=== PATIENT | female | born 1940 | race Caucasian/White ===

== ENCOUNTER 2019-11-22 09:11 | Inpatient (IN) | payer MEDICARE, SELFPAY ==
--- NOTE | ~2019-11-22 | XR_ITS ---
EXAMINATION: XR hip BI 2V w AP pelvis EXAM DATE: 11/22/2019 20:02 INDICATION: Bilateral hip pain. States history of fall several weeks ago. Pain more on the left side. TECHNIQUE: Each hip imaged independently (separate right and also left hip) 'frog leg' and frontal p rojections for interpretation. Frontal projection pelvis. Correlation is made to postoperative left hip x-ray 2003. FINDINGS: There is intact left hip arthroplasty. Possible acute nondisplaced left pubic symphysis c losed posttraumatic fracture. Bowel gas overlies the sacrum but the sacral arcuate lines appear intac t. The right hip is intact. 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 IMPRESSION: Possible acute left pubic symphysis fracture. Reviewed, dictated and finalized at location A.
--- NOTE | ~2019-11-22 | US_ITS ---
EXAMINATION: US venous doppler [facility] DATE: 11/23/2019 14:21 INDICATION: Lower limb pain and swelling. TECHNIQUE: Grayscale ultrasound images without and with compression and Doppler ultrasound images of the bilateral lower extremity veins were obtained. COMPARISON: Ultrasound 06/18/2017 FINDINGS: The visualized portions of right common femoral vein, profunda (deep) femoral vein, femoral vein, pop liteal vein, peroneal veins, posterior tibial veins, and greater saphenous vein outflow are patent. The visualized portions of left common femoral vein, profunda femoral vein, femoral vein, popliteal v ein, peroneal veins, posterior tibial veins, and greater saphenous vein outflow are patent. IMPRESSION: 1. No deep venous thrombosis. Reviewed, dictated and finalized at location A.
--- NOTE | ~2019-11-22 | XR_ITS ---
EXAMINATION: XR chest 2V DATE: 11/22/2019 10:32 INDICATION: Transient alteration of awareness. TECHNIQUE: Frontal and lateral views of the chest were obtained. COMPARISON: Chest 2 views 06/18/2017 FINDINGS: Again seen is mild elevation of left hemidiaphragm. There is mild atelectasis at the lung b ases. No pleural effusion or pneumothorax. The heart size is normal. There are old healed right rib f ractures. There is a chronic compression fracture of mid thoracic spine. There is a burst fracture of T12. IMPRESSION: 1. Mild atelectasis at the lung bases. 2. Burst fracture of T12, new from 06/18/2017, but likely chronic. Reviewed, dictated and finalized at location A.
--- NOTE | ~2019-11-22 | CT_ITS ---
EXAMINATION: CT brain wo con DATE: 11/22/2019 10:25 INDICATION: Confusion. Altered mental state. TECHNIQUE: Computed tomography (CT) of the head was performed without intravenous contrast. The mA wa s adjusted according to patient size. Iterative reconstruction technique was employed. Exam dose: 60 5.33 mGy-cm total exam DLP. COMPARISON: 12/12/2010 CT brain FINDINGS: Chronic lacunar infarcts are suggested in the area of the anterior limb of the bilateral in ternal capsules. There is nonspecific diminished attenuation of the subcortical and periventricular c erebral white matter, likely due to chronic small vessel ischemic changes. There is cerebellar and cerebral volume loss consistent with atrophy. There are bilateral basal gangl ia calcifications. Bilateral carotid siphon and vertebral artery calcifications. No intracranial mass lesion, hemorrhage, midline shift or mass effect is evident. No recent cerebrova scular accident is evident, but CT is not sensitive for detection of ischemic hyperacute CVA. No subdural or epidural hematoma. There is mild mucoperiosteal thickening of the right sphenoid sinus. Bilateral hyperostosis frontalis interna. No skull fracture or bone destruction. There is opacification of a small minority of left mastoid air cells. The mastoid air cells and paran samara sinuses are otherwise unremarkable. IMPRESSION: Cerebral and cerebellar volume loss and chronic bilateral lacunar infarcts in the region of the anterior limb of the internal capsules Cerebral atherosclerosis and chronic small vessel ischemic changes of the cerebral white matter No acute intracranial finding Reviewed, dictated and finalized at Location A. Reviewed, dictated and finalized at location A. IMPRESSION: Cerebral and cerebellar volume loss and chronic bilateral lacunar infarcts in the region of the anterior limb of the internal capsules Cerebral atherosclerosis and chronic small vessel ischemic changes of the cereb ral white matter No acute intracranial finding
[2019-11-22 09:23] VITALS: BP 130/77; PULSE 91; RESP 24; TEMP 36.7; O2SAT 96
--- NOTE | 2019-11-22 09:39 | ECG_ITS ---
Measurements Intervals [place] Rate: 94 P: 57 WI: 192 QRS: -20 QRSD: 94 T: 14 QT: 385 QTc: 482 Interpretive Statements SINUS RHYTHM LOW QRS VOLTAGE IN PRECORDIAL LEADS BORDERLINE T WAVE ABNORMALITY- ANT/INF LEADS BASELINE ARTIFACT- I, III, AVR, AVL, AVF BORDERLINE ECG Electronically Signed On 11-22-2019 11:40:10 CDT by Oren Fleming D.O.
--- NOTE | 2019-11-22 09:40 | ED.AMS ---
HPI - Altered Mental Status General Chief Complaint: Neuro Symptoms/Deficit Stated Complaint: FALL/AMS Time Seen by Provider: 11/22/19 09:28 Source: patient, EMS and old records reviewed Mode of arrival: EMS Limitations: altered mental status History of Present Illness HPI narrative: Patient is a 79-year-old female who presents to the emergency department with complaint of altered mental status. Patient lives alone. EMS is familiar with this patient and used to take calls to her home frequently for falls in the past. Patient had at one point been in a long term, but is now living alone at home again. EMS reports patient caregiver comes to her house Wednesday, Wednesday, and Wednesday and tries to help with household tasks and cleaning. Caregiver reports coming to her house this morning and noting significant disarray and filth in patient's house. Patient caregiver had gone outside and when she returned back into the house, patient had fallen and was laying on the floor confused. On EMS arrival, they noted that patient had urine and feces all over the house and the house was in utter disarray. Patient was confused and combative with them and was not appropriately answering questions. Patient did not have any focal neurologic deficits in terms of her motor function. She was noted to have dried feces on her hands. On arrival to the emergency department, nursing staff bathed patient as she had dried feces in her perineal region and was rather disheveled. On my evaluation, patient knows where she is at and knows that it is 2020. She is able to answer my questions reasonably appropriate, but is a poor historian overall. Patient is currently complaining of nausea and denying any vomiting. She denies any other current symptoms including chest pain, abdominal pain, difficulty breathing, or fever. complaint: altered mental status Onset (ago): unknown Related Data Allergies Allergy/AdvReac Type Severity Reaction Status Date / Time red dye Allergy Severe FACIAL Verified 08/31/18 09:48 SWELLING Review of Systems Review of Systems: All systems reviewed & are unremarkable except as noted in HPI and below Cardiovascular: Cardiovascular: Denies chest pain Respiratory: Respiratory: Denies cough and Denies dyspnea Gastrointestinal: Gastrointestinal: Denies abdominal pain, Denies diarrhea, Reports nausea and Denies vomiting Neurologic: Denies headache(s) PMFSH Past Medical History Medical History Depression DVT (deep venous thrombosis) Hyperlipidemia Hypertension Osteoarthritis Psoriasis Reflux esophagitis Surgical History Surgical History History of colonoscopy History of esophagogastroduodenoscopy (EGD) History of hernia repair History of total left hip arthroplasty Family History Family History (Updated 11/22/19 @ 16:32 by Thor Echevarria RN) Other Diabetes mellitus Social History Social History Smoking status: Former smoker Alcohol intake: former Substance use: never Additional living arrangements comments: Has caregiver visiting 3 days a week Gender identity (if verbalized by the patient): Female Spiritual care concerns: No Exam Const: General: cooperative, no acute distress and alert Nutritional Appearance: obese Orientation/consciousness: oriented to person, oriented to place and No oriented to time (Knows year, but not date) Limitations: altered mental status HENMT: Mouth: Yes lip normal and Yes moist mucous membranes Eyes: Conjunctivae: conjunctivae normal Pupils: Equal, round and reactive pupils present Resp: Effort & Inspection: normal respiratory effort Auscultation: clear to auscultation bilaterally Cardio: Rate: regular rate Rhythm: regular rhythm GI: GI Palp: Yes Soft to palpation and No Tenderness to
[2019-11-22] MEDS: ONDANSETRON INJ 4 MG/2 ML VIAL IV PUSH (10:01)
--- NOTE | 2019-11-22 10:17 | PC.NURSE ---
Pts residential care facility manager is Ana Bell [phone]
--- NOTE | 2019-11-22 10:18 | PC.NURSE ---
Pt taken to CT Scan
[2019-11-22 10:55] LABS: Add Urine Microscopic? YES; Appearance Urine Cloudy (Clear); Bacteria Urine Trace /hpf; Bilirubin Urine Negative (Negative); Blood Urine Negative (Negative); Color Urine Yellow (Yellow); Glucose Urine UA Negative (Negative); Ketones Urine Negative (Negative); Leukocyte Esterase Ur 2+ LEU/UL (Negative); Mucus Urine Rare /lpf; Nitrate Urine Negative (Negative); Protein Urine 2+ mg/dL (Negative); RBC Urine 0-2 /hpf (0-2); Specific Grav Ur 1.013 (1.001-1.035); Urobilinogen Urine Negative mg/dL (<2.0); WBC Urine >75 /hpf
[2019-11-22 10:58] LABS: Basophils Percent Auto 0.3 % (0.2-1.2); Eosinophils Absolute Auto 0.1 K/mm3 (0-0.3); Eosinophils Percent Auto 0.7 % (0-4.4); Hematocrit 36.4 % (37.0-47.0); Hemoglobin 11.4 g/dL (12.0-15.0); Immature Granulocyte Absolute 0.03 K/mm3 (0.00-0.031); Immature Granulocyte Percent A 0.4 % (0-0.5); Lymphocytes Absolute Auto 0.89 K/mm3 (0.9-3.2); Lymphocytes Percent Auto 13.1 % (18.3-44.2); Mean Corpuscular HGB Conc 31.3 g/dl (32-36); Mean Corpuscular Volume 95.8 fl (80-100); Mean Platelet Volume 9.8 fl (7.4-10.4); Monocytes Absolute Auto 0.3 K/mm3 (0.1-0.6); Monocytes Percent Auto 4.3 % (2.6-8.5); Neutrophils Absolute Auto 5.5 K/mm3 (1.3-6.7); Neutrophils Percent Auto 81.2 % (45.5-73.1); Platelet Count Result 179 k/mm3 (150-375); Red Cell Distribution Width 15.1 % (11.5-14.5); White Blood Count 6.8 K/mm3 (4.5-10.0)
[2019-11-22 11:08] LABS: INR 1.1; Prothrombin Time 13.4 Seconds (11.1-14.7)
[2019-11-22 11:10] LABS: Lactic Acid Reflex 1.1 mmol/L (0.7-2.1); Lipase 172 U/L (23-300)
[2019-11-22 11:21] VITALS: BP 121/76; PULSE 94; RESP 21; O2SAT 96
[2019-11-22 11:21] LABS: Troponin I < 0.012 ng/mL (0.000-0.034)
--- NOTE | 2019-11-22 11:22 | PC.NURSE ---
tried to call pts customer care specialist, per pts request but no one answered phone. No option to leave message
[2019-11-22 11:26] LABS: Alanine Aminotransferase 12 U/L (4-35); Albumin Level 3.7 g/dL (3.5-5.1); Alkaline Phosphatase 78 U/L (38-126); Aspartate Amino Transferase 30 U/L (14-36); Bilirubin,Total 0.4 mg/dL (0.2-1.3); Blood Urea Nitrogen 29 mg/dL (7-17); Calcium 8.2 mg/dL (8.4-10.2); Carbon Dioxide 21 mmol/L (22-30); Chloride 110 mmol/L (98-107); Creatine Kinase 158 U/L (30-135); Estimated CRCL calculation 30 ml/min; Estimated Glomerular Filt Rate 29; Glucose 128 mg/dL (65-105); Magnesium 2.1 mg/dL (1.6-2.3); Phosphorus 3.8 mg/dL (2.5-4.5); Potassium 3.8 mmol/L (3.4-5.0); Sodium 140 mmol/L (137-145)
[2019-11-22 12:42] LABS: Lactic Acid Reflex 0.7 mmol/L (0.7-2.1)
[2019-11-22] MEDS: SODIUM CHLORIDE 0.9% IV 1,000 ML 125 ML IV CONT (12:50)
--- NOTE | 2019-11-22 12:59 | PC.NURSE ---
called to give report on pt. Was told by RN that accepting RN was on phone with and will call me back.
--- NOTE | 2019-11-22 13:10 | ADMGEN ---
This patient, Elizabet Sanon, was admitted to Medical Room 247-. Patient/family oriented to hospital policies and general routines including ID bracelet, bed and alarms, visiting hours, pain management, procedures, bathroom and other care routines, personal items, smoking policy, room service/diet, and visiting hours. Valuables list has been completed. Information on how to activate the Rapid Response Team has been discussed. Patient/Family are encouraged to report perceived risks to care and to ask questions if they do not understand what they are told or what they should do.
[2019-11-22 14:00] VITALS: BP 106/55; PULSE 80; RESP 18; TEMP 36; O2SAT 96; BMI 32.8
[2019-11-22 14:35] VITALS: BMI 10.0
[2019-11-22 14:37] VITALS: BMI 10.0
--- NOTE | 2019-11-22 18:08 | PC.NURSE ---
Spoke with pharmacy, no current medication list available. Spoke with foster care therapist, who is bringing medication bottles to the hospital. Will input meds when they arrive.
--- NOTE | 2019-11-22 19:14 | PM.IMHP ---
H&P: HPI History of Present Illness Chief complaint: uti,dehydration,poor mobility Narrative: Elizabet Sanon is a 79 year old female. She has never been or had any children. She has a help at home that comes and helps her. Her helper found her on the floor inside of her house today. The patient was covered with feces and urine. The patient does not recall what happened prior to falling. The patient states that she has chronic diarrhea. Her caregivers Maryann 1 minutes day Wednesday and Wednesday. They come in and clean. According to your notes the patient's caregiver to gone outside when she returned back into the house patient had fallen was lying on the floor confused. The patient is awake and talking now. She was found to have a UTI and started on Rocephin. Creatinine was found to be 1.7. Head CT was read as no acute intracranial findings. Chest x-ray burst fracture of T12 new from 06/18/2017 but likely chronic. Patient stated that she used to fall lot in the past. And started on ceftriaxone. Date of service is 11/22/2019. She denies any fever chills. Review of Systems Review of Systems: Narrative: She denies any fever chills. All systems reviewed & are unremarkable except as noted in HPI and below Constitutional: Constitutional: Reports as per HPI and Reports no additional constitutional complaints Eyes: Eyes: Reports as per HPI and Reports no additional eye complaints ENT: Reports system reviewed and no additional complaints, except as documented and Reports Normal hearing present Cardiovascular: Cardiovascular: Reports no additional cardiovascular complaints Respiratory: Respiratory: Reports no additional respiratory complaints and Reports no additional respiratory complaints Gastrointestinal: Gastrointestinal: Reports as per HPI and Reports no additional gastrointestinal complaints Musculoskeletal: Musculoskeletal: Reports no additional musculoskeletal complaints Integumentary/Breasts: Skin/Breast: Reports system reviewed and no additional complaints, except as docu and Reports as per HPI Neurologic: Reports system reviewed and no additional complaints, except as documented, Reports as per HPI and Reports Normal hearing present Psychiatric: Psychiatric: Reports no additional psychiatric complaints and Reports as per HPI Endocrine: Endocrine: Reports no additional endocrine complaints Hematologic/Lymphatic: Hematologic/Lymphatic: Reports no additional hematologic/lymphatic complaints Allergic/Immunologic: Allergic/Immunologic: Reports no additional allergic/immunologic complaints [facility] Past Medical History Medical History (Updated 11/22/19 @ 19:27 by Ivelisse Womack NP) Chronic diarrhea Depression DVT (deep venous thrombosis) Right leg Hyperlipidemia Hypertension Osteoarthritis Psoriasis Reflux esophagitis Surgical History Surgical History History of colonoscopy History of esophagogastroduodenoscopy (EGD) History of hernia repair History of total left hip arthroplasty Family History Family History Other Diabetes mellitus Social History Social History (Updated 11/22/19 @ 19:23 by Ivelisse Womack NP) Social History: 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 She has never been or had any children. She said she used to smoke many years ago. She is socially drink but no longer drinks no illicit drugs or marijuana. She desires to be a full code and chooses her 2 nephews to be her durable power city attorney for healthcare. Smoking status: Former smoker Alcohol intake: former Substance use: never Additional living arrangements comments: Has caregiver visiting 3 days a week Occupation/Education: retired Gender identity (if verbalized by the patient): Female Spiritual care concerns: No Meds Home Medication
[2019-11-22 22:00] VITALS: BP 119/70; PULSE 73; RESP 16; TEMP 36.4; O2SAT 95
[2019-11-23] MEDS: TOLNAFTATE 1% POWDER 45 GM BTL 1 APPLIC TOPICAL ×3 (01:06→20:16)
[2019-11-23] MEDS: SODIUM CHLORIDE 0.9% IV 1,000 ML 125 ML IV CONT ×3 (03:44→20:16)
[2019-11-23 05:49] VITALS: BP 141/80; PULSE 72; RESP 16; TEMP 36.4; O2SAT 95
[2019-11-23 06:27] LABS: Basophils Percent Auto 0.4 % (0.2-1.2); Eosinophils Absolute Auto 0.2 K/mm3 (0-0.3); Eosinophils Percent Auto 3.9 % (0-4.4); Hematocrit 30.9 % (37.0-47.0); Hemoglobin 9.7 g/dL (12.0-15.0); Immature Granulocyte Absolute 0.01 K/mm3 (0.00-0.031); Immature Granulocyte Percent A 0.2 % (0-0.5); Lymphocytes Percent Auto 38.7 % (18.3-44.2); Mean Corpuscular HGB Conc 31.4 g/dl (32-36); Mean Corpuscular Hemoglobin 29.6 pg (26-34); Mean Corpuscular Volume 94.2 fl (80-100); Mean Platelet Volume 9.6 fl (7.4-10.4); Monocytes Absolute Auto 0.4 K/mm3 (0.1-0.6); Monocytes Percent Auto 8.1 % (2.6-8.5); Neutrophils Absolute Auto 2.6 K/mm3 (1.3-6.7); Neutrophils Percent Auto 48.7 % (45.5-73.1); Platelet Count Result 158 k/mm3 (150-375); Red Blood Count 3.28 M/mm3 (4.2-5.4); White Blood Count 5.4 K/mm3 (4.5-10.0)
[2019-11-23 06:36] LABS: Alanine Aminotransferase 10 U/L (4-35); Alkaline Phosphatase 54 U/L (38-126); Aspartate Amino Transferase 28 U/L (14-36); Bilirubin,Total 0.5 mg/dL (0.2-1.3); Blood Urea Nitrogen 27 mg/dL (7-17); Calcium 7.3 mg/dL (8.4-10.2); Carbon Dioxide 19 mmol/L (22-30); Chloride 114 mmol/L (98-107); Estimated CRCL calculation 31 ml/min; Estimated Glomerular Filt Rate 36; Glucose 93 mg/dL (65-105); Potassium 4.3 mmol/L (3.4-5.0); Sodium 138 mmol/L (137-145)
[2019-11-23] MEDS: ATORVASTATIN 10 MG TABLET PO (10:03)
[2019-11-23] MEDS: ASPIRIN 81 MG ENTERIC TABLET PO (10:03)
[2019-11-23] MEDS: SERTRALINE HCL 50 MG TABLET 200 MG PO (10:03)
[2019-11-23] MEDS: APIXABAN 5 MG TABLET PO (10:03)
[2019-11-23 11:11] LABS: Thyroid Stimulating Hormone Reflex 0.768 uIU/mL (0.465-4.68)
--- NOTE | 2019-11-23 12:38 | PM.IMPN ---
Progress Note: A&P Assessment and Plan (1) UTI (urinary tract infection): Qualifiers: Hematuria presence: without hematuria Urinary tract infection type: site unspecified Qualified Code(s): N39.0 - Urinary tract infection, site not specified Code(s): N39.0 - Urinary tract infection, site not specified Status: Acute Assessment and Plan: . Awaiting cultures. 11/23/19 12:38 79-year-old female who lives alone at home and history of falls on and off was found by her caregiver on the floor and had a feces and urine around her EMS was called and patient was brought to the emergency department for further evaluate patient was quite disoriented upon arrival of the EMS and was not able to provide detail history review of symptom, today patient states this he had been falling on and off and was recently admitted in the hospital and had a rehab bed the nursing and discharged back home, there is no history of seizure, x-ray of the hip and pelvis showed possible acute left pubic symphysis fracture. Patient stated sees a chronic arthritis and pain along her hips and joints and had a difficult time with ambulation now with a fracture of the pelvis, will have a PT OT evaluate the patient, there was a concern the patient has a swelling of the bilateral lower extremities venous Doppler is negative for DVT. also patient UA showes leukoestrase and elevated WBC most likle UTI, started patient on rocephin, will follow up culture and sensitivity. (2) Depression: Code(s): F32.9 - Major depressive disorder, single episode, unspecified Status: Chronic Assessment and Plan: Awaiting home medications so we can restart home medications. (3) Chronic diarrhea: Code(s): K52.9 - Noninfective gastroenteritis and colitis, unspecified Status: Chronic Assessment and Plan: Patient stated she has had diarrhea for years. (4) Hypertension: Code(s): I10 - Essential (primary) hypertension Status: Chronic Assessment and Plan: Waiting her home medication list. Her blood pressure is on the soft side so we could hold off on her blood pressure medicine tonight. (5) Hyperlipidemia: Code(s): E78.5 - Hyperlipidemia, unspecified Status: Chronic Assessment and Plan: Waiting for home medication list. (6) Tinea: Code(s): B35.9 - Dermatophytosis, unspecified Status: Acute Assessment and Plan: Continue with open a powder. (7) ARF (acute renal failure): Code(s): N17.9 - Acute kidney failure, unspecified Status: Acute Assessment and Plan: Continue with IV fluids. Recheck labs in the morning. (8) Left hip pain: Code(s): M25.552 - Pain in left hip Status: Acute Assessment and Plan: X-ray left hip and pelvis. PT OT evaluation and point of care technician for possible rehab. Subjective Date/time seen: 11/23/19 12:38 79-year-old female who lives alone at home and history of falls on and off was found by her caregiver on the floor and had a feces and urine around her EMS was called and patient was brought to the emergency department for further evaluate patient was quite disoriented upon arrival of the EMS and was not able to provide detail history review of symptom, today patient states this he had been falling on and off and was recently admitted in the hospital and had a rehab bed the nursing and discharged back home, there is no history of seizure, x-ray of the hip and pelvis showed possible acute left pubic symphysis fracture. Patient stated sees a chronic arthritis and pain along her hips and joints and had a difficult time with ambulation now with a fracture of the pelvis, will have a PT OT evaluate the patient, there was a concern the patient has a swelling of the bilateral lower extremities venous Doppler is negative for DVT. also patient UA showes leukoestrase and elevated WBC most likle UTI, started patient on rocephin, will follow
[2019-11-23 13:08] LABS: Creatinine Urine 54.9 mg/dL
[2019-11-23 13:27] LABS: MALB Creatinine Ratio 460.3 mg/g (0-30); Microalbumin Urine Random 252.7 mg/L (0-16.7)
[2019-11-23 13:39] VITALS: BP 112/56; PULSE 72; RESP 18; TEMP 36; O2SAT 94
[2019-11-23 13:39] LABS: Potassium Urine Random 8.7 meq/L; Sodium Urine Random 108 meq/L
[2019-11-23 22:00] VITALS: BP 131/74; PULSE 71; RESP 18; TEMP 36.3; O2SAT 96
[2019-11-24 05:52] LABS: Hemoglobin 9.9 g/dL (12.0-15.0); Mean Corpuscular HGB Conc 30.9 g/dl (32-36); Mean Corpuscular Hemoglobin 30.1 pg (26-34); Mean Corpuscular Volume 97.3 fl (80-100); Mean Platelet Volume 10.4 fl (7.4-10.4); Platelet Count Result 147 k/mm3 (150-375); Red Blood Count 3.29 M/mm3 (4.2-5.4); White Blood Count 5.5 K/mm3 (4.5-10.0)
[2019-11-24 06:00] VITALS: BP 119/89; PULSE 65; RESP 18; TEMP 36.3; O2SAT 96
[2019-11-24] MEDS: SODIUM CHLORIDE 0.9% IV 1,000 ML 125 ML IV CONT ×2 (09:27→18:17)
[2019-11-24] MEDS: APIXABAN 5 MG TABLET PO (09:28)
[2019-11-24] MEDS: ASPIRIN 81 MG ENTERIC TABLET PO (09:28)
[2019-11-24] MEDS: SERTRALINE HCL 50 MG TABLET 200 MG PO (09:28)
[2019-11-24] MEDS: ATORVASTATIN 10 MG TABLET PO (09:28)
[2019-11-24] MEDS: TOLNAFTATE 1% POWDER 45 GM BTL 1 APPLIC TOPICAL ×2 (09:30→20:35)
[2019-11-24 10:51] LABS: Blood Urea Nitrogen 21 mg/dL (7-17); Calcium 7.5 mg/dL (8.4-10.2); Carbon Dioxide 20 mmol/L (22-30); Chloride 116 mmol/L (98-107); Estimated CRCL calculation 31 ml/min; Estimated Glomerular Filt Rate 36; Glucose 95 mg/dL (65-105); Potassium 3.8 mmol/L (3.4-5.0); Sodium 141 mmol/L (137-145)
[2019-11-24] MEDS: LIDOCAINE 5% PATCH 1 PATCH TRANSDERM (11:13)
--- NOTE | 2019-11-24 13:01 | PM.IMPN ---
Progress Note: A&P Assessment and Plan (1) UTI (urinary tract infection): Qualifiers: Hematuria presence: without hematuria Urinary tract infection type: site unspecified Qualified Code(s): N39.0 - Urinary tract infection, site not specified Code(s): N39.0 - Urinary tract infection, site not specified Status: Acute Assessment and Plan: 11/24/19 13:01 79-year-old female who lives alone at home and history of falls on and off was found by her caregiver on the floor and had a feces and urine around her EMS was called and patient was brought to the emergency department for further evaluate patient was quite disoriented upon arrival of the EMS and was not able to provide detail history review of symptom, today patient states this he had been falling on and off and was recently admitted in the hospital and had a rehab bed the nursing and discharged back home, there is no history of seizure, x-ray of the hip and pelvis showed possible acute left pubic symphysis fracture. Patient stated sees a chronic arthritis and pain along her hips and joints and had a difficult time with ambulation now with a fracture of the pelvis, will have a PT OT evaluate the patient, there was a concern the patient has a swelling of the bilateral lower extremities venous Doppler is negative for DVT. also patient UA showes leukoestrase and elevated WBC most likle UTI, started patient on rocephin, will follow up culture and sensitivity. on 11/23 Urine culture is growing E coli ESBL resistant to Rocephin will start the patient on ertapenem, patient denies any abdominal pain nausea or vomiting fever or chills, clinically patient says the pain in her pelvis and left hip is persist difficulty with physical therapy will start the patient on low-dose of tramadol to help her with the pain as well as lidocaine patch, will consult orthopedic for further recommendation, patient will benefit from acute rehab before going home (2) Depression: Code(s): F32.9 - Major depressive disorder, single episode, unspecified Status: Chronic Assessment and Plan: Awaiting home medications so we can restart home medications. (3) Chronic diarrhea: Code(s): K52.9 - Noninfective gastroenteritis and colitis, unspecified Status: Chronic Assessment and Plan: Patient stated she has had diarrhea for years. (4) Hypertension: Code(s): I10 - Essential (primary) hypertension Status: Chronic Assessment and Plan: Waiting her home medication list. Her blood pressure is on the soft side so we could hold off on her blood pressure medicine tonight. (5) Hyperlipidemia: Code(s): E78.5 - Hyperlipidemia, unspecified Status: Chronic Assessment and Plan: Waiting for home medication list. (6) Tinea: Code(s): B35.9 - Dermatophytosis, unspecified Status: Acute Assessment and Plan: Continue with open a powder. (7) ARF (acute renal failure): Code(s): N17.9 - Acute kidney failure, unspecified Status: Acute Assessment and Plan: Continue with IV fluids. Recheck labs in the morning. (8) Left hip pain: Code(s): M25.552 - Pain in left hip Status: Acute Assessment and Plan: X-ray left hip and pelvis. PT OT evaluation and residential care officer for possible rehab. Plan is above Subjective Date/time seen: 11/24/19 13:01 79-year-old female who lives alone at home and history of falls on and off was found by her caregiver on the floor and had a feces and urine around her EMS was called and patient was brought to the emergency department for further evaluate patient was quite disoriented upon arrival of the EMS and was not able to provide detail history review of symptom, today patient states this he had been falling on and off and was recently admitted in the hospital and had a rehab bed the nursing and discharged back home, there is no history of seizure, x-ray of the hip and pe
[2019-11-24 13:25] VITALS: BP 126/68; PULSE 65; RESP 18; TEMP 36.3; O2SAT 96
[2019-11-24 22:00] VITALS: BP 137/67; PULSE 68; RESP 18; TEMP 36.1; O2SAT 98
[2019-11-25] MEDS: SODIUM CHLORIDE 0.9% IV 1,000 ML 125 ML IV CONT ×2 (00:41→09:03)
[2019-11-25 05:24] LABS: Hematocrit 29.8 % (37.0-47.0); Hemoglobin 9.2 g/dL (12.0-15.0); Mean Corpuscular HGB Conc 30.9 g/dl (32-36); Mean Corpuscular Hemoglobin 29.5 pg (26-34); Mean Corpuscular Volume 95.5 fl (80-100); Mean Platelet Volume 9.8 fl (7.4-10.4); Platelet Count Result 141 k/mm3 (150-375); Red Blood Count 3.12 M/mm3 (4.2-5.4); Red Cell Distribution Width 14.8 % (11.5-14.5); White Blood Count 5.3 K/mm3 (4.5-10.0)
[2019-11-25 05:39] LABS: Blood Urea Nitrogen 21 mg/dL (7-17); Calcium 7.3 mg/dL (8.4-10.2); Carbon Dioxide 21 mmol/L (22-30); Chloride 114 mmol/L (98-107); Estimated CRCL calculation 33 ml/min; Estimated Glomerular Filt Rate 40; Glucose 91 mg/dL (65-105); Potassium 3.6 mmol/L (3.4-5.0); Sodium 140 mmol/L (137-145)
[2019-11-25 06:00] VITALS: BP 146/82; PULSE 66; RESP 18; TEMP 36.1; O2SAT 98
--- NOTE | 2019-11-25 06:54 | PM.PNORT ---
Subjective Subjective Date/Time Seen: 11/25/19 06:54 Objective Data Vital Signs Vital Signs: Vital Signs - 24 hr 11/24/19 13:25 11/24/19 22:00 11/25/19 06:00 Temperature 36.3 C L 36.1 C L 36.1 C L Pulse Rate 65 68 66 Respiratory Rate 18 18 18 Blood Pressure 126/68 137/67 146/82 H Pulse Oximetry 96 98 98 Intake/Output Intake/Output: Intake & Output 11/22/19 11/23/19 11/24/19 11/25/19 23:59 23:59 23:59 23:59 Intake Total 390 3340 3785 1300 Balance 390 3340 3785 1300 Meds/Results Medications: Active Medications Generic Name Dose Route Start Last Admin Trade Name Freq PRN Reason Stop Dose Admin Alendronate Sodium 70 mg 11/29/19 06:30 Fosamax PO We@0630 RUDDY Apixaban 5 mg 11/23/19 09:00 11/24/19 09:28 Eliquis PO 5 mg DAILY RUDDY Administration Aspirin 81 mg 11/23/19 09:00 11/24/19 09:28 Aspirin Ec PO 81 mg DAILY RUDDY Administration Atorvastatin Calcium 10 mg 11/23/19 09:00 11/24/19 09:28 Lipitor PO 10 mg DAILY RUDDY Administration Sodium Chloride 1,000 mls @ 125 mls/hr 11/22/19 12:05 11/25/19 00:42 Normal Saline Iv IV CONT Not Given .Q8H RUDDY Ceftriaxone Sodium/Dextrose 1 gm in 50 mls @ 100 mls/hr 11/23/19 12:00 11/24/19 13:05 Rocephin 1 Gm/D5w 50 Ml IVPB Infused Q24H RUDDY Infusion Lidocaine 1 patch 11/24/19 09:00 11/24/19 11:13 Lidoderm TRANSDERM 1 patch DAILY RUDDY Administration Magnesium Gluconate 27 mg 11/23/19 09:00 11/24/19 09:28 Magonate PO 12/23/19 09:01 27 mg DAILY RUDDY Administration Sertraline HCl 200 mg 11/23/19 09:00 11/24/19 09:28 Zoloft PO 200 mg DAILY RUDDY Administration Tolnaftate 1 applic 11/22/19 21:00 11/24/19 20:35 Tolnaftate 1% Powder TOPICAL 1 applic Q12HR RUDDY Administration Tramadol HCl 25 mg 11/24/19 09:48 11/24/19 20:32 Ultram PO 25 mg Q6H PRN Administration Pain Rated 4-6 Radiology Results: ITS Impressions Head CT 11/22/19 10:31 IMPRESSION: Cerebral and cerebellar volume loss and chronic bilateral lacunar infarcts in the region of the anterior limb of the internal capsules Cerebral atherosclerosis and chronic small vessel ischemic changes of the cerebral white matter No acute intracranial finding Chest X-Ray 11/22/19 10:35 IMPRESSION: 1. Mild atelectasis at the lung bases. 2. Burst fracture of T12, new from 06/18/2017, but likely chronic. Hip/Pelvis X-Ray 11/22/19 20:08 IMPRESSION: Possible acute left pubic symphysis fracture. Venous Doppler Study 11/23/19 14:28 IMPRESSION: 1. No deep venous thrombosis. Labs Labs: Laboratory Results - last 24 hr 11/24/19 11/25/19 11/25/19 08:49 05:02 05:02 WBC 5.3 RBC 3.12 L Hgb 9.2 L Hct 29.8 L MCV 95.5 MCH 29.5 MCHC 30.9 L RDW 14.8 H Plt Count 141 L MPV 9.8 Sodium 141 140 Potassium 3.8 3.6 Chloride 116 H 114 H Carbon Dioxide 20 L 21 L BUN 21 H 21 H Creatinine 1.40 H 1.30 H Estim Creat Clear Calc 31 33 Estimated GFR 36 L 40 L Glucose 95 91 Calcium 7.5 L 7.3 L Quality VTE Prophylaxis VTE prophylaxis: mechanical ordered
--- NOTE | 2019-11-25 07:02 | PM.CNOR ---
Assessment and Plan Additional Plan Hip pain Left. No trauma. Has previous TKA b me, 1 years ago??? Has tenderness groin left X-rays show pelvic ramus FX Recommend conservative treatment Weight Bearing as tolerated F/U 2 weeks Hip looks good History of Present Illness HPI Consult date: 11/25/19 Chief complaint: uti,dehydration,poor mobility Review of Systems Musculoskeletal: Musculoskeletal: Reports as per HPI and Reports abnormal gait [facility] Past Medical History Medical History Chronic diarrhea Depression DVT (deep venous thrombosis) Right leg Hyperlipidemia Hypertension Osteoarthritis Psoriasis Reflux esophagitis Surgical History Surgical History History of colonoscopy History of esophagogastroduodenoscopy (EGD) History of hernia repair History of total left hip arthroplasty Family History Family History Other Diabetes mellitus Social History Social History Social History: 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 She has never been or had any children. She said she used to smoke many years ago. She is socially drink but no longer drinks no illicit drugs or marijuana. She desires to be a full code and chooses her 2 nephews to be her durable power immigration attorney for healthcare. Smoking status: Former smoker Alcohol intake: former Substance use: never Additional living arrangements comments: Has caregiver visiting 3 days a week Occupation/Education: retired Gender identity (if verbalized by the patient): Female Spiritual care concerns: No Meds Home Medications and Allergies Home Medications Medication Instructions Recorded Confirmed Type alendronate 70 mg PO WEEKLY 11/22/19 11/22/19 History apixaban [Eliquis] 5 mg PO DAILY 11/22/19 11/22/19 History aspirin 81 mg PO DAILY 11/22/19 11/22/19 History atorvastatin 10 mg PO DAILY 11/22/19 11/22/19 History furosemide 40 mg PO DAILY 11/22/19 11/22/19 History magnesium gluconate [Mag-G] 500 mg PO DAILY 11/22/19 11/22/19 History nystatin [Nystop] 1 applic TOPICAL BID 11/22/19 11/22/19 History sertraline 200 mg PO DAILY 11/22/19 11/22/19 History Allergies Allergy/AdvReac Type Severity Reaction Status Date / Time red dye Allergy Severe FACIAL Verified 08/31/18 09:48 SWELLING Vital Signs Vital Signs - 24 hr 11/24/19 13:25 11/24/19 22:00 11/25/19 06:00 Temperature 36.3 C L 36.1 C L 36.1 C L Pulse Rate 65 68 66 Respiratory Rate 18 18 18 Blood Pressure 126/68 137/67 146/82 H Pulse Oximetry 96 98 98 Results Labs Result Diagrams: 11/25/19 05:02 11/25/19 05:02 Labs: Abnormal lab results 11/24/19 11/25/19 11/25/19 Range/Units 08:49 05:02 05:02 RBC 3.12 L (4.2-5.4) M/mm3 Hgb 9.2 L (12.0-15.0) g/dL Hct 29.8 L (37.0-47.0) % MCHC 30.9 L (32-36) g/dl RDW 14.8 H (11.5-14.5) % Plt Count 141 L (150-375) k/mm3 Chloride 116 H 114 H (98-107) mmol/L Carbon Dioxide 20 L 21 L (22-30) mmol/L BUN 21 H 21 H (7-17) mg/dL Creatinine 1.40 H 1.30 H (0.7-1.0) mg/dL Estimated GFR 36 L 40 L (59 - ) Calcium 7.5 L 7.3 L (8.4-10.2) mg/dL H & H 11/22/19 11/23/19 11/24/19 Range/Units 10:45 06:05 05:30 Hgb 11.4 L 9.7 L 9.9 L (12.0-15.0) g/dL Hct 36.4 L 30.9 L 32.0 L (37.0-47.0) % 11/25/19 Range/Units 05:02 Hgb 9.2 L (12.0-15.0) g/dL Hct 29.8 L (37.0-47.0) % Coagulation 11/22/19 Range/Units 10:45 INR 1.1 All other labs normal. Quality VTE Prophylaxis VTE prophylaxis: mechanical ordered
[2019-11-25] MEDS: SERTRALINE HCL 50 MG TABLET 200 MG PO (09:04)
[2019-11-25] MEDS: ATORVASTATIN 10 MG TABLET PO (09:04)
[2019-11-25] MEDS: ASPIRIN 81 MG ENTERIC TABLET PO (09:04)
[2019-11-25] MEDS: LIDOCAINE 5% PATCH 1 PATCH TRANSDERM (09:04)
[2019-11-25] MEDS: APIXABAN 5 MG TABLET PO (09:04)
[2019-11-25] MEDS: TOLNAFTATE 1% POWDER 45 GM BTL 1 APPLIC TOPICAL (09:04)
--- NOTE | 2019-11-25 11:40 | PM.DS ---
DS: Diagnosis Admitting Diagnosis Admitting Diagnosis: Urinary tract infection, site not specified Discharge Diagnosis (1) UTI (urinary tract infection): Qualifiers: Hematuria presence: without hematuria Urinary tract infection type: site unspecified Qualified Code(s): N39.0 - Urinary tract infection, site not specified Code(s): N39.0 - Urinary tract infection, site not specified Status: Acute Assessment and Plan: 11/24/19 13:01 79-year-old female who lives alone at home and history of falls on and off was found by her caregiver on the floor and had a feces and urine around her EMS was called and patient was brought to the emergency department for further evaluate patient was quite disoriented upon arrival of the EMS and was not able to provide detail history review of symptom, today patient states this he had been falling on and off and was recently admitted in the hospital and had a rehab bed the nursing and discharged back home, there is no history of seizure, x-ray of the hip and pelvis showed possible acute left pubic symphysis fracture. Patient stated sees a chronic arthritis and pain along her hips and joints and had a difficult time with ambulation now with a fracture of the pelvis, will have a PT OT evaluate the patient, there was a concern the patient has a swelling of the bilateral lower extremities venous Doppler is negative for DVT. also patient UA showes leukoestrase and elevated WBC most likle UTI, started patient on rocephin, will follow up culture and sensitivity. on 11/23 Urine culture is growing E coli ESBL resistant to Rocephin will start the patient on ertapenem, patient denies any abdominal pain nausea or vomiting fever or chills, clinically patient says the pain in her pelvis and left hip is persist difficulty with physical therapy will start the patient on low-dose of tramadol to help her with the pain as well as lidocaine patch, will consult orthopedic for further recommendation, patient will benefit from acute rehab before going home (2) Depression: Code(s): F32.9 - Major depressive disorder, single episode, unspecified Status: Chronic Assessment and Plan: Awaiting home medications so we can restart home medications. (3) Chronic diarrhea: Code(s): K52.9 - Noninfective gastroenteritis and colitis, unspecified Status: Chronic Assessment and Plan: Patient stated she has had diarrhea for years. (4) Hypertension: Code(s): I10 - Essential (primary) hypertension Status: Chronic Assessment and Plan: Waiting her home medication list. Her blood pressure is on the soft side so we could hold off on her blood pressure medicine tonight. (5) Hyperlipidemia: Code(s): E78.5 - Hyperlipidemia, unspecified Status: Chronic Assessment and Plan: Waiting for home medication list. (6) Tinea: Code(s): B35.9 - Dermatophytosis, unspecified Status: Acute Assessment and Plan: Continue with open a powder. (7) ARF (acute renal failure): Code(s): N17.9 - Acute kidney failure, unspecified Status: Acute Assessment and Plan: Continue with IV fluids. Recheck labs in the morning. (8) Left hip pain: Code(s): M25.552 - Pain in left hip Status: Acute Assessment and Plan: X-ray left hip and pelvis. PT OT evaluation and careers adviser for possible rehab. Plan is above DS: Summary Hospital Course Reason for hospitalization: Elizabet Sanon is a 79 year old female. She has never been or had any children. She has a help at home that comes and helps her. Her helper found her on the floor inside of her house today. The patient was covered with feces and urine. The patient does not recall what happened prior to falling. The patient states that she has chronic diarrhea. Her caregivers Maryann 1 minutes day Wednesday and Wednesday. They come in and clean. According to your notes
--- NOTE | 2019-11-25 12:09 | PC.NURSE ---
Report called to JULIET Yañez at [place]. All questions and concerns answered at this time.
[2019-11-27 04:21] LABS: Osmolality, Urine 466 mOsm/kg (50-1200)
[2019-11-28 00:15] LABS: Myoglobin, Urine <27 mcg/L (<28)
[2019-11-29 02:10] LABS: CK-BB None Detected (None Detected); CK-MB 0 % (<5); CK-MM 100 % (95-100)
== END 2019-11-25 13:40 | DRG 690 ==
LOC: ANHED 12:14 → ANH2MED 13:02
PROVIDERS: Nurse Practitioner; Admitting Provider Internal Medicine; Emergency Provider Emergency Medicine; PCP Nurse Practitioner Adult Health; Visit Provider Family Medicine
DX: N39.0 Urinary tract infection, site not specified (principal); N17.9 Acute kidney failure, unspecified; Z16.19 Resistance to other specified beta lactam antibiotics; S32.592A Other specified fracture of left pubis, initial encounter for closed fracture; B96.20 Unspecified Escherichia coli [E. coli] as the cause of diseases classified elsewhere; E86.0 Dehydration; F32.9 Major depressive disorder, single episode, unspecified; K52.9 Noninfective gastroenteritis and colitis, unspecified; I10 Essential (primary) hypertension; E78.5 Hyperlipidemia, unspecified; B35.9 Dermatophytosis, unspecified; M25.552 Pain in left hip; M19.90 Unspecified osteoarthritis, unspecified site; L40.9 Psoriasis, unspecified; Z96.641 Presence of right artificial hip joint; Z91.81 History of falling; Z86.718 Personal history of other venous thrombosis and embolism; Z87.891 Personal history of nicotine dependence; W19.XXXA Unspecified fall, initial encounter
CPT/HCPCS: 36415; 51701; 70450; 71046; 73521; 80048; 80053; 81001; 82043; 82550; 82552; 83605; 83690; 83735; 83874; 83935; 84100; 84133; 84300; 84443; 84484; 85025; 85027; 85610; 85730; 87040; 87077; 87086; 87088; 87186; 93005; 93970; 96361; 96374; 96375; 97110; 97162; 97165; 97530; 97535; 99285; A9270; G0378; J0696; J2405; J7030

== ENCOUNTER 2020-04-14 08:03 | Emergency (ER) | payer MEDICARE, SELFPAY ==
--- NOTE | ~2020-04-14 | XR_ITS ---
EXAMINATION: XR chest 2V EXAM DATE: 04/14/2020 08:34 INDICATION: Weakness, right leg giving out. TECHNIQUE: Frontal and lateral projections of the chest obtained and reviewed. Comparison is made to prior examination from 11/22/2019. FINDINGS: The lungs are clear. There are no pleural effusions. The cardiomediastinal silhouette is within normal limits. There is no pneumothorax suspected. There is old right 7th rib fracture poste rolaterally. Elevated left hemidiaphragm with air-filled colon below. IMPRESSION: No acute cardiopulmonary findings. Reviewed, dictated and finalized at location A.
[2020-04-14 08:11] VITALS: BP 116/68; PULSE 74; RESP 18; TEMP 36.3; O2SAT 99
--- NOTE | 2020-04-14 08:11 | ECG_ITS ---
Measurements Intervals [place] Rate: 68 P: 10 CT: 159 QRS: -24 QRSD: 97 T: 4 QT: 450 QTc: 482 Interpretive Statements SINUS RHYTHM MINIMAL Q WAVES- HIGH LATERAL LEADS BORDERLINE T WAVE ABNORMALITY- INFERIOR LEADS BASELINE ARTIFACT- V4-V6 BORDERLINE ECG Electronically Signed On 04-14-2020 8:29:16 CDT by Oren Fleming D.O.
[2020-04-14 08:21] VITALS: BP 116/68; PULSE 90; RESP 23; O2SAT 99
[2020-04-14 08:53] LABS: Basophils Percent Auto 0.5 % (0.2-1.2); Eosinophils Absolute Auto 0.3 K/mm3 (0-0.3); Eosinophils Percent Auto 3.8 % (0-4.4); Hematocrit 30.3 % (37.0-47.0); Hemoglobin 9.7 g/dL (12.0-15.0); Immature Granulocyte Absolute 0.02 K/mm3 (0.00-0.031); Immature Granulocyte Percent A 0.3 % (0-0.5); Lymphocytes Absolute Auto 2.03 K/mm3 (0.9-3.2); Lymphocytes Percent Auto 30.9 % (18.3-44.2); Mean Corpuscular Hemoglobin 29.3 pg (26-34); Mean Corpuscular Volume 91.5 fl (80-100); Mean Platelet Volume 9.9 fl (7.4-10.4); Monocytes Absolute Auto 0.5 K/mm3 (0.1-0.6); Monocytes Percent Auto 7.8 % (2.6-8.5); Neutrophils Absolute Auto 3.7 K/mm3 (1.3-6.7); Neutrophils Percent Auto 56.7 % (45.5-73.1); Platelet Count Result 192 k/mm3 (150-375); Red Blood Count 3.31 M/mm3 (4.2-5.4); Red Cell Distribution Width 15.9 % (11.5-14.5); White Blood Count 6.6 K/mm3 (4.5-10.0)
[2020-04-14 09:05] LABS: Alanine Aminotransferase 10 U/L (4-35); Albumin Level 3.4 g/dL (3.5-5.1); Alkaline Phosphatase 92 U/L (38-126); Anion Gap 10 mmol/L (8-16); Aspartate Amino Transferase 25 U/L (14-36); Bilirubin,Total 0.3 mg/dL (0.2-1.3); Blood Urea Nitrogen 33 mg/dL (7-17); Calcium 7.8 mg/dL (8.4-10.2); Carbon Dioxide 22 mmol/L (22-30); Chloride 108 mmol/L (98-107); Estimated CRCL calculation 23 ml/min; Estimated Glomerular Filt Rate 26; Glucose 106 mg/dL (65-105); Potassium 3.8 mmol/L (3.4-5.0); Sodium 140 mmol/L (137-145)
[2020-04-14 09:18] LABS: Add Urine Microscopic? YES; Appearance Urine Cloudy (Clear); Bacteria Urine 4+ /hpf; Bilirubin Urine Negative (Negative); Blood Urine 1+ (Negative); Color Urine Yellow (Yellow); Glucose Urine UA Negative (Negative); Ketones Urine Negative (Negative); Leukocyte Esterase Ur 3+ LEU/UL (Negative); Mucus Urine Rare /lpf; Nitrate Urine Positive (Negative); Protein Urine 1+ mg/dL (Negative); Specific Grav Ur 1.015 (1.001-1.035); Squamous Epithelial Cell Urine Moderate /hpf (Few); WBC Urine >75 /hpf
[2020-04-14 09:43] VITALS: BP 145/104; PULSE 68; RESP 20; O2SAT 97
--- NOTE | 2020-04-14 11:35 | PC.NURSE ---
PT AMBULATED TO BATHROOM ASSIST X1. STATES USES WALKER AT HOME. C/O MILD BILATERAL KNEE PAIN WHICH SHE STATES IS CHRONIC
[2020-04-14 12:00] VITALS: BP 158/84; PULSE 70; RESP 20; O2SAT 100
--- NOTE | 2020-04-14 12:05 | ED.GENADULT ---
HPI - General Adult General Chief complaint: Weakness Stated complaint: weakness and swelling in legs Time Seen by Provider: 04/14/20 08:38 History of Present Illness HPI narrative: Patient is a 80-year-old female who presents the ER with knee pain. Reports chronic bilateral knee pain from her arthritis. Reports its increased today and made it more difficult for her to walk. No falls or direct trauma. She has applied a lidocaine patch to left knee for her chronic pain. Denies any fevers or chills. Denies generalized weakness. She has not struck her head. Also denies urinary frequency or urgency. Reports she has chronic diarrhea. Related Data Home Medications Medication Instructions Recorded Confirmed Eliquis 5 mg PO DAILY 11/22/19 11/22/19 alendronate 70 mg PO WEEKLY 11/22/19 11/22/19 aspirin 81 mg PO DAILY 11/22/19 11/22/19 atorvastatin 10 mg PO DAILY 11/22/19 11/22/19 furosemide 40 mg PO DAILY 11/22/19 11/22/19 magnesium gluconate [Mag-G] 500 mg PO DAILY 11/22/19 11/22/19 nystatin [Nystop] 1 applic TOPICAL BID 11/22/19 11/22/19 sertraline 200 mg PO DAILY 11/22/19 11/22/19 Allergies Allergy/AdvReac Type Severity Reaction Status Date / Time red dye Allergy Severe FACIAL Verified 08/31/18 09:48 SWELLING Review of Systems Review of Systems: All systems reviewed & are unremarkable except as noted in HPI and below Constitutional: Constitutional: Denies chills, Denies fever(s) and Denies weakness ENT: Denies nasal congestion and Denies sore throat Cardiovascular: Cardiovascular: Denies chest pain and Denies radiating jaw, neck or arm pain Respiratory: Respiratory: Denies cough, Denies dyspnea and Denies wheezing Gastrointestinal: Gastrointestinal: Denies abdominal pain, Reports diarrhea, Denies nausea and Denies vomiting Genitourinary: Genitourinary: Denies nocturia and Denies dysuria Musculoskeletal: Musculoskeletal: Reports arthralgias and Denies joint swelling [facility] Social History Social History Social History: 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 She has never been or had any children. She said she used to smoke many years ago. She is socially drink but no longer drinks no illicit drugs or marijuana. She desires to be a full code and chooses her 2 nephews to be her durable power privacy attorney for healthcare. Smoking status: Former smoker Alcohol intake: former Substance use: never Additional living arrangements comments: Has caregiver visiting 3 days a week Gender identity (if verbalized by the patient): Female Spiritual care concerns: No Exam Narrative: Exam Narrative: GENERAL: Well-appearing, obese, and in no acute distress. HEAD: Normocephalic, atraumatic. ENT: Mucous membranes moist. CHEST: Clear to auscultation. No respiratory distress. HEART: Regular rate and rhythm. Normal peripheral pulses. ABDOMEN: Soft, nontender, nondistended. EXTREMITIES: Normal range of motion. 2+ edema. Able to ambulate to bathroom. Lidocaine patch to the left knee. SKIN: Warm, dry, no rash. NEURO: Alert and oriented x3. PSYCH: Normal mood and affect. Course Course Emergency Course: Patient hydrated here and received IV antibiotics. Able to ambulate to the bathroom. Uses walker at home. Discharge back to her residence. Vital Signs Vital signs: Vital Signs Temperature 97.3 F L 04/14/20 08:11 Pulse Rate 74 04/14/20 08:11 Respiratory Rate 18 04/14/20 08:11 Blood Pressure 116/68 04/14/20 08:11 Pulse Oximetry 99 04/14/20 08:11 Temperature 97.3 F L 04/14/20 08:11 Pulse Rate 70 04/14/20 12:00 Respiratory Rate 20 04/14/20 12:00 Blood Pressure 158/84 H 04/14/20 12:00 Pulse Oximetry 100 04/14/20 12:00 Medical Decision Making Vital Signs Vital Signs: Vital Signs Temperature 97.3 F L 04/14/20 08:11 Pulse Rate 74 04/14/20 08:11 Respiratory
[2020-04-14] MEDS: SODIUM CHLORIDE 0.9% IV 1,000 ML 999 ML IV CONT (12:14)
--- NOTE | 2020-04-14 14:09 | PC.NURSE ---
PER ID REQUEST CALLED ERIKA AT [phone]. STATES HE WILL COME PICK HER UP IN ABOUT 20 MINUTES
[2020-04-14 14:12] VITALS: BP 153/89; PULSE 75; RESP 20; O2SAT 98
[2020-04-14 14:32] VITALS: BP 153/89; PULSE 75; RESP 20; O2SAT 98
== END 2020-04-14 14:34 | disposition home or self-care (01) ==
PROVIDERS: Emergency Provider Emergency Medicine; PCP Nurse Practitioner Adult Health
DX: N39.0 Urinary tract infection, site not specified (principal); M17.0 Bilateral primary osteoarthritis of knee; Z87.891 Personal history of nicotine dependence; R94.31 Abnormal electrocardiogram [ECG] [EKG]; Z79.01 Long term (current) use of anticoagulants; Z79.82 Long term (current) use of aspirin; Z86.718 Personal history of other venous thrombosis and embolism; E78.5 Hyperlipidemia, unspecified; I10 Essential (primary) hypertension; M19.90 Unspecified osteoarthritis, unspecified site; Z96.642 Presence of left artificial hip joint; F32.9 Major depressive disorder, single episode, unspecified
CPT/HCPCS: 36415; 51701; 71046; 80053; 81001; 85025; 87077; 87086; 87088; 87186; 93005; 96361; 96365; 99284; J0696; J7030

== ENCOUNTER 2020-04-18 05:49 | Inpatient (IN) | payer MEDICARE, SELFPAY ==
[2020-04-18] VITALS (8 sets, daily range): BP systolic 105–168; BP diastolic 69–99; PULSE 74–95; RESP 12–20; TEMP 36.6–37.6; O2SAT 93–100; BMI 30.1
--- NOTE | ~2020-04-18 | CT_ITS ---
EXAMINATION: CT brain wo con DATE: 04/18/2020 06:27 INDICATION: Fall. Paresis. TECHNIQUE: Computed tomography (CT) of the head was performed without intravenous contrast. The mA wa s adjusted according to patient size. Iterative reconstruction technique was employed. Exam dose: 60 5.33 mGy-cm total exam DLP. COMPARISON: 11/22/[address] brain FINDINGS: Cerebral atherosclerosis is again noted, as well as chronic small vessel ischemic changes o f cerebral white matter. There are chronic areas of low attenuation in the region of the anterior foley bs of the internal capsules. Moderate central and cortical cerebral and cerebellar atrophy. No intracranial mass lesion or hemorrhage, midline shift or mass effect is evident. No subdural or ep idural hematoma. No orbital mass lesion is evident. Mild echograms thickening of the right sphenoid sinus and opacification of a minority of left mastoid air cells are again noted. No fracture or bone destruction of the cranial vault. IMPRESSION: No skull fracture or acute intracranial finding No significant change since 11/22/2019 Reviewed, dictated and finalized at [facility]. Reviewed, dictated and finalized at location [facility].
--- NOTE | ~2020-04-18 | US_ITS ---
EXAMINATION: US venous doppler LE EXAM DATE: 04/19/2020 17:20 INDICATION: Lower extremity swelling. TECHNIQUE: Multiple grayscale, color flow and Doppler images of the lower extremity deep venous syste ms bilaterally were obtained and reviewed. Comparison is made to prior examination from 11/23/2019. FINDINGS: RIGHT SIDE Common femoral: -------- Normal. Profunda femoral: ------- Normal. Femoral: Nonocclusive thrombus. Popliteal: Nonocclusive thrombus. Posterior tibial: --------- Normal. Peroneal: Normal. Gastrocnemius: Not visualized. Soleus: Not visualized. Greater saphenous: ----- Normal. Lesser saphenous: ------ Not visualized. LEFT SIDE Common femoral: -------- Normal. Profunda femoral: ------- Normal. Femoral: Normal. Popliteal: Normal. Posterior tibial: --------- Normal. Peroneal: Normal. Gastrocnemius: Not visualized. Soleus: Not visualized. Greater saphenous: ----- Normal. Lesser saphenous: ------ Not visualized. IMPRESSION: 1. Positive for right femoral, popliteal nonocclusive DVT. 2. No left DVT. I discussed DVT with 3rd medical nurse Riri at 04/19/2020 17:45 CDT. Reviewed, dictated and finalized at location [facility]. IMPRESSION: 1. Positive for right femoral, popliteal nonocclusive DVT. 2. No left DVT. I discussed DVT with [facility] medical nurse Riri at 04/19/2020 17:45 CDT.
--- NOTE | ~2020-04-18 | XR_ITS ---
EXAMINATION: XR abdomen obstructive series DATE: 04/19/2020 09:47 INDICATION: Colonic distention. TECHNIQUE: Upright and supine views of the abdomen on 4 radiographs were obtained. COMPARISON: CT abdomen and pelvis 04/18/2020 FINDINGS: The sigmoid colon is distended and gas-filled. The small bowel is normal in caliber. No jose e intraperitoneal gas. There are phleboliths in the pelvis. There is a total left hip arthroplasty. IMPRESSION: 1. Distended sigmoid colon, consistent with adynamic ileus. Reviewed, dictated and finalized at location [facility].
--- NOTE | ~2020-04-18 | CT_ITS ---
EXAMINATION: CT brain wo con DATE: 04/22/2020 12:02 INDICATION: New onset hallucinations. Disorientation. TECHNIQUE: Computed tomography (CT) of the head was performed without intravenous contrast. The mA wa s adjusted according to patient size. Iterative reconstruction technique was employed. The dose-lengt h product was 605.33 mGy-cm. COMPARISON: Head CT 04/18/2020 FINDINGS: There are scattered areas of low attenuation in the cerebral white matter. There is no intr acranial hemorrhage, acute infarction, or abnormal intracranial mass lesion. The ventricles are rachel l in size. The orbits are normal. There is mucosal thickening in right sphenoid sinus with thickening and sclerosis of the sinus campa, consistent with chronic sinusitis. There is a small left mastoid e ffusion, likely chronic. IMPRESSION: 1. Stable moderate nonspecific cerebral white matter disease, which likely represents chronic small v essel ischemic disease. 2. Chronic sinusitis. Reviewed, dictated and finalized at location [facility]. IMPRESSION: 1. Stable moderate nonspecific cerebral white matter disease, which likely repr esents chronic small vessel ischemic disease. 2. Chronic sinusitis.
--- NOTE | ~2020-04-18 | CT_ITS ---
EXAMINATION: CT brain wo con INDICATION: Altered mental status COMPARISON: 04/22/2020 TECHNIQUE: Standard unenhanced head CT. The dose-length product (DLP) was 605.33 mGy-cm. The mA was a djusted according to patient size. Iterative reconstruction technique was employed. FINDINGS: There is no acute intraparenchymal hemorrhage. No evidence of mass lesion. No evidence of a cute infarction. There is mild periventricular and subcortical hypodensity probably related to small vessel ischemic disease. There is mild prominence of the sulci and ventricles related to cerebral atr ophy. Intracranial calcified cerebral atherosclerosis is noted. There are no extra-axial collections. There is no mass effect or midline shift. The orbits and soft tissues are unremarkable. Mucosal thi ckening in the right sphenoid sinus with sclerosis of the sinus campa is again noted, consistent with chronic sinusitis. There is minimal opacification of the left mastoid air cells. IMPRESSION: 1. No acute intracranial abnormality. 2. Age related findings. 3. Chronic sinusitis. Reviewed, dictated and finalized at location A.
--- NOTE | ~2020-04-18 | XR_ITS ---
EXAMINATION: XR hip LT 2V w AP pelvis EXAM DATE: 04/18/2020 09:13 INDICATION: Initial encounter following injury, with pain of the left hip. TECHNIQUE: Left hip frontal, 'frog leg' projections for interpretation. Frontal projection pelvis. C omparison is made to prior examination from 11/22/2019. FINDINGS: Smooth left hip femoral head contour, no radiographic evidence of avascular necrosis. The bones are osteopenic. There is severely distended air-filled colon. Differential diagnosis includes colonic ileus, chronic low-grade sigmoid obstruction from mass or volvulus. There is intact left hip arthroplasty. No acute fracture line identified. Sacral arcuate lines appear intact. 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 IMPRESSION: 1. Osteopenia. Intact left hip arthroplasty. 2. Severely distended air-filled colon. Differential diagnosis includes colonic ileus, chronic low-g rade sigmoid obstruction from mass or volvulus. Clinical correlation for any further workup. Reviewed, dictated and finalized at location B. IMPRESSION: 1. Osteopenia. Intact left hip arthroplasty. 2. Severely distended air-filled colon. Differential diagnosis includes coloni c ileus, chronic low-grade sigmoid obstruction from mass or volvulus. Clinical correlation for any further workup.
--- NOTE | ~2020-04-18 | CT_ITS ---
EXAMINATION: CT abdomen pelvis wo con DATE: 04/18/2020 09:46 INDICATION: Nausea, possible obstruction TECHNIQUE: Computed tomography (CT) of the abdomen and pelvis was performed without intravenous contr ast. Automated exposure control and iterative reconstruction technique were employed. Exam dose: 121 9.60 mGy-cm total exam DLP. COMPARISON: None. FINDINGS: There is mild patchy lingular infiltrate. There is mild primarily dependent atelectasis of the lower lobes. Normal heart size. No pericardial or pleural effusion. There are multiple small stones in the dependent aspect of the gallbladder. No gallbladder wall thick ening, pericholecystic fluid or fat stranding. No bile duct or pancreatic duct dilatation. No hepatic, splenic, pancreatic space-occupying mass lesion. Normal morphology of the left adrenal gland. There is opacity 1.8 cm mass with calcification at the lateral limb of the right adrenal gland. There is severe right renal atrophy. 5 x 6.5 mm lower pole nonobstructing right renal calculus. There is left renal scarring. There is atherosclerotic calcification of the abdominal aorta and the origins of the celiac and super ior mesenteric arteries. No abdominal aortic aneurysm. Iliac and femoral artery calcifications. There are shotty nonenlarged periaortic lymph nodes. Normal appendix. There is very prominent amount fecal material in the rectosigmoid area with prominent gaseous distent ion and dilatation of the sigmoid colon, measuring up to 12 cm diameter. Old healed right rib fractures Diffuse osteopenia. Severe anterior wedging and loss of height of T11 Moderately severe anterior wedging and loss of height at T7. Mild retrolisthesis and moderate degenerative disease at L1-2. Grade 1 anterolisthesis at L3-4 due to degenerative change at the apophyseal joints. Left total hip arthroplasty. IMPRESSION: Very prominent amount of fecal material in the rectosigmoid area with prominent gaseous dilatation of the sigmoid colon up to 12 cm diameter Cholelithiasis Severe right renal atrophy Left renal scarring Compression fracture deformities of T7, T11 Reviewed, dictated and finalized at [facility]. Reviewed, dictated and finalized at location A. IMPRESSION: Very prominent amount of fecal material in the rectosigmoid area w ith prominent gaseous dilatation of the sigmoid colon up to 12 cm diameter Cholelithiasis Severe right renal atrophy Left renal scarring Compression fracture deformities of T7, T11
--- NOTE | ~2020-04-18 | CT_ITS ---
EXAMINATION: CT UE LT wo con DATE: 04/25/2020 15:43 INDICATION: Mass with extensive bruising in the left biceps. TECHNIQUE: High resolution computed tomography (CT) of the left arm from just below the left shoulder through the left wrist was performed without intravenous contrast. Additional sagittal and coronal r econstructions were performed. Automated exposure control and iterative reconstruction technique were employed. The dose-length product was 2247.68 mGy-cm. COMPARISON: None FINDINGS: There is a large fusiform masslike region of heterogeneous attenuation extending for 15 cm craniocaud ally within the left biceps muscle and measuring up to 7.6 x 5.0 cm in maximal transaxial dimensions with both appearance and clinical history most consistent with a large intramuscular hematoma. There is extensive subcutaneous edema throughout the left arm. Additional subcutaneous edema along a fold o f thoracic pannus inferior to the left axilla. No fracture. Osteoarthritis without joint effusion at the left elbow. Moderate osteoarthritis at the distal radioulnar joint. Erosion with corticated grace ns and overhanging edges at the palmar/ulnar aspect of the distal radius. IMPRESSION: 1. 15 x 7.6 x 5.0 cm heterogeneous attenuation fusiform mass within the left biceps muscle belly with both appearance and clinical history most consistent with hematoma. Solid soft tissue mass considere d unlikely but could consider either clinical follow-up with repeat imaging if the lesion fails to re solve or further evaluation with ultrasound or pre and postcontrast MRI as clinically indicated. Reviewed, dictated and finalized at location B. IMPRESSION: 1. 15 x 7.6 x 5.0 cm heterogeneous attenuation fusiform mass within the left bi ceps muscle belly with both appearance and clinical history most consistent wit h hematoma. Solid soft tissue mass considered unlikely but could consider eithe r clinical follow-up with repeat imaging if the lesion fails to resolve or furt her evaluation with ultrasound or pre and postcontrast MRI as clinically indica shravan.
--- NOTE | ~2020-04-18 | XR_ITS ---
EXAMINATION: XR chest 1V portable EXAM DATE: 04/18/2020 06:26 INDICATION: Fall, nausea, urinary tract infection. TECHNIQUE: Portable AP frontal chest x-ray was obtained. Comparison is made to prior examination from 04/14/2020. FINDINGS: Again there is gas-filled colon below the diaphragm with left hemidiaphragm elevation. No c onfluent consolidation, pneumothorax or pleural effusion suspected. The cardiomediastinal silhouette is prominent but magnified on this AP technique. Cardiac silhouette is stable in size compared to praveen or exam. There is old right 7th rib fracture posterolaterally. Probable chronic bilateral rotator cu ff tears with advanced bilateral shoulder primary osteoarthritis. IMPRESSION: 1. No acute cardiopulmonary findings. 2. Gas-filled colon. Reviewed, dictated and finalized at location B.
[2020-04-18] MEDS: SODIUM CHLORIDE 0.9% IV 1,000 ML 999 ML IV CONT (06:01)
--- NOTE | 2020-04-18 06:08 | ED.GENADULT ---
HPI - General Adult General Chief complaint: Nausea/Vomiting/Diarrhea <DO Dov Majano Last Filed: 04/18/20 06:15> Stated complaint: weak <DO Dov Majano Last Filed: 04/18/20 06:15> Time Seen by Provider: 04/18/20 05:57 <DO Dov Majano Last Filed: 04/18/20 06:15> Source: RN notes reviewed <DO Dov Majano Last Filed: 04/18/20 06:15> History of Present Illness HPI narrative: Patient presents emergency department from home for weakness. Patient states she was seen emergency department 4 days ago and diagnosed with a urinary tract infection. At that time she was started on Keflex which she continues to take. Patient states that this evening she was not feeling well and was feeling nauseous. She states she attempted get out of bed and was able to get out of bed secondary to weakness and slid down in between her bed and wheelchair and called EMS at that time. She states the nausea has resolved this time. She denies any fevers or chills chest pain shortness of breath abdominal pain or any other symptoms. She denies striking her head or loss of consciousness <DO Dov Majano Last Filed: 04/18/20 06:15> Related Data Home medications: Home Medications Medication Instructions Recorded Confirmed Eliquis 5 mg PO BID 11/22/19 04/18/20 alendronate 70 mg PO WEEKLY 11/22/19 04/18/20 aspirin 81 mg PO DAILY 11/22/19 04/18/20 atorvastatin 10 mg PO DAILY 11/22/19 04/18/20 furosemide 20 mg PO DAILY 11/22/19 04/18/20 magnesium gluconate [Mag-G] 500 mg PO DAILY 11/22/19 04/18/20 nystatin [Nystop] 1 applic TOPICAL BID 11/22/19 04/18/20 sertraline 200 mg PO DAILY 11/22/19 04/18/20 <DO Dov Majano Filed: 04/18/20 06:15> Allergies/adverse reactions: Allergies Allergy/AdvReac Type Severity Reaction Status Date / Time red dye Allergy Severe FACIAL Verified 08/31/18 09:48 SWELLING <DO Dov Majano Filed: 04/18/20 06:15> Review of Systems Review of Systems: Narrative: Gen.: Denies fevers or chills Eyes: Denies eye pain or visual change ENT: Denies congestion Respiratory: Denies shortness of breath or cough CV: Denies chest pain or palpitations GI: Denies abdominal pain nausea, emesis or diarrhea reports UTI Musculoskeletal: Denies back pain or muscle pain Neuro: Reports weakness Skin: Denies rash Except as documented, all other systems reviewed and negative <Clifton Trejo, DO - Last Filed: 04/18/20 06:15> [facility] Past Medical History Medical History: Medical History (Updated 04/18/20 @ 18:20 by Desiree Presley MD) Chronic diarrhea Depression DVT (deep venous thrombosis) Right leg Hyperlipidemia Hypertension Osteoarthritis Psoriasis Reflux esophagitis <Clifton Trejo, DO - Last Filed: 04/18/20 06:15> Surgical History Surgical History: Surgical History (Updated 04/18/20 @ 14:48 by Ivelisse Womack NP) H/O right wrist surgery History of colonoscopy History of esophagogastroduodenoscopy (EGD) History of hernia repair History of total left hip arthroplasty <Clifton Trejo, DO - Last Filed: 04/18/20 06:15> Family History Family History: Family History Father Diabetes mellitus Heart attack Mother Cerebrovascular accident Heart attack Sibling Dementia <Clifton Trejo, DO - Last Filed: 04/18/20 06:15> Social History Social History: Social History Social History: 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 She has never been or had any children. She said she used to smoke many years ago. She is socially drink but no longer drinks no illicit drugs or marijuana. She desires to be a full code and chooses her 2 nephews to be her durable power space and storage clerk for healthcare. Smoking packs per day: 3.5 Smoking
[2020-04-18 07:08] LABS: Basophils Percent Auto 0.3 % (0.2-1.2); Eosinophils Absolute Auto 0.3 K/mm3 (0-0.3); Eosinophils Percent Auto 4.3 % (0-4.4); Hemoglobin 9.5 g/dL (12.0-15.0); Immature Granulocyte Absolute 0.02 K/mm3 (0.00-0.031); Immature Granulocyte Percent A 0.3 % (0-0.5); Lymphocytes Percent Auto 40.1 % (18.3-44.2); Mean Corpuscular HGB Conc 30.6 g/dl (32-36); Mean Corpuscular Hemoglobin 28.4 pg (26-34); Mean Corpuscular Volume 92.5 fl (80-100); Mean Platelet Volume 10.1 fl (7.4-10.4); Monocytes Absolute Auto 0.5 K/mm3 (0.1-0.6); Monocytes Percent Auto 8.2 % (2.6-8.5); Neutrophils Absolute Auto 2.9 K/mm3 (1.3-6.7); Neutrophils Percent Auto 46.8 % (45.5-73.1); Platelet Count Result 209 k/mm3 (150-375); Red Blood Count 3.35 M/mm3 (4.2-5.4); Red Cell Distribution Width 16.2 % (11.5-14.5); White Blood Count 6.2 K/mm3 (4.5-10.0)
[2020-04-18 07:17] LABS: Prothrombin Time 13.3 Seconds (11.1-14.7)
[2020-04-18 07:18] LABS: Partial Thromboplastin Time 29.4 SECONDS (22.3-36.8)
[2020-04-18 07:22] LABS: Lactic Acid Reflex 1.1 mmol/L (0.7-2.1)
[2020-04-18 07:23] LABS: Alanine Aminotransferase 11 U/L (4-35); Albumin Level 3.3 g/dL (3.5-5.1); Alkaline Phosphatase 111 U/L (38-126); Anion Gap 8 mmol/L (8-16); Aspartate Amino Transferase 28 U/L (14-36); Bilirubin,Total 0.3 mg/dL (0.2-1.3); Blood Urea Nitrogen 34 mg/dL (7-17); Calcium 8.6 mg/dL (8.4-10.2); Carbon Dioxide 24 mmol/L (22-30); Chloride 110 mmol/L (98-107); Estimated CRCL calculation 21 ml/min; Estimated Glomerular Filt Rate 26; Glucose 106 mg/dL (65-105); Potassium 4.1 mmol/L (3.4-5.0); Sodium 142 mmol/L (137-145)
[2020-04-18 08:08] LABS: Add Urine Microscopic? YES; Appearance Urine Cloudy (Clear); Bacteria Urine 4+ /hpf; Bilirubin Urine Negative (Negative); Blood Urine 1+ (Negative); Color Urine Yellow (Yellow); Glucose Urine UA Negative (Negative); Hyaline Casts Urine 15-19 /lpf; Ketones Urine Negative (Negative); Leukocyte Esterase Ur 3+ LEU/UL (Negative); Mucus Urine Rare /lpf; Nitrate Urine Positive (Negative); Protein Urine 1+ mg/dL (Negative); Specific Grav Ur 1.015 (1.001-1.035); Squamous Epithelial Cell Urine Many /hpf (Few); Urobilinogen Urine Negative mg/dL (<2.0); WBC Clumps Urine Present /HPF; WBC Urine >75 /hpf
[2020-04-18] MEDS: ERTAPENEM 1 GM/NS 50 ML 1 GM/50 ML BAG IVPB (08:30)
--- NOTE | 2020-04-18 11:54 | PC.NURSE ---
Report called for patient, going to room 320. eJremiah ALFONSO took report at this time but the room is not clean.
--- NOTE | 2020-04-18 12:48 | PC.NURSE ---
This patient, Elizabet Sanon, was admitted to 3 [facility] Room 320-01. Patient/family oriented to hospital policies and general routines including ID bracelet, bed and alarms, visiting hours, pain management, procedures, bathroom and other care routines, personal items, smoking policy, room service/diet, and visiting hours. Valuables list has been completed. Information on how to activate the Rapid Response Team has been discussed. Patient/Family are encouraged to report perceived risks to care and to ask questions if they do not understand what they are told or what they should do.
--- NOTE | 2020-04-18 14:44 | PM.IMHP ---
H&P: HPI History of Present Illness Date/Time: 04/18/20 14:44 Chief complaint: failed outpatient tx UTI/CRD/Generalized weakness Narrative: Elizabet Sanon is a 80 year old female Who typically walks with a walker due to osteoarthritis in her knees. The patient was seen in the emergency room approximately 4 days ago and was prescribed Keflex for urinary tract infection. The patient had been here back in November when she was diagnosed with a drug resistant E coli bacteria in her urine. Patient stated for the last 4 days she has been very weak and could hardly get out of bed. Patient stated that she tried to get out of her bed and get into her wheelchair when she slid between the wheelchair in the bed. She did not hit her head or lose consciousness. Patient was complaining of some epigastric discomfort. She said she has chronic diarrhea. Abdominal CT was read as very prominent amount of fecal material in the retrosigmoid area with prominent gaseous dilation the sigmoid colon up to 12 cm diameter. Patient was started on IV fluids and Invanz. Patient does not have a white count her H&H is 9.5 and 31.0 which is her baseline. Her creatinine is 1.9. Which her baseline is somewhere between 1.3 and 1.7. The patient lives home alone. Her urine was positive for nitrates and 3+ leukocyte esterase. WBCs greater than 754+ urine bacteria. Patient was started on Invanz. Date of service 04/18/2020 Review of Systems Review of Systems: All systems reviewed & are unremarkable except as noted in HPI and below Constitutional: Constitutional: Reports as per HPI and Reports no additional constitutional complaints Eyes: Eyes: Reports as per HPI and Reports no additional eye complaints ENT: Reports system reviewed and no additional complaints, except as documented and Reports Normal hearing present Cardiovascular: Cardiovascular: Reports no additional cardiovascular complaints Respiratory: Respiratory: Reports no additional respiratory complaints and Reports no additional respiratory complaints Gastrointestinal: Gastrointestinal: Reports as per HPI and Reports no additional gastrointestinal complaints Musculoskeletal: Musculoskeletal: Reports no additional musculoskeletal complaints Integumentary/Breasts: Skin/Breast: Reports system reviewed and no additional complaints, except as docu and Reports as per HPI Neurologic: Reports system reviewed and no additional complaints, except as documented, Reports as per HPI and Reports Normal hearing present Psychiatric: Psychiatric: Reports no additional psychiatric complaints and Reports as per HPI Endocrine: Endocrine: Reports no additional endocrine complaints Hematologic/Lymphatic: Hematologic/Lymphatic: Reports no additional hematologic/lymphatic complaints Allergic/Immunologic: Allergic/Immunologic: Reports no additional allergic/immunologic complaints [facility] Past Medical History Medical History Chronic diarrhea Depression DVT (deep venous thrombosis) Right leg Hyperlipidemia Hypertension Osteoarthritis Psoriasis Reflux esophagitis Surgical History Surgical History (Updated 04/18/20 @ 14:48 by Iveilsse Womack NP) H/O right wrist surgery History of colonoscopy History of esophagogastroduodenoscopy (EGD) History of hernia repair History of total left hip arthroplasty Family History Family History Father Diabetes mellitus Heart attack Mother Cerebrovascular accident Heart attack Sibling Dementia Social History Social History Social History: 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 She has never been or had any children. She said she used to smoke many years ago. She is socially drink but no longer drinks no illicit drugs or marijuana. She desires to be a full code
[2020-04-18] MEDS: SODIUM CHLORIDE 0.9% IV 1,000 ML 100 ML IV CONT (16:35)
[2020-04-18] MEDS: APIXABAN 5 MG TABLET PO (16:38)
[2020-04-18] MEDS: ALENDRONATE SODIUM 70 MG TABLET PO (16:38)
[2020-04-19 06:00] VITALS: BP 182/93; PULSE 77; RESP 18; TEMP 36.8; O2SAT 93
[2020-04-19] MEDS: hydrALAZINE HCL 20 MG/ML VIAL 10 MG IV PUSH (06:28)
[2020-04-19] MEDS: SODIUM CHLORIDE 0.9% IV 1,000 ML 100 ML IV CONT ×2 (06:29→22:37)
[2020-04-19 06:42] LABS: Basophils Percent Auto 0.3 % (0.2-1.2); Eosinophils Absolute Auto 0.3 K/mm3 (0-0.3); Eosinophils Percent Auto 5.3 % (0-4.4); Hematocrit 28.1 % (37.0-47.0); Hemoglobin 9.1 g/dL (12.0-15.0); Immature Granulocyte Absolute 0.04 K/mm3 (0.00-0.031); Immature Granulocyte Percent A 0.7 % (0-0.5); Lymphocytes Absolute Auto 2.46 K/mm3 (0.9-3.2); Lymphocytes Percent Auto 42.3 % (18.3-44.2); Mean Corpuscular HGB Conc 32.4 g/dl (32-36); Mean Corpuscular Hemoglobin 29.7 pg (26-34); Mean Corpuscular Volume 91.8 fl (80-100); Mean Platelet Volume 10.4 fl (7.4-10.4); Monocytes Absolute Auto 0.4 K/mm3 (0.1-0.6); Monocytes Percent Auto 6.5 % (2.6-8.5); Neutrophils Absolute Auto 2.6 K/mm3 (1.3-6.7); Neutrophils Percent Auto 44.9 % (45.5-73.1); Platelet Count Result 176 k/mm3 (150-375); Red Blood Count 3.06 M/mm3 (4.2-5.4); Red Cell Distribution Width 16.4 % (11.5-14.5); White Blood Count 5.8 K/mm3 (4.5-10.0)
[2020-04-19 07:12] LABS: Alanine Aminotransferase 9 U/L (4-35); Albumin Level 2.9 g/dL (3.5-5.1); Alkaline Phosphatase 70 U/L (38-126); Anion Gap 8 mmol/L (8-16); Aspartate Amino Transferase 26 U/L (14-36); Bilirubin,Total 0.3 mg/dL (0.2-1.3); Blood Urea Nitrogen 27 mg/dL (7-17); Calcium 7.7 mg/dL (8.4-10.2); Carbon Dioxide 20 mmol/L (22-30); Chloride 114 mmol/L (98-107); Estimated CRCL calculation 24 ml/min; Estimated Glomerular Filt Rate 29; Glucose 98 mg/dL (65-105); Potassium 4.5 mmol/L (3.4-5.0); Sodium 142 mmol/L (137-145)
[2020-04-19 08:06] VITALS: BP 162/96
[2020-04-19 08:07] VITALS: BP 162/96
[2020-04-19] MEDS: polyethylene glycoL 3350 17 GM POWD.PACK PO ×2 (08:37→16:38)
[2020-04-19] MEDS: SERTRALINE HCL 50 MG TABLET 200 MG PO (08:38)
[2020-04-19] MEDS: APIXABAN 5 MG TABLET PO ×3 (08:38→19:22)
[2020-04-19] MEDS: LIDOCAINE 5% PATCH 2 PATCH TRANSDERM (08:38)
[2020-04-19] MEDS: ATORVASTATIN 10 MG TABLET PO (08:38)
[2020-04-19] MEDS: amLODIPine BESYLATE 5 MG TABLET PO (10:17)
[2020-04-19 14:00] VITALS: BP 149/88; PULSE 72; RESP 18; TEMP 36.9; O2SAT 98
--- NOTE | 2020-04-19 14:10 | PM.IMPN ---
Progress Note: A&P Assessment and Plan (1) UTI (urinary tract infection): Qualifiers: Urinary tract infection type: acute cystitis Hematuria presence: without hematuria Qualified Code(s): N30.00 - Acute cystitis without hematuria Code(s): N39.0 - Urinary tract infection, site not specified Status: Acute Assessment and Plan: Patient presented to ED 04/14; diagnosed with UTI and discharged with oral abx. Patient returns with generalized weakness. Urine culture 04/14 grew multi drug-resistant E coli. Continue renally-dosed IV ertapenem (day 2) based on these results while awaiting repeat urine culture and blood cultures. Monitor vital signs and urine output. (2) Ileus: Code(s): K56.7 - Ileus, unspecified Status: Acute Assessment and Plan: Imaging showed distended sigmoid colon with large volume stool in the colon. She had 3 large bowel movements after fleets enema last night. Clinically has resolved - no nausea/vomiting/abdominal pain today with positive bowel sounds. Passing flatus. Tolerating diet. Will continue bowel regimen and monitor. (3) Poor mobility: Code(s): Z74.09 - Other reduced mobility Status: Acute Assessment and Plan: Appreciate PT/OT evaluations. Chronic debility may be worsened by acute UTI. Patient reports she recently discharged home alone from [place]. (4) Acute renal failure superimposed on stage 3 chronic kidney disease: Qualifiers: Acute renal failure type: unspecified Chronic kidney disease stage 3 subtype: unspecified whether 3a or 3b Qualified Code(s): N17.9 - Acute kidney failure, unspecified; N18.30 - Chronic kidney disease, stage 3 unspecified Code(s): N17.9 - Acute kidney failure, unspecified; N18.30 - Chronic kidney disease, stage 3 unspecified Status: Acute Assessment and Plan: Cr up to 1.9 on arrival now improved to 1.7. Continue gentle IV hydration, hold furosemide and monitor renal function. Baseline creatinine appears around 1.3 to 1.4. (5) Hypertension: Qualifiers: Hypertension type: essential hypertension Qualified Code(s): I10 - Essential (primary) hypertension Code(s): I10 - Essential (primary) hypertension Status: Chronic Assessment and Plan: BPs are elevated. She describes she used to be on antihypertensives but is not sure the name of the medication. Start low-dose Norvasc and continue IV hydralazine as needed. Continue to monitor BP and adjust medications as needed. (6) Depression: Qualifiers: Depression Type: unspecified Qualified Code(s): F32.9 - Major depressive disorder, single episode, unspecified Code(s): F32.9 - Major depressive disorder, single episode, unspecified Status: Chronic Assessment and Plan: Stable. Continue with Zoloft. (7) Hyperlipidemia: Qualifiers: Hyperlipidemia type: unspecified Qualified Code(s): E78.5 - Hyperlipidemia, unspecified Code(s): E78.5 - Hyperlipidemia, unspecified Status: Chronic Assessment and Plan: Continue home statin therapy. Subjective Date/time seen: 04/19/20 1045 Interval history: Ms. Eddy is a 80yo F admitted for UTI, also noted to have ileus. She reports feeling better today than when she came in. She visited ED 04/14 and was diagnosed with UTI, discharged with antibiotics; returned to ER because she could not get out of bed. She denies nausea, vomiting, or abdominal pain today. She had 3 large bowel movements last night after enema. She has tolerated oral intake. She denies chest pain or shortness of breath. Review of Systems Review
[2020-04-19] MEDS: BISACODYL 5 MG TABLET EC PO (14:52)
[2020-04-19 15:35] VITALS: BMI 30.1
[2020-04-19] MEDS: FLUTICASONE PROPIONATE 0.05% NA SPR 16 GM BTL (*BKC) 1 SPRAY NASAL (20:32)
[2020-04-19 22:00] VITALS: BP 131/78; PULSE 84; RESP 18; TEMP 36.8; O2SAT 97
[2020-04-20 06:00] VITALS: BP 157/85; PULSE 66; RESP 19; TEMP 36.1; O2SAT 94
[2020-04-20 06:13] LABS: Anion Gap 6 mmol/L (8-16); Blood Urea Nitrogen 25 mg/dL (7-17); Calcium 7.9 mg/dL (8.4-10.2); Carbon Dioxide 24 mmol/L (22-30); Chloride 110 mmol/L (98-107); Estimated CRCL calculation 29 ml/min; Estimated Glomerular Filt Rate 36; Glucose 96 mg/dL (65-105); Sodium 140 mmol/L (137-145)
[2020-04-20] MEDS: SODIUM CHLORIDE 0.9% IV 1,000 ML 100 ML IV CONT ×2 (09:12→19:51)
[2020-04-20] MEDS: LIDOCAINE 5% PATCH 2 PATCH TRANSDERM (09:13)
[2020-04-20] MEDS: BISACODYL 5 MG TABLET EC PO (09:14)
[2020-04-20] MEDS: ATORVASTATIN 10 MG TABLET PO (09:14)
[2020-04-20] MEDS: amLODIPine BESYLATE 5 MG TABLET PO (09:14)
[2020-04-20] MEDS: FLUTICASONE PROPIONATE 0.05% NA SPR 16 GM BTL (*BKC) 1 SPRAY NASAL ×2 (09:14→20:32)
[2020-04-20] MEDS: APIXABAN 5 MG TABLET 10 MG PO ×2 (09:15→20:30)
[2020-04-20] MEDS: SERTRALINE HCL 50 MG TABLET 200 MG PO (09:15)
[2020-04-20] MEDS: polyethylene glycoL 3350 17 GM POWD.PACK PO ×2 (09:16→17:57)
--- NOTE | 2020-04-20 12:33 | PM.IMPN ---
Progress Note: A&P Assessment and Plan (1) UTI (urinary tract infection): Qualifiers: Hematuria presence: without hematuria Urinary tract infection type: acute cystitis Qualified Code(s): N30.00 - Acute cystitis without hematuria Code(s): N39.0 - Urinary tract infection, site not specified Status: Acute Assessment and Plan: Patient presented to ED 04/14; diagnosed with UTI and discharged with oral abx. Patient returns with generalized weakness. Urine culture 04/14 grew multi drug-resistant E coli. Continue renally-dosed IV ertapenem (day 3) based on these results while awaiting repeat urine culture and blood cultures. Only oral antibiotic option based on sensitivity report is Macrobid, not a great option for her given her renal function. At this point, plan to keep her through the weekend to complete a 5-day course of IV ertapenem. Monitor vital signs and urine output. (2) DVT (deep venous thrombosis): Qualifiers: Affected thrombotic vein of extremity: popliteal Chronicity: acute DVT location: lower extremity Laterality: right Qualified Code(s): I82.431 - Acute embolism and thrombosis of right popliteal vein Code(s): I82.409 - Acute embolism and thrombosis of unspecified deep veins of unspecified lower extremity Status: Acute Assessment and Plan: Venous Doppler shows right femoral and popliteal nonocclusive DVT. 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 Unfortunately, she mentions missing a week or more of her Eliquis doses recently due to being out of the medication. She has also been sedentary with poor mobility. We will increase her Eliquis back up to therapeutic dose 10 mg BID for the next 7 days. (3) Ileus: Code(s): K56.7 - Ileus, unspecified Status: Acute Assessment and Plan: Imaging showed distended sigmoid colon with large volume stool in the colon. She had 3 large bowel movements after fleets enema. Clinically has resolved - no nausea/vomiting/abdominal pain today with positive bowel sounds. Passing flatus. Tolerating diet. Will continue bowel regimen and monitor. (4) Poor mobility: Code(s): Z74.09 - Other reduced mobility Status: Acute Assessment and Plan: Appreciate PT/OT evaluations. Chronic debility may be worsened by acute UTI. Patient reports she recently discharged home alone from [place]. (5) Acute renal failure superimposed on stage 3 chronic kidney disease: Qualifiers: Acute renal failure type: unspecified Chronic kidney disease stage 3 subtype: unspecified whether 3a or 3b Qualified Code(s): N17.9 - Acute kidney failure, unspecified; N18.30 - Chronic kidney disease, stage 3 unspecified Code(s): N17.9 - Acute kidney failure, unspecified; N18.30 - Chronic kidney disease, stage 3 unspecified Status: Acute Assessment and Plan: Cr up to 1.9 on arrival now improved to 1.4. Can stop IV fluids since she is eating and drinking, continue to hold furosemide for now and monitor renal function. Baseline creatinine appears around 1.3 to 1.4. (6) Hypertension: Qualifiers: Hypertension type: essential hypertension Qualified Code(s): I10 - Essential (primary) hypertension Code(s): I10 - Essential (primary) hypertension Status: Chronic Assessment and Plan: BPs have been elevated. She describes she used to be on antihypertensives but is not sure the name of the medication. Started low-dose Norvasc and continue IV hydralazine as needed. Continue to monitor BP and adjust medications as needed. Blood pressures are variable, overall improved from arrival. )
[2020-04-20 14:00] VITALS: BP 125/61; PULSE 74; RESP 18; TEMP 36.5; O2SAT 95
[2020-04-20 22:00] VITALS: BP 140/82; PULSE 79; RESP 18; TEMP 37; O2SAT 95
[2020-04-21 06:00] VITALS: BP 150/84; PULSE 71; RESP 16; TEMP 36.6; O2SAT 94
[2020-04-21] MEDS: SODIUM CHLORIDE 0.9% IV 1,000 ML 100 ML IV CONT ×2 (06:04→16:26)
[2020-04-21 06:56] LABS: Anion Gap 6 mmol/L (8-16); Blood Urea Nitrogen 25 mg/dL (7-17); Calcium 7.9 mg/dL (8.4-10.2); Carbon Dioxide 26 mmol/L (22-30); Chloride 108 mmol/L (98-107); Estimated CRCL calculation 29 ml/min; Estimated Glomerular Filt Rate 36; Glucose 110 mg/dL (65-105); Magnesium 2.2 mg/dL (1.6-2.3); Potassium 4.3 mmol/L (3.4-5.0); Sodium 140 mmol/L (137-145)
[2020-04-21] MEDS: amLODIPine BESYLATE 5 MG TABLET PO (09:18)
[2020-04-21] MEDS: APIXABAN 5 MG TABLET 10 MG PO ×2 (09:18→21:48)
[2020-04-21] MEDS: ATORVASTATIN 10 MG TABLET PO (09:18)
[2020-04-21] MEDS: FLUTICASONE PROPIONATE 0.05% NA SPR 16 GM BTL (*BKC) 1 SPRAY NASAL ×2 (09:19→21:48)
[2020-04-21] MEDS: BISACODYL 5 MG TABLET EC PO (09:19)
[2020-04-21] MEDS: SERTRALINE HCL 50 MG TABLET 200 MG PO (09:20)
--- NOTE | 2020-04-21 10:00 | PM.IMPN ---
Progress Note: A&P Assessment and Plan (1) UTI (urinary tract infection): Qualifiers: Hematuria presence: without hematuria Urinary tract infection type: acute cystitis Qualified Code(s): N30.00 - Acute cystitis without hematuria Code(s): N39.0 - Urinary tract infection, site not specified Status: Acute Assessment and Plan: Patient presented to ED 04/14; diagnosed with UTI and discharged with oral abx. Patient returns with generalized weakness. Urine culture 04/14 grew multi drug-resistant E coli. Continue renally-dosed IV ertapenem (day 4) to complete a 5-day course of IV ertapenem. Monitor vital signs and urine output. Hopeful for discharge to SNF tomorrow after last ertapenem dose. (2) DVT (deep venous thrombosis): Qualifiers: DVT location: lower extremity Affected thrombotic vein of extremity: popliteal Chronicity: acute Laterality: right Qualified Code(s): I82.431 - Acute embolism and thrombosis of right popliteal vein Code(s): I82.409 - Acute embolism and thrombosis of unspecified deep veins of unspecified lower extremity Status: Acute Assessment and Plan: Venous Doppler shows right femoral and popliteal nonocclusive DVT. 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 Unfortunately, she mentions missing a week or more of her Eliquis doses recently due to being out of the medication. She has also been sedentary with poor mobility. We will increase her Eliquis back up to therapeutic dose 10 mg BID x 7 days. (3) Ileus: Code(s): K56.7 - Ileus, unspecified Status: Acute Assessment and Plan: Imaging showed distended sigmoid colon with large volume stool in the colon. She had 3 large bowel movements after fleets enema. Clinically has resolved - no nausea/vomiting/abdominal pain today with positive bowel sounds. Passing flatus. Tolerating diet. Will continue bowel regimen and monitor. (4) Poor mobility: Code(s): Z74.09 - Other reduced mobility Status: Acute Assessment and Plan: Appreciate PT/OT evaluations. Chronic debility may be worsened by acute UTI. Patient reports she recently discharged home alone from [place]. Plan is discharge to [facility]. (5) Acute renal failure superimposed on stage 3 chronic kidney disease: Qualifiers: Acute renal failure type: unspecified Chronic kidney disease stage 3 subtype: unspecified whether 3a or 3b Qualified Code(s): N17.9 - Acute kidney failure, unspecified; N18.30 - Chronic kidney disease, stage 3 unspecified Code(s): N17.9 - Acute kidney failure, unspecified; N18.30 - Chronic kidney disease, stage 3 unspecified Status: Acute Assessment and Plan: Cr up to 1.9 on arrival now improved to 1.4 back near her baseline. Continue to hold furosemide for now and monitor renal function. Baseline creatinine appears around 1.3 to 1.4. (6) Hypertension: Qualifiers: Hypertension type: essential hypertension Qualified Code(s): I10 - Essential (primary) hypertension Code(s): I10 - Essential (primary) hypertension Status: Chronic Assessment and Plan: BPs have been elevated. She describes she used to be on antihypertensives but is not sure the name of the medication. Started low-dose Norvasc and continue IV hydralazine as needed. Continue to monitor BP and adjust medications as needed. Blood pressures are variable, overall improved from arrival. (7) Depression: Qualifiers: Depression Type: unspecified Qualified Code(s): F32.9 - Major depressive disorder, single episode, unspecified Code(s): F32.9 - Major depr
[2020-04-21 14:00] VITALS: BP 149/88; PULSE 93; RESP 18; TEMP 36.7; O2SAT 92
[2020-04-21] MEDS: polyethylene glycoL 3350 17 GM POWD.PACK PO (16:27)
[2020-04-21 22:00] VITALS: BP 127/78; PULSE 73; RESP 18; TEMP 36.1; O2SAT 99
[2020-04-22] VITALS (7 sets, daily range): BP systolic 124–172; BP diastolic 64–81; PULSE 68–77; RESP 19–20; TEMP 36.6–37.2; O2SAT 92–97
[2020-04-22] MEDS: SODIUM CHLORIDE 0.9% IV 1,000 ML 100 ML IV CONT (02:47)
[2020-04-22] MEDS: hydrALAZINE HCL 20 MG/ML VIAL 10 MG IV PUSH (04:33)
[2020-04-22 06:56] LABS: Anion Gap 7 mmol/L (8-16); Blood Urea Nitrogen 22 mg/dL (7-17); Calcium 7.8 mg/dL (8.4-10.2); Carbon Dioxide 24 mmol/L (22-30); Chloride 107 mmol/L (98-107); Estimated CRCL calculation 33 ml/min; Estimated Glomerular Filt Rate 43; Glucose 97 mg/dL (65-105); Magnesium 2.2 mg/dL (1.6-2.3); Sodium 138 mmol/L (137-145)
[2020-04-22] MEDS: SERTRALINE HCL 50 MG TABLET 200 MG PO (08:18)
[2020-04-22] MEDS: polyethylene glycoL 3350 17 GM POWD.PACK PO ×2 (08:18→16:46)
[2020-04-22] MEDS: APIXABAN 5 MG TABLET 10 MG PO ×2 (08:20→21:48)
[2020-04-22] MEDS: ATORVASTATIN 10 MG TABLET PO (08:20)
[2020-04-22] MEDS: BISACODYL 5 MG TABLET EC PO (08:20)
[2020-04-22] MEDS: amLODIPine BESYLATE 5 MG TABLET PO (08:23)
[2020-04-22] MEDS: FLUTICASONE PROPIONATE 0.05% NA SPR 16 GM BTL (*BKC) 1 SPRAY NASAL ×2 (08:24→21:49)
[2020-04-22] MEDS: LIDOCAINE 5% PATCH 2 PATCH TRANSDERM (08:27)
--- NOTE | 2020-04-22 11:24 | PM.IMPN ---
Progress Note: A&P Assessment and Plan (1) Delirium: Code(s): R41.0 - Disorientation, unspecified Status: Acute Assessment and Plan: Patient is disoriented today which is new. Her mental status and orientation have been appropriate and stable since admission. Stat CT brain is unremarkable. At this point suspect a component of hospital delirium. Will monitor for further symptoms. Planned for discharge SNF today however given her new confusion, plan to monitor overnight. (2) UTI (urinary tract infection): Qualifiers: Hematuria presence: without hematuria Urinary tract infection type: acute cystitis Qualified Code(s): N30.00 - Acute cystitis without hematuria Code(s): N39.0 - Urinary tract infection, site not specified Status: Acute Assessment and Plan: Patient presented to ED 04/14; diagnosed with UTI and discharged with oral abx. Patient returns with generalized weakness. Urine culture 04/14 grew multi drug-resistant E coli. Continue renally-dosed IV ertapenem (day 5). Given her acute delirium will continue antibiotics. Monitor vital signs and urine output. (3) DVT (deep venous thrombosis): Qualifiers: DVT location: lower extremity Affected thrombotic vein of extremity: popliteal Chronicity: acute Laterality: right Qualified Code(s): I82.431 - Acute embolism and thrombosis of right popliteal vein Code(s): I82.409 - Acute embolism and thrombosis of unspecified deep veins of unspecified lower extremity Status: Acute Assessment and Plan: Venous Doppler shows right femoral and popliteal nonocclusive DVT. 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 Unfortunately, she mentions missing a week or more of her Eliquis doses recently due to being out of the medication. She has also been sedentary with poor mobility. We will increase her Eliquis back up to therapeutic dose 10 mg BID x 7 days. Resume her home 5mg BID on 04/27/20. (4) Ileus: Code(s): K56.7 - Ileus, unspecified Status: Resolved Assessment and Plan: Imaging on arrival showed distended sigmoid colon with large volume stool in the colon. She had 3 large bowel movements after fleets enema. Clinically has resolved - no nausea/vomiting/abdominal pain today with positive bowel sounds. Passing flatus. Tolerating diet. Will continue bowel regimen and monitor. Consider repeat obstructive series if symptoms arise. (5) Poor mobility: Code(s): Z74.09 - Other reduced mobility Status: Acute Assessment and Plan: Appreciate PT/OT evaluations. Chronic debility may be worsened by acute UTI. Patient reports she recently discharged home alone from [facility]. Plan is discharge to [facility]. (6) Acute renal failure superimposed on stage 3 chronic kidney disease: Qualifiers: Acute renal failure type: unspecified Chronic kidney disease stage 3 subtype: unspecified whether 3a or 3b Qualified Code(s): N17.9 - Acute kidney failure, unspecified; N18.30 - Chronic kidney disease, stage 3 unspecified Code(s): N17.9 - Acute kidney failure, unspecified; N18.30 - Chronic kidney disease, stage 3 unspecified Status: Resolved Assessment and Plan: Cr up to 1.9 on arrival now improved to 1.2 back near her baseline. Baseline creatinine appears around 1.3 to 1.4. Continue to hold furosemide for now and monitor renal function; may be appropriate to resume at discharge. (7) Hypertension: Qualifiers: Hypertension type: essential hypertension Qualified Code(s): I10 - Essential (primary) hypertension Code(s): I10 - Essential (primary) h
[2020-04-22 14:08] LABS: SARS-CoV-2 RNA PCR Negative
--- NOTE | 2020-04-22 15:06 | PCOTNOTE ---
Attempted to see patient three times this date. First attempt, patient was getting back from testing. Second attempt, patient was eating lunch. Third attempt, patient was transferring rooms.
[2020-04-23] VITALS (14 sets, daily range): BP systolic 107–152; BP diastolic 58–92; PULSE 54–83; RESP 16–20; TEMP 35.7–37; O2SAT 92–98
--- NOTE | 2020-04-23 04:58 | PM.EVENT ---
Event Note Event Note Event Note: Design Printing Machine Set Up Operator Note Called to bedside by nursing staff as this 80 year old appeared to be having seizure like activity. The patient is currently being treated for acute delirium and UTI. On my arrival to bedside the patient has stopped seizing and now appears to be postictal and poorly responsive. Vital signs were obtained and the patient has low oxygen sats of 88%. She was placed on supplemental oxygen. ABG was obtained which demonstrated a pO2 of 55.3 on 2 liters of oxygen. After a few minutes the patient started to wake up more. 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 Initially she denied any alcohol consumption but finally admitted to drinking 3-4 Vodkas daily. The patient denies any previous withdrawal seizures. No focal neurological symptoms are noted. A/P 1. Acute Withdrawal Seizure 2. Acute Hypoxemic Respiratory failure -Transfer to IMU for closer monitoring -We will initiate high flow oxygen w/ a FiO2 of 50% -Obtain repeat ABG in 1 hour -CIWA-AR protocol, Scheduled Librium and PRN IV ativan withdrawal prophylaxis. -I will continue to monitor closely.
[2020-04-23 05:09] LABS: Alveolar/Arterial O2 Gradient 90.9 mmHg; Base Excess ABG -1.9 mEq/l (+/-2.0); Fractional Inspired Oxygen 28 %; HCO3 ABG 23.9 mEq/l (22.0-26.0); Oxygen Content ABG 12.7 %vol (16.0-22.0); Oxyhemoglobin 85.3 % THb (90.0-100.0); PCO2 ABG 45.3 mmHg (35.0-45.0); PO2 ABG 55.3 mmHg (80.0-100.0); PO2 FiO2 Ratio Arterial Blood 1.98 %; Total Hemoglobin 10.6 g/dL (12.0-18.0); pH ABG 7.341 (7.350-7.450)
[2020-04-23 05:13] LABS: Device NASAL CANNULA; Oxygen Saturation ABG 86.9 % (95.0-100.0); Site Drawn RIGHT BRACHIAL
--- NOTE | 2020-04-23 05:41 | PC.NURSE ---
0445 Pt was interacting with her sitter when she stopped & started shaking. Pt was unresponsive to painful stimuli. VS obtained, o2 started at 2L to maintain sat of 93% from 88%. Dr Fang notified. 0450 Dr to floor & assessing the Pt. 0525 pt transfered to IMU room 206-1
--- NOTE | 2020-04-23 06:14 | PC.NURSE ---
This patient, Elizabet Sanon, was received from [facility] on 04/23/20 at 0557. Personal belongings list checked and signed. Patient/family oriented to unit policies and routines
[2020-04-23] MEDS: SODIUM CHLORIDE 0.9% IV 1,000 ML 100 ML IV CONT ×2 (06:30→17:04)
[2020-04-23] MEDS: chlordiazePOXIDE (*CRX) 25 MG CAPSULE PO (06:31)
[2020-04-23 07:19] LABS: Alveolar/Arterial O2 Gradient 67.2 mmHg; Base Excess ABG -0.8 mEq/l (+/-2.0); Fractional Inspired Oxygen 26 %; Oxygen Content ABG 13.6 %vol (16.0-22.0); Oxygen Saturation ABG 94.2 % (95.0-100.0); Oxyhemoglobin 92.6 % THb (90.0-100.0); PO2 ABG 70.8 mmHg (80.0-100.0); PO2 FiO2 Ratio Arterial Blood 2.72 %; Total Hemoglobin 10.4 g/dL (12.0-18.0); pH ABG 7.396 (7.350-7.450)
[2020-04-23 07:20] LABS: Device HIGH FLOW NASAL CANN; Liters per Minute 1.5 LPM; Modified Allen's Test Pass; Site Drawn LEFT RADIAL
[2020-04-23 08:08] LABS: Basophils Percent Auto 0.3 % (0.2-1.2); Eosinophils Percent Auto 0.3 % (0-4.4); Hematocrit 30.2 % (37.0-47.0); Hemoglobin 9.7 g/dL (12.0-15.0); Immature Granulocyte Absolute 0.02 K/mm3 (0.00-0.031); Immature Granulocyte Percent A 0.3 % (0-0.5); Lymphocytes Absolute Auto 1.46 K/mm3 (0.9-3.2); Mean Corpuscular HGB Conc 32.1 g/dl (32-36); Mean Corpuscular Hemoglobin 29.7 pg (26-34); Mean Corpuscular Volume 92.4 fl (80-100); Mean Platelet Volume 9.9 fl (7.4-10.4); Monocytes Absolute Auto 0.4 K/mm3 (0.1-0.6); Monocytes Percent Auto 6.3 % (2.6-8.5); Neutrophils Absolute Auto 4.7 K/mm3 (1.3-6.7); Neutrophils Percent Auto 70.8 % (45.5-73.1); Platelet Count Result 168 k/mm3 (150-375); Red Blood Count 3.27 M/mm3 (4.2-5.4); Red Cell Distribution Width 15.9 % (11.5-14.5); White Blood Count 6.6 K/mm3 (4.5-10.0)
[2020-04-23 08:26] LABS: Alanine Aminotransferase 11 U/L (4-35); Albumin Level 3.2 g/dL (3.5-5.1); Alkaline Phosphatase 66 U/L (38-126); Anion Gap 6 mmol/L (8-16); Aspartate Amino Transferase 32 U/L (14-36); Bilirubin,Total 0.5 mg/dL (0.2-1.3); Blood Urea Nitrogen 20 mg/dL (7-17); Calcium 7.8 mg/dL (8.4-10.2); Carbon Dioxide 26 mmol/L (22-30); Chloride 107 mmol/L (98-107); Estimated CRCL calculation 33 ml/min; Estimated Glomerular Filt Rate 43; Glucose 105 mg/dL (65-105); Magnesium 2.4 mg/dL (1.6-2.3); Potassium 4.1 mmol/L (3.4-5.0); Sodium 139 mmol/L (137-145)
[2020-04-23 08:27] LABS: Glucose Point of Care 98 (65-105)
[2020-04-23] MEDS: ATORVASTATIN 10 MG TABLET PO (08:56)
[2020-04-23] MEDS: APIXABAN 5 MG TABLET 10 MG PO ×2 (08:57→20:36)
[2020-04-23] MEDS: amLODIPine BESYLATE 5 MG TABLET PO (08:57)
[2020-04-23] MEDS: LIDOCAINE 5% PATCH 2 PATCH TRANSDERM (08:58)
--- NOTE | 2020-04-23 11:33 | WPDNEURCNPN ---
Assessment and Plan Assessment and plan (1) Delirium: Code(s): R41.0 - Disorientation, unspecified Status: Acute (2) DVT (deep venous thrombosis): Qualifiers: DVT location: lower extremity Affected thrombotic vein of extremity: popliteal Chronicity: acute Laterality: right Qualified Code(s): I82.431 - Acute embolism and thrombosis of right popliteal vein Code(s): I82.409 - Acute embolism and thrombosis of unspecified deep veins of unspecified lower extremity Status: Acute (3) Weakness generalized: Code(s): R53.1 - Weakness Status: Acute Additional Plan stable continue treatment as such Consult date: 04/23/20 Time Seen: 11:15 HPI: Elizabet Sanon is a 80 year old female admitted to the hospital for the complaints of generalized weakness along with the history of UTI and chronic respiratory failure. she was seen in the emergency room about 4 days and was given antibiotics for the UTI but over the last several days she has been feeling extremely weak and was unable to get out of the bed and ambulate evaluation included the CT scan of the abdomen because of complaints of diarrhea which documented the fecal material in the rectosigmoid area with gaseous dilatation, she received IV fluids she lives at home. pertinent investigations including improving lab though still she is anemic, BUN coming down so as the creatinine and GFR is improved, COVID negative CT head negative,, but Doppler study positive for the right femoral-popliteal nonocclusive DVT patient is receiving supplemental medication in addition to apixaban 10 mg q.12 hours Review of Systems Review of Systems: All systems reviewed & are unremarkable except as noted in HPI and below PMFSH Past Medical History Medical History (Updated 04/22/20 @ 17:00 by Mely Cha PA-C) Chronic diarrhea Depression DVT (deep venous thrombosis) Right leg Hyperlipidemia Hypertension Osteoarthritis Psoriasis Reflux esophagitis Surgical History Surgical History (Updated 04/18/20 @ 14:48 by Ivelisse Womack NP) H/O right wrist surgery History of colonoscopy History of esophagogastroduodenoscopy (EGD) History of hernia repair History of total left hip arthroplasty Family History Family History Father Diabetes mellitus Heart attack Mother Cerebrovascular accident Heart attack Sibling Dementia Social History Social History Social History: 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 She has never been or had any children. She said she used to smoke many years ago. She is socially drink but no longer drinks no illicit drugs or marijuana. She desires to be a full code and chooses her 2 nephews to be her durable power configuration management consultant for healthcare. Smoking packs per day: 3.5 Smoking cigarettes per day: 70.0 Years smoked: 40 Smoking pack-years: 140.00 Smoking status: Former smoker Alcohol intake: never Substance use: former Substance use type: marijuana Additional living arrangements comments: Has caregiver visiting 3 days a week Gender identity (if verbalized by the patient): Female Spiritual care concerns: No Meds Home Medications and Allergies Home Medications Medication Instructions Recorded Confirmed Type Eliquis 5 mg PO BID 11/22/19 04/18/20 History alendronate 70 mg PO WEEKLY 11/22/19 04/18/20 History aspirin 81 mg PO DAILY 11/22/19 04/18/20 History atorvastatin 10 mg PO DAILY 11/22/19 04/18/20 History furosemide 20 mg PO DAILY 11/22/19 04/18/20 History magnesium gluconate [Mag-G] 500 mg PO DAILY 11/22/19 04/18/20 History nystatin [Nystop] 1 applic TOPICAL BID 11/22/19 04/18/20 History sertraline 200 mg PO DAILY 11/22/19 04/18/20 History lidocaine [Lidoderm] 1 patch TRANSDERMAL DAILY #10 ea 11/25/19 04/18/20 Rx Allergi
--- NOTE | 2020-04-23 12:33 | PCDIET ---
Nutrition Follow-Up Complete: Nutrition Diagnosis: Unintended wt loss r/t diarrhea as evidence by 130lb wt loss over two years Nutrition Goal: Adequate intake over 50% of meals with reduction in diarrhea Goal not met. Patient transferred to IMU following seizure. Now NPO due to decreased level of responsiveness. If unable to safely resume diet in the next few days, will likely recommend consideration of nutrition support. Last recorded weight is 77.11 kg. Recommend obtaining new weight. Bowel Motility: BM x 2 thus far today. Labs Reviewed: BUN (20), Cr (1.2), Alb (3.2), Julia Ca (8.44) Meds Noted: Fosamax, Lipitor, Librium, Magonate, Thiamine, NS at 100mL/hr Additional Notes: Left elbow with skin tear. Will continue to monitor with same goal. Nutrition Monitoring and Evaluation: Follow up in 3 days.
[2020-04-23 12:36] LABS: Glucose Point of Care 87 (65-105)
[2020-04-23] MEDS: FLUTICASONE PROPIONATE 0.05% NA SPR 16 GM BTL (*BKC) 1 SPRAY NASAL ×2 (12:48→20:36)
[2020-04-23] MEDS: THIAMINE HCL 200 MG/2 ML VIAL 100 MG IV PUSH (12:49)
--- NOTE | 2020-04-23 15:22 | PM.IMPN ---
Progress Note: A&P Assessment and Plan (1) Seizure: Code(s): R56.9 - Unspecified convulsions Status: Acute Assessment and Plan: -----reported seizure activity earlier today by nursing staff. It Program Engagement Director at bedside after seizure activity who confirms postictal state. Patient is back to baseline today and has not had any additional issues. EEG is pending. I believe she likely had a seizure from getting multiple days of 200 mg Zoloft when she does not take this at home as well as ertapenem which can also cause seizures. She has no history of neurological deficits and a CT of the brain is normal. I do not think the patient needs an MRI at this time since we have a likely cause for the new onset seizure. With that being said, I will see what Neurology recommends. Patient and family both state that she does not drink alcohol. Since the seizure is day 5 of hospitalization, alcohol withdrawal seems less likely with above info. librium stopped. (2) Delirium: Code(s): R41.0 - Disorientation, unspecified Status: Acute Assessment and Plan: -----as explained above. (3) UTI (urinary tract infection): Qualifiers: Hematuria presence: without hematuria Urinary tract infection type: acute cystitis Qualified Code(s): N30.00 - Acute cystitis without hematuria Code(s): N39.0 - Urinary tract infection, site not specified Status: Acute Assessment and Plan: -----Completed ertapenem. No further tx needed. (4) DVT (deep venous thrombosis): Qualifiers: DVT location: lower extremity Affected thrombotic vein of extremity: popliteal Chronicity: acute Laterality: right Qualified Code(s): I82.431 - Acute embolism and thrombosis of right popliteal vein Code(s): I82.409 - Acute embolism and thrombosis of unspecified deep veins of unspecified lower extremity Status: Acute Assessment and Plan: ------Venous Doppler shows right femoral and popliteal nonocclusive DVT. 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 Unfortunately, she mentions missing a week or more of her Eliquis doses recently due to being out of the medication. She has also been sedentary with poor mobility. Continue Eliquis back up to therapeutic dose 10 mg BID x 7 days. Resume her home 5mg BID on 04/27/20. (5) Ileus: Code(s): K56.7 - Ileus, unspecified Status: Resolved Assessment and Plan: -----resolved. Imaging on arrival showed distended sigmoid colon with large volume stool in the colon. She had 3 large bowel movements after fleets enema. Clinically has resolved - no nausea/vomiting/abdominal pain today with positive bowel sounds. Passing flatus. Tolerating diet. Will continue bowel regimen PRN and monitor. Consider repeat obstructive series if symptoms arise. (6) Poor mobility: Code(s): Z74.09 - Other reduced mobility Status: Acute Assessment and Plan: ----Appreciate PT/OT evaluations. Chronic debility may be worsened by acute UTI. plan for SNF (7) Acute renal failure superimposed on stage 3 chronic kidney disease: Qualifiers: Acute renal failure type: unspecified Chronic kidney disease stage 3 subtype: unspecified whether 3a or 3b Qualified Code(s): N17.9 - Acute kidney failure, unspecified; N18.30 - Chronic kidney disease, stage 3 unspecified Code(s): N17.9 - Acute kidney failure, unspecified; N18.30 - Chronic kidney disease, stage 3 unspecified Status: Resolved Assessment and Plan: -----Cr up to 1.9 on arrival now improved to 1.2 back near her baseline. Baseline creatinine appears around 1.3 to 1.4. Continue to hold furosemide for now and monitor renal function; may be appropriate to resume at discharge. Will likely stop fluids once patient is eating and drinking. (8) Hypertension: Qualifiers: Hypertension typ
[2020-04-23 17:53] LABS: Glucose Point of Care 111 (65-105)
[2020-04-23 19:35] LABS: Glucose Point of Care 148 (65-105)
[2020-04-24] VITALS (11 sets, daily range): BP systolic 92–136; BP diastolic 52–74; PULSE 64–84; RESP 16–22; TEMP 36.1–36.3; O2SAT 91–98
--- NOTE | 2020-04-24 00:31 | PC.NURSE ---
This patient, Elizabet Sanon, was received from [ [facility]] on 04/24/20 at 0032. Personal belongings list checked and signed. Patient/family oriented to unit policies and routines
[2020-04-24] MEDS: SODIUM CHLORIDE 0.9% IV 1,000 ML 75 ML IV CONT ×2 (04:32→15:43)
[2020-04-24 04:54] LABS: Hematocrit 26.7 % (37.0-47.0); Hemoglobin 8.3 g/dL (12.0-15.0); Mean Corpuscular HGB Conc 31.1 g/dl (32-36); Mean Corpuscular Hemoglobin 28.9 pg (26-34); Mean Platelet Volume 10.2 fl (7.4-10.4); Platelet Count Result 200 k/mm3 (150-375); Red Blood Count 2.87 M/mm3 (4.2-5.4); White Blood Count 8.7 K/mm3 (4.5-10.0)
[2020-04-24 07:45] LABS: Anion Gap 9 mmol/L (8-16); Blood Urea Nitrogen 23 mg/dL (7-17); Calcium 7.3 mg/dL (8.4-10.2); Carbon Dioxide 23 mmol/L (22-30); Chloride 109 mmol/L (98-107); Estimated CRCL calculation 33 ml/min; Estimated Glomerular Filt Rate 43; Glucose 123 mg/dL (65-105); Sodium 141 mmol/L (137-145)
[2020-04-24] MEDS: FLUTICASONE PROPIONATE 0.05% NA SPR 16 GM BTL (*BKC) 1 SPRAY NASAL ×2 (08:28→20:35)
[2020-04-24] MEDS: amLODIPine BESYLATE 5 MG TABLET PO (08:28)
[2020-04-24] MEDS: APIXABAN 5 MG TABLET 10 MG PO (08:28)
[2020-04-24] MEDS: ATORVASTATIN 10 MG TABLET PO (08:28)
[2020-04-24] MEDS: ACETAMINOPHEN 325 MG TABLET 650 MG PO (08:37)
[2020-04-24] MEDS: LIDOCAINE 5% PATCH 2 PATCH TRANSDERM (08:42)
[2020-04-24 10:31] LABS: Glucose Point of Care 110 (65-105)
--- NOTE | 2020-04-24 10:41 | P.NEURO_ITS ---
Neurology EEG Report General Information Date of Study: 04/23/24 TEST EEG DIAGNOSIS Seizure CONDITION OF RECORDING awake, drowsy and sleep EEG NUMBER [id number] CLINICAL HISTORY new onset seizures EEG DESCRIPTION Basic resting occipital frequency consists of large amount of fairly well- organized low to medium voltage 8 to 9 hertz per 2nd alpha admixed with low- voltage 15 to 18 hertz per 2nd beta activity. Low-voltage beta activity seen during drowsiness admixed with intermittent 6 to 7 hertz per 2nd theta activity. Bilateral symmetrical sleep activity seen during sleep of with symmetrical spindles. Non paroxysmal. Nonfocal. Nonlateralizing. IMPRESSION No significant abnormalities noted.
--- NOTE | 2020-04-24 11:12 | WPDNEUROLOGY ---
Neurology EEG Report General Information Date of Study: 04/23/20 TEST EEG DIAGNOSIS seizures CONDITION OF RECORDING drowsy and sleep EEG NUMBER [id number] CLINICAL HISTORY complaints of new onset of seizure EEG DESCRIPTION Basic resting occipital frequency consist of poorly organized low to medium voltage 8 to 10 hertz per 2nd alpha admixed with a large amount of low-voltage 15 to 18 hertz per 2nd beta. During drowsiness low-voltage beta activity is seen diffusely admixed with waxing and waning poorly organized posterior alpha rhythm .bilateral symmetrical sleep activity seen during sleep with normal and symmetrical sleep spindles. Multiple muscle artifacts are seen. Right hemispheric paroxysmal activity seen during spindle activity hyperventilation not done, photic stimulation not done, paroxysmal focal and lateralizing IMPRESSION abnormal record due to presence of right hemispheric paroxysmal activity particularly during sleep clinical correlation recommended these abnormalities are suggestive of underlying seizure
[2020-04-24 12:27] LABS: Glucose Point of Care 120 (65-105)
--- NOTE | 2020-04-24 13:20 | PC.NURSE ---
This patient, Elizabet Sanon, was transferred to [ [id number]] on 04/24/20 at 1320. Personal belongings sent with patient. Belongings list checked and signed with receiving [ ]. Report given to [KADEN Ortega @ [phone] ]. Appropriate documentation sent with patient.
--- NOTE | 2020-04-24 13:25 | PC.NURSE ---
Received from [facility] via bed.
--- NOTE | 2020-04-24 14:27 | PM.IMPN ---
Progress Note: A&P Assessment and Plan (1) Seizure: Code(s): R56.9 - Unspecified convulsions Status: Acute Assessment and Plan: -----reported seizure activity morning of 04/23/20 reported by nursing staff stating she was interacting with sitter and stopped and started shaking and became unresponsive to painful stimuli (not on tele). Lens Edge Grinder Machine at bedside after seizure activity who confirms postictal state. Pt was back to baseline 04/23 but today is little more confused. She had an EEG and I spoke with neurology who saw some abnormalities and recommends keppra 250BID. I believe she likely had a seizure from getting multiple days of 200 mg Zoloft when she does not take this at home as well as ertapenem which can also cause seizures. She has no history of neurological deficits and a CT of the brain is normal 04/22. I do not think the patient needs an MRI at this time since we have a likely cause for the new onset seizure. No deficits noted on todays exam although she is a little more confused. Patient and family both state that she does not drink alcohol. Since the seizure is day 5 of hospitalization, alcohol withdrawal seems less likely with above info. librium stopped. We will see how she does on keppra. Patient has been on Eliquis, bleed seems less likely but no CT ordered. Will order one now since she is confused again. (2) NSVT (nonsustained ventricular tachycardia): Code(s): I47.2 - Ventricular tachycardia Status: Acute Assessment and Plan: -----Noted 04/23/20 at 18:48. No reported symptoms. Magnesium, potassium and calcium normal. Will order an echo. I do not think the above scenario is from a cardiac arrhythmia but she was not on telemetry during that time. Cardiac consult (3) Bruising: Code(s): T14.8XXA - Other injury of unspecified body region, initial encounter Status: Acute Assessment and Plan: -----the patient has significant bruising down the left arm but I do not palpate any hematoma. The nursing staff states she did not have any falls while here but was trying to get out of bed and may have injured her arm then. Her hgb did drop a bit but is stable. I will run a PTT, PT and Hgb now. After speaking with family (daphnie) we have decided to place the eliquis on hold at this time. There is some risk in this as she has a DVT but her risk of further bleeding outweights this at this time. (4) Delirium: Code(s): R41.0 - Disorientation, unspecified Status: Acute Assessment and Plan: -----as explained above. (5) UTI (urinary tract infection): Qualifiers: Hematuria presence: without hematuria Urinary tract infection type: acute cystitis Qualified Code(s): N30.00 - Acute cystitis without hematuria Code(s): N39.0 - Urinary tract infection, site not specified Status: Acute Assessment and Plan: -----Completed ertapenem. No further tx needed. (6) DVT (deep venous thrombosis): Qualifiers: DVT location: lower extremity Affected thrombotic vein of extremity: popliteal Chronicity: acute Laterality: right Qualified Code(s): I82.431 - Acute embolism and thrombosis of right popliteal vein Code(s): I82.409 - Acute embolism and thrombosis of unspecified deep veins of unspecified lower extremity Status: Acute Assessment and Plan: ------Venous Doppler shows right femoral and popliteal nonocclusive DVT. 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 Unfortunately, she mentions missing a week or more of her Eliquis doses recently due to being out of the medication. She has also been sedentary with poor mobility. Eliquis on held as stated above. (7) Ileus: Code(s): K56.7 - Ileus, unspecified Status: Resolved Assessment and Plan: -----resolved. She is having many BMs now. Imaging on arrival showed distend
--- NOTE | 2020-04-24 14:41 | WPDNEUROPN ---
Progress Note: A&P Assessment and Plan (1) NSVT (nonsustained ventricular tachycardia): Code(s): I47.2 - Ventricular tachycardia Status: Acute (2) Seizure: Code(s): R56.9 - Unspecified convulsions Status: Acute (3) Delirium: Code(s): R41.0 - Disorientation, unspecified Status: Acute (4) DVT (deep venous thrombosis): Qualifiers: DVT location: lower extremity Affected thrombotic vein of extremity: popliteal Chronicity: acute Laterality: right Qualified Code(s): I82.431 - Acute embolism and thrombosis of right popliteal vein Code(s): I82.409 - Acute embolism and thrombosis of unspecified deep veins of unspecified lower extremity Status: Acute (5) Acute renal failure superimposed on stage 3 chronic kidney disease: Qualifiers: Acute renal failure type: unspecified Chronic kidney disease stage 3 subtype: unspecified whether 3a or 3b Qualified Code(s): N17.9 - Acute kidney failure, unspecified; N18.30 - Chronic kidney disease, stage 3 unspecified Code(s): N17.9 - Acute kidney failure, unspecified; N18.30 - Chronic kidney disease, stage 3 unspecified Status: Resolved (6) Weakness generalized: Code(s): R53.1 - Weakness Status: Acute (7) Hyperlipidemia: Qualifiers: Hyperlipidemia type: unspecified Qualified Code(s): E78.5 - Hyperlipidemia, unspecified Code(s): E78.5 - Hyperlipidemia, unspecified Status: Chronic (8) Hypertension: Qualifiers: Hypertension type: essential hypertension Qualified Code(s): I10 - Essential (primary) hypertension Code(s): I10 - Essential (primary) hypertension Status: Chronic (9) Depression: Qualifiers: Depression Type: unspecified Qualified Code(s): F32.9 - Major depressive disorder, single episode, unspecified Code(s): F32.9 - Major depressive disorder, single episode, unspecified Status: Chronic (10) Dehydration: Code(s): E86.0 - Dehydration Status: Acute Additional Plan continue present medical management PT OT and gait training Review of Systems Review of Systems: All systems reviewed & are unremarkable except as noted in HPI and below Exam Narrative: Exam Narrative: patient is awake and alert well oriented however does have memory deficit subtle left-sided weakness is noted Mahesh nose throat normal neck is supple no bruits are noted lungs are clear cardiovascular examination is negative abdomen is soft soft not tender extremities reveal possible dystonic posturing of the left hand and the left foot suggestive of old neurological findings Objective Data Vital Signs Vital Signs: Vital Signs - 24 hr 04/23/20 16:00 04/23/20 16:17 04/23/20 19:36 Temperature 36.2 C L 36.4 C Pulse Rate 57 L 57 L 63 Respiratory Rate 18 20 Blood Pressure 138/76 132/78 Pulse Oximetry 97 95 04/23/20 20:00 04/23/20 23:41 04/24/20 00:00 Temperature 36.4 C Pulse Rate 64 68 66 Respiratory Rate 16 Blood Pressure 152/92 H Pulse Oximetry 98 04/24/20 03:54 04/24/20 04:00 04/24/20 08:00 Temperature 36.3 C L 36.2 C L Pulse Rate 64 79 72 Respiratory Rate 18 20 Blood Pressure 120/62 136/74 Pulse Oximetry 97 91 04/24/20 12:00 Temperature 36.3 C L Pulse Rate 79 Respiratory Rate 18 Blood Pressure 92/56 L Pulse Oximetry 94 Intake/Output Intake/Output: Intake & Output 04/21/20 04/22/20 04/23/20 04/24/20 23:59 23:59 23:59 23:59 Intake Total 3450 2870 1000 1569.4 Balance 3450 2870 1000 1569.4 Meds/Results Medications: Active Medications Generic Name Dose Route Start Last Admin Trade Name Freq PRN Reason Stop Dose Admin Acetaminophen 650 mg 04/19/20 14:11 04/24/20 08:37 Acetaminophen 325 Mg Tablet PO 650 mg Q4H PRN Administration Pain or Fever Alendronate Sodium 70 mg 04/18/20 09:00 04/18/20 16:38 Alendronate Sodium 70 Mg Tablet PO 70 mg WEEKLY RUDDY
--- NOTE | 2020-04-24 16:12 | PM.CNCAR ---
Assessment and Plan Assessment and plan (1) NSVT (nonsustained ventricular tachycardia): Code(s): I47.2 - Ventricular tachycardia Status: Acute Assessment and Plan: probably not related to her episode yesterday where she became unresponsive and shaking. this in [place] and EEG point more towards a direction of seizure rather than true syncope. Regardless she does have a 10 beat run of nonsustained ventricular tachycardia seen on her monitor. Her electrolytes are stable. Echocardiogram is pending. Will order an EKG. Will start her on low-dose beta-chi in the form of metoprolol tartrate 12.5 mg p.o. b.i.d.. Consider eventual stress testing depending on appropriateness (2) DVT (deep venous thrombosis): Qualifiers: DVT location: lower extremity Affected thrombotic vein of extremity: popliteal Chronicity: acute Laterality: right Qualified Code(s): I82.431 - Acute embolism and thrombosis of right popliteal vein Code(s): I82.409 - Acute embolism and thrombosis of unspecified deep veins of unspecified lower extremity Status: Acute Assessment and Plan: on Eliquis (3) UTI (urinary tract infection): Code(s): N39.0 - Urinary tract infection, site not specified Status: Acute Assessment and Plan: on antibiotics (4) Seizure: Code(s): R56.9 - Unspecified convulsions Status: Acute Assessment and Plan: followed by Neurology History of Present Illness History of Present Illness Consult date/time: 04/24/20 16:12 Requesting physician: Fay Brock PA-C Consult reason: Other (Nonsustained ventricular tachycardia) Reason For Visit: failed outpatient tx UTI/CRD/Generalized weakness Narrative: date of service 04/24/2020 Reason for consultation: Nonsustained ventricular tachycardia History: Patient is a 80-year-old female who was admitted because of severe weakness and inability to get up out of bed. Also there were some issues with chronic diarrhea, dehydration, recurring urinary tract infection. She has been treated for UTI, acute kidney injury, hypertension, depression, diarrhea and dehydration while in the hospital. There was reportedly seizure-like activity on 04/23 in the morning. In reviewing the chart record, nursing staff stated that the patient was interacting with the sitter. Suddenly she started shaking and became unresponsive. She was not on patient support partner at that time. EEG was performed and it appears that the findings are consistent with seizures. print support specialist was then put on and she did have a 10 beat run of nonsustained ventricular tachycardia yesterday evening. Nothing else overnight. Patient denies any chest pain, shortness of breath, presyncope, paroxysmal nocturnal dyspnea, orthopnea. She does admit to occasional palpitations which are short lived and will last for couple seconds and not related with syncope or presyncope. Labs were drawn which are normal including a normal magnesium, normal potassium and TSH. Review of Systems Review of Systems: All systems reviewed & are unremarkable except as noted in HPI and below Constitutional: Constitutional: Reports fatigue and Reports weakness Eyes: Eyes: Denies blurry vision ENT: Reports Normal hearing present Cardiovascular: Cardiovascular: Denies chest pain and Reports palpitations Respiratory: Respiratory: Denies dyspnea Gastrointestinal: Gastrointestinal: Reports abdominal pain Genitourinary: Genitourinary: Denies dysuria and Denies flank pain Musculoskeletal: Musculoskeletal: Denies back pain and Denies neck pain Integumentary/Breasts: Skin/Breast: Denies dry skin Neurologic: Reports confusion and Denies headache(s) Psychiatric: Psychiatric: Denies anxiety and Reports confusion Endocrine: Endocrine: Denies excessive sweating and Denies fatigue Hematologic/Lymphatic: Hematologic/Lymphatic: Denies easy bleeding and Denies easy bruising Allergic/
--- NOTE | 2020-04-24 16:23 | ECG_ITS ---
Measurements Intervals [place] Rate: 50 P: -68 ME: 117 QRS: -29 QRSD: 109 T: -11 QT: 425 QTc: 389 Interpretive Statements ECTOPIC ATRIAL BRADYCARDIA VOLTAGE CRITERIA FOR LVH CANNOT RULE OUT SEPTAL INFARCT, AGE INDETERMINATE BORDERLINE T WAVE ABNORMALITY- INF/LAT LEADS ABNORMAL ECG Electronically Signed On 04-25-2020 7:00:49 CDT by Oren Fleming D.O.
[2020-04-24 16:53] LABS: Hematocrit 28.6 % (37.0-47.0); Hemoglobin 8.7 g/dL (12.0-15.0)
[2020-04-24 17:04] LABS: INR 2.2; Prothrombin Time 23.9 Seconds (11.1-14.7)
[2020-04-24 18:13] LABS: Glucose Point of Care 114 (65-105)
[2020-04-24] MEDS: levETIRAcetam 250 MG TABLET PO (20:35)
[2020-04-24] MEDS: METOPROLOL TARTRATE 12.5 MG TABLET PO (20:35)
[2020-04-24 20:45] LABS: Glucose Point of Care 108 (65-105)
[2020-04-25] VITALS (11 sets, daily range): BP systolic 138–148; BP diastolic 68–76; PULSE 57–75; RESP 14–18; TEMP 36.2–36.9; O2SAT 95–99
--- NOTE | 2020-04-25 | ECHO_ITS ---
Patient Info Name: Elizabet Snaon Age: 80 years : 1940 Gender: Female Ht: 63 in Wt: 169 lbs BSA: 1.87 m2 HR: 55 bpm BP: 141 / 72 mmHg Heart Rhythm: Sinus Rhythm Technical Quality: Good Exam Date: 04/25/2020 11:30 AM Exam Location: [facility] Pul[facility] Patient Status: Inpatient Admit Date: 04/19/2020 Staff Ordering Physician: Fay Brock PA-C Ultrasonic Seaming Machine Operator: Kenneth Xie RDCS, RT Attending Provider: Fay Brock PA-C Referring Physician: Delmy PLASCENCIA; Exam Type: CA echo doppler color flow Study Info Indications I47.0 - Re-entry ventricular arrhythmia Complete two-dimensional, color flow and Doppler transthoracic echocardiogram is performed. Strain analysis performed. Summary 1. Complete two-dimensional, color flow and Doppler transthoracic echocardiogram is performed. 2. Strain analysis performed. 3. Left ventricular chamber dimension is normal. 4. Left ventricular systolic function is normal, estimated at 65-70%. 5. There is mildly increased left ventricular wall thickness. 6. Left ventricular septal wall motion is normal. 7. The left ventricular diastolic function is grade I diastolic dysfunction. 8. Global longitudinal strain is normal at -19 %. 9. Right ventricular chamber dimension is moderately enlarged. 10. There is moderate aortic valve calcification. 11. There is mild mitral valve regurgitation. 12. There is mild tricuspid valve regurgitation. 13. Mild pulmonary hypertension, estimated pulmonary arterial systolic pressure is 36 mmHg. Left Ventricle Left ventricular chamber dimension is normal. Left ventricular systolic function is normal, estimated at 65-70%. There is mildly increased left ventricular wall thickness. Left ventricular septal wall motion is normal. The left ventricular diastolic function is grade I diastolic dysfunction. Global longitudinal strain is normal at -19 %. Right Ventricle Right ventricular chamber dimension is moderately enlarged. Right ventricular systolic function is normal. Left Atria Left atrial chamber dimension is moderately enlarged. Right Atria Right atrial chamber dimension is normal. Atrial Septum Intact interatrial septum visualized by color flow imaging. Aortic Valve The aortic valve is probable trileaflet. There is no aortic valve stenosis. There is trace aortic valve regurgitation. There is moderate aortic valve calcification. Pulmonic Valve The pulmonic valve is normal. There is no pulmonic valve stenosis. There is trace pulmonic regurgitation. Mitral Valve The mitral valve has calcified annulus. There is no mitral valve stenosis. There is mild mitral valve regurgitation. Tricuspid Valve The tricuspid valve leaflets are normal. There is no significant tricuspid valve stenosis. There is mild tricuspid valve regurgitation. Mild pulmonary hypertension, estimated pulmonary arterial systolic pressure is 36 mmHg. Pericardium/Pleural The pericardium appears normal. There is no pericardial effusion. Inferior Vena Cava Normal inferior vena cava with <50% collapse upon inspiration consistent with normal right atrial pressure, 5 mmHg. Aorta The aortic root size at the sinus of Valsalva is normal. Left Ventricular Outflow Tract Name Value Normal LVOT 2D -----
[2020-04-25] MEDS: SODIUM CHLORIDE 0.9% IV 1,000 ML 75 ML IV CONT (05:08)
[2020-04-25 06:09] LABS: Basophils Percent Auto 0.2 % (0.2-1.2); Eosinophils Absolute Auto 0.1 K/mm3 (0-0.3); Eosinophils Percent Auto 0.9 % (0-4.4); Hematocrit 25.9 % (37.0-47.0); Hemoglobin 7.9 g/dL (12.0-15.0); Immature Granulocyte Absolute 0.05 K/mm3 (0.00-0.031); Immature Granulocyte Percent A 0.6 % (0-0.5); Lymphocytes Absolute Auto 2.29 K/mm3 (0.9-3.2); Lymphocytes Percent Auto 26.6 % (18.3-44.2); Mean Corpuscular HGB Conc 30.5 g/dl (32-36); Mean Corpuscular Hemoglobin 29.3 pg (26-34); Mean Corpuscular Volume 95.9 fl (80-100); Mean Platelet Volume 10.4 fl (7.4-10.4); Monocytes Absolute Auto 0.7 K/mm3 (0.1-0.6); Monocytes Percent Auto 7.7 % (2.6-8.5); Neutrophils Absolute Auto 5.5 K/mm3 (1.3-6.7); Platelet Count Result 155 k/mm3 (150-375); Red Cell Distribution Width 16.2 % (11.5-14.5); White Blood Count 8.6 K/mm3 (4.5-10.0)
[2020-04-25 06:29] LABS: Alanine Aminotransferase 11 U/L (4-35); Albumin Level 3.1 g/dL (3.5-5.1); Alkaline Phosphatase 58 U/L (38-126); Anion Gap 8 mmol/L (8-16); Aspartate Amino Transferase 35 U/L (14-36); Bilirubin,Total 0.5 mg/dL (0.2-1.3); Blood Urea Nitrogen 28 mg/dL (7-17); Calcium 7.2 mg/dL (8.4-10.2); Carbon Dioxide 22 mmol/L (22-30); Chloride 112 mmol/L (98-107); Estimated CRCL calculation 29 ml/min; Estimated Glomerular Filt Rate 36; Glucose 87 mg/dL (65-105); Potassium 3.7 mmol/L (3.4-5.0); Sodium 142 mmol/L (137-145)
[2020-04-25 07:38] LABS: Glucose Point of Care 91 (65-105)
[2020-04-25] MEDS: FLUTICASONE PROPIONATE 0.05% NA SPR 16 GM BTL (*BKC) 1 SPRAY NASAL ×2 (08:37→22:05)
[2020-04-25] MEDS: LIDOCAINE 5% PATCH 2 PATCH TRANSDERM (08:38)
[2020-04-25] MEDS: amLODIPine BESYLATE 5 MG TABLET PO (08:39)
[2020-04-25] MEDS: levETIRAcetam 250 MG TABLET PO ×2 (08:40→22:05)
[2020-04-25] MEDS: ATORVASTATIN 10 MG TABLET PO (08:43)
[2020-04-25] MEDS: METOPROLOL TARTRATE 12.5 MG TABLET PO ×2 (08:43→22:05)
[2020-04-25] MEDS: ALENDRONATE SODIUM 70 MG TABLET PO (08:44)
[2020-04-25 12:29] LABS: Glucose Point of Care 74 (65-105)
[2020-04-25 13:52] LABS: SARS-CoV-2 RNA PCR Negative
--- NOTE | 2020-04-25 15:00 | PM.IMPN ---
Progress Note: A&P Assessment and Plan (1) Seizure: Code(s): R56.9 - Unspecified convulsions Status: Acute Assessment and Plan: -----reported seizure activity morning of 04/23/20 reported by nursing staff stating she was interacting with sitter and stopped and started shaking and became unresponsive to painful stimuli (not on tele). Reinsurance Claim Analyst at bedside after seizure activity who confirms postictal state. Pt was back to baseline 04/23 but today is little more confused. She had an EEG and I spoke with neurology who saw some abnormalities and recommends keppra 250BID. I believe she likely had a seizure from getting multiple days of 200 mg Zoloft when she does not take this at home as well as ertapenem which can also cause seizures. She has no history of neurological deficits and a CT of the brain is normal 04/22. I do not think the patient needs an MRI at this time since we have a likely cause for the new onset seizure. Patient and family both state that she does not drink alcohol. Since the seizure is day 5 of hospitalization, alcohol withdrawal seems less likely with above info. Patient seems improved since the prior days. We will see how she does on keppra. CT of the brain normal 04/24/20 (2) NSVT (nonsustained ventricular tachycardia): Code(s): I47.2 - Ventricular tachycardia Status: Acute Assessment and Plan: -----Noted 04/23/20 at 18:48. No reported symptoms and no recurrence. Magnesium, potassium and calcium normal. Echo still pending. I do not think the above scenario is from a cardiac arrhythmia but she was not on telemetry during that time. Cardiac consult (3) Bruising: Code(s): T14.8XXA - Other injury of unspecified body region, initial encounter Status: Acute Assessment and Plan: -----the patient has significant bruising down the left arm, breast, and chest. It is unclear why she has had so much bleeding on the Eliquis. INR was drawn yesterday which is elevated 2.2. The Eliquis has been stopped and I am going to consult Hematology. The nursing staff states she did not have any falls while here but was trying to get out of bed and may have injured her arm then. Her hgb did drop a bit but is stable. After speaking with family (daphnie) we have decided to place the eliquis on hold at this time. There is some risk in this as she has a DVT but her risk of further bleeding outweights this at this time. She may need an IVC filter (4) Delirium: Code(s): R41.0 - Disorientation, unspecified Status: Acute Assessment and Plan: -----as explained above. (5) UTI (urinary tract infection): Qualifiers: Hematuria presence: without hematuria Urinary tract infection type: acute cystitis Qualified Code(s): N30.00 - Acute cystitis without hematuria Code(s): N39.0 - Urinary tract infection, site not specified Status: Acute Assessment and Plan: -----Completed ertapenem. No further tx needed. (6) DVT (deep venous thrombosis): Qualifiers: DVT location: lower extremity Affected thrombotic vein of extremity: popliteal Chronicity: acute Laterality: right Qualified Code(s): I82.431 - Acute embolism and thrombosis of right popliteal vein Code(s): I82.409 - Acute embolism and thrombosis of unspecified deep veins of unspecified lower extremity Status: Acute Assessment and Plan: ------Venous Doppler shows right femoral and popliteal nonocclusive DVT. 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 Unfortunately, she mentions missing a week or more of her Eliquis doses recently due to being out of the medication. She has also been sedentary with poor mobility. Eliquis on held as stated above.. Surgical consult placed but will await Dr. Mercado recommendations. (7) Ileus: Code(s): K56.7 - Ileus, unspecified Status: Res
--- NOTE | 2020-04-25 15:56 | PM.PNCARD ---
Progress Note: A&P Assessment and Plan (1) NSVT (nonsustained ventricular tachycardia): Code(s): I47.2 - Ventricular tachycardia Status: Acute Assessment and Plan: probably not related to her episode yesterday where she became unresponsive and shaking. EEG points more towards a direction of seizure rather than true syncope. Regardless she does have a 10 beat run of nonsustained ventricular tachycardia seen on her monitor. Her electrolytes are stable. Echocardiogram is pending. continue low-dose metoprolol.. Consider eventual stress testing depending on appropriateness . Will DC IV fluids as to not cause iatrogenic volume overload. She is eating and drinking. (2) DVT (deep venous thrombosis): Qualifiers: DVT location: lower extremity Affected thrombotic vein of extremity: popliteal Chronicity: acute Laterality: right Qualified Code(s): I82.431 - Acute embolism and thrombosis of right popliteal vein Code(s): I82.409 - Acute embolism and thrombosis of unspecified deep veins of unspecified lower extremity Status: Acute Assessment and Plan: on Eliquis (3) UTI (urinary tract infection): Code(s): N39.0 - Urinary tract infection, site not specified Status: Acute Assessment and Plan: on antibiotics (4) Seizure: Code(s): R56.9 - Unspecified convulsions Status: Acute Assessment and Plan: followed by Neurology Subjective Date/time seen: 04/25/20 15:56 Interval history: Pt is a 80-year-old female here for UTI and possible seizure. Patient was seen today and is in good spirits. She is not any pain and denies any new events overnight. Sitter at bedside states she has been alert and oriented and cooperating with no seizure activity. Date of service 04/25/2020: She feels okay and denies any chest pain or shortness of breath. She does have left arm pain and bruising and swelling Review of Systems Review of Systems: All systems reviewed & are unremarkable except as noted in HPI and below Constitutional: Constitutional: Denies excessive sweating, Denies fatigue, Denies headache(s) and Reports weakness Eyes: Eyes: Denies blurry vision ENT: Reports Normal hearing present, Denies headache(s), Denies lip swelling and Denies neck pain Cardiovascular: Cardiovascular: Denies chest pain, Reports palpitations and Denies dyspnea Respiratory: Respiratory: Denies dyspnea Gastrointestinal: Gastrointestinal: Reports abdominal pain Genitourinary: Genitourinary: Denies dysuria and Denies flank pain Musculoskeletal: Musculoskeletal: Denies back pain and Denies neck pain Integumentary/Breasts: Skin/Breast: Denies dry skin Neurologic: Reports Normal hearing present, Reports confusion, Denies headache(s) and Reports weakness Psychiatric: Psychiatric: Denies anxiety and Reports confusion Endocrine: Endocrine: Denies excessive sweating, Denies fatigue and Reports palpitations Hematologic/Lymphatic: Hematologic/Lymphatic: Denies easy bleeding and Denies easy bruising Allergic/Immunologic: Allergic/Immunologic: Denies lip swelling Exam Narrative: Exam Narrative: Patient is awake. In no acute distress Const: General: comfortable, no acute distress and confusion Orientation/consciousness: confusion HENMT: General nose exam: Normal nares present Eyes: Sclera: sclerae normal Neck: Neck: supple and no JVD Chest: Other: no reproducible chest wall pain to palpation Resp: Auscultation: clear to auscultation bilaterally Cardio: Rate: regular rate Rhythm: regular rhythm GI: Inspection: non-distended Skin: General skin exam: normal color Neuro: General: confusion Cranial nerves: Yes Normal hearing present Cognition (Neuro): normal cognition Speech: normal speech Extrem: General: normal to inspection and no edema Psych: Affect: normal affect Objective Data Vital Signs Vital Signs: Vital Signs - 24 hr 04/24
[2020-04-25 17:01] LABS: Glucose Point of Care 80 (65-105)
[2020-04-25 22:17] LABS: Glucose Point of Care 109 (65-105)
[2020-04-26] VITALS (16 sets, daily range): BP systolic 129–159; BP diastolic 69–81; PULSE 48–85; RESP 14–19; TEMP 36.1–36.6; O2SAT 93–100
[2020-04-26 06:09] LABS: Hematocrit 23.1 % (37.0-47.0); Mean Corpuscular HGB Conc 30.3 g/dl (32-36); Mean Corpuscular Hemoglobin 28.9 pg (26-34); Mean Corpuscular Volume 95.5 fl (80-100); Mean Platelet Volume 10.3 fl (7.4-10.4); Platelet Count Result 154 k/mm3 (150-375); Red Blood Count 2.42 M/mm3 (4.2-5.4); Red Cell Distribution Width 16.4 % (11.5-14.5); White Blood Count 7.1 K/mm3 (4.5-10.0)
[2020-04-26 06:18] LABS: INR 1.4; Prothrombin Time 16.8 Seconds (11.1-14.7)
[2020-04-26 06:19] LABS: Partial Thromboplastin Time 38.6 SECONDS (22.3-36.8)
[2020-04-26 06:28] LABS: Alanine Aminotransferase 9 U/L (4-35); Albumin Level 2.6 g/dL (3.5-5.1); Alkaline Phosphatase 60 U/L (38-126); Anion Gap 2 mmol/L (8-16); Aspartate Amino Transferase 27 U/L (14-36); Bilirubin,Total 0.4 mg/dL (0.2-1.3); Blood Urea Nitrogen 29 mg/dL (7-17); Carbon Dioxide 25 mmol/L (22-30); Chloride 115 mmol/L (98-107); Estimated CRCL calculation 27 ml/min; Estimated Glomerular Filt Rate 33; Glucose 91 mg/dL (65-105); Potassium 3.8 mmol/L (3.4-5.0); Sodium 142 mmol/L (137-145)
[2020-04-26 07:35] LABS: Glucose Point of Care 90 (65-105)
[2020-04-26] MEDS: FLUTICASONE PROPIONATE 0.05% NA SPR 16 GM BTL (*BKC) 1 SPRAY NASAL ×2 (09:18→21:07)
[2020-04-26] MEDS: LIDOCAINE 5% PATCH 2 PATCH TRANSDERM (09:18)
[2020-04-26 09:20] LABS: D Dimer 0.96 ug/mL (<0.48)
[2020-04-26 09:23] LABS: Fibrinogen 238 mg/dl (215-510)
[2020-04-26] MEDS: SODIUM CHLORIDE 0.9% IV 250 ML 30 ML IV CONT (09:48)
[2020-04-26] MEDS: levETIRAcetam 250 MG TABLET PO ×2 (09:49→21:08)
--- NOTE | 2020-04-26 11:08 | PM.IMPN ---
Progress Note: A&P Assessment and Plan (1) Seizure: Code(s): R56.9 - Unspecified convulsions Status: Acute Assessment and Plan: -----No reocurrant symptoms. continue keppra. Reported seizure activity morning of 04/23/20 reported by nursing staff stating she was interacting with sitter and stopped and started shaking and became unresponsive to painful stimuli (not on tele). Surgical Scrub Tech at bedside after seizure activity who confirms postictal state. Pt was back to baseline. She had an EEG and I spoke with neurology who saw some abnormalities and recommends keppra 250BID. I believe she likely had a seizure from getting multiple days of 200 mg Zoloft when she does not take this at home as well as ertapenem which can also cause seizures. She has no history of neurological deficits and a CT of the brain is normal 04/22. I do not think the patient needs an MRI at this time since we have a likely cause for the new onset seizure. Patient and family both state that she does not drink alcohol. Since the seizure is day 5 of hospitalization, alcohol withdrawal seems less likely with above info. Patient seems improved since the prior days. CT of the brain normal 04/24/20 (2) Hematoma: Code(s): T14.8XXA - Other injury of unspecified body region, initial encounter Status: Acute Assessment and Plan: ----- left arm has significant 15 cm hematoma with extensive bleeding to the flank, left arm, and breast. Likely due to Eliquis. Possibly had trauma trying to crawl out of bed when she was confused? Unsure exactly why she bruised so much. Her INR was elevated 2.2 but now back down to 1.4. Fibrinogen is normal and D-dimer slightly elevated but she has a clot. I do not suspect DIC. I have asked Rogelio and surgery to see her as she may (3) NSVT (nonsustained ventricular tachycardia): Code(s): I47.2 - Ventricular tachycardia Status: Acute Assessment and Plan: -----Noted 04/23/20 at 18:48. No reported symptoms and no recurrence. Magnesium, potassium and calcium normal. Echo reviewed. Cardiology started metoprolol 12.5 but the patient has had sinus bradycardia and some lightheadedness. The lightheadedness might be due to her hemoglobin of 7. Will ask them to evaluate this. I do not think the above scenario is from a cardiac arrhythmia but she was not on telemetry during that time. (4) Bruising: Code(s): T14.8XXA - Other injury of unspecified body region, initial encounter Status: Acute Assessment and Plan: -----the patient has significant bruising down the left arm, breast, and chest. It is unclear why she has had so much bleeding on the Eliquis. INR Fedder 1.4.The Eliquis has been stopped and I am going to consult Hematology. The nursing staff states she did not have any falls while here but was trying to get out of bed and may have injured her arm then. Her hgb did drop a bit but is stable. After speaking with family (daphnie) we have decided to place the eliquis on hold at this time. There is some risk in this as she has a DVT but her risk of further bleeding outweights this at this time. She may need an IVC filter , surgery consulted (5) Delirium: Code(s): R41.0 - Disorientation, unspecified Status: Acute Assessment and Plan: -----as explained above. (6) UTI (urinary tract infection): Qualifiers: Hematuria presence: without hematuria Urinary tract infection type: acute cystitis Qualified Code(s): N30.00 - Acute cystitis without hematuria Code(s): N39.0 - Urinary tract infection, site not specified Status: Acute Assessment and Plan: -----Completed ertapenem. No further tx needed. (7) DVT (deep venous thrombosis): Qualifiers: DVT location: lower extremity Affected thrombotic vein of extremity: popliteal Chronicity: acute Laterality: right Qualified Code(s): I82.431 - Acute emboli
--- NOTE | 2020-04-26 11:14 | PM.CNGS ---
Assessment and Plan Assessment and plan (1) Hematoma: Code(s): T14.8XXA - Other injury of unspecified body region, initial encounter Status: Acute Assessment and Plan: cont to hold anticoagulation, will plan for filter (2) DVT (deep venous thrombosis): Qualifiers: DVT location: lower extremity Affected thrombotic vein of extremity: popliteal Chronicity: acute Laterality: right Qualified Code(s): I82.431 - Acute embolism and thrombosis of right popliteal vein Code(s): I82.409 - Acute embolism and thrombosis of unspecified deep veins of unspecified lower extremity Status: Acute Assessment and Plan: will place filter today (3) UTI (urinary tract infection): Code(s): N39.0 - Urinary tract infection, site not specified Status: Acute Assessment and Plan: cont abx, seems improved (4) Acute renal failure superimposed on stage 3 chronic kidney disease: Qualifiers: Acute renal failure type: unspecified Chronic kidney disease stage 3 subtype: unspecified whether 3a or 3b Qualified Code(s): N17.9 - Acute kidney failure, unspecified; N18.30 - Chronic kidney disease, stage 3 unspecified Code(s): N17.9 - Acute kidney failure, unspecified; N18.30 - Chronic kidney disease, stage 3 unspecified Status: Resolved Assessment and Plan: stable, cont mgmt per primary team (5) Weakness generalized: Code(s): R53.1 - Weakness Status: Acute Assessment and Plan: multifactorial History of Present Illness Consult details Consult date: 04/26/20 Reason for consult: other (DVT, bleeding c anticoagulation) Requesting physician: Fay Brock PA-C Narrative: Pt is a 80 y/o F presenting for severe weakness, malaise. Pt found to have severe UTI for which she is being treated. Pt also c noted RLE swelling and subsequent duplex significant for popiteal and femoral vein DVT. Pt started on Eliquis. Pt then noted to have significant bruising, hematoma in LUE, L chest wall. Given this, anticoagulation has been held. GS consulted for filter placement. Review of Systems Constitutional: Constitutional: Denies chills, Reports fatigue, Denies fever(s), Denies frequent falls, Denies headache(s), Denies increased appetite, Reports lethargy, Reports malaise, Reports poor appetite, Reports weakness, Denies weight gain and Denies weight loss Eyes: Eyes: Reports no additional eye complaints ENT: Reports system reviewed and no additional complaints, except as documented and Reports Normal hearing present Cardiovascular: Cardiovascular: Reports no additional cardiovascular complaints Respiratory: Respiratory: Reports no additional respiratory complaints Gastrointestinal: Gastrointestinal: Reports no additional gastrointestinal complaints Genitourinary: Genitourinary: Reports no additional female genitourinary complaints Musculoskeletal: Musculoskeletal: Reports myalgias Integumentary/Breasts: Skin/Breast: Reports system reviewed and no additional complaints, except as docu and Reports as per HPI Neurologic: Reports system reviewed and no additional complaints, except as documented Psychiatric: Psychiatric: Reports no additional psychiatric complaints Endocrine: Endocrine: Reports no additional endocrine complaints Hematologic/Lymphatic: Hematologic/Lymphatic: Reports no additional hematologic/lymphatic complaints, Reports easy bleeding and Reports easy bruising Allergic/Immunologic: Allergic/Immunologic: Reports no additional allergic/immunologic complaints PMFSH Past Medical History Medical History Chronic diarrhea Depression DVT (deep venous thrombosis) Right leg Hyperlipidemia Hypertension Osteoarthritis Psoriasis Reflux esophagitis Surgical History Surgical History H/O right wrist surgery History of colonoscopy History
--- NOTE | 2020-04-26 11:27 | PCNFU ---
Nutrition Follow-Up Complete: Unintended wt loss r/t diarrhea as evidence by 130lb wt loss over two years Goal: Adequate intake over 50% of meals with reduction in diarrhea Progressing towards goal. Pt current nutrition is NPO. Nutrition recommendation: Heart Healthy when advancing. Last recorded weight is 77.11 kg. No new weight since admit. Bowel Motility:+BM 04/26 Labs Reviewed:Cr 1.5,BUN 29,GFR 33,Alb 2.6,Hct 23.1 Meds Noted:Lipitor, Lopressor,NS at 30 ml/hr Additional Notes: Nutrition follow up. Patient is NPO today for IVC filter. Previously been on a heart healthy diet, eating 75-100% of meals. Agree with diet orders. Monitoring: PO intake every 5 days.
--- NOTE | 2020-04-26 11:48 | PC.NURSE ---
Patient to [employer]. Report to KADEN Avila.
--- NOTE | 2020-04-26 11:55 | WPDHPUPDATE1 ---
History and Physical Update Update Date/Time: 04/26/20 11:55 History and Physical has been reviewed, including an updated exam of the patient. There are NO changes in the patient's condition. Risks, benefits, and alternatives have been discussed and questions answered. Patient agrees to proceed with procedure.
--- NOTE | 2020-04-26 12:46 | P.OP_ITS ---
Procedure Note - Detailed Date of procedure: 04/26/20 Pre-op diagnosis: failed outpatient tx UTI/CRD/Generalized weakness DVT, bleeding c anticoagulation Post-op diagnosis: same Procedure performed: IVC filter placement Description of procedure: The patient was brought back to the builder's labourer suite. She was placed in the supine position on the builder's labourer table. Patient was then prepped and draped in the normal sterile fashion. A time-out was then done to verify the patient's identity as well as the procedure being performed. I then used the [employer] ultrasound device to identify the left femoral vein. This was visualized as a compressible vessel medial to the left femoral artery. 1% lidocaine was then localized in and around this area. An 18 gauge introducer needle was then advanced under ultrasound guidance directly into the lumen of the left femoral vein. Once access to the vein was obtained and a guidewire was advanced through the needle under fluoroscopic guidance. The guidewire was noted to advanced smoothly and was visualized advancing up into the inferior vena cava via fluoroscopic guidance. I then removed the needle just leaving the guidewire in the left femoral vein. A small incision was then made at the insertion site using an 11 blade scalpel. I then advanced a 6 Bangladeshi dilator and sheath over the guidewire under fluoroscopic guidance. The sheath was advanced up to the level of the L3 vertebral body. The dilator and the guidewire were now removed just leaving the sheath in the vein. The IVC filter was then inserted into the end of the sheath in the plunger was used to car efully advanced the filter up the length of the sheath. Once the filter was visualized under fluoroscopy at the tip of the sheath, the sheath was slowly withdrawn to allow all the filter to be deployed. Once the filter was completely expanded, the sheath was removed and pressure was applied to the insertion site. Final fluoroscopic view showed the filter in proper position and orientation overlying the L3 vertebral body. After holding pressure for approximately 5 minutes, there was no further blood loss and sterile dressing was placed. Implants: [employer] IVC filter Anesthesia: local Surgeon: Aiyana Brown MD Estimated blood loss (mL): 5 Drains: No Packing: No Pathology: none sent Complications: No immediate complications Condition: stable Disposition: floor Findings: IVC filter placed via L femoral vein
[2020-04-26 13:04] LABS: Glucose Point of Care 123 (65-105)
--- NOTE | 2020-04-26 15:07 | PM.PNCARD ---
Progress Note: A&P Assessment and Plan (1) NSVT (nonsustained ventricular tachycardia): Code(s): I47.2 - Ventricular tachycardia Status: Acute Assessment and Plan: Probably not related to her episode where she became unresponsive and shaking. EEG points more towards a direction of seizure rather than true syncope. She did have a 10 beat run of nonsustained ventricular tachycardia seen on her monitor 04/23/2020 at 6:48 p.m... Her electrolytes were stable. She has had no further nonsustained ventricular tachycardia. Continue low-dose beta-chi with holding parameters. Heart rates have been running in the 50s at rest. Echocardiogram 04/25/2020. Left ventricular chamber dimension is normal. Left ventricular systolic function is normal estimated 65-70%. Mildly increased left ventricular wall thickness. Left ventricular septal wall motions normal. Left ventricular diastolic function is grade 1 diastolic dysfunction. Global longitudinal strain is normal at -19%. Right ventricular chamber dimension is moderately enlarged. There is moderate aortic valve calcification. Mild mitral valve regurgitation. Mild tricuspid valve regurgitation. Mild pulmonary hypertension estimated pulmonary arterial systolic pressure of 36 mm Hg. She is not reporting any ischemic symptoms. Will re-evaluate need for stress test as an outpatient. (2) DVT (deep venous thrombosis): Qualifiers: DVT location: lower extremity Affected thrombotic vein of extremity: popliteal Chronicity: acute Laterality: right Qualified Code(s): I82.431 - Acute embolism and thrombosis of right popliteal vein Code(s): I82.409 - Acute embolism and thrombosis of unspecified deep veins of unspecified lower extremity Status: Acute Assessment and Plan: Bleeding on Eliquis. IVC filter placed 04/26/2020. (3) UTI (urinary tract infection): Code(s): N39.0 - Urinary tract infection, site not specified Status: Acute Assessment and Plan: On antibiotics . Management per hospitalist service. (4) Seizure: Code(s): R56.9 - Unspecified convulsions Status: Acute Assessment and Plan: Followed by Neurology Additional Plan No further cardiac recommendations. Cardiology will sign off. See discharge instructions for follow-up. Plan discussed with Dr. Dietz 04/26/2020 at 3:25 p.m. Subjective Date/time seen: 04/26/20 15:07 Interval history: Follow up for: Sustained ventricular tachycardia. Date of service: 04/26/2020 Subjective: Feels weak. Denied any chest pain, pressure, tightness or squeezing. No shortness of breath, lightheadedness or palpitations. Left arm is oozing. Review of Systems Review of Systems: All systems reviewed & are unremarkable except as noted in HPI and below Constitutional: Constitutional: Denies excessive sweating, Denies fatigue, Denies headache(s) and Reports weakness Eyes: Eyes: Denies blurry vision ENT: Reports Normal hearing present, Denies headache(s), Denies lip swelling and Denies neck pain Cardiovascular: Cardiovascular: Denies chest pain, Reports palpitations and Denies dyspnea Respiratory: Respiratory: Denies dyspnea Gastrointestinal: Gastrointestinal: Reports abdominal pain Genitourinary: Genitourinary: Denies dysuria and Denies flank pain Musculoskeletal: Musculoskeletal: Denies back pain and Denies neck pain Integumentary/Breasts: Skin/Breast: Denies dry skin and Reports other ( Left arm hematoma with extensive oosing) Neurologic: Reports Normal hearing present, Denies confusion, Denies headache(s) and Reports weakness Psychiatric: Psychiatric: Denies anxiety and Denies confusion Endocrine: Endocrine: Denies excessive sweating, Denies fatigue and Reports palpitations Hematologic/Lymphatic: Hematologic/Lymphati
[2020-04-26 15:09] LABS: Hematocrit 29.2 % (37.0-47.0)
--- NOTE | 2020-04-26 15:09 | PCOTNOTE ---
OT treatment not completed due to patient out to color laboratory technician for IVC filter placement. Will continue per POC.
--- NOTE | 2020-04-26 15:53 | PDONCCN ---
HPI - Date of Consult Date/Time: 04/26/20 15:53 Requesting Physician: Fay Brock PA-C Primary Care Provider: Melissa Hawley, TIME CLOCK REPAIRER - Consult Narrative Reason for consult: Anemia and hypercoagulable state. Narrative: Elizabet Sanon is a 80 year old female with previous history of DVT diagnosed more than 5 years ago came into the hospital with complain of generalized weakness. She was recently treated for UTI. She is also complaining of epigastric discomfort along with diarrhea which seems to be chronic in nature. CT scan was performed that showed fecal material in the rectosigmoid colon. Labs showed hemoglobin of 9.5. Urine test came back positive for UTI. She was started on antibiotics. Doppler study done on April 19 showed nonocclusive thrombus in the femoral and popliteal vein on the right side. Patient apparently was on Eliquis for chronic DVT but missed Eliquis does for 1 week duration. She was placed back on Eliquis initially. She then developed significant bruising and hematoma in the left arm and Eliquis was discontinued. Patient just had IVC filter placement. She was also dealing with convulsions and seizure-like activities. Keppra was started. Patient lives by herself. She lost significant amount of weight in the remote past but recently her weight is stable. Denies any other complaints. Review of Systems - Review of Systems All systems reviewed & are unremarkable except as noted in HPI and bel - Neurologic Reports system reviewed and no additional complaints, except as documented, Reports hearing normal, Reports weakness, Denies confusion, Denies frequent falls, Denies headache(s) [facility] Medical History: Medical History (Last Reviewed 04/26/20 @ 11:18 by Aiyana Brown MD) Chronic diarrhea Depression DVT (deep venous thrombosis) Right leg Hyperlipidemia Hypertension Osteoarthritis Psoriasis Reflux esophagitis Surgical History: Surgical History (Last Reviewed 04/26/20 @ 11:18 by Aiyana Brown MD) H/O right wrist surgery History of colonoscopy History of esophagogastroduodenoscopy (EGD) History of hernia repair History of total left hip arthroplasty Family History: Family History (Last Reviewed 04/26/20 @ 11:18 by Aiyana Brown MD) Father Diabetes mellitus Heart attack Mother Cerebrovascular accident Heart attack Sibling Dementia - Social History Social History: Social History (Last Reviewed 04/26/20 @ 11:18 by Aiyana Brown MD) Gender Identity: Gender identity (if verbalized by the patient): Female Alcohol Use: Alcohol intake: never Substance Use: Substance use: former Substance use type: marijuana Others: Spiritual care concerns: No Smoking Status: Smoking status: Former smoker Smoking Pack-years: Smoking packs per day: 3.5 Smoking cigarettes per day: 70.0 Years smoked: 40 Smoking pack-years: 140.00 Meds Home Medications Medication Instructions Recorded Confirmed Type Eliquis 5 mg PO BID 11/22/19 04/18/20 History alendronate 70 mg PO WEEKLY 11/22/19 04/18/20 History aspirin 81 mg PO DAILY 11/22/19 04/18/20 History atorvastatin 10 mg PO DAILY 11/22/19 04/18/20 History furosemide 20 mg PO DAILY 11/22/19 04/18/20 History magnesium gluconate [Mag-G] 500 mg PO DAILY 11/22/19 04/18/20 History nystatin [Nystop] 1 applic TOPICAL BID 11/22/19 04/18/20 History sertraline 200 mg PO DAILY 11/22/19 04/18/20 History lidocaine [Lidoderm] 1 patch TRANSDERMAL DAILY #10 ea 11/25/19 04/18/20 Rx Allergies Allergy/AdvReac Type Severity Reaction Status Date / Time red dye Allergy Severe FACIAL Verified 08/31/18 09:48 SWELLING Results - Labs CBC & Chem 7: 04/26/20 15:00 04/26/20 05:52 Labs: Short CBC 04/26/20 04/26/20 Range/Units 05:52 15:00 WBC 7.1 (4.5-10.0) K/mm3 Hgb 7.0 L 9.0 L (12.0-15.0) g/dL Hct 23.1 L 29.2 L (37.0-47.0) % Plt Count 154
[2020-04-26 17:06] LABS: Glucose Point of Care 135 (65-105)
[2020-04-26 17:47] LABS: Lactate Dehydrogenase 463 U/L (313-618)
[2020-04-26 17:59] LABS: Iron 30 ug/dL (37-170)
[2020-04-26 18:09] LABS: Percent Iron Saturation 12 % (20-50)
[2020-04-26 18:54] LABS: Folic Acid 8.4 ng/mL (2.76->20)
[2020-04-26] MEDS: METOPROLOL TARTRATE 12.5 MG TABLET PO (21:08)
[2020-04-26 21:59] LABS: Glucose Point of Care 181 (65-105)
[2020-04-27] VITALS (7 sets, daily range): BP systolic 154; BP diastolic 88; PULSE 51–62; RESP 16–17; TEMP 36.3; O2SAT 97
[2020-04-27 06:12] LABS: Hematocrit 28.5 % (37.0-47.0); Hemoglobin 8.8 g/dL (12.0-15.0)
[2020-04-27 06:29] LABS: Anion Gap 8 mmol/L (8-16); Blood Urea Nitrogen 31 mg/dL (7-17); Calcium 7.5 mg/dL (8.4-10.2); Carbon Dioxide 23 mmol/L (22-30); Chloride 112 mmol/L (98-107); Estimated CRCL calculation 29 ml/min; Estimated Glomerular Filt Rate 36; Glucose 89 mg/dL (65-105); Sodium 143 mmol/L (137-145)
[2020-04-27 08:34] LABS: Glucose Point of Care 88 (65-105)
[2020-04-27] MEDS: FLUTICASONE PROPIONATE 0.05% NA SPR 16 GM BTL (*BKC) 1 SPRAY NASAL (09:16)
[2020-04-27] MEDS: LIDOCAINE 5% PATCH 2 PATCH TRANSDERM (09:17)
[2020-04-27] MEDS: CYANOCOBALAMIN 1,000 MCG TABLET 1000 MCG PO (09:17)
[2020-04-27] MEDS: METOPROLOL TARTRATE 12.5 MG TABLET PO (09:18)
[2020-04-27] MEDS: amLODIPine BESYLATE 5 MG TABLET PO (09:18)
[2020-04-27] MEDS: ATORVASTATIN 10 MG TABLET PO (09:19)
[2020-04-27] MEDS: levETIRAcetam 250 MG TABLET PO (09:19)
[2020-04-27 11:40] LABS: Glucose Point of Care 88 (65-105)
--- NOTE | 2020-04-27 11:43 | PM.DS ---
DS: Admitting Diagnosis Admitting Diagnosis Admitting Diagnosis: failed outpatient tx UTI/CRD/Generalized weakness DS: Discharge Diagnosis Discharge Diagnosis (1) Seizure: Code(s): R56.9 - Unspecified convulsions Status: Acute Assessment and Plan: -----1 noted episode which did not reoccur during hospitalization after being placed on Keppra. Reported seizure activity morning of 04/23/20 reported by nursing staff stating she was interacting with sitter and stopped and started shaking and became unresponsive to painful stimuli (not on tele). Java Enterprise Architect at bedside after seizure activity who confirms postictal state. Pt is back to baseline. She had an EEG and I spoke with neurology who saw some abnormalities and recommended keppra 250BID. I believe she likely had a seizure from getting multiple days of 200 mg Zoloft when she does not take this at home as well as ertapenem which can also cause seizures. She has no history of neurological deficits and a CT of the brain is normal 04/22. I do not think the patient needs an MRI at this time since we have a likely cause for the new onset seizure. Patient and family both state that she does not drink alcohol. Since the seizure is day 5 of hospitalization, alcohol withdrawal seems less likely with above info. Patient seems improved since the prior days. CT of the brain again normal on 04/24/20 (2) Hematoma: Code(s): T14.8XXA - Other injury of unspecified body region, initial encounter Status: Acute Assessment and Plan: -----after starting Eliquis, the patient developed a hematoma in her left arm that was 15 cm and had extensive bleeding down the arm into her flank and to her breast. Possibly had trauma trying to crawl out of bed when she was confused? Unsure exactly why she bruised so much. Her INR was elevated 2.2 but now back down to 1.4. Fibrinogen is normal and D-dimer slightly elevated but she has a clot. I do not suspect DIC. (3) NSVT (nonsustained ventricular tachycardia): Code(s): I47.2 - Ventricular tachycardia Status: Acute Assessment and Plan: -----Noted 04/23/20 at 18:48. No reported symptoms and no recurrence. Magnesium, potassium and calcium normal. Echo reviewed. Cardiology started metoprolol 12.5 and she is going to follow-up with them. (4) Bruising: Code(s): T14.8XXA - Other injury of unspecified body region, initial encounter Status: Acute Assessment and Plan: -----the patient has significant bruising down the left arm, breast, and chest. It is unclear why she has had so much bleeding on the Eliquis possibly due to trauma of trying to get out of bed. INR better 1.4. The Eliquis has been stopped and IVC filter placed. Hematology saw the patient and agreed. The nursing staff states she did not have any falls while here but was trying to get out of bed and may have injured her arm then. Her hemoglobin dropped a bit and she received 1 unit of blood. Hemoglobin better at discharge. Plan to check in 1 week at the facility (5) Delirium: Code(s): R41.0 - Disorientation, unspecified Status: Acute Assessment and Plan: -----as explained above. (6) UTI (urinary tract infection): Qualifiers: Hematuria presence: without hematuria Urinary tract infection type: acute cystitis Qualified Code(s): N30.00 - Acute cystitis without hematuria Code(s): N39.0 - Urinary tract infection, site not specified Status: Acute Assessment and Plan: -----Completed ertapenem. No further tx needed. (7) DVT (deep venous thrombosis): Qualifiers: DVT location: lower extremity Affected thrombotic vein of extremity: popliteal Chronicity: acute Laterality: right Qualified Code(s): I82.431 - Acute embolism and thrombosis of right popliteal vein Code(s): I82.409 - Acute embolism and thrombosis of unspecified deep veins of unspecified lowe
== END 2020-04-27 15:45 | DRG 689 ==
LOC: ANHED 06:55 → ANH3MEDSUR 11:47 → ANHIMU 04-23 06:58 → ANH3MED 04-25 16:01 → ANH3MEDSUR 04-30 14:36 → ANHIMU 04-30 14:36
PROVIDERS: Emergency Medicine; Family Medicine; Internal Medicine Hematology & Oncology; Physician Assistant; Surgery; Admitting Provider Internal Medicine; Emergency Provider General Practice; PCP Nurse Practitioner Adult Health; Visit Provider Physician Assistant
PROC: 06H03DZ Insertion of Intraluminal Device into Inferior Vena Cava, Percutaneous Approach (ICD-10-PCS; principal; 2020-04-26 12:00)
DX: N39.0 Urinary tract infection, site not specified (principal); J96.01 Acute respiratory failure with hypoxia; N17.9 Acute kidney failure, unspecified; I82.411 Acute embolism and thrombosis of right femoral vein; I82.431 Acute embolism and thrombosis of right popliteal vein; I47.2 Ventricular tachycardia; D68.59 Other primary thrombophilia; K56.0 Paralytic ileus; B96.20 Unspecified Escherichia coli [E. coli] as the cause of diseases classified elsewhere; Z20.828 Contact with and (suspected) exposure to other viral communicable diseases; R56.9 Unspecified convulsions; T36.8X5A Adverse effect of other systemic antibiotics, initial encounter; T43.225A Adverse effect of selective serotonin reuptake inhibitors, initial encounter; K52.9 Noninfective gastroenteritis and colitis, unspecified; E78.5 Hyperlipidemia, unspecified; N18.30 Chronic kidney disease, stage 3 unspecified; I12.9 Hypertensive chronic kidney disease with stage 1 through stage 4 chronic kidney disease, or unspecified chronic kidney disease; M19.90 Unspecified osteoarthritis, unspecified site; L40.9 Psoriasis, unspecified; Z87.891 Personal history of nicotine dependence; D63.1 Anemia in chronic kidney disease; F32.9 Major depressive disorder, single episode, unspecified; E86.0 Dehydration; D50.9 Iron deficiency anemia, unspecified; Z96.642 Presence of left artificial hip joint; Z79.01 Long term (current) use of anticoagulants; Z86.718 Personal history of other venous thrombosis and embolism; S20.02XA Contusion of left breast, initial encounter; Z74.09 Other reduced mobility; S40.022A Contusion of left upper arm, initial encounter; T45.515A Adverse effect of anticoagulants, initial encounter; X58.XXXA Exposure to other specified factors, initial encounter; R41.0 Disorientation, unspecified
CPT/HCPCS: 36415; 36430; 36600; 37191; 51701; 70450; 71045; 73200; 73502; 74019; 74176; 80048; 80053; 80076; 81001; 82607; 82728; 82746; 82805; 83540; 83550; 83605; 83615; 83735; 84443; 85014; 85018; 85025; 85027; 85380; 85384; 85610; 85730; 86850; 86900; 86901; 86920; 87040; 87077; 87086; 87088; 87186; 87635; 93005; 93306; 93970; 95816; 96361; 96365; 96375; 97110; 97116; 97161; 97165; 97530; 97535; 99285; A9270; C1880; C9803; G0378; J0360; J1335; J1644; J2250; J3010; J3411; J7030; J7050; P9016; U0003

== ENCOUNTER 2020-11-12 19:37 | Emergency (ER) | payer MEDICARE, SELFPAY ==
[2020-11-12] VITALS (9 sets, daily range): BP systolic 131–188; BP diastolic 81–105; PULSE 67; RESP 20; TEMP 36.7; O2SAT 95–100
--- NOTE | ~2020-11-12 | CT_ITS ---
EXAMINATION: CT abdomen pelvis wo con DATE: 11/12/2020 20:50 INDICATION: Abdominal pain. TECHNIQUE: Computed tomography (CT) of the abdomen and pelvis was performed without intravenous contr ast. Automated exposure control and iterative reconstruction technique were employed. The dose-length product was 840.38 mGy-cm. COMPARISON: CT abdomen and pelvis 04/18/2020 FINDINGS: The visualized portions of the lung bases demonstrate mild atelectasis and mild chronic juvenal g disease. No pleural effusion. There is chronic mild elevation of left hemidiaphragm. The heart size is normal. There are coronary artery calcifications. No pericardial effusion. The liver is normal. C alcifications in the spleen are consistent with old granulomatous disease. There are gallstones in th e gallbladder, which is normal in size. The pancreas and left adrenal gland are normal. There is a 2. 3 cm mass in right adrenal gland with central calcifications without change, likely an adenoma or old hematoma. There is severe atrophy of right kidney and mild atrophy of left kidney. There are two 5 m m stones in right kidney. There is a 3 mm stone in left kidney. The rectosigmoid is distended, likely adynamic ileus. There is diverticulosis of the colon without evidence of diverticulitis. The appendi x is normal. There is a filter in the inferior vena cava. There are no pathologically enlarged lymph nodes. There is no free intraperitoneal fluid. There is a total left hip arthroplasty. There is moder ate lumbar spondylosis. There is a chronic right L5 pars defect. There is a chronic burst fracture of T11. There are chronic compression fractures of T6 and T7. IMPRESSION: 1. Chronic distention of the rectosigmoid, likely adynamic ileus. Reviewed, dictated and finalized at location A.
[2020-11-12 20:14] LABS: Basophils Percent Auto 0.4 % (0.2-1.2); Eosinophils Absolute Auto 0.3 K/mm3 (0-0.3); Eosinophils Percent Auto 4.1 % (0-4.4); Hematocrit 36.2 % (37.0-47.0); Hemoglobin 11.4 g/dL (12.0-15.0); Immature Granulocyte Absolute 0.01 K/mm3 (0.00-0.031); Immature Granulocyte Percent A 0.1 % (0-0.5); Lymphocytes Absolute Auto 2.29 K/mm3 (0.9-3.2); Lymphocytes Percent Auto 33.3 % (18.3-44.2); Mean Corpuscular HGB Conc 31.5 g/dl (32-36); Mean Corpuscular Hemoglobin 30.2 pg (26-34); Mean Platelet Volume 9.6 fl (7.4-10.4); Monocytes Absolute Auto 0.4 K/mm3 (0.1-0.6); Neutrophils Absolute Auto 3.9 K/mm3 (1.3-6.7); Neutrophils Percent Auto 56.1 % (45.5-73.1); Platelet Count Result 192 k/mm3 (150-375); Red Blood Count 3.77 M/mm3 (4.2-5.4); Red Cell Distribution Width 14.7 % (11.5-14.5); White Blood Count 6.9 K/mm3 (4.5-10.0)
--- NOTE | 2020-11-12 20:22 | PC.NURSE ---
call placed to [place] [facility]. message left. they state they will call back
[2020-11-12 20:29] LABS: Alanine Aminotransferase 14 U/L (4-35); Albumin Level 3.6 g/dL (3.5-5.1); Alkaline Phosphatase 72 U/L (38-126); Anion Gap 6 mmol/L (8-16); Aspartate Amino Transferase 41 U/L (14-36); Bilirubin,Total 0.2 mg/dL (0.2-1.3); Blood Urea Nitrogen 30 mg/dL (7-17); Calcium 8.4 mg/dL (8.4-10.2); Carbon Dioxide 25 mmol/L (22-30); Chloride 109 mmol/L (98-107); Estimated CRCL calculation 21 ml/min; Estimated Glomerular Filt Rate 26; Glucose 98 mg/dL (65-105); Lipase 224 U/L (23-300); Potassium 4.5 mmol/L (3.4-5.0); Sodium 140 mmol/L (137-145)
--- NOTE | 2020-11-12 20:34 | PC.NURSE ---
unable to straight cath patient due to a prolaspe. Erp aware
[2020-11-12] MEDS: SODIUM CHLORIDE 0.9% IV 1,000 ML 999 ML IV CONT (20:39)
--- NOTE | 2020-11-12 20:40 | PC.NURSE ---
call returned from [place] [facility]. report filed
--- NOTE | 2020-11-12 20:42 | ED.GENADULT ---
HPI - General Adult General Chief complaint: Abdominal Pain Stated complaint: diarrhea and abd pain Time Seen by Provider: 11/12/20 19:52 Source: patient History of Present Illness HPI narrative: Patient is a 80 y/o female complaining of right sided abdominal pain starting earlier today. She describes her pain as sharp and rates it as 10/10. Her pain radiates to left side of her abdominal pain. She has no vomiting. She has chronic diarrhea for at least a year. There is no known alleviating or exacerbating factor, but her pain has eased up spontaneously. Related Data Home Medications Medication Instructions Recorded Confirmed No Home Medications 11/12/20 11/12/20 Allergies Allergy/AdvReac Type Severity Reaction Status Date / Time red dye Allergy Severe FACIAL Verified 11/12/20 19:51 SWELLING Review of Systems Constitutional: Constitutional: Denies chills, Denies fever(s), Denies headache(s) and Denies weakness Eyes: Eyes: Denies blurry vision ENT: Denies headache(s) and Denies neck pain Cardiovascular: Cardiovascular: Denies chest pain and Denies dyspnea Respiratory: Respiratory: Denies cough and Denies dyspnea Gastrointestinal: Gastrointestinal: Reports abdominal pain, Reports diarrhea, Denies nausea and Denies vomiting Genitourinary: Genitourinary: Denies hematuria and Denies dysuria Musculoskeletal: Musculoskeletal: Denies back pain and Denies neck pain Neurologic: Denies headache(s) and Denies weakness PMFSH Past Medical History Medical History Chronic diarrhea Depression DVT (deep venous thrombosis) Right leg Hyperlipidemia Hypertension Osteoarthritis Psoriasis Reflux esophagitis Surgical History Surgical History H/O right wrist surgery History of colonoscopy History of esophagogastroduodenoscopy (EGD) History of hernia repair History of total left hip arthroplasty Family History Family History Father Diabetes mellitus Heart attack Mother Cerebrovascular accident Heart attack Sibling Dementia Social History Social History Social History: 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 She has never been or had any children. She said she used to smoke many years ago. She is socially drink but no longer drinks no illicit drugs or marijuana. She desires to be a full code and chooses her 2 nephews to be her durable power environmental attorney for healthcare. Smoking packs per day: 3.5 Smoking cigarettes per day: 70.0 Years smoked: 40 Smoking pack-years: 140.00 Smoking status: Former smoker Alcohol intake: never Substance use: former Substance use type: marijuana Additional living arrangements comments: Has caregiver visiting 3 days a week Gender identity (if verbalized by the patient): Female Spiritual care concerns: No Exam Const: General: no acute distress and well developed Orientation/consciousness: oriented to person, oriented to place, oriented to time and patient oriented x3 HENMT: Head: normocephalic Ears: external ears normal General nose exam: Normal external nose present Eyes: General: appearance normal, both eyes and all related structures Conjunctivae: conjunctivae normal Neck: Neck: normal visual inspection and full ROM Chest: Chest palpation & inspection: normal inspection of the chest and no tenderness Resp: Effort & Inspection: normal respiratory effort Auscultation: clear to auscultation bilaterally Cardio: Rate: regular rate Rhythm: regular rhythm GI: GI Palp: No abdominal tenderness and Yes Soft to palpation Skin: General skin exam: normal color and turgor normal Neuro: General: oriented to person, oriented to place, oriented to time and patient oriented x3 Cognition (N
--- NOTE | 2020-11-12 22:04 | PC.NURSE ---
patient states she stopped taking all her rx medications a few months ago
[2020-11-13 00:02] VITALS: BP 179/92; PULSE 78; RESP 16; TEMP 36.2; O2SAT 97
== END 2020-11-13 00:03 | disposition home or self-care (01) ==
PROVIDERS: General Practice; Emergency Provider Emergency Medicine; PCP Nurse Practitioner Adult Health
DX: R10.84 Generalized abdominal pain (principal); Z87.891 Personal history of nicotine dependence; F32.9 Major depressive disorder, single episode, unspecified; I10 Essential (primary) hypertension; E78.5 Hyperlipidemia, unspecified; Z86.718 Personal history of other venous thrombosis and embolism; M19.90 Unspecified osteoarthritis, unspecified site
CPT/HCPCS: 36415; 74176; 80053; 83690; 85025; 96360; 99284; J7030

== ENCOUNTER 2020-12-03 10:00 | Emergency (ER) | payer MEDICARE, SELFPAY ==
[2020-12-03] VITALS (10 sets, daily range): BP systolic 99–124; BP diastolic 61–86; PULSE 73–86; RESP 16–24; TEMP 36.9; O2SAT 94–99
--- NOTE | 2020-12-03 10:23 | ED.GENADULT ---
HPI - General Adult General Chief complaint: Nausea/Vomiting/Diarrhea Stated complaint: n/v/d, weakness Time Seen by Provider: 12/03/20 10:15 Related Data Home Medications Medication Instructions Recorded Confirmed No Home Medications 11/12/20 11/12/20 Allergies Allergy/AdvReac Type Severity Reaction Status Date / Time red dye Allergy Severe FACIAL Verified 11/12/20 19:51 SWELLING PMFSH Past Medical History Medical History Chronic diarrhea Depression DVT (deep venous thrombosis) Right leg Hyperlipidemia Hypertension Osteoarthritis Psoriasis Reflux esophagitis Surgical History Surgical History H/O right wrist surgery History of colonoscopy History of esophagogastroduodenoscopy (EGD) History of hernia repair History of total left hip arthroplasty Family History Family History Father Diabetes mellitus Heart attack Mother Cerebrovascular accident Heart attack Sibling Dementia Social History Social History Social History: 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 She has never been or had any children. She said she used to smoke many years ago. She is socially drink but no longer drinks no illicit drugs or marijuana. She desires to be a full code and chooses her 2 nephews to be her durable power finance attorney for healthcare. Smoking packs per day: 3.5 Smoking cigarettes per day: 70.0 Years smoked: 40 Smoking pack-years: 140.00 Smoking status: Former smoker Alcohol intake: never Substance use: former Substance use type: marijuana Additional living arrangements comments: Has caregiver visiting 3 days a week Gender identity (if verbalized by the patient): Female Spiritual care concerns: No Course Vital Signs Vital signs: Vital Signs Temperature 36.9 C 12/03/20 10:03 Pulse Rate 74 12/03/20 10:03 Respiratory Rate 18 12/03/20 10:03 Blood Pressure 124/74 12/03/20 10:03 Pulse Oximetry 97 12/03/20 10:03 Temperature 36.9 C 12/03/20 10:03 Pulse Rate 74 12/03/20 10:03 Respiratory Rate 18 12/03/20 10:03 Blood Pressure 124/74 12/03/20 10:03 Pulse Oximetry 97 12/03/20 10:03 Medical Decision Making Vital Signs Vital Signs: Vital Signs Temperature 36.9 C 12/03/20 10:03 Pulse Rate 74 12/03/20 10:03 Respiratory Rate 18 12/03/20 10:03 Blood Pressure 124/74 12/03/20 10:03 Pulse Oximetry 97 12/03/20 10:03 Temperature 36.9 C 12/03/20 10:03 Pulse Rate 74 12/03/20 10:03 Respiratory Rate 18 12/03/20 10:03 Blood Pressure 124/74 12/03/20 10:03 Pulse Oximetry 97 12/03/20 10:03 Discharge Plan Discharge Prescriptions: No Action No Home Medications RF: 0
--- NOTE | 2020-12-03 10:29 | ED.GENADULT ---
HPI - General Adult General Chief complaint: Nausea/Vomiting/Diarrhea Stated complaint: n/v/d, weakness Time Seen by Provider: 12/03/20 10:15 Source: patient History of Present Illness HPI narrative: Patient is 70 y/o female complaining of nausea and vomiting since last night. She states that she vomited clear, foamy material. There is no alleviating or exacerbating factor. She vomited 5-10 times. She has no abdominal pain. She has chronic diarrhea. Related Data Allergies Allergy/AdvReac Type Severity Reaction Status Date / Time red dye Allergy Severe FACIAL Verified 12/03/20 11:19 SWELLING Review of Systems Constitutional: Constitutional: Denies chills, Denies fever(s), Denies headache(s) and Denies weakness Eyes: Eyes: Denies blurry vision ENT: Denies headache(s) and Denies neck pain Cardiovascular: Cardiovascular: Denies chest pain and Denies dyspnea Respiratory: Respiratory: Denies cough and Denies dyspnea Gastrointestinal: Gastrointestinal: Denies abdominal pain, Reports diarrhea, Reports nausea and Reports vomiting Genitourinary: Genitourinary: Denies hematuria and Denies dysuria Musculoskeletal: Musculoskeletal: Denies back pain and Denies neck pain Neurologic: Denies headache(s) and Denies weakness PMF Past Medical History Medical History Chronic diarrhea Depression DVT (deep venous thrombosis) Right leg Hyperlipidemia Hypertension Osteoarthritis Psoriasis Reflux esophagitis Surgical History Surgical History H/O right wrist surgery History of colonoscopy History of esophagogastroduodenoscopy (EGD) History of hernia repair History of total left hip arthroplasty Family History Family History Father Diabetes mellitus Heart attack Mother Cerebrovascular accident Heart attack Sibling Dementia Social History Social History Social History: 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 She has never been or had any children. She said she used to smoke many years ago. She is socially drink but no longer drinks no illicit drugs or marijuana. She desires to be a full code and chooses her 2 nephews to be her durable power county attorney for healthcare. Smoking packs per day: 3.5 Smoking cigarettes per day: 70.0 Years smoked: 40 Smoking pack-years: 140.00 Smoking status: Former smoker Alcohol intake: never Substance use: former Substance use type: marijuana Additional living arrangements comments: Has caregiver visiting 3 days a week Gender identity (if verbalized by the patient): Female Spiritual care concerns: No Exam Const: General: no acute distress and well developed Orientation/consciousness: oriented to person, oriented to place, oriented to time and patient oriented x3 HENMT: Head: normocephalic Ears: external ears normal General nose exam: Normal external nose present Eyes: General: appearance normal, both eyes and all related structures Conjunctivae: conjunctivae normal Neck: Neck: normal visual inspection and full ROM Chest: Chest palpation & inspection: normal inspection of the chest and no tenderness Resp: Effort & Inspection: normal respiratory effort Auscultation: clear to auscultation bilaterally Cardio: Rate: regular rate Rhythm: regular rhythm GI: GI Palp: No abdominal tenderness and Yes Soft to palpation Skin: General skin exam: normal color and turgor normal Neuro: General: oriented to person, oriented to place, oriented to time and patient oriented x3 Cognition (Neuro): normal cognition Extrem: General: normal to inspection, full ROM and no pedal edema Psych: Appearance: grossly normal Mental Status: mental status grossly normal Affect: normal affect Course Reevalu
[2020-12-03] MEDS: ONDANSETRON INJ 4 MG/2 ML VIAL IV PUSH (10:41)
[2020-12-03] MEDS: SODIUM CHLORIDE 0.9% IV 1,000 ML 999 ML IV CONT (10:41)
--- NOTE | 2020-12-03 10:55 | PCCCNOTE ---
Care Coordination visited pt while in ED to discuss her home situation. Pt states she has a friend who comes by and helps her when she calls her. She states she uses disposable under malone due to constant uncontrolled bowel movements that she has had for years and she is unable to place the bag of dirty under malone in dumpster due to height and also her cat runs out of her home and will not come back in. Elizabet states she is afraid in her home and has a application in for the new housing and is on the list, however, she has no move in date. Spoke to pt about assisted living, Senior services, private caregivers and housing facilities and gave her lists of all. Pt declines retirement placement at this time.
[2020-12-03 11:34] LABS: Basophils Percent Auto 0.3 % (0.2-1.2); Eosinophils Percent Auto 0.1 % (0-4.4); Hematocrit 38.4 % (37.0-47.0); Hemoglobin 12.2 g/dL (12.0-15.0); Immature Granulocyte Absolute 0.06 K/mm3 (0.00-0.031); Immature Granulocyte Percent A 0.5 % (0-0.5); Lymphocytes Absolute Auto 0.38 K/mm3 (0.9-3.2); Mean Corpuscular HGB Conc 31.8 g/dl (32-36); Mean Corpuscular Hemoglobin 30.3 pg (26-34); Mean Corpuscular Volume 95.5 fl (80-100); Mean Platelet Volume 9.5 fl (7.4-10.4); Monocytes Absolute Auto 0.5 K/mm3 (0.1-0.6); Monocytes Percent Auto 3.6 % (2.6-8.5); Neutrophils Absolute Auto 11.7 K/mm3 (1.3-6.7); Neutrophils Percent Auto 92.5 % (45.5-73.1); Platelet Count Result 166 k/mm3 (150-375); Red Blood Count 4.02 M/mm3 (4.2-5.4); Red Cell Distribution Width 14.5 % (11.5-14.5); White Blood Count 12.7 K/mm3 (4.5-10.0)
[2020-12-03 11:43] LABS: Add Urine Microscopic? YES; Appearance Urine Cloudy (Clear); Bacteria Urine Trace /hpf; Bilirubin Urine Negative (Negative); Blood Urine 1+ (Negative); Color Urine Yellow (Yellow); Glucose Urine UA Negative (Negative); Ketones Urine Negative (Negative); Leukocyte Esterase Ur 3+ LEU/UL (Negative); Mucus Urine Rare /lpf; Nitrate Urine Positive (Negative); Protein Urine 1+ mg/dL (Negative); RBC Urine 0-2 /hpf (0-2); Specific Grav Ur 1.016 (1.001-1.035); Squamous Epithelial Cell Urine Moderate /hpf (Few); Urobilinogen Urine Negative mg/dL (<2.0); WBC Clumps Urine Present /HPF; WBC Urine >75 /hpf
[2020-12-03 11:48] LABS: Alanine Aminotransferase 10 U/L (4-35); Albumin Level 3.7 g/dL (3.5-5.1); Alkaline Phosphatase 72 U/L (38-126); Anion Gap 9 mmol/L (8-16); Aspartate Amino Transferase 26 U/L (14-36); Bilirubin,Total 0.4 mg/dL (0.2-1.3); Blood Urea Nitrogen 26 mg/dL (7-17); Calcium 8.1 mg/dL (8.4-10.2); Carbon Dioxide 22 mmol/L (22-30); Chloride 108 mmol/L (98-107); Estimated CRCL calculation 23 ml/min; Estimated Glomerular Filt Rate 29; Glucose 115 mg/dL (65-105); Lipase 129 U/L (23-300); Potassium 4.4 mmol/L (3.4-5.0); Sodium 139 mmol/L (137-145)
--- NOTE | 2020-12-03 14:34 | PC.NURSE ---
This RN attempted to reach pt caregiver by phone, but there was no answer and her voicemail is full
--- NOTE | 2020-12-03 14:54 | PC.NURSE ---
Pt nephew Yves called and asked if he could give pt a ride. He said he would get a hold of his brother and either him or his brother will be up to get her
== END 2020-12-03 15:18 | disposition home or self-care (01) ==
PROVIDERS: Emergency Provider Emergency Medicine; PCP Nurse Practitioner Adult Health
DX: N39.0 Urinary tract infection, site not specified (principal); R11.2 Nausea with vomiting, unspecified; N18.9 Chronic kidney disease, unspecified; I12.9 Hypertensive chronic kidney disease with stage 1 through stage 4 chronic kidney disease, or unspecified chronic kidney disease; E78.5 Hyperlipidemia, unspecified; M19.90 Unspecified osteoarthritis, unspecified site; K21.9 Gastro-esophageal reflux disease without esophagitis; Z86.718 Personal history of other venous thrombosis and embolism; Z96.642 Presence of left artificial hip joint; Z87.891 Personal history of nicotine dependence
CPT/HCPCS: 36415; 51701; 80053; 81001; 83690; 85025; 87077; 87086; 87088; 87186; 96361; 96374; 99284; J2405; J7030

== ENCOUNTER 2021-05-31 02:17 | Emergency (ER) | payer MEDICARE, SELFPAY ==
[2021-05-31] VITALS (9 sets, daily range): BP systolic 105–113; BP diastolic 68–84; PULSE 80–97; RESP 15–20; TEMP 37.3; O2SAT 93–99
--- NOTE | ~2021-05-31 | CT_ITS ---
EXAMINATION: CT abdomen pelvis wo con EXAM DATE: 05/31/2021 03:42 INDICATION: abdominal pian with n/v/d . Chronic diarrhea. TECHNIQUE: Spiral CT of the abdomen and pelvis was performed without contrast. Axial, coronal and s agittal images of the abdomen and pelvis were reviewed. The dose-length product (DLP) for this exami nation was 919.38 mGy-cm. The exposure was tailored according to patient size (auto mA exposure cont rol), and iterative reconstruction (ASIR) was used as additional dose reduction technique. 11/12/2020 FINDINGS: Bilateral inguinal lymphadenopathy, with a left inguinal lymph node measuring 4.0 x 2.8 cm (previously 1.7 x 1.4 cm), similar sized lymph node on the right. There is severely distended rectosi gmoid colon without obstructing rectal mass identified. The sigmoid colon does have region of moderat e wall edema, consistent with colitis. No pneumatosis or perforation. Moderately distended colon dist al to this. There is loose stool, diarrhea in the rectum. Bilateral adrenal adenomas unchanged. Liver, spleen, pancreas are unremarkable. There are gallstones within an otherwise unremarkable gallbladder. No evidence of obstructive biliary disease. Severe ch ronic right renal atrophy with inferior calyceal stones. Lobular left renal contour, regions of scarr ing are present and mild to moderate renal atrophy. Small nonobstructing calyceal stones. The uterus is unremarkable. The bladder is unremarkable. There is moderate scattered arteriosclerotic diseas e. There is an IVC filter. The appendix is normal. The stomach and small bowel are unremarkable. The heart is normal in size. There are no pericardial or pleural effusions. The lung bases are unremarkable. Chronic mild to mo derate burst fracture at T7 and moderate to severe burst fracture of T11. There is about 3 mm retropu lsion of the T11 level, bulging of the posterior cortex. Both are unchanged compared to prior study. There is total left hip arthroplasty. There are no acute fractures identified. On previous examination there was also severe distention of the rectosigmoid colon with loose stool, diarrhea. The sigmoid colonic colitis was not present on that examination. Overall less amount of col onic gas was present. IMPRESSION: 1. Development of signal colonic colitis. 2. Chronic severely distended rectosigmoid colon with diarrhea. Diffuse colonic adynamic ileus. 3. Development of bilateral inguinal lymphadenopathy, could be reactive given no evidence of pelvic or retroperitoneal lymphadenopathy. Lymphoma or other malignancy not excludable. Bilateral nephrolith iasis. Nonobstructing kidney stones. Severe chronic right renal atrophy. 4. Chronic thoracic burst fractures. 5. Cholelithiasis. Reviewed, dictated and finalized at location A. ERSET PRESS SET UP OPERATOR IMPRESSION: 1. Development of signal colonic colitis. 2. Chronic severely distended rectosigmoid colon with diarrhea. Diffuse coloni c adynamic ileus. 3. Development of bilateral inguinal lymphadenopathy, could be reactive given no evidence of pelvic or retroperitoneal lymphadenopathy. Lymphoma or other mal ignancy not excludable. Bilateral nephrolithiasis. Nonobstructing kidney stones . Severe chronic right renal atrophy. 4. Chronic thoracic burst fractures. 5. Cholelithiasis.
--- NOTE | 2021-05-31 02:46 | ED.NAVMDI ---
HPI - Nausea/Vomiting/Diarrhea General Chief complaint: Nausea/Vomiting/Diarrhea Stated complaint: n/v/d x 5 hours Time Seen by Provider: 05/31/21 02:29 Source: patient History of Present Illness HPI Narrative: Patient presents with nausea vomiting. Reports her symptoms started several hours ago and did not appear to be improving so she called an ambulance. At the time of EMS arrival she reported feeling much improved and is no longer nauseous and has not thrown up. She reports some diarrhea but normally has diarrhea and has been present for several months. She denied associations with abdominal pain she denies any fevers, cough, congestion, chest pain, shortness of breath. She denies any urinary symptoms such as dysuria. Related Data Allergies Allergy/AdvReac Type Severity Reaction Status Date / Time red dye Allergy Severe FACIAL Verified 05/31/21 02:39 SWELLING Review of Systems Review of Systems: CONSTITUTIONAL: Denies fever, chills, or sweats. EYES: Denies visual changes, redness, or discharge. ENT: Denies rhinorrhea, congestion, sore throat, or otalgia. CARDIOVASCULAR: Denies chest pain, palpitations, or edema. RESPIRATORY: Denies cough or dyspnea. GASTROINTESTINAL: Reports nausea vomiting diarrhea GENITOURINARY: Denies dysuria or hematuria. SKIN: Denies rash or itching. MUSCULOSKELETAL: Denies back pain, joint pain, or myalgia. NEUROLOGIC: Denies headache, numbness, dizziness, or weakness. PSYCHIATRIC: Denies anxiety or depression. All systems reviewed & are unremarkable except as noted in HPI and below PMFSH Past Medical History Medical History Chronic diarrhea Depression DVT (deep venous thrombosis) Right leg Hyperlipidemia Hypertension Osteoarthritis Psoriasis Reflux esophagitis Surgical History Surgical History H/O right wrist surgery History of colonoscopy History of esophagogastroduodenoscopy (EGD) History of hernia repair History of total left hip arthroplasty Family History Family History Father Diabetes mellitus Heart attack Mother Cerebrovascular accident Heart attack Sibling Dementia Social History Social History Social History: 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 She has never been or had any children. She said she used to smoke many years ago. She is socially drink but no longer drinks no illicit drugs or marijuana. She desires to be a full code and chooses her 2 nephews to be her durable power attorney law clerk for healthcare. Smoking packs per day: 3.5 Smoking cigarettes per day: 70.0 Years smoked: 40 Smoking pack-years: 140.00 Smoking status: Former smoker Alcohol intake: never Substance use: former Substance use type: marijuana Additional living arrangements comments: Has caregiver visiting 3 days a week Gender identity (if verbalized by the patient): Female Spiritual care concerns: No Exam Narrative: GENERAL: Well-appearing, well-nourished, and in no acute distress. HEAD: Normocephalic, atraumatic. EYES: PERRLA and EOMI. ENT: Nares clear, no rhinorrhea or epistaxis. Mucous membranes moist. NECK: Supple. No masses. No JVD CHEST: Clear to auscultation. No respiratory distress. No wheezes rales or rhonchi HEART: Regular rate and rhythm. No murmur heard. Normal peripheral pulses. ABDOMEN: Soft, nontender, nondistended, normal active bowel sounds. EXTREMITIES: Normal range of motion. No edema. SKIN: Warm, dry, no rash. NEURO: No focal deficits. Alert and oriented x3. PSYCH: Normal mood and affect. Course Reevaluation(s) Reevaluation #1: Patient is resting comfortably reports continued improvement from her initial evaluation. Work-up reviewed with patient. Patient is c
--- NOTE | 2021-05-31 03:01 | PC.NURSE ---
Pt O2 sat 98%. Pt taken off of O2 2L, RA pt is 89%. O2 2L reapplied, 98%.
[2021-05-31] MEDS: SODIUM CHLORIDE 0.9% IV 500 ML 999 ML IV CONT (03:03)
[2021-05-31] MEDS: ONDANSETRON INJ 4 MG/2 ML VIAL IV PUSH (03:03)
[2021-05-31 03:09] LABS: Basophils Percent Auto 0.4 % (0.2-1.2); Eosinophils Absolute Auto 0.1 K/mm3 (0-0.3); Eosinophils Percent Auto 0.6 % (0-4.4); Hematocrit 42.6 % (37.0-47.0); Hemoglobin 13.5 g/dL (12.0-15.0); Immature Granulocyte Absolute 0.05 K/mm3 (0.00-0.031); Immature Granulocyte Percent A 0.5 % (0-0.5); Lymphocytes Percent Auto 16.8 % (18.3-44.2); Mean Corpuscular HGB Conc 31.7 g/dl (32-36); Mean Corpuscular Hemoglobin 31.2 pg (26-34); Mean Corpuscular Volume 98.4 fl (80-100); Mean Platelet Volume 9.4 fl (7.4-10.4); Monocytes Absolute Auto 0.8 K/mm3 (0.1-0.6); Monocytes Percent Auto 8.1 % (2.6-8.5); Neutrophils Absolute Auto 7.4 K/mm3 (1.3-6.7); Neutrophils Percent Auto 73.6 % (45.5-73.1); Platelet Count Result 175 k/mm3 (150-375); Red Blood Count 4.33 M/mm3 (4.2-5.4); Red Cell Distribution Width 13.6 % (11.5-14.5); White Blood Count 10.1 K/mm3 (4.5-10.0)
[2021-05-31 03:22] LABS: Alanine Aminotransferase 10 U/L (4-35); Albumin Level 3.3 g/dL (3.5-5.1); Alkaline Phosphatase 74 U/L (38-126); Anion Gap 10 mmol/L (8-16); Aspartate Amino Transferase 21 U/L (14-36); Bilirubin,Total 0.6 mg/dL (0.2-1.3); Blood Urea Nitrogen 27 mg/dL (7-17); Calcium 7.8 mg/dL (8.4-10.2); Carbon Dioxide 18 mmol/L (22-30); Chloride 109 mmol/L (98-107); Estimated Glomerular Filt Rate 25; Glucose 150 mg/dL (65-110); Lipase 60 U/L (23-300); Potassium 3.7 mmol/L (3.4-5.0); Sodium 137 mmol/L (137-145)
--- NOTE | 2021-05-31 04:10 | PC.NURSE ---
Pt O2 sat remains between 95-98% on RA
[2021-05-31 04:23] LABS: Add Urine Microscopic? YES; Appearance Urine Cloudy (Clear); Bacteria Urine Trace /hpf; Bilirubin Urine Negative (Negative); Blood Urine 1+ (Negative); Color Urine Amber (Yellow); Glucose Urine UA Negative (Negative); Ketones Urine Negative (Negative); Leukocyte Esterase Ur 3+ LEU/UL (Negative); Mucus Urine Few /lpf; Nitrate Urine Negative (Negative); Protein Urine 1+ mg/dL (Negative); Specific Grav Ur 1.017 (1.001-1.035); Squamous Epithelial Cell Urine Few /hpf (Few); WBC Clumps Urine Present /HPF; WBC Urine >75 /hpf
[2021-05-31 04:49] LABS: Lactic Acid Reflex 1.5 mmol/L (0.7-2.1)
--- NOTE | 2021-05-31 06:50 | PC.NURSE ---
Pt contact not up to date, contact no longer available to pt. No contacts saved in pt's phone, pt does not remember any phone numbers. Pt does not have any [place] for cab. Pt does not qualify for EMS transfer. Charge nurse, Margarette, at bedside at this time assisting pt to find transport home.
--- NOTE | 2021-05-31 07:39 | PC.NURSE ---
Pt's family member called for ride. Will call back if able to come pick pt up.
--- NOTE | 2021-05-31 07:42 | PC.NURSE ---
Care coordination at bedside for assessment.
--- NOTE | 2021-05-31 08:07 | PCCCNOTE ---
Addendum entered by Pushpa Rivera RN 05/31/21 08:14: Patient has a rollator/ walker at home and reports ability to walk with her devices. Original Note: Received a phone call from ED that they are having difficulty getting ahold of a contact to get the patient transportation home. Arrived in ED spoke with bedside RN Lachelle, patient had found an additional list of numbers to try. Spoke with patient she states that she takes care of herself on weekends but has a caregiver through [facility] for 3 hours during the week. Patient states that she is able to walk, and cook for herself and the caregiver mainly cleans, runs errands and will help her get in and out of the shower. Patient is on the list for low income senior housing and is still on the list but doesn't have an idea if she has moved up the list. Patient has the phone number for [facility] and plans to call them to see if she can get additional caregiver hours. Lachelle arrived at bedside and states that the patient's friend Cynthia's granddaughter will come and take patient home and patient is agreeable. Patient agrees to follow up with [facility] and has a PCP appt on Wednesday that her caregiver will drive her to.
== END 2021-05-31 08:34 | disposition home or self-care (01) ==
PROVIDERS: Emergency Provider Emergency Medicine; PCP Nurse Practitioner Adult Health
DX: N39.0 Urinary tract infection, site not specified (principal); R11.2 Nausea with vomiting, unspecified; E78.5 Hyperlipidemia, unspecified; I10 Essential (primary) hypertension; M19.90 Unspecified osteoarthritis, unspecified site; K21.9 Gastro-esophageal reflux disease without esophagitis; Z86.718 Personal history of other venous thrombosis and embolism; Z87.891 Personal history of nicotine dependence
CPT/HCPCS: 36415; 51701; 74176; 80053; 81001; 83605; 83690; 85025; 87077; 87086; 87088; 87186; 96361; 96365; 96375; 99284; J0696; J2405; J7040

== ENCOUNTER 2021-06-03 21:04 | Inpatient (IN) | payer MEDICARE, SELFPAY ==
--- NOTE | ~2021-06-03 | CT_ITS ---
EXAMINATION: CT abdomen pelvis wo con EXAM DATE: 06/04/2021 00:41 INDICATION: Right mid abdominal pain. TECHNIQUE: Spiral CT of the abdomen and pelvis was performed without contrast. Axial, coronal and s agittal images of the abdomen and pelvis were reviewed. The dose-length product (DLP) for this exami [facility] was 1141.73 mGy-cm. The exposure was tailored according to patient size (auto mA exposure con trol), and iterative reconstruction (ASIR) was used as additional dose reduction technique. Compariso n is made to prior examination from 05/31/2020. FINDINGS: Again there are 4 x 3 cm bilateral inguinal lymph nodes which could be reactive given othe r findings and absence of any other lymphadenopathy on this study, but lymphoma not excludable. Again there is significant tortuosity of rectosigmoid colon, and severely distended rectosigmoid colo n with gas and loose stool without obstructing rectal mass identified. Equivocal small amount of dist al rectal pneumatosis intestinalis, without portal venous gas. On prior examination there was long se gment of sigmoid colon that had wall thickening consistent with colitis, which appears to have resolv ed except for a focal region of narrowing which could be transient but difficult to exclude nonobstru cting cancer (indicated on axial image 141/90, coronal image 40/123). Bilateral adrenal adenomas unchanged. Liver, spleen, pancreas are unremarkable. There are gallstones within an otherwise unremarkable gallbladder. No evidence of obstructive biliary disease. Severe ch ronic right renal atrophy with inferior calyceal stones. Lobular left renal contour, regions of scarr ing are present and mild to moderate renal atrophy. Small nonobstructing calyceal stones. The uterus is unremarkable. The bladder is unremarkable. There is moderate scattered arteriosclerotic diseas e. There is an IVC filter. The appendix is normal. The stomach and small bowel are unremarkable. The heart is normal in size. There are no pericardial or pleural effusions. Chronic mild to moderate burst fracture at T7 and mo derate to severe burst fracture of T11. There is about 3 mm retropulsion of the T11 level, bulging of the posterior cortex. Both are unchanged compared to prior study. There is total left hip arthroplas ty. There are no acute fractures identified. Elevated left hemidiaphragm. No basilar consolidation. IMPRESSION: 1. Chronic severely distended rectosigmoid colon with diarrhea. Equivocal small rectal pneumatosis. Consider colonic adynamic ileus. 2. Resolution of previously seen sigmoid colitis, but now with apparent focal narrowing identified, possible adenocarcinoma. Could be transient or inflammatory related stricture as well. 3. Development of bilateral inguinal lymphadenopathy, could be reactive given no evidence of pelvic or retroperitoneal lymphadenopathy. Lymphoma or other malignancy not excludable. 4. Bilateral nephrolithiasis. Nonobstructing kidney stones. Severe chronic right renal atrophy. 5. Chronic thoracic burst fractures. 6. Cholelithiasis. Reviewed, dictated and finalized at location A. LCHAIR VAN DRIVER IMPRESSION: 1. Chronic severely distended rectosigmoid colon with diarrhea. Equivocal smal l rectal pneumatosis. Consider colonic adynamic ileus. 2. Resolution of previously seen sigmoid colitis, but now with apparent focal narrowing identified, possible adenocarcinoma. Could be transient or inflammato ry related stricture as well. 3. Development of bilateral inguinal lymphadenopathy, could be reactive given no evidence of pelvic or retroperitoneal lymphadenopathy. Lymphoma or other mal ignancy not excludable. 4. Bilateral nephrolithiasis. Nonobstructing kidney stones. Severe chronic rig ht renal atrophy. 5. Chronic
--- NOTE | ~2021-06-03 | US_ITS ---
EXAMINATION: US right upper quadrant DATE: 06/08/2021 08:18 INDICATION: Right upper quadrant pain TECHNIQUE: Multiple grayscale and Doppler ultrasound images of the abdomen were obtained. COMPARISON: None available FINDINGS: The pancreas is obscured by bowel gas. The liver is normal with normal echogenicity and ech otexture. No surface nodularity. Normal hepatopetal flow in the main portal vein. Stones are present in the nondistended gallbladder. There is no gallbladder wall thickening or pericholecystic fluid. Th e normal common bile duct measures 4 mm. There was no sonographic Xie sign. IMPRESSION: 1. Cholelithiasis without additional findings of cholecystitis. Reviewed, dictated and finalized at location A. NG INSPECTOR
--- NOTE | ~2021-06-03 | US_ITS ---
EXAMINATION: US pelvic complete DATE: 06/04/2021 13:20 INDICATION: Low abdominal pain. Postmenopausal. TECHNIQUE: Multiple transabdominal sonographic images of the pelvis were obtained. COMPARISON: CT abdomen and pelvis 06/04/2021 FINDINGS: The uterus measures 5.6 x 3.9 x 3.0 cm. There is no free fluid in the pelvis. The endometrial complex is small and not well visualized. The ovaries are not visualized. There is a diverticulum of the gary dder. IMPRESSION: 1. Normal uterus. Ovaries not visualized. Reviewed, dictated and finalized at location B. [employer] MARKETING INTERN
[2021-06-03 21:33] VITALS: BP 128/74; PULSE 90; RESP 16; TEMP 37.5; O2SAT 96
[2021-06-03 21:51] LABS: Basophils Percent Auto 0.2 % (0.2-1.2); Eosinophils Absolute Auto 0.1 K/mm3 (0-0.3); Eosinophils Percent Auto 2.1 % (0-4.4); Hemoglobin 11.7 g/dL (12.0-15.0); Immature Granulocyte Absolute 0.01 K/mm3 (0.00-0.031); Immature Granulocyte Percent A 0.2 % (0-0.5); Lymphocytes Percent Auto 23.8 % (18.3-44.2); Mean Corpuscular HGB Conc 32.5 g/dl (32-36); Mean Corpuscular Hemoglobin 31.4 pg (26-34); Mean Corpuscular Volume 96.5 fl (80-100); Monocytes Absolute Auto 0.5 K/mm3 (0.1-0.6); Monocytes Percent Auto 11.2 % (2.6-8.5); Neutrophils Absolute Auto 2.6 K/mm3 (1.3-6.7); Neutrophils Percent Auto 62.5 % (45.5-73.1); Platelet Count Result 130 k/mm3 (150-375); Red Blood Count 3.73 M/mm3 (4.2-5.4); Red Cell Distribution Width 13.2 % (11.5-14.5); White Blood Count 4.2 K/mm3 (4.5-10.0)
[2021-06-03 22:02] LABS: Alanine Aminotransferase 10 U/L (4-35); Albumin Level 3.2 g/dL (3.5-5.1); Alkaline Phosphatase 66 U/L (38-126); Anion Gap 8 mmol/L (8-16); Aspartate Amino Transferase 28 U/L (14-36); Bilirubin,Total 0.3 mg/dL (0.2-1.3); Blood Urea Nitrogen 28 mg/dL (7-17); Calcium 7.7 mg/dL (8.4-10.2); Carbon Dioxide 21 mmol/L (22-30); Chloride 105 mmol/L (98-107); Estimated CRCL calculation 23 ml/min; Estimated Glomerular Filt Rate 29; Glucose 105 mg/dL (65-110); Lipase 207 U/L (23-300); Potassium 3.3 mmol/L (3.4-5.0); Sodium 134 mmol/L (137-145)
--- NOTE | 2021-06-03 23:36 | ED.GENADULT ---
HPI - General Adult General Chief complaint: Unspecified Stated complaint: pain all over Time Seen by Provider: 06/03/21 23:35 Source: patient Mode of arrival: ambulatory Limitations: no limitations History of Present Illness HPI narrative: Patient is an 81-year-old female with a history of hypertension, hyperlipidemia, chronic diarrhea, presenting for evaluation of abdominal pain. Patient reports acute onset of right-sided abdominal pain that is located in the right middle abdomen, described as sharp, stabbing in nature with radiation in a bandlike pattern across her frontal lower abdomen. Patient with associated nausea, reports chronic diarrhea. She denies any episodes of emesis. Denies fever, chills, cough, congestion. No known history of Covid. Patient is Covid vaccinated. Patient states that her pain subsided, but wanted to be evaluated. Patient currently without any abdominal pain. She denies any significant abdominal distention. She denies any chest pain, shortness of breath, diaphoresis Patient with recent visit to this facility 3 days ago on May 31 with negative work-up, ultimately discharged home, treated with antibiotic for urinary tract infection; pt states she has been taking this antibiotic as prescribed although she still reports dysuria. Related Data Allergies Allergy/AdvReac Type Severity Reaction Status Date / Time red dye Allergy Severe FACIAL Verified 05/31/21 02:39 SWELLING Review of Systems Review of Systems: CONSTITUTIONAL: Denies fever, chills, or sweats. EYES: Denies visual changes, redness, or discharge. ENT: Denies rhinorrhea, congestion, sore throat, or otalgia. CARDIOVASCULAR: Denies chest pain, palpitations, or edema. RESPIRATORY: Denies cough or dyspnea. GASTROINTESTINAL: Right lower abdominal pain, now resolved, reports nausea without vomiting, reports chronic diarrhea GENITOURINARY: Reports dysuria SKIN: Denies rash or itching. MUSCULOSKELETAL: Denies back pain, joint pain, or myalgia. NEUROLOGIC: Denies headache, numbness, or weakness. 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 She has never been or had any children. She said she used to smoke many years ago. She is socially drink but no longer drinks no illicit drugs or marijuana. She desires to be a full code and chooses her 2 nephews to be her durable power assistant attorney general for healthcare. Smoking packs per day: 3.5 Smoking cigarettes per day: 70.0 Years smoked: 40 Smoking pack-years: 140.00 Smoking status: Former smoker Alcohol intake: never Substance use: former Substance use type: marijuana Additional living arrangements comments: Has caregiver visiting 3 days a week Gender identity (if verbalized by the patient): Female Spiritual care concerns: No Exam Narrative: GENERAL: Awake, alert, conversant, elderly HEAD: Normocephalic, atraumatic. EYES: PERRLA and EOMI. ENT: Nares clear, no rhinorrhea or epistaxis. Mucous membranes dry NECK: Supple. CHEST: No respiratory distress, breathing even and non labored HEART: Regular rate, sinus rhythm ABDOMEN:Non distended, non tend
[2021-06-03 23:45] VITALS: BP 108/76; PULSE 78; RESP 16; O2SAT 96
[2021-06-03 23:50] VITALS: PULSE 73
[2021-06-03 23:56] LABS: Creatine Kinase 82 U/L (30-135)
[2021-06-03 23:57] LABS: Add Urine Microscopic? YES; Appearance Urine Cloudy (Clear); Bacteria Urine 3+ /hpf; Bilirubin Urine Negative (Negative); Blood Urine Negative (Negative); Budding Yeast Urine Present /hpf; Color Urine Yellow (Yellow); Glucose Urine UA Negative (Negative); Ketones Urine Trace mg/dL (Negative); Leukocyte Esterase Ur 3+ LEU/UL (Negative); Mucus Urine Few /lpf; Nitrate Urine Positive (Negative); Protein Urine 1+ mg/dL (Negative); Specific Grav Ur 1.014 (1.001-1.035); WBC Urine >75 /hpf
[2021-06-03] MEDS: SODIUM CHLORIDE 0.9% IV 1,000 ML 999 ML IV CONT (23:57)
[2021-06-04] VITALS (7 sets, daily range): BP systolic 95–126; BP diastolic 48–75; PULSE 60–100; RESP 18–24; TEMP 37.2–37.4; O2SAT 95–98; BMI 29.2
[2021-06-04] MEDS: SODIUM CHLORIDE 0.9% IV 1,000 ML 999 ML IV CONT (00:53)
--- NOTE | 2021-06-04 07:37 | PM.IMHP ---
H&P: HPI History of Present Illness Date/Time: Date of Service 06/04/21 07:37 81F with a past medical history of depression, HTN, HLD, depression, DVT RLE 06/18/2017, former smoker who presented to the ED with abdominal pain. Patient had been seen in the ED for the same pain on 05/31/21, but the patient states she came in today before it got as bad as it was on 05/31. 05/31/21 she was prescribed treatment for UTI and discharged. The pain has not resolved. Describes the pain as a dull ache on the right lower abdomen that sometimes feels like it goes across her abdomen and to her right shoulder. Onset was a few hours before she came to the ED last night and she says it has been constant since onset. She has some associated nausea with the pain. She denies fever, chills, back pain, vaginal discharge, vaginal bleeding. She also states she has medications but doesn't really take them because she just doesn't want to take them. She does not know what medications she takes and did not bring her medications with her to the hospital. Patent currently denies abdominal pain and says it resolved after a few hours in the ED. In ED, CT A/P, ceftriaxone ordered, general surgery consulted, UCX sent, 1L bolus and NS at 125cc/hr started. Chief Complaint: Abdominal pain Review of Systems ENT: Denies nasal congestion and Denies nasal discharge Respiratory: Respiratory: Reports cough and Denies dyspnea Gastrointestinal: Gastrointestinal: Reports abdominal pain, Denies constipation, Reports diarrhea, Reports nausea, Denies vomiting and Denies hematemesis Genitourinary: Genitourinary: Denies flank pain, Reports urinary incontinence, Reports urinary hesitancy and Reports vaginal discharge Musculoskeletal: Musculoskeletal: Reports arthralgias and Reports stiffness Integumentary/Breasts: Skin/Breast: Reports pruritus Neurologic: Denies Abnormal speech present [facility] Past Medical History Medical History (Updated 06/04/21 @ 19:55 by Kendra Freedman MD) Chronic diarrhea Depression DVT (deep venous thrombosis) Right leg Hyperlipidemia Hypertension Osteoarthritis Psoriasis Reflux esophagitis Vulvar mass Surgical History Surgical History H/O right wrist surgery History of colonoscopy History of esophagogastroduodenoscopy (EGD) History of hernia repair History of total left hip arthroplasty Family History Family History Father Diabetes mellitus Heart attack Mother Cerebrovascular accident Heart attack Sibling Dementia Social History Social History (Updated 06/04/21 @ 18:36 by Kendra Freedman MD) Social History: 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 She has never been or had any children. She said she used to smoke many years ago. She is socially drink but no longer drinks no illicit drugs or marijuana. She states she does not want chest compressions or a tube to breath if her heart stops. Smoking packs per day: 2 Smoking cigarettes per day: 40.0 Years smoked: 40 Smoking pack-years: 80.00 Smoking status: Former smoker Tobacco type: cigarettes Alcohol intake: former Substance use: never Substance use type: marijuana Living arrangements: alone Additional living arrangements comments: Has caregiver visiting 3 hours per day Occupation/Education: retired Gender identity (if verbalized by the patient): Female Spiritual care concerns: No Meds Home Medications and Allergies Home Medications Medication Instructions Recorded Confirmed Type amlodipine 5 mg PO DAILY 06/04/21 06/04/21 History atorvastatin 10 mg PO DAILY 06/04/21 06/04/21 History clotrimazole-betamethasone applic TOPICAL 06/04/21 History colestipol 5 g PO BID 06/04/21 06/04/21 History furosemide 20 mg PO DAILY 06/04/21 06/04/21 History levetiracetam 500 mg PO BID
--- NOTE | 2021-06-04 10:21 | ADMGEN ---
This patient, Elizabet Mijares, was admitted to [facility] Surg Room 314-01. Patient/family oriented to hospital policies and general routines including ID bracelet, bed and alarms, visiting hours, pain management, procedures, bathroom and other care routines, personal items, smoking policy, room service/diet, and visiting hours. Information on how to activate the Rapid Response Team has been discussed. Patient/Family are encouraged to report perceived risks to care and to ask questions if they do not understand what they are told or what they should do.
[2021-06-04] MEDS: SODIUM CHLORIDE 0.9% IV 1,000 ML 125 ML IV CONT (10:41)
--- NOTE | 2021-06-04 16:16 | PM.CNGS ---
Assessment and Plan Assessment and plan (1) Chronic diarrhea: Code(s): K52.9 - Noninfective gastroenteritis and colitis, unspecified Status: Chronic Assessment and Plan: This apparently been has been longstanding. Her PCP been trying to get her in for a colonoscopy but the patient is not very mobile and has not yet had 1 recently. There may be old records that have an old 1 but colonoscopy during this admission may be recommended in view of patient's continuing colonic problems with ileus and recent colitis. Recommend GI consultation. I was apparently consulted from the ED because of the question by the virtual radiologist of some Martinez ptosis within the rectal wall. However, I went over the CT scan this morning with Dr. Ankur Sandoval at our radiology Dept. and he felt that that was a minimal if any significant amount present and the patient is not having significant bleeding or other problems with passing stool at this time. Therefore I believe it was somewhat of an over read. Patient has a normal white count I would recommend repeat CBC and continued monitoring. Will ask my partner Dr. Brown to see the patient tomorrow but then he may sign off if surgery does not have any further indication for continuing to see the patient. I specifically checked and she does not have any sacral decubitus that would need debridement or other intervention. (2) Ileus: Code(s): K56.7 - Ileus, unspecified Status: Acute Assessment and Plan: Patient may have some element of a colonic ileus but has had 2 loose stools in the ED and another 1 since she got to the floor so I doubt that she has a true ileus. (3) Vulvar mass: Code(s): N90.89 - Other specified noninflammatory disorders of vulva and perineum Status: Acute Assessment and Plan: Patient apparently was in [place] to show this to her PCP and has not shown to her. She has a very large growth coming off the vulva or out of the vagina. I would suggest gynecologic consultation and possible biopsy. (Patient has enlarged inguinal lymph nodes on CT scan that I could not palpate easily on exam however, she is fairly obese at the pelvic level. These have changed compared to a previous CT scan about a month ago, therefore they may be reactive, but if the patient indeed has a gynecologic related malignancy along the vulva or vaginal wall these certainly could enlarge related to that). (4) Abdominal pain: Code(s): R10.9 - Unspecified abdominal pain Status: Acute Assessment and Plan: This seems to have resolved at this time. CT scan shows T7 and T11 compression (burst) fractures of the vertebral bodies and some slight displacement. If she is having neurologic compression of the dorsal roots she could get occasional sharp pain when she turns just right related to that problem. (5) Acute renal failure superimposed on stage 3 chronic kidney disease: Qualifiers: Acute renal failure type: unspecified Chronic kidney disease stage 3 subtype: unspecified whether 3a or 3b Qualified Code(s): N17.9 - Acute kidney failure, unspecified; N18.30 - Chronic kidney disease, stage 3 unspecified Code(s): N17.9 - Acute kidney failure, unspecified; N18.30 - Chronic kidney disease, stage 3 unspecified Status: Resolved (6) Poor mobility: Code(s): Z74.09 - Other reduced mobility Status: Acute Assessment and Plan: Apparently related to her osteoarthritis and pain with walking. She states she has been in rehab before but really does not want to go back to them right now. (7) Hypertension: Qualifiers: Hypertension type: essential hypertension Qualified Code(s): I10 - Essential (primary) hypertension Code(s): I10 - Essential (primary) hypertension Status: Chronic Assessment and Plan: Home med list I had available. Apparently caregiver is coming up to the floor to bring that. (8
[2021-06-04] MEDS: POTASSIUM CHLORIDE 20 MEQ TABLET 40 MEQ PO (22:10)
[2021-06-04] MEDS: HEPARIN SODIUM 5,000 UNITS/ML VIAL 5000 UNITS SUB-Q (22:10)
[2021-06-05] VITALS: BP 112/60; PULSE 72; RESP 18; TEMP 36.9; O2SAT 96
[2021-06-05 04:00] VITALS: BP 126/63; PULSE 69; RESP 18; TEMP 37.3; O2SAT 94
[2021-06-05 07:08] LABS: Basophils Percent Auto 0.2 % (0.2-1.2); Eosinophils Absolute Auto 0.1 K/mm3 (0-0.3); Eosinophils Percent Auto 2.2 % (0-4.4); Hemoglobin 11.3 g/dL (12.0-15.0); Immature Reticulocyte Fraction 8.3 % (3.0-15.9); Lymphocytes Absolute Auto 1.43 K/mm3 (0.9-3.2); Lymphocytes Percent Auto 31.2 % (18.3-44.2); Mean Corpuscular HGB Conc 32.3 g/dl (32-36); Mean Corpuscular Hemoglobin 31.3 pg (26-34); Monocytes Absolute Auto 0.4 K/mm3 (0.1-0.6); Monocytes Percent Auto 7.6 % (2.6-8.5); Neutrophils Absolute Auto 2.7 K/mm3 (1.3-6.7); Neutrophils Percent Auto 58.8 % (45.5-73.1); Platelet Count Result 135 k/mm3 (150-375); Red Blood Count 3.61 M/mm3 (4.2-5.4); Red Cell Distribution Width 13.3 % (11.5-14.5); Reticulocyte Hemoglobin Conten 33.3 pg (28.2-35.7); Reticulocytes Absolute 0.05 B/L (32.2-175.7); White Blood Count 4.6 K/mm3 (4.5-10.0)
--- NOTE | 2021-06-05 07:27 | PM.IMPN ---
Progress Note: A&P Assessment and Plan (1) Abdominal pain: Code(s): R10.9 - Unspecified abdominal pain Status: Acute Assessment and Plan: CT w/ bilateral inguinal lymphadenopathy, tortuosity of rectosigmoid colon and severely distended rectosigmoid w/ normal stomach and small bowel and focal narrowing of the colon concerning for adenocarcinoma. Nothing on imaging to explain the cause of abdominal pain. Appears to be resolved today. May be related to the vulvar mass. -Tylenol for pain -Diet as tolerated (2) UTI (urinary tract infection): Code(s): N39.0 - Urinary tract infection, site not specified Status: Acute Assessment and Plan: UA on 05/31/21 significant for leukocyte esterase but nitrite negative and discharged with cephalexin. 05/31/21 UCX grew E. coli resistant to cephalexin, floroquinolones and bactrim. UA 06/03 notes nitrites and leukocytes esterase. UCX noting 2 different strains of E. coli. Sensitivities pending. -Continue ceftriaxone 1g daily #2 (3) Vulvar mass: Code(s): N90.89 - Other specified noninflammatory disorders of vulva and perineum Status: Acute Assessment and Plan: Large fungating mass with some bleeding w/o evidence of pelvic organ prolapse. -CONSTRUCTION SALES REPRESENTATIVE consulted (4) Pancytopenia: Code(s): D61.818 - Other pancytopenia Status: Acute Assessment and Plan: Normal LFTs. Hx of ETOH but > 40 years ago. Possibly due to poor nutrition vs cancer vs cirrhosis. No medications. Coags, LDH. Normal. Iron studies c/w with LEROY and vitamin b12 is low. Reticulocyte count low. -Ferrous gluconate 324 every other day -Vitamin b12 1000 mg po daily (5) Hyperglobulinemia: Code(s): R77.1 - Abnormality of globulin Status: Acute Assessment and Plan: Total protein elevated. HIV, HCV, HBV negative. SPEP & UPEP w/ JADA completion pending. -HIV, HCV, HBV (6) Metabolic acidosis: Code(s): E87.2 - Acidosis Status: Acute Assessment and Plan: Non-gap metabolic acidosis likely 2/2 to chronic GI losses vs RTA vs early renal failure. -Urine studies pending for Urine gap (7) Acute renal failure superimposed on stage 3 chronic kidney disease: Qualifiers: Acute renal failure type: unspecified Chronic kidney disease stage 3 subtype: unspecified whether 3a or 3b Qualified Code(s): N17.9 - Acute kidney failure, unspecified; N18.30 - Chronic kidney disease, stage 3 unspecified Code(s): N17.9 - Acute kidney failure, unspecified; N18.30 - Chronic kidney disease, stage 3 unspecified Status: Resolved Assessment and Plan: Baseline creatinine approximately 1.4 w/ range since 2019 1.4-1.9. Creatinine 1.6 today and appears to be improving. -Urine studies pending. (8) Chronic diarrhea: Code(s): K52.9 - Noninfective gastroenteritis and colitis, unspecified Status: Chronic Assessment and Plan: Previous hx of colitis now this narrowing concerning for adenocarcinoma on CT. Stool studies pending. -Appreciate recs from GI (9) Hyperlipidemia: Qualifiers: Hyperlipidemia type: unspecified Qualified Code(s): E78.5 - Hyperlipidemia, unspecified Code(s): E78.5 - Hyperlipidemia, unspecified Status: Chronic Assessment and Plan: Hx of HLD but not currently taking any medication and does not regularly follow with a PCP. -Lipid panel in AM (10) Hypocalcemia: Code(s): E83.51 - Hypocalcemia Status: Acute Assessment and Plan: Corrected calcium 8.4, which is within range. Persisitent and vitmain d level pending. Will treat today. -Calcium gluconate (11) Hypokalemia: Code(s): E87.6 - Hypokalemia Status: Acute Assessment and Plan: Potassium 3.6 today. Resolved. -Potassim Chloride 40 meq x 1 to increase (12) Hypertension: Qualifiers: Hypertension type: essential hypertension Qualified Co
[2021-06-05 07:30] LABS: INR 1.1; Prothrombin Time 14.3 Seconds (11.1-14.7)
[2021-06-05 07:31] LABS: Partial Thromboplastin Time 31.7 SECONDS (22.3-36.8)
[2021-06-05 07:44] LABS: Anion Gap 8 mmol/L (8-16); Blood Urea Nitrogen 22 mg/dL (7-17); Calcium 7.6 mg/dL (8.4-10.2); Carbon Dioxide 21 mmol/L (22-30); Chloride 111 mmol/L (98-107); Estimated CRCL calculation 25 ml/min; Estimated Glomerular Filt Rate 31; Glucose 94 mg/dL (65-110); Potassium 3.6 mmol/L (3.4-5.0); Sodium 140 mmol/L (137-145)
[2021-06-05 07:59] LABS: HIV 1/2 Ab P24 Ag Result Negative (Negative)
[2021-06-05 08:04] LABS: Iron 18 ug/dL (37-170)
[2021-06-05 08:09] LABS: Lactate Dehydrogenase 427 U/L (313-618)
[2021-06-05 08:13] LABS: Percent Iron Saturation 9 % (20-50)
[2021-06-05 08:43] LABS: Hemoglobin A1C 5.1 % (<5.7)
[2021-06-05 08:57] LABS: Hepatitis B Surface Antigen Negative (Negative)
[2021-06-05 09:06] LABS: Hepatitis C Virus Antibody Negative (Negative)
[2021-06-05] MEDS: HEPARIN SODIUM 5,000 UNITS/ML VIAL 5000 UNITS SUB-Q ×2 (09:10→20:28)
--- NOTE | 2021-06-05 10:08 | PM.PNGS ---
Progress Note: A&P Assessment and Plan (1) Abdominal pain: Code(s): R10.9 - Unspecified abdominal pain Status: Acute Assessment and Plan: resolved, no acute surgical issues, will need colonoscopy as outpt for further evaluation (2) Ileus: Code(s): K56.7 - Ileus, unspecified Status: Acute Assessment and Plan: h/o chronic diarrhea, pt is back at baseline (3) Vulvar mass: Code(s): N90.89 - Other specified noninflammatory disorders of vulva and perineum Status: Acute Assessment and Plan: gynecology consult obtained Subjective Subjective Date/Time Seen: 06/05/21 10:08 feels better today, no further abd pain, +loose stools (pt reports this is her baseline) Review of Systems Review of Systems: All systems reviewed & are unremarkable except as noted in HPI and below Exam Const: General: cooperative, comfortable and no acute distress Nutritional Appearance: obese Orientation/consciousness: patient oriented x3 Resp: Effort & Inspection: normal respiratory effort Auscultation: clear to auscultation bilaterally Cardio: Rate: regular rate Rhythm: regular rhythm GI: Inspection: normal to inspection and non-distended GI Palp: Yes Soft to palpation, No Tenderness to palpation present (GI), No Guarding due to palpation present (GI) and No Rigid due to palpation Objective Data Vital Signs Vital Signs: Vital Signs - 24 hr 06/04/21 12:00 06/04/21 14:00 06/04/21 16:00 Temperature 37.2 C 37.3 C 37.4 C Pulse Rate 100 75 69 Respiratory Rate 24 H 24 H 20 Blood Pressure 118/59 L 107/48 L 112/62 Pulse Oximetry 95 96 98 06/04/21 20:00 06/05/21 00:00 06/05/21 04:00 Temperature 37.3 C 36.9 C 37.3 C Pulse Rate 78 72 69 Respiratory Rate 18 18 18 Blood Pressure 112/58 L 112/60 126/63 Pulse Oximetry 97 96 94 Intake/Output Intake/Output: Intake & Output 06/02/21 06/03/21 06/04/21 06/05/21 23:59 23:59 23:59 23:59 Intake Total 2579 2039 Balance 2579 2039 Meds/Results Medications: Active Medications Generic Name Dose Route Start Last Admin Trade Name Freq PRN Reason Stop Dose Admin Heparin Sodium (Porcine) 5,000 units 06/04/21 21:00 06/05/21 09:10 Heparin Sodium 5,000 Units/Ml Vial SUB-Q 5,000 units Q12HR RUDDY Administration Ceftriaxone Sodium/Dextrose 1 gm in 50 mls @ 100 mls/hr 06/04/21 22:00 06/05/21 01:06 Rocephin 1 Gm/D5w 50 Ml IVPB Infused Q24H RUDDY Infusion Ondansetron HCl 4 mg 06/04/21 04:07 Ondansetron Inj 4 Mg/2 Ml Vial IV PUSH Q4H PRN Nausea Radiology Results: ITS Impressions Abdomen/Pelvis CT 06/04/21 09:21 IMPRESSION: 1. Chronic severely distended rectosigmoid colon with diarrhea. Equivocal small rectal pneumatosis. Consider colonic adynamic ileus. 2. Resolution of previously seen sigmoid colitis, but now with apparent focal narrowing identified, possible adenocarcinoma. Could be transient or inflammatory related stricture as well. 3. Development of bilateral inguinal lymphadenopathy, could be reactive given no evidence of pelvic or retroperitoneal lymphadenopathy. Lymphoma or other malignancy not excludable. 4. Bilateral nephrolithiasis. Nonobstructing kidney stones. Severe chronic right renal atrophy. 5. Chronic thoracic burst fractures. 6. Cholelithiasis. Pelvis Ultrasound 06/04/21 13:44 IMPRESSION: 1. Normal uterus. Ovaries not visualized. Labs Labs: Laboratory Results - last 24 hr 06/05/21 06/05/21 06/05/21 06:03 06:03 06:03 WBC 4.6 RBC 3.61 L Hgb 11.3 L Hct 35.0 L MCV 97.0 MCH 31.3 MCHC 32.3 RDW 13.3 Plt Count 135 L MPV 10.0 Immature Gran % (Auto) 0.0 Neut % (Auto) 58.8 Lymph % (Auto) 31.2 Loup % (Auto) 7.6 Eos % (Auto) 2.2 Baso % (Auto) 0.2 Lymph # (Auto) 1.43 Loup # (Auto) 0.4 Eos # (Auto) 0.1 Baso # (Auto) 0.0 Abs Immat Gran (auto) 0.00 Absolute Neuts (auto) 2.7 Absolute Nuc
[2021-06-05 12:00] VITALS: BP 112/68; PULSE 71; RESP 20; TEMP 36.3; O2SAT 96
[2021-06-05 14:00] VITALS: BP 127/77; PULSE 52; RESP 20; TEMP 36.7; O2SAT 91
[2021-06-05] MEDS: POTASSIUM CHLORIDE 20 MEQ TABLET 40 MEQ PO (18:41)
[2021-06-05] MEDS: FERROUS GLUCONATE 324 MG TABLET PO (19:11)
[2021-06-05 19:45] LABS: Potassium Urine Random 4.3 meq/L; Sodium Urine Random 115 meq/L
[2021-06-05 20:00] VITALS: BP 114/63; PULSE 69; RESP 18; TEMP 37.7; O2SAT 96
[2021-06-05] MEDS: levETIRAcetam 500 MG TABLET PO (20:28)
[2021-06-05] MEDS: CALCIUM GLUC 1,000 MG/NS 50 ML 1,000 MG/50 ML BAG 100 MG IVPB (20:29)
[2021-06-06 06:00] VITALS: BP 124/78; PULSE 70; RESP 16; TEMP 37.1; O2SAT 99
--- NOTE | 2021-06-06 08:12 | PM.IMPN ---
Progress Note: A&P Assessment and Plan (1) Abdominal pain: Code(s): R10.9 - Unspecified abdominal pain Status: Acute Assessment and Plan: CT w/ bilateral inguinal lymphadenopathy, tortuosity of rectosigmoid colon and severely distended rectosigmoid w/ normal stomach and small bowel and focal narrowing of the colon concerning for adenocarcinoma. Nothing on imaging to explain the cause of abdominal pain. Returend today and may be more RUQ. -Tylenol for pain -Diet as tolerated (2) UTI (urinary tract infection): Code(s): N39.0 - Urinary tract infection, site not specified Status: Acute Assessment and Plan: UA on 05/31/21 significant for leukocyte esterase but nitrite negative and discharged with cephalexin. 05/31/21 UCX grew E. coli resistant to cephalexin, fluoroquinolones and Bactrim. UA 06/03 notes nitrites and leukocytes esterase. UCX noting 2 different strains of E. coli. Sensitivities show ceftriaxone sensitive. -Continue ceftriaxone 1g daily #3 (3) Vulvar mass: Code(s): N90.89 - Other specified noninflammatory disorders of vulva and perineum Status: Acute Assessment and Plan: Large fungating mass with some bleeding w/o evidence of pelvic organ prolapse. -METAL SPRAY OPERATOR consulted nand recommends [facility] oncology (4) Pancytopenia: Code(s): D61.818 - Other pancytopenia Status: Acute Assessment and Plan: Normal LFTs. Hx of ETOH but > 40 years ago. Possibly due to poor nutrition vs cancer vs cirrhosis. No medications. Coags, LDH. Normal. Iron studies c/w with LEROY and vitamin b12 is low. Reticulocyte count low. -Ferrous gluconate 324 every other day -Vitamin b12 1000 mg po daily (5) Hyperglobulinemia: Code(s): R77.1 - Abnormality of globulin Status: Acute Assessment and Plan: Total protein elevated. HIV, HCV, HBV negative. SPEP & UPEP w/ JADA completion pending. (6) Metabolic acidosis: Code(s): E87.2 - Acidosis Status: Acute Assessment and Plan: Non-gap metabolic acidosis likely 2/2 to chronic GI losses vs RTA vs early renal failure. -Urine studies pending for Urine gap (7) Acute renal failure superimposed on stage 3 chronic kidney disease: Qualifiers: Acute renal failure type: unspecified Chronic kidney disease stage 3 subtype: unspecified whether 3a or 3b Qualified Code(s): N17.9 - Acute kidney failure, unspecified; N18.30 - Chronic kidney disease, stage 3 unspecified Code(s): N17.9 - Acute kidney failure, unspecified; N18.30 - Chronic kidney disease, stage 3 unspecified Status: Resolved Assessment and Plan: Baseline creatinine approximately 1.4 w/ range since 2019 1.4-1.9. Creatinine 1.8 today. -Urine studies pending. (8) Chronic diarrhea: Code(s): K52.9 - Noninfective gastroenteritis and colitis, unspecified Status: Chronic Assessment and Plan: Previous hx of colitis now this narrowing concerning for adenocarcinoma on CT. Stool studies pending. -Appreciate recs from GI (9) Hyperlipidemia: Qualifiers: Hyperlipidemia type: unspecified Qualified Code(s): E78.5 - Hyperlipidemia, unspecified Code(s): E78.5 - Hyperlipidemia, unspecified Status: Chronic Assessment and Plan: Hx of HLD but not currently taking any medication and does not regularly follow with a PCP. (10) Hypocalcemia: Code(s): E83.51 - Hypocalcemia Status: Acute Assessment and Plan: Corrected calcium 8.4, which is within range. Persisitent and vitmain d level pending. -Calcium gluconate (11) Hypokalemia: Code(s): E87.6 - Hypokalemia Status: Acute Assessment and Plan: Potassium 3.6 today. Resolved. (12) Hypertension: Qualifiers: Hypertension type: essential hypertension Qualified Code(s): I10 - Essential (primary) hypertension Code(s): I10 - Essential (primary) hypert
[2021-06-06 08:20] LABS: Anion Gap 9 mmol/L (8-16); Blood Urea Nitrogen 25 mg/dL (7-17); Calcium 7.7 mg/dL (8.4-10.2); Carbon Dioxide 19 mmol/L (22-30); Chloride 111 mmol/L (98-107); Cholesterol 88 mg/dL (0-200); Estimated CRCL calculation 22 ml/min; Estimated Glomerular Filt Rate 27; Glucose 98 mg/dL (65-110); HDL Direct 24 mg/dL; Potassium 3.7 mmol/L (3.4-5.0); Sodium 139 mmol/L (137-145); Triglycerides 77 mg/dL (<150)
[2021-06-06 08:31] LABS: LDL Cholesterol Direct 49 mg/dL
[2021-06-06] MEDS: SERTRALINE HCL 50 MG TABLET 100 MG PO (10:01)
[2021-06-06] MEDS: BETAMETHASONE/CLOTRIMAZOLE CR 15 GM TUBE 1 APPLIC TOPICAL (10:01)
[2021-06-06] MEDS: levETIRAcetam 500 MG TABLET PO ×2 (10:01→18:37)
[2021-06-06] MEDS: CYANOCOBALAMIN 1,000 MCG TABLET 1000 MCG PO (10:01)
[2021-06-06] MEDS: HEPARIN SODIUM 5,000 UNITS/ML VIAL 5000 UNITS SUB-Q ×2 (10:02→21:09)
[2021-06-06] MEDS: FUROSEMIDE 20 MG TABLET PO (10:02)
[2021-06-06] MEDS: ATORVASTATIN 10 MG TABLET PO (10:02)
--- NOTE | 2021-06-06 10:59 | WPDCN ---
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 signing off. [facility] Data of Consult Date/Time: 06/06/21 10:59 Requesting Physician: Gaurang Carlos MD Primary Care Provider: Melissa Hawley, GELATIN DYNAMITE PACKING OPERATOR Consult Narrative Narrative: Elizabet Mijares is a 81 year old female (adopted out x 2) consulted for mass on vagina. Patient reports lump has been there for years however she does feel like it has grown in size over the last year. She hasnt seen a Desktop Manager in over 10 years. denies any history of abnormal pap smears. She also denies vaginal bleeding. she does report itching and burning of mass with her incontinence. Review of Systems Gastrointestinal: Gastrointestinal: Reports diarrhea Genitourinary: Genitourinary: Reports urinary incontinence [facility] Past Medical History Medical History (Updated 06/04/21 @ 19:55 by Kendra Freedman MD) Chronic diarrhea Depression DVT (deep venous thrombosis) Right leg Hyperlipidemia Hypertension Osteoarthritis Psoriasis Reflux esophagitis Vulvar mass Surgical History Surgical History H/O right wrist surgery History of colonoscopy History of esophagogastroduodenoscopy (EGD) History of hernia repair History of total left hip arthroplasty Family History Family History Father Diabetes mellitus Heart attack Mother Cerebrovascular accident Heart attack Sibling Dementia Social History Social History (Updated 06/04/21 @ 18:36 by Kendra Freedman MD) Social History: 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 She has never been or had any children. She said she used to smoke many years ago. She is socially drink but no longer drinks no illicit drugs or marijuana. She states she does not want chest compressions or a tube to breath if her heart stops. Smoking packs per day: 2 Smoking cigarettes per day: 40.0 Years smoked: 40 Smoking pack-years: 80.00 Smoking status: Former smoker Tobacco type: cigarettes Alcohol intake: former Substance use: never Substance use type: marijuana Living arrangements: alone Additional living arrangements comments: Has caregiver visiting 3 hours per day Occupation/Education: retired Gender identity (if verbalized by the patient): Female Spiritual care concerns: No Meds Home Medications and Allergies Home Medications Medication Instructions Recorded Confirmed Type amlodipine 5 mg PO DAILY 06/04/21 06/04/21 History atorvastatin 10 mg PO DAILY 06/04/21 06/04/21 History clotrimazole-betamethasone 1 applic TOPICAL DAILY 06/04/21 06/04/21 History colestipol 5 g PO BID 06/04/21 06/04/21 History furosemide 20 mg PO DAILY 06/04/21 06/04/21 History levetiracetam 500 mg PO BID 06/04/21 06/04/21 History metoprolol tartrate 12.5 mg PO DAILY 06/04/21 06/04/21 History sertraline 100 mg PO DAILY 06/04/21 06/04/21 History Allergies Allergy/AdvReac Type Severity Reaction Status Date / Time red dye Allergy Severe FACIAL Verified 06/04/21 10:34 SWELLING Vital Signs Vital Signs - 24 hr 06/05/21 12:00 06/05/21 14:00 06/05/21 20:00 Temperature 36.3 C L 36.7 C 37.7 C H Pulse Rate 71 52 L 69 Respiratory Rate 20 20 18 Blood Pressure 112/68 127/77 114/63 Pulse Oximetry 96 91 96 06/06/21 06:00 Temperature 37.1 C Pulse Rate 70 Respiratory Rate 16 Blood Pressure 124/78 Pulse Oximetry 99 Exam : External Female Exam: normal appearance of the urethra Female genitals images: 1. large papillary fungated mass pedunculated from left labia.Approx [id number]
--- NOTE | 2021-06-06 11:17 | WPDGICN ---
Assessment and Plan Assessment and plan (1) Stricture of sigmoid colon: Code(s): K56.699 - Other intestinal obstruction unspecified as to partial versus complete obstruction Status: Acute Assessment and Plan: recent colitis but repeat CT scan concerning for possible stricture that could be from inflammation or malignancy will need colonoscopy, last one more than 20 years ago also noted enlarged LN and she has a mass in vulvar site concerning for malignancy- gynecology on board and referred to see composition board press operator oncologist (2) Colitis: Code(s): K52.9 - Noninfective gastroenteritis and colitis, unspecified Status: Acute Assessment and Plan: treated, she has chronic diarrhea still on antibiotics but mostly because uti (3) Abdominal pain: Code(s): R10.9 - Unspecified abdominal pain Status: Acute Assessment and Plan: presented with ileus but tolerating diet (4) Ileus: Code(s): K56.7 - Ileus, unspecified Status: Acute (5) Vulvar mass: Code(s): N90.89 - Other specified noninflammatory disorders of vulva and perineum Status: Acute Assessment and Plan: by gynecology (6) Chronic diarrhea: Code(s): K52.9 - Noninfective gastroenteritis and colitis, unspecified Status: Chronic (7) UTI (urinary tract infection): Qualifiers: Hematuria presence: without hematuria Urinary tract infection type: acute cystitis Qualified Code(s): N30.00 - Acute cystitis without hematuria Code(s): N39.0 - Urinary tract infection, site not specified Status: Acute Assessment and Plan: on abx (8) Abnormal CT of the abdomen: Code(s): R93.5 - Abnormal findings on diagnostic imaging of other abdominal regions, including retroperitoneum Status: Acute Assessment and Plan: reviewed (9) DVT (deep venous thrombosis): Qualifiers: DVT location: lower extremity Affected thrombotic vein of extremity: popliteal Chronicity: acute Laterality: right Qualified Code(s): I82.431 - Acute embolism and thrombosis of right popliteal vein Code(s): I82.409 - Acute embolism and thrombosis of unspecified deep veins of unspecified lower extremity Status: Acute Assessment and Plan: s/p ivc filter (10) Nausea: Code(s): R11.0 - Nausea Status: Acute Assessment and Plan: monitor, may need egd if still with nausea and bloating GI Consult Note Consult date/time: 06/06/21 11:17 Reason for consult: abdominal pain, nausea, colitis HPI: Elizabet Mijares is a 81 year old female with history of hypertension, chronic diarrhea, and frequent UTI's with recent hospitalization about 1 month ago after had DVT in leg, complicated with hematoma after using AC then IVC filter was placed and she was sent to rehab. She is here with progressive abdominal pain in ruq but radiated across lower abdomen that has been going on for few months but lately worse and more severe, also nausea. She came to the ED on 05/31 diagnosed with sigmoid colitis and sent home with antibiotics but returned 06/04 and admitted to hospital because persistent symptoms (she has chronic diarrhea) Repeat CT scan a/p reviewed that showed chronic severely distended rectosigmoid colon with diarrhea. Equivocal small rectal pneumatosis. Consider colonic adynamic ileus. resolution of previously seen sigmoid colitis, but now with apparent focal narrowing identified, possible adenocarcinoma. Could be transient or inflammatory related stricture as well, development of bilateral inguinal lymphadenopathy, could be reactive given no evidence of pelvic or retroperitoneal lymphadenopathy. Also diagnosed with UTI again and on antibiotics. She says that had colonoscopy over 20 years ago but was not fully sedated and that was the reason why did not have a new one. She also has lump in vulvar area with itching for some time, evaluated by composition board press operator for possible vulvar cancer. Re
--- NOTE | 2021-06-06 13:21 | PCOTNOTE ---
Pt attempted OT evaluation yet reported increase in pain and was unable to complete evaluation. Nursing staff notified of pain status. Will follow-up when patient is amenable to therapy.
[2021-06-06 14:00] VITALS: BP 121/71; PULSE 67; RESP 21; TEMP 36.4; O2SAT 94
[2021-06-06] MEDS: CALCIUM CARBONATE (TUMS) 500 MG (200 MG ELEMENTAL) PO ×2 (14:02→18:37)
[2021-06-06] MEDS: ACETAMINOPHEN 325 MG TABLET 650 MG PO (18:35)
[2021-06-06] MEDS: COLESTIPOL HCL 1 GM TABLET 4 GM PO (18:36)
[2021-06-06 21:46] VITALS: BP 101/58; PULSE 70; RESP 18; TEMP 36.7; O2SAT 95
[2021-06-06 22:42] VITALS: O2SAT 92
[2021-06-07] MEDS: CALCIUM CARBONATE (TUMS) 500 MG (200 MG ELEMENTAL) PO ×4 (01:14→17:05)
[2021-06-07] MEDS: CALCIUM GLUC 1,000 MG/NS 50 ML 1,000 MG/50 ML BAG 100 MG IVPB ×2 (02:14→21:12)
[2021-06-07] MEDS: ACETAMINOPHEN 325 MG TABLET 650 MG PO (02:44)
[2021-06-07 05:53] VITALS: BP 124/67; PULSE 63; RESP 20; TEMP 36.4; O2SAT 95
--- NOTE | 2021-06-07 07:26 | PM.IMPN ---
Progress Note: A&P Assessment and Plan (1) Abdominal pain: Code(s): R10.9 - Unspecified abdominal pain Status: Acute Assessment and Plan: CT w/ bilateral inguinal lymphadenopathy, tortuosity of rectosigmoid colon and severely distended rectosigmoid w/ normal stomach and small bowel and focal narrowing of the colon concerning for adenocarcinoma. Nothing on imaging to explain the cause of abdominal pain. Returend today and may be more RUQ. -Tylenol for pain -RUQ US -Appreciate recs from GI -Diet as tolerated (2) UTI (urinary tract infection): Code(s): N39.0 - Urinary tract infection, site not specified Status: Acute Assessment and Plan: UA on 05/31/21 significant for leukocyte esterase but nitrite negative and discharged with cephalexin. 05/31/21 UCX grew E. coli resistant to cephalexin, fluoroquinolones and Bactrim. UA 06/03 notes nitrites and leukocytes esterase. UCX noting 2 different strains of E. coli. Sensitivities show ceftriaxone sensitive. Completed 3 doses of ceftriaxone. (3) Vulvar mass: Code(s): N90.89 - Other specified noninflammatory disorders of vulva and perineum Status: Acute Assessment and Plan: Large fungating mass with some bleeding w/o evidence of pelvic organ prolapse. -DIRECTORY CARRIER consulted nand recommends [facility] (4) Pancytopenia: Code(s): D61.818 - Other pancytopenia Status: Acute Assessment and Plan: Normal LFTs. Hx of ETOH but > 40 years ago. Possibly due to poor nutrition vs cancer vs cirrhosis. No medications. Coags, LDH. Normal. Iron studies c/w with LEROY and vitamin b12 is low. Reticulocyte count low. -Ferrous gluconate 324 every other day -Vitamin b12 1000 mg po daily (5) Hyperglobulinemia: Code(s): R77.1 - Abnormality of globulin Status: Acute Assessment and Plan: Total protein elevated. HIV, HCV, HBV negative. SPEP & UPEP w/ JADA completion pending. (6) Metabolic acidosis: Code(s): E87.2 - Acidosis Status: Acute Assessment and Plan: Non-gap metabolic acidosis likely 2/2 to chronic GI losses vs RTA vs early renal failure. -Urine studies pending for Urine gap (7) Acute renal failure superimposed on stage 3 chronic kidney disease: Qualifiers: Acute renal failure type: unspecified Chronic kidney disease stage 3 subtype: unspecified whether 3a or 3b Qualified Code(s): N17.9 - Acute kidney failure, unspecified; N18.30 - Chronic kidney disease, stage 3 unspecified Code(s): N17.9 - Acute kidney failure, unspecified; N18.30 - Chronic kidney disease, stage 3 unspecified Status: Resolved Assessment and Plan: Baseline creatinine approximately 1.4 w/ range since 2019 1.4-1.9. Creatinine 1.8 today. -Urine studies pending. (8) Chronic diarrhea: Code(s): K52.9 - Noninfective gastroenteritis and colitis, unspecified Status: Chronic Assessment and Plan: Previous hx of colitis now this narrowing concerning for adenocarcinoma on CT. Stool studies pending. -Appreciate recs from GI (9) Hyperlipidemia: Qualifiers: Hyperlipidemia type: unspecified Qualified Code(s): E78.5 - Hyperlipidemia, unspecified Code(s): E78.5 - Hyperlipidemia, unspecified Status: Chronic Assessment and Plan: Hx of HLD but not currently taking any medication and does not regularly follow with a PCP. (10) Hypocalcemia: Code(s): E83.51 - Hypocalcemia Status: Acute Assessment and Plan: Calcium gluconate given 0100 this morning and it remains low on labs -Calcium gluconate (11) Hypokalemia: Code(s): E87.6 - Hypokalemia Status: Acute Assessment and Plan: Potassium 3.3 today. May benefit from daily potassium. -Potassium chloride 60 mEq today (12) Hypertension: Qualifiers: Hypertension type: essential hypertension Qualified Code(s): I10 - Essential
[2021-06-07 07:55] LABS: Anion Gap 5 mmol/L (8-16); Blood Urea Nitrogen 25 mg/dL (7-17); Calcium 8.1 mg/dL (8.4-10.2); Carbon Dioxide 21 mmol/L (22-30); Chloride 108 mmol/L (98-107); Estimated CRCL calculation 23 ml/min; Estimated Glomerular Filt Rate 29; Glucose 94 mg/dL (65-110); Potassium 3.3 mmol/L (3.4-5.0); Sodium 134 mmol/L (137-145)
[2021-06-07 08:00] LABS: Basophils Percent Auto 0.3 % (0.2-1.2); Eosinophils Absolute Auto 0.1 K/mm3 (0-0.3); Hematocrit 31.1 % (37.0-47.0); Hemoglobin 10.1 g/dL (12.0-15.0); Immature Granulocyte Absolute 0.01 K/mm3 (0.00-0.031); Immature Granulocyte Percent A 0.3 % (0-0.5); Lymphocytes Percent Auto 48.2 % (18.3-44.2); Mean Corpuscular HGB Conc 32.5 g/dl (32-36); Mean Corpuscular Hemoglobin 30.6 pg (26-34); Mean Corpuscular Volume 94.2 fl (80-100); Mean Platelet Volume 9.8 fl (7.4-10.4); Monocytes Absolute Auto 0.3 K/mm3 (0.1-0.6); Monocytes Percent Auto 6.9 % (2.6-8.5); Neutrophils Absolute Auto 1.6 K/mm3 (1.3-6.7); Neutrophils Percent Auto 41.3 % (45.5-73.1); Platelet Count Result 144 k/mm3 (150-375); Red Cell Distribution Width 13.1 % (11.5-14.5); White Blood Count 3.9 K/mm3 (4.5-10.0)
[2021-06-07] MEDS: ATORVASTATIN 10 MG TABLET PO (08:24)
[2021-06-07] MEDS: FUROSEMIDE 20 MG TABLET PO (08:24)
[2021-06-07] MEDS: COLESTIPOL HCL 1 GM TABLET 4 GM PO ×2 (08:24→17:05)
[2021-06-07] MEDS: SERTRALINE HCL 50 MG TABLET 100 MG PO (08:24)
[2021-06-07] MEDS: HEPARIN SODIUM 5,000 UNITS/ML VIAL 5000 UNITS SUB-Q ×2 (08:24→21:12)
[2021-06-07] MEDS: CYANOCOBALAMIN 1,000 MCG TABLET 1000 MCG PO (08:24)
[2021-06-07] MEDS: BETAMETHASONE/CLOTRIMAZOLE CR 15 GM TUBE 1 APPLIC TOPICAL (08:29)
[2021-06-07 08:47] LABS: Atypical Lymphocytes Present
[2021-06-07] MEDS: levETIRAcetam 500 MG TABLET PO ×2 (10:31→17:05)
--- NOTE | 2021-06-07 14:01 | WPDGIPROGNO ---
Progress Note: A&P Assessment and Plan (1) Colitis: Code(s): K52.9 - Noninfective gastroenteritis and colitis, unspecified Status: Acute Assessment and Plan: no more pain plan is colonoscopy is she stays in the hospital, we can do it this Wednesday (2) Stricture of sigmoid colon: Code(s): K56.699 - Other intestinal obstruction unspecified as to partial versus complete obstruction Status: Acute Assessment and Plan: we need to assess with colonoscopy- malignancy vs colitis vs infectious (3) Abnormal CT of the abdomen: Code(s): R93.5 - Abnormal findings on diagnostic imaging of other abdominal regions, including retroperitoneum Status: Acute (4) Vulvar mass: Code(s): N90.89 - Other specified noninflammatory disorders of vulva and perineum Status: Acute Assessment and Plan: she will see lab rep oncology as outpatient (5) Abdominal pain: Code(s): R10.9 - Unspecified abdominal pain Status: Acute Assessment and Plan: improved (6) DVT (deep venous thrombosis): Qualifiers: DVT location: lower extremity Affected thrombotic vein of extremity: popliteal Chronicity: acute Laterality: right Qualified Code(s): I82.431 - Acute embolism and thrombosis of right popliteal vein Code(s): I82.409 - Acute embolism and thrombosis of unspecified deep veins of unspecified lower extremity Status: Acute (7) UTI (urinary tract infection): Code(s): N39.0 - Urinary tract infection, site not specified Status: Acute Assessment and Plan: improving with antibiotics Subjective Date/time seen: 06/07/21 14:01 Interval history: abdominal pain is better, tolerating regular diet Review of Systems Review of Systems: All systems reviewed & are unremarkable except as noted in HPI and below Exam Const: General: comfortable and no acute distress HENMT: General nose exam: Normal nares present Eyes: General: appearance normal, both eyes and all related structures Neck: Neck: no JVD Resp: Auscultation: clear to auscultation bilaterally Cardio: Rate: regular rate Rhythm: regular rhythm GI: GI Palp: Yes Soft to palpation and No Guarding due to palpation present (GI) Auscultation: normal bowel sounds : Other: lesion in vulvar site Skin: General skin exam: normal color Neuro: Speech: normal speech Motor exam (neuro): Normal motor muscle tone present throughout Extrem: Other: chronic venous statis Psych: Mental Status: mental status grossly normal Objective Data Vital Signs Vital Signs: Vital Signs - 24 hr 06/06/21 21:46 06/06/21 22:42 06/07/21 05:53 Temperature 98.0 F 97.6 F Pulse Rate 70 63 Respiratory Rate 18 20 Blood Pressure 101/58 L 124/67 Pulse Oximetry 95 92 95 Intake/Output Intake/Output: Intake & Output 06/04/21 06/05/21 06/06/21 06/07/21 23:59 23:59 23:59 23:59 Intake Total 2580 3110 490 240 Balance 2580 3110 490 240 Meds/Results Medications: Active Medications Generic Name Dose Route Start Last Admin Trade Name Freq PRN Reason Stop Dose Admin Acetaminophen 650 mg 06/06/21 17:36 06/07/21 02:44 Acetaminophen 325 Mg Tablet PO 650 mg Q6H PRN Administration Mild Pain (1-3) or Fever Atorvastatin Calcium 10 mg 06/06/21 09:00 06/07/21 08:24 Atorvastatin 10 Mg Tablet PO 10 mg DAILY RUDDY Administration Calcium Carbonate 200 mg 06/05/21 12:25 06/07/21 12:36 Calcium Carbonate (Tums) 500 Mg (200 Mg Elemental) PO 200 mg Q6HR RUDDY Administration Clotrimazole 1 applic 06/06/21 09:00 06/07/21 08:29 Betamethasone/Clotrimazole Cr 15 Gm Tube TOPICAL 1 applic DAILY RUDDY Administration Colestipol HCl 4 gm 06/06/21 12:50 06/07/21 08:24 Colestipol Hcl 1 Gm Tablet PO 07/06/21 16:59 4 gm BID RUDDY Administration Cyanocobalamin 1,000 mcg 06/06/21 09:00 06/07/21 08:24 Cyanocobalamin 1,000 Mcg Tablet PO 1,000 mcg QAM RUDDY Adm
[2021-06-07 14:05] VITALS: BP 127/70; PULSE 69; RESP 14; TEMP 36.5; O2SAT 96
[2021-06-07] MEDS: FERROUS GLUCONATE 324 MG TABLET PO (17:05)
[2021-06-07] MEDS: POTASSIUM CHLORIDE 20 MEQ TABLET 40 MEQ PO (19:05)
[2021-06-07] MEDS: POTASSIUM CHLORIDE 20 MEQ TABLET.ER PO (21:20)
[2021-06-07 21:38] VITALS: BP 115/64; PULSE 64; RESP 20; TEMP 36.4; O2SAT 95
[2021-06-07 23:12] VITALS: O2SAT 95
[2021-06-08] MEDS: CALCIUM CARBONATE (TUMS) 500 MG (200 MG ELEMENTAL) PO ×5 (01:35→23:35)
[2021-06-08 04:01] LABS: Albumin 2.7 g/dL (3.8-4.8); Alpha 1 Globulin 0.3 g/dL (0.2-0.3); Alpha 2 Globulin 0.8 g/dL (0.5-0.9); Beta 1 Globulin 0.4 g/dL (0.4-0.6); Gamma Globulin 1.4 g/dL (0.8-1.7); Protein, Total 6.1 g/dL (6.1-8.1)
[2021-06-08 05:25] VITALS: BP 147/71; PULSE 57; RESP 20; TEMP 37.1; O2SAT 96
[2021-06-08 05:42] LABS: Red Blood Cell Folate 482 ng/mL RBC (>280)
--- NOTE | 2021-06-08 08:12 | PM.IMPN ---
Progress Note: A&P Assessment and Plan (1) Abdominal pain: Code(s): R10.9 - Unspecified abdominal pain Status: Acute Assessment and Plan: CT w/ bilateral inguinal lymphadenopathy, tortuosity of rectosigmoid colon and severely distended rectosigmoid w/ normal stomach and small bowel and focal narrowing of the colon concerning for adenocarcinoma. Nothing on imaging to explain the cause of abdominal pain. RUQ shows cholelithiasis. Pain is likely having biliary colic but given findings on CT abdomen will go for colonoscopy tomorrow. -Tylenol for pain -Appreciate recs from GI -Diet as tolerated -NPO after midnight (2) UTI (urinary tract infection): Code(s): N39.0 - Urinary tract infection, site not specified Status: Acute Assessment and Plan: UA on 05/31/21 significant for leukocyte esterase but nitrite negative and discharged with cephalexin. 05/31/21 UCX grew E. coli resistant to cephalexin, fluoroquinolones and Bactrim. UA 06/03 notes nitrites and leukocytes esterase. UCX noting 2 different strains of E. coli. Sensitivities show ceftriaxone sensitive. Completed 3 doses of ceftriaxone. (3) Vulvar mass: Code(s): N90.89 - Other specified noninflammatory disorders of vulva and perineum Status: Acute Assessment and Plan: Large fungating mass with some bleeding w/o evidence of pelvic organ prolapse. -VICE PRESIDENT OF INSTRUCTION consulted saul recommends [facility] (4) Pancytopenia: Code(s): D61.818 - Other pancytopenia Status: Acute Assessment and Plan: Normal LFTs. Hx of ETOH but > 40 years ago. Possibly due to poor nutrition vs cancer vs cirrhosis. No medications. Coags, LDH. Normal. Iron studies c/w with LEROY and vitamin b12 is low. Reticulocyte count low. -Ferrous gluconate 324 every other day -Vitamin b12 1000 mg po daily (5) Hyperglobulinemia: Code(s): R77.1 - Abnormality of globulin Status: Acute Assessment and Plan: Total protein elevated. HIV, HCV, HBV negative. SPEP & UPEP w/ JADA completion pending. (6) Metabolic acidosis: Code(s): E87.2 - Acidosis Status: Acute Assessment and Plan: Non-gap metabolic acidosis likely 2/2 to chronic GI losses vs RTA vs early renal failure. This has resolved but the studies are still pending. (7) Acute renal failure superimposed on stage 3 chronic kidney disease: Qualifiers: Acute renal failure type: unspecified Chronic kidney disease stage 3 subtype: unspecified whether 3a or 3b Qualified Code(s): N17.9 - Acute kidney failure, unspecified; N18.30 - Chronic kidney disease, stage 3 unspecified Code(s): N17.9 - Acute kidney failure, unspecified; N18.30 - Chronic kidney disease, stage 3 unspecified Status: Resolved Assessment and Plan: Baseline creatinine approximately 1.4 w/ range since 2019 1.4-1.9. Creatinine 1.8 today. -Urine studies pending. (8) Chronic diarrhea: Code(s): K52.9 - Noninfective gastroenteritis and colitis, unspecified Status: Chronic Assessment and Plan: Previous hx of colitis now this narrowing concerning for adenocarcinoma on CT. Stool studies pending. -Appreciate recs from GI (9) Hyperlipidemia: Qualifiers: Hyperlipidemia type: unspecified Qualified Code(s): E78.5 - Hyperlipidemia, unspecified Code(s): E78.5 - Hyperlipidemia, unspecified Status: Chronic Assessment and Plan: Hx of HLD but not currently taking any medication and does not regularly follow with a PCP. (10) Hypocalcemia: Code(s): E83.51 - Hypocalcemia Status: Acute Assessment and Plan: Calcium gluconate given 0100 this morning and it remains low on labs -Calcium gluconate (11) Hypokalemia: Code(s): E87.6 - Hypokalemia Status: Acute Assessment and Plan: Potassium 3.3 today. May benefit from daily potassium. -Potassium chloride 40 mEq x 2 doses today
[2021-06-08] MEDS: COLESTIPOL HCL 1 GM TABLET 4 GM PO ×2 (10:30→17:15)
[2021-06-08] MEDS: CYANOCOBALAMIN 1,000 MCG TABLET 1000 MCG PO (10:30)
[2021-06-08] MEDS: SERTRALINE HCL 50 MG TABLET 100 MG PO (10:31)
[2021-06-08] MEDS: ATORVASTATIN 10 MG TABLET PO (10:31)
[2021-06-08] MEDS: HEPARIN SODIUM 5,000 UNITS/ML VIAL 5000 UNITS SUB-Q ×2 (10:31→20:58)
[2021-06-08] MEDS: levETIRAcetam 500 MG TABLET PO ×2 (10:31→17:16)
[2021-06-08] MEDS: FUROSEMIDE 20 MG TABLET PO (10:31)
[2021-06-08] MEDS: BETAMETHASONE/CLOTRIMAZOLE CR 15 GM TUBE 1 APPLIC TOPICAL (10:35)
--- NOTE | 2021-06-08 10:35 | WPDGIPROGNO ---
Progress Note: A&P Assessment and Plan (1) Colitis: Code(s): K52.9 - Noninfective gastroenteritis and colitis, unspecified Status: Acute Assessment and Plan: better, colonoscopy tomorrow no much of pain had RUQ ultrasound only showed cholelithiasis (2) Stricture of sigmoid colon: Code(s): K56.699 - Other intestinal obstruction unspecified as to partial versus complete obstruction Status: Acute Assessment and Plan: we need to assess with colonoscopy- malignancy vs colitis vs infectious (3) Abnormal CT of the abdomen: Code(s): R93.5 - Abnormal findings on diagnostic imaging of other abdominal regions, including retroperitoneum Status: Acute (4) Vulvar mass: Code(s): N90.89 - Other specified noninflammatory disorders of vulva and perineum Status: Acute Assessment and Plan: she will see asbestos coverer oncology as outpatient (5) Abdominal pain: Code(s): R10.9 - Unspecified abdominal pain Status: Acute Assessment and Plan: improved (6) DVT (deep venous thrombosis): Qualifiers: DVT location: lower extremity Affected thrombotic vein of extremity: popliteal Chronicity: acute Laterality: right Qualified Code(s): I82.431 - Acute embolism and thrombosis of right popliteal vein Code(s): I82.409 - Acute embolism and thrombosis of unspecified deep veins of unspecified lower extremity Status: Acute (7) UTI (urinary tract infection): Code(s): N39.0 - Urinary tract infection, site not specified Status: Acute Assessment and Plan: improved completed antibiotic Subjective Date/time seen: 06/08/21 10:35 Interval history: still diarrhea, no abdominal pain but still bloated. She just completed abd ultrasound, showed cholelithiasis without cholecystitis. Review of Systems Review of Systems: All systems reviewed & are unremarkable except as noted in HPI and below Exam Const: General: comfortable and no acute distress HENMT: General nose exam: Normal nares present Eyes: General: appearance normal, both eyes and all related structures Neck: Neck: no JVD Resp: Auscultation: clear to auscultation bilaterally Cardio: Rate: regular rate Rhythm: regular rhythm GI: GI Palp: Yes Soft to palpation and No Guarding due to palpation present (GI) Auscultation: normal bowel sounds : Other: lesion in vulvar site Skin: General skin exam: normal color Neuro: Speech: normal speech Motor exam (neuro): Normal motor muscle tone present throughout Extrem: Other: chronic venous statis Psych: Mental Status: mental status grossly normal Objective Data Vital Signs Vital Signs: Vital Signs - 24 hr 06/07/21 14:05 06/07/21 21:38 06/07/21 23:12 Temperature 97.7 F 97.6 F Pulse Rate 69 64 Respiratory Rate 14 20 Blood Pressure 127/70 115/64 Pulse Oximetry 96 95 95 06/08/21 05:25 Temperature 98.7 F Pulse Rate 57 L Respiratory Rate 20 Blood Pressure 147/71 H Pulse Oximetry 96 Intake/Output Intake/Output: Intake & Output 06/05/21 06/06/21 06/07/21 06/08/21 23:59 23:59 23:59 23:59 Intake Total 3110 490 1270 Balance 3110 490 1270 Meds/Results Medications: Active Medications Generic Name Dose Route Start Last Admin Trade Name Freq PRN Reason Stop Dose Admin Acetaminophen 650 mg 06/06/21 17:36 06/07/21 02:44 Acetaminophen 325 Mg Tablet PO 650 mg Q6H PRN Administration Mild Pain (1-3) or Fever Atorvastatin Calcium 10 mg 06/06/21 09:00 06/08/21 10:31 Atorvastatin 10 Mg Tablet PO 10 mg DAILY RUDDY Administration Bisacodyl 20 mg 06/08/21 17:00 Bisacodyl 5 Mg Tablet Ec PO 06/08/21 17:01 ONCE ONE Calcium Carbonate 200 mg 06/05/21 12:25 06/08/21 06:10 Calcium Carbonate (Tums) 500 Mg (200 Mg Elemental) PO 200 mg Q6HR RUDDY Administration Clotrimazole 1 applic 06/06/21 09:00 06/08/21 10:35 Betamethasone/Clotrimazole Cr 15 Gm Tube TOPICAL
[2021-06-08 14:00] VITALS: BP 110/68; PULSE 70; RESP 20; TEMP 36.2; O2SAT 97
--- NOTE | 2021-06-08 16:34 | PCPTNOTE ---
Pt. declined Physical therapy this date. Pt. reported she had been coughing a lot and that she was not feeling up to participating in PT. Physical therapy will check back on patient tomorrow as per the POC.
[2021-06-08] MEDS: polyethylene glycoL 3350 238 GM BOTTLE PO (17:15)
[2021-06-08] MEDS: BISACODYL 5 MG TABLET EC 20 MG PO (17:17)
[2021-06-08] MEDS: ACETAMINOPHEN 325 MG TABLET 650 MG PO (20:35)
[2021-06-08 22:00] VITALS: BP 118/85; PULSE 56; RESP 18; TEMP 36.2; O2SAT 95
[2021-06-09] VITALS (7 sets, daily range): BP systolic 99–132; BP diastolic 61–72; PULSE 60–67; RESP 12–21; TEMP 35.8–37; O2SAT 94–100
[2021-06-09] MEDS: MAGNESIUM CITRATE 300 ML BTL PO (05:04)
--- NOTE | 2021-06-09 07:58 | PC.NURSE ---
To GI lab per oliver. Report given to KADEN Perdomo.
--- NOTE | 2021-06-09 08:04 | PM.IMPN ---
Progress Note: A&P Assessment and Plan (1) Abdominal pain: Code(s): R10.9 - Unspecified abdominal pain Status: Acute Assessment and Plan: CT w/ bilateral inguinal lymphadenopathy, tortuosity of rectosigmoid colon and severely distended rectosigmoid w/ normal stomach and small bowel and focal narrowing of the colon concerning for adenocarcinoma. Nothing on imaging to explain the cause of abdominal pain. RUQ shows cholelithiasis. Colonscopy with diverticula w/o inflammation or coloitis. -Tylenol for pain -Appreciate recs from GI -Discharge to home today (2) UTI (urinary tract infection): Code(s): N39.0 - Urinary tract infection, site not specified Status: Acute Assessment and Plan: UA on 05/31/21 significant for leukocyte esterase but nitrite negative and discharged with cephalexin. 05/31/21 UCX grew E. coli resistant to cephalexin, fluoroquinolones and Bactrim. UA 06/03 notes nitrites and leukocytes esterase. UCX noting 2 different strains of E. coli. Sensitivities show ceftriaxone sensitive. Completed 3 doses of ceftriaxone. (3) Vulvar mass: Code(s): N90.89 - Other specified noninflammatory disorders of vulva and perineum Status: Acute Assessment and Plan: Large fungating mass with some bleeding w/o evidence of pelvic organ prolapse. -FIELD COORDINATOR consulted and recommends [facility] (4) Pancytopenia: Code(s): D61.818 - Other pancytopenia Status: Acute Assessment and Plan: Normal LFTs. Hx of ETOH but > 40 years ago. Possibly due to poor nutrition vs cancer vs cirrhosis. No medications. Coags, LDH. Normal. Iron studies c/w with LEROY and vitamin b12 is low. Reticulocyte count low. -Ferrous gluconate 324 every other day -Vitamin b12 1000 mg po daily (5) Hyperglobulinemia: Code(s): R77.1 - Abnormality of globulin Status: Acute Assessment and Plan: Total protein elevated. HIV, HCV, HBV negative. SPEP & UPEP w/ JADA completion pending at time of discharge. (6) Metabolic acidosis: Code(s): E87.2 - Acidosis Status: Acute Assessment and Plan: Non-gap metabolic acidosis likely 2/2 to chronic GI losses vs RTA vs early renal failure. This has resolved but the studies are still pending. (7) Acute renal failure superimposed on stage 3 chronic kidney disease: Qualifiers: Acute renal failure type: unspecified Chronic kidney disease stage 3 subtype: unspecified whether 3a or 3b Qualified Code(s): N17.9 - Acute kidney failure, unspecified; N18.30 - Chronic kidney disease, stage 3 unspecified Code(s): N17.9 - Acute kidney failure, unspecified; N18.30 - Chronic kidney disease, stage 3 unspecified Status: Resolved Assessment and Plan: Baseline creatinine approximately 1.4 w/ range since 2019 1.4-1.9. Creatinine 1.6 at discharge. -Will need to follow up with PCP for renal ultrasound and urine studies. (8) Chronic diarrhea: Code(s): K52.9 - Noninfective gastroenteritis and colitis, unspecified Status: Chronic Assessment and Plan: Previous hx of colitis now this narrowing concerning for adenocarcinoma on CT. Stool studies pending. -Appreciate recs from GI (9) Hyperlipidemia: Qualifiers: Hyperlipidemia type: unspecified Qualified Code(s): E78.5 - Hyperlipidemia, unspecified Code(s): E78.5 - Hyperlipidemia, unspecified Status: Chronic Assessment and Plan: Hx of HLD but not currently taking any medication and does not regularly follow with a PCP. (10) Hypocalcemia: Code(s): E83.51 - Hypocalcemia Status: Acute Assessment and Plan: Calcium normal at discharge. (11) Hypokalemia: Code(s): E87.6 - Hypokalemia Status: Acute Assessment and Plan: Resolved. (12) Hypertension: Qualifiers: Hypertension type: essential hypertension Qualified Code(s): I10 - Essential (praveen
[2021-06-09 08:14] LABS: Anion Gap 6 mmol/L (8-16); Blood Urea Nitrogen 29 mg/dL (7-17); Calcium 8.5 mg/dL (8.4-10.2); Carbon Dioxide 26 mmol/L (22-30); Chloride 108 mmol/L (98-107); Estimated CRCL calculation 25 ml/min; Estimated Glomerular Filt Rate 31; Glucose 97 mg/dL (65-110); Potassium 3.9 mmol/L (3.4-5.0); Sodium 140 mmol/L (137-145)
[2021-06-09] MEDS: LACTATED RINGERS 1,000 ML 150 ML IV CONT (08:18)
--- NOTE | 2021-06-09 08:28 | WPDANESEPPF ---
Anes - Initial Pre Proc Eval Procedure: Operation Date: 06/09/21 16:15 Proposed Procedures p Colonoscopy - Robbie Campbell MD Date/Time: 06/09/21 08:28 Surgeon: Gaurang Carlos MD Pre Op Diagnosis: Ileus, UTI Patient Data Age: 81 Gender: F Height: 1.6 m Weight: 75 kg Last Vital Signs Temp 96.4 F L 06/09/21 08:14 Pulse 64 06/09/21 08:14 Resp 16 06/09/21 08:14 BP 113/67 06/09/21 08:14 Pulse Ox 97 06/09/21 08:14 Allergies Allergy/AdvReac Type Severity Reaction Status Date / Time red dye Allergy Severe FACIAL Verified 06/04/21 10:34 SWELLING Home Medications Medication Instructions Recorded Confirmed Type amlodipine 5 mg PO DAILY 06/04/21 06/04/21 History atorvastatin 10 mg PO DAILY 06/04/21 06/04/21 History clotrimazole-betamethasone 1 applic TOPICAL DAILY 06/04/21 06/04/21 History colestipol 5 g PO BID 06/04/21 06/04/21 History furosemide 20 mg PO DAILY 06/04/21 06/04/21 History levetiracetam 500 mg PO BID 06/04/21 06/04/21 History metoprolol tartrate 12.5 mg PO DAILY 06/04/21 06/04/21 History sertraline 100 mg PO DAILY 06/04/21 06/04/21 History Laboratory Tests 06/09/21 07:24 Sodium 140 mmol/L mmol/L (137-145) Potassium 3.9 mmol/L mmol/L (3.4-5.0) Chloride 108 mmol/L H mmol/L (98-107) Carbon Dioxide 26 mmol/L mmol/L (22-30) Anion Gap 6 mmol/L L mmol/L (8-16) BUN 29 mg/dL H mg/dL (7-17) Creatinine 1.60 mg/dL H mg/dL (0.7-1.0) Estim Creat Clear Calc 25 ml/min ml/min Estimated GFR 31 L (59 - ) Glucose 97 mg/dL mg/dL (65-110) Calcium 8.5 mg/dL mg/dL (8.4-10.2) Patient hx anesthesia problems: none Family hx anesthesia problems: none Results Review: All pre-operative results and documents have been reviewed as part of the pre-operative evaluation. [facility] Past Medical History Medical History (Updated 06/06/21 @ 11:29 by Robbie Campbell MD) Abnormal CT of the abdomen Chronic diarrhea Colitis Depression DVT (deep venous thrombosis) Right leg Hyperlipidemia Hypertension Nausea Osteoarthritis Psoriasis Reflux esophagitis Stricture of sigmoid colon Vulvar mass Surgical History Surgical History H/O right wrist surgery History of colonoscopy History of esophagogastroduodenoscopy (EGD) History of hernia repair History of total left hip arthroplasty Family History Family History Father Diabetes mellitus Heart attack Mother Cerebrovascular accident Heart attack Sibling Dementia Social History Social History (Updated 06/04/21 @ 18:36 by Kendra Freedman MD) Social History: 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 She has never been or had any children. She said she used to smoke many years ago. She is socially drink but no longer drinks no illicit drugs or marijuana. She states she does not want chest compressions or a tube to breath if her heart stops. Smoking packs per day: 2 Smoking cigarettes per day: 40.0 Years smoked: 40 Smoking pack-years: 80.00 Smoking status: Former smoker Tobacco type: cigarettes Alcohol intake: former Substance use: never Substance use type: marijuana Living arrangements: alone Additional living arrangements comments: Has caregiver visiting 3 hours per day Occupation/Education: retired Gender identity (if verbalized by the patient): Female Spiritual care concerns: No Anes - Eval Final PreProcedure Day of Procedure 06/09/21 08:28 Patient weight: overweight Heart: regular rate and rhythm Lungs: clear to auscultation Airway: Mallampati scale class II Neurological: alert and oriented Last oral intake: >/= 8 hours ASA classification: III Emergent: no Anesthetic plan: proceed Anesthesia type and monitoring: general GIVS and tomeka
--- NOTE | 2021-06-09 09:46 | PCPTNOTE ---
The patient treatment was not able to be completed at this time due to patient out of room for colonoscopy. Will plan to continue treatment per plan of care.
[2021-06-09] MEDS: levETIRAcetam 500 MG TABLET PO ×2 (10:25→16:38)
[2021-06-09] MEDS: COLESTIPOL HCL 1 GM TABLET 4 GM PO ×2 (10:25→16:39)
[2021-06-09] MEDS: FUROSEMIDE 20 MG TABLET PO (10:26)
[2021-06-09] MEDS: CYANOCOBALAMIN 1,000 MCG TABLET 1000 MCG PO (10:26)
[2021-06-09] MEDS: ATORVASTATIN 10 MG TABLET PO (10:26)
[2021-06-09] MEDS: SERTRALINE HCL 50 MG TABLET 100 MG PO (10:26)
[2021-06-09] MEDS: HEPARIN SODIUM 5,000 UNITS/ML VIAL 5000 UNITS SUB-Q (10:26)
[2021-06-09] MEDS: BETAMETHASONE/CLOTRIMAZOLE CR 15 GM TUBE 1 APPLIC TOPICAL (10:32)
[2021-06-09] MEDS: CALCIUM CARBONATE (TUMS) 500 MG (200 MG ELEMENTAL) PO (12:23)
[2021-06-09 13:52] LABS: Chloride Rand Ur 50 mmol/L (32-290); Chloride/Creatinine Rand Ur 152 (38-318); Creatinine Random Urine 33 mg/dL (20-275)
--- NOTE | 2021-06-09 14:35 | PCPTNOTE ---
Patient declined PT treatment this session. Patient states she had a colonoscopy this morning and is tired this afternoon. Patient states she will be discharged later this afternoon and will have assist from her caregiver at home.
--- NOTE | 2021-06-09 15:03 | PCOTNOTE ---
Attempted to see patient, patient declined secondary to being discharged today. Patient not seen for OT.
--- NOTE | 2021-06-09 16:21 | PM.DS ---
DS: Admitting Diagnosis Discharge Date 06/09/2021 Admitting Diagnosis Abdominal pain DS: Discharge Diagnosis Discharge Diagnosis (1) Abdominal pain: Code(s): R10.9 - Unspecified abdominal pain Status: Acute Assessment and Plan: CT w/ bilateral inguinal lymphadenopathy, tortuosity of rectosigmoid colon and severely distended rectosigmoid w/ normal stomach and small bowel and focal narrowing of the colon concerning for adenocarcinoma. Nothing on imaging to explain the cause of abdominal pain. RUQ shows cholelithiasis. Colonscopy with diverticula w/o inflammation or coloitis. -Tylenol for pain -Appreciate recs from GI -Discharge to home today (2) UTI (urinary tract infection): Code(s): N39.0 - Urinary tract infection, site not specified Status: Acute Assessment and Plan: UA on 05/31/21 significant for leukocyte esterase but nitrite negative and discharged with cephalexin. 05/31/21 UCX grew E. coli resistant to cephalexin, fluoroquinolones and Bactrim. UA 06/03 notes nitrites and leukocytes esterase. UCX noting 2 different strains of E. coli. Sensitivities show ceftriaxone sensitive. Completed 3 doses of ceftriaxone. (3) Vulvar mass: Code(s): N90.89 - Other specified noninflammatory disorders of vulva and perineum Status: Acute Assessment and Plan: Large fungating mass with some bleeding w/o evidence of pelvic organ prolapse. -RADIOLOGY TECHNOLOGIST consulted and recommends [facility] (4) Pancytopenia: Code(s): D61.818 - Other pancytopenia Status: Acute Assessment and Plan: Normal LFTs. Hx of ETOH but > 40 years ago. Possibly due to poor nutrition vs cancer vs cirrhosis. No medications. Coags, LDH. Normal. Iron studies c/w with LEROY and vitamin b12 is low. Reticulocyte count low. -Ferrous gluconate 324 every other day -Vitamin b12 1000 mg po daily (5) Hyperglobulinemia: Code(s): R77.1 - Abnormality of globulin Status: Acute Assessment and Plan: Total protein elevated. HIV, HCV, HBV negative. SPEP & UPEP w/ JADA completion pending at time of discharge. (6) Metabolic acidosis: Code(s): E87.2 - Acidosis Status: Acute Assessment and Plan: Non-gap metabolic acidosis likely 2/2 to chronic GI losses vs RTA vs early renal failure. This has resolved but the studies are still pending. (7) Acute renal failure superimposed on stage 3 chronic kidney disease: Qualifiers: Acute renal failure type: unspecified Chronic kidney disease stage 3 subtype: unspecified whether 3a or 3b Qualified Code(s): N17.9 - Acute kidney failure, unspecified; N18.30 - Chronic kidney disease, stage 3 unspecified Code(s): N17.9 - Acute kidney failure, unspecified; N18.30 - Chronic kidney disease, stage 3 unspecified Status: Resolved Assessment and Plan: Baseline creatinine approximately 1.4 w/ range since 2019 1.4-1.9. Creatinine 1.6 at discharge. -Will need to follow up with PCP for renal ultrasound and urine studies. (8) Chronic diarrhea: Code(s): K52.9 - Noninfective gastroenteritis and colitis, unspecified Status: Chronic Assessment and Plan: Previous hx of colitis now this narrowing concerning for adenocarcinoma on CT. Stool studies pending. -Appreciate recs from GI (9) Hyperlipidemia: Qualifiers: Hyperlipidemia type: unspecified Qualified Code(s): E78.5 - Hyperlipidemia, unspecified Code(s): E78.5 - Hyperlipidemia, unspecified Status: Chronic Assessment and Plan: Hx of HLD but not currently taking any medication and does not regularly follow with a PCP. (10) Hypocalcemia: Code(s): E83.51 - Hypocalcemia Status: Acute Assessment and Plan: Calcium normal at discharge. (11) Hypokalemia: Code(s): E87.6 - Hypokalemia Status: Acute Assessment and Plan: Resolved. (12) Hypertension: Quali
[2021-06-09] MEDS: FERROUS GLUCONATE 324 MG TABLET PO (16:38)
[2021-06-09 20:06] LABS: Vitamin D 1,25 (OH)2 Total 21 pg/mL (18-72); Vitamin D2 1,25 (OH)2 21 pg/mL; Vitamin D3 1,25 (OH)2 <8 pg/mL
== END 2021-06-09 17:00 | disposition home or self-care (01) | DRG 690 ==
LOC: ANHED 06-04 04:06 → ANH3MEDSUR 06-04 04:45
PROVIDERS: Internal Medicine Gastroenterology; Admitting Provider Internal Medicine; Emergency Provider Emergency Medicine; PCP Nurse Practitioner Adult Health; Visit Provider Family Medicine
PROC: 0DJD8ZZ Inspection of Lower Intestinal Tract, Via Natural or Artificial Opening Endoscopic (ICD-10-PCS; CPT 45378; principal; 2021-06-09 16:15)
DX: N39.0 Urinary tract infection, site not specified (principal); D61.818 Other pancytopenia; E87.2 Acidosis; N17.9 Acute kidney failure, unspecified; I82.431 Acute embolism and thrombosis of right popliteal vein; K57.30 Diverticulosis of large intestine without perforation or abscess without bleeding; R93.3 Abnormal findings on diagnostic imaging of other parts of digestive tract; B96.20 Unspecified Escherichia coli [E. coli] as the cause of diseases classified elsewhere; N90.89 Other specified noninflammatory disorders of vulva and perineum; R77.1 Abnormality of globulin; I12.9 Hypertensive chronic kidney disease with stage 1 through stage 4 chronic kidney disease, or unspecified chronic kidney disease; N18.30 Chronic kidney disease, stage 3 unspecified; E83.51 Hypocalcemia; E78.5 Hyperlipidemia, unspecified; E87.6 Hypokalemia; E66.3 Overweight; Z68.29 Body mass index [BMI] 29.0-29.9, adult; Z74.09 Other reduced mobility; F32.9 Major depressive disorder, single episode, unspecified; Z87.891 Personal history of nicotine dependence; Z79.899 Other long term (current) drug therapy
CPT/HCPCS: 36415; 51701; 74176; 76705; 76856; 80048; 80053; 80061; 81001; 81050; 82436; 82550; 82570; 82607; 82652; 82728; 82747; 83036; 83540; 83550; 83615; 83690; 84133; 84155; 84156; 84165; 84166; 84300; 84443; 85025; 85046; 85610; 85730; 86334; 86335; 86703; 86803; 87077; 87086; 87088; 87186; 87340; 96361; 96365; 96366; 96372; 97110; 97116; 97162; 99285; A9270; G0378; G0432; J0610; J0696; J1644; J2704; J7030; J7120

== ENCOUNTER 2021-07-15 13:47 | Outpatient (CLI) | payer MEDICARE, SELFPAY ==
--- NOTE | 2021-07-15 | ECG_ITS ---
Measurements Intervals [place] Rate: 95 P: 48 AR: 181 QRS: -56 QRSD: 129 T: 7 QT: 382 QTc: 480 Interpretive Statements SINUS RHYTHM RIGHT BUNDLE BRANCH BLOCK LEFT ANTERIOR FASCICULAR BLOCK ANTEROLATERAL INFARCT, AGE INDETERMINATE CONSIDER INFERIOR INFARCT, AGE INDETERMINATE BASELINE ARTIFACT- I, II, III, AVR, AVL, AVF, V3-V6 ABNORMAL ECG Electronically Signed On 07-15-2021 14:59:23 RN NEUROLOGY by Oren Fleming D.O.
[2021-07-15 14:16] LABS: Basophils Percent Auto 0.2 % (0.2-1.2); Eosinophils Absolute Auto 0.2 K/mm3 (0-0.3); Eosinophils Percent Auto 2.6 % (0-4.4); Hematocrit 41.9 % (37.0-47.0); Hemoglobin 13.4 g/dL (12.0-15.0); Immature Granulocyte Absolute 0.07 K/mm3 (0.00-0.031); Immature Granulocyte Percent A 0.8 % (0-0.5); Lymphocytes Absolute Auto 2.52 K/mm3 (0.9-3.2); Lymphocytes Percent Auto 29.4 % (18.3-44.2); Mean Corpuscular Hemoglobin 30.8 pg (26-34); Mean Corpuscular Volume 96.3 fl (80-100); Mean Platelet Volume 9.8 fl (7.4-10.4); Monocytes Absolute Auto 0.5 K/mm3 (0.1-0.6); Monocytes Percent Auto 5.6 % (2.6-8.5); Neutrophils Absolute Auto 5.3 K/mm3 (1.3-6.7); Neutrophils Percent Auto 61.4 % (45.5-73.1); Platelet Count Result 146 k/mm3 (150-375); Red Blood Count 4.35 M/mm3 (4.2-5.4); Red Cell Distribution Width 13.1 % (11.5-14.5); White Blood Count 8.6 K/mm3 (4.5-10.0)
[2021-07-15 14:28] LABS: Alanine Aminotransferase 13 U/L (4-35); Albumin Level 3.9 g/dL (3.5-5.1); Alkaline Phosphatase 116 U/L (38-126); Anion Gap 14 mmol/L (8-16); Aspartate Amino Transferase 28 U/L (14-36); Bilirubin,Total 0.4 mg/dL (0.2-1.3); Blood Urea Nitrogen 40 mg/dL (7-17); Calcium 8.3 mg/dL (8.4-10.2); Carbon Dioxide 25 mmol/L (22-30); Chloride 100 mmol/L (98-107); Estimated Glomerular Filt Rate 21; Glucose 112 mg/dL (65-110); Sodium 139 mmol/L (137-145)
== END 2021-07-15 13:48 | disposition home or self-care (01) ==
PROVIDERS: PCP Nurse Practitioner Adult Health; Visit Provider Nurse Practitioner Adult Health
DX: Z01.818 Encounter for other preprocedural examination (principal); I44.4 Left anterior fascicular block
CPT/HCPCS: 36415; 80053; 85025; 93005

== ENCOUNTER 2021-12-05 08:15 | Emergency (ER) | payer MEDICARE, SELFPAY ==
[2021-12-05] VITALS (28 sets, daily range): BP systolic 92–130; BP diastolic 58–93; PULSE 45–94; RESP 15–28; TEMP 36.4; O2SAT 78–99
--- NOTE | ~2021-12-05 | CT_ITS ---
EXAMINATION: CT abdomen pelvis wo con DATE: 12/05/2021 09:58 INDICATION: Ascites. Diffuse abdominal pain. Constipation. TECHNIQUE: Computed tomography (CT) of the abdomen and pelvis was performed without intravenous contr ast. Automated exposure control and iterative reconstruction technique were employed. The dose-length product was 1141.51 mGy-cm. COMPARISON: 06/04/2021 FINDINGS: Stable appearance of bronchiectatic changes and linear atelectasis/scarring at the bilateral lower juan jose ng zones. Heart size is normal. Atherosclerotic coronary artery calcifications. No pericardial or ple ural effusion. Chronic elevation of the left hemidiaphragm. Dependently layering sludge and calcified gallstones in the otherwise normal gallbladder. Liver, sple en, pancreas and left adrenal gland are normal. Unchanged 2.2 cm right adrenal mass with central calc ification most likely an adenoma or old hematoma. Severe right renal atrophy and mild left renal atro phy with regions of focal cortical scarring. Bilateral nonobstructing nephrolithiasis with 3 stones m easuring up to 4-5 mm in the left kidney and 2-3 mm stone at the lower pole of the left kidney. 10 mm exophytic lesion arising from the lower pole of the left kidney without interval change since 020 but with soft tissue density which remains equivocal for either proteinaceous/hemorrhagic cyst or renal cell carcinoma. Marked gaseous distention of the sigmoid and transverse colon. There is a large amount of stool in th e distal sigmoid colon which is dilated to up to 12.8 cm . The stool extends to the rectum consistent with constipation with likely fecal impaction. There is mild wall thickening the distal sigmoid colo n with mild stranding in the surrounding fat consistent with stercoral colitis. Small bowel and appen gogo are normal. Elung catheter within the decompressed bladder. The uterus is not identified and has likely been surgically resected. Infrarenal IVC filter. Postoperative changes with midline anterior a bdominal wall sutures. No free intraperitoneal gas or fluid. No pathologically enlarged abdominal or pelvic lymphadenopathy. Markedly enlarged bilateral inguinal lymph nodes which on coronal images bola ures 8.0 x 4.2 cm on the right and 6.2 x 3.4 cm on the left. Chronic T7 and T11 burst fractures with 60% anterior vertebral body height loss at the former and 80% at the latter. Old healed right rib fra ctures. Left total hip arthroplasty. IMPRESSION: 1. Chronic severely distended rectosigmoid colon containing large amount of stool with surrounding in flammatory stranding. Findings consistent with constipation with fecal impaction and likely secondary stercoral colitis. 2. Markedly enlarged bilateral inguinal lymph nodes concerning for lymphoma versus metastatic disease . Recommend ultrasound-guided core needle biopsy. 3. Bilateral nonobstructing nephrolithiasis with. Chronic mild left and severe right renal atrophy. 4. Cholelithiasis. 5. Infrarenal IVC filter in expected position. Reviewed, dictated and finalized at location B. IMPRESSION: 1. Chronic severely distended rectosigmoid colon containing large amount of sto ol with surrounding inflammatory stranding. Findings consistent with constipati on with fecal impaction and likely secondary stercoral colitis. 2. Markedly enlarged bilateral inguinal lymph nodes concerning for lymphoma romina naresh metastatic disease. Recommend ultrasound-guided core needle biopsy. 3. Bilateral nonobstructing nephrolithiasis with. Chronic mild left and severe right renal atrophy. 4. Cholelithiasis. 5. Infrarenal IVC filter in expected position.
--- NOTE | 2021-12-05 08:33 | ED.ABDPAIN ---
HPI - Abdominal Pain General Chief Complaint: Abdominal Pain Stated Complaint: abd pain/illeus Time Seen by Provider: 12/05/21 08:33 Source: patient and EMS Mode of arrival: EMS Limitations: no limitations History of Present Illness HPI narrative: Patient is 81 years old white female presents with diffuse abdominal pain started long time of, intermittent, today is worse than ever. Last bowel movement 5 days ago. denies any fever, chills, nausea, vomiting, diarrhea, constipation, urinary symptoms. Related Data Home Medications Medication Instructions Recorded Confirmed atorvastatin 10 mg tablet 10 mg PO DAILY 06/04/21 06/04/21 clotrimazole-betamethasone 1 1 applic topical DAILY 06/04/21 06/04/21 %-0.05 % topical cream colestipol 5 gram oral packet 5 g PO BID 06/04/21 06/04/21 furosemide 20 mg tablet 20 mg PO DAILY 06/04/21 06/04/21 levetiracetam 250 mg tablet 500 mg PO BID 06/04/21 06/04/21 sertraline 100 mg tablet 100 mg PO DAILY 06/04/21 06/04/21 Allergies Allergy/AdvReac Type Severity Reaction Status Date / Time red dye Allergy Severe FACIAL Verified 06/04/21 10:34 SWELLING Review of Systems Review of Systems: All systems reviewed & are unremarkable except as noted in HPI and below PMFSH Past Medical History Medical History Abnormal CT of the abdomen Chronic diarrhea Colitis Depression DVT (deep venous thrombosis) Right leg Hyperlipidemia Hypertension Nausea Osteoarthritis Psoriasis Reflux esophagitis Stricture of sigmoid colon Vulvar mass Surgical History Surgical History H/O right wrist surgery History of colonoscopy History of esophagogastroduodenoscopy (EGD) History of hernia repair History of total left hip arthroplasty Family History Family History Father Diabetes mellitus Heart attack Mother Cerebrovascular accident Heart attack Sibling Dementia Social History Social History Social History: 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 She has never been or had any children. She said she used to smoke many years ago. She is socially drink but no longer drinks no illicit drugs or marijuana. She states she does not want chest compressions or a tube to breath if her heart stops. Smoking packs per day: 2 Smoking cigarettes per day: 40.0 Years smoked: 40 Smoking pack-years: 80.00 Smoking status: Former smoker Tobacco type: cigarettes Alcohol intake: former Substance use: never Substance use type: marijuana Additional living arrangements comments: Has caregiver visiting 3 hours per day Gender identity (if verbalized by the patient): Female Spiritual care concerns: No Exam Narrative: General appearance: Well-developed, well-nourished Skin: Normal color Head: Normocephalic, nontraumatic Eyes: Clear conjunctiva ENT: Oropharynx normal, ears normal, nose normal Neck: Supple, nontender Chest and respiratory: Airway patent, no respiratory distress, no accessory muscle use Heart: Regular rate/rhythm Abdomen: Large distended abdomen, ascites, quiet bowel sounds, no guarding or rebound Vascular: Normal peripheral pulses, normal capillary refill. Musculoskeletal: Normal range of motion, nontender back Neurologic: Alert and oriented ?3, RESIDENT ENGINEER is normal as tested, no gross motor deficit Procedures Rectal Disimpaction Rectal Disimpaction #1: Rectal Disimpaction Date: 12/05/21 Rectal Disimpaction Time: 13:10
[2021-12-05 08:42] LABS: Basophils Percent Auto 0.3 % (0.2-1.2); Eosinophils Absolute Auto 0.2 K/mm3 (0-0.3); Eosinophils Percent Auto 2.8 % (0-4.4); Hematocrit 39.1 % (37.0-47.0); Hemoglobin 12.1 g/dL (12.0-15.0); Immature Granulocyte Absolute 0.03 K/mm3 (0.00-0.031); Immature Granulocyte Percent A 0.3 % (0-0.5); Lymphocytes Absolute Auto 2.38 K/mm3 (0.9-3.2); Lymphocytes Percent Auto 27.3 % (18.3-44.2); Mean Corpuscular HGB Conc 30.9 g/dl (32-36); Mean Corpuscular Hemoglobin 28.3 pg (26-34); Mean Corpuscular Volume 91.4 fl (80-100); Mean Platelet Volume 9.9 fl (7.4-10.4); Monocytes Absolute Auto 0.4 K/mm3 (0.1-0.6); Monocytes Percent Auto 4.9 % (2.6-8.5); Neutrophils Absolute Auto 5.6 K/mm3 (1.3-6.7); Neutrophils Percent Auto 64.4 % (45.5-73.1); Platelet Count Result 252 k/mm3 (150-375); Red Blood Count 4.28 M/mm3 (4.2-5.4); Red Cell Distribution Width 16.3 % (11.5-14.5); White Blood Count 8.7 K/mm3 (4.5-10.0)
[2021-12-05 08:51] LABS: Alanine Aminotransferase 12 U/L (6-35); Albumin Level 3.6 g/dL (3.5-5.1); Alkaline Phosphatase 79 U/L (38-126); Anion Gap 7 mmol/L (8-16); Aspartate Amino Transferase 35 U/L (14-36); Bilirubin,Total 0.4 mg/dL (0.2-1.3); Blood Urea Nitrogen 33 mg/dL (7-17); Calcium 7.9 mg/dL (8.4-10.2); Carbon Dioxide 26 mmol/L (22-30); Chloride 105 mmol/L (98-107); Estimated CRCL calculation 28 ml/min; Estimated Glomerular Filt Rate 36; Glucose 118 mg/dL (65-110); Lipase 125 U/L (23-300); Potassium 3.7 mmol/L (3.4-5.0); Sodium 138 mmol/L (137-145)
[2021-12-05 08:57] LABS: Appearance Urine Cloudy (Clear); Bilirubin Urine Negative (Negative); Blood Urine 1+ (Negative); Color Urine Yellow (Yellow); Glucose Urine UA Negative (Negative); Ketones Urine Negative (Negative); Leukocyte Esterase Ur 3+ LEU/UL (Negative); Nitrate Urine Negative (Negative); Protein Urine 1+ mg/dL (Negative); Urobilinogen Urine 0.2 mg/dL (<2.0)
[2021-12-05 08:58] LABS: Amorphous Sediment Urine Few; Bacteria Urine 2+ /hpf; Mucus Urine Rare /lpf; Squamous Epithelial Cell Urine Occasional /hpf (Few); WBC Clumps Urine Present /HPF; WBC Urine 31-50 /hpf
[2021-12-05 08:59] LABS: Add Urine Microscopic? YES
--- NOTE | 2021-12-05 09:47 | PC.NURSE ---
Pt to CT
--- NOTE | 2021-12-05 13:09 | PC.NURSE ---
EMS requested at this time.
--- NOTE | 2021-12-05 13:10 | PC.NURSE ---
Report given to KADEN Montalvo at [facility] at this time.
== END 2021-12-05 13:24 ==
PROVIDERS: Emergency Provider Emergency Medicine; PCP Nurse Practitioner Adult Health
DX: K56.49 Other impaction of intestine (principal); K59.00 Constipation, unspecified; E78.5 Hyperlipidemia, unspecified; I10 Essential (primary) hypertension; M19.90 Unspecified osteoarthritis, unspecified site; K21.00 Gastro-esophageal reflux disease with esophagitis, without bleeding; F32.A Depression, unspecified; Z87.891 Personal history of nicotine dependence; Z86.718 Personal history of other venous thrombosis and embolism; R59.9 Enlarged lymph nodes, unspecified; K80.20 Calculus of gallbladder without cholecystitis without obstruction; N26.1 Atrophy of kidney (terminal); N20.0 Calculus of kidney
CPT/HCPCS: 36415; 45915; 74176; 80053; 81001; 83690; 85025; 87077; 87086; 87186; 99284

== ENCOUNTER 2022-07-26 20:49 | Inpatient (IN) | payer OTHER, SELFPAY ==
[2022-07-26] VITALS (16 sets, daily range): BP systolic 71–87; BP diastolic 43–64; PULSE 60–99; RESP 16–25; TEMP 37.3; O2SAT 91–98
--- NOTE | ~2022-07-26 | XR_ITS ---
EXAMINATION: XR chest 1V portable DATE: 07/26/2022 22:11 INDICATION: Cough TECHNIQUE: frontal view of the chest was obtained. COMPARISON: Chest radiograph dated 04/18/2020 FINDINGS: Elevation the left hemidiaphragm. Bilateral infrahilar bronchiectatic changes. No other airspace opac ities, pulmonary edema, pleural effusion or pneumothorax. Heart size is within normal limits for AP t echnique. Tortuous thoracic aorta. Old healed lateral right seventh and eighth rib fractures. IMPRESSION: 1. Chronic elevation left hemidiaphragm and chronic bronchiectatic changes in the bilateral infrahila r regions. No other acute cardiopulmonary disease. Reviewed, dictated and finalized at location A. [facility] [employer] IMPRESSION: 1. Chronic elevation left hemidiaphragm and chronic bronchiectatic changes in t he bilateral infrahilar regions. No other acute cardiopulmonary disease.
--- NOTE | 2022-07-26 20:58 | ECG_ITS ---
Measurements Intervals [place] Rate: 87 P: 9 [place]: 164 QRS: -30 QRSD: 141 T: -10 QT: 412 QTc: 496 Interpretive Statements SINUS RHYTHM LEFT AXIS DEVIATION RIGHT BUNDLE BRANCH BLOCK POOR R WAVE PROGRESSION, CONSIDER ANTEROLATERAL INFARCT BASELINE ARTIFACT- I, III, AVR ABNORMAL ECG COMPARED TO ECG 07/15/2021 14:45:10 NO SIGNIFICANT CHANGES Electronically Signed On 07-27-2022 7:56:45 [employer] SOFTWARE DEVELOPMENT ENGINEER by Oren Fleming D.O.
--- NOTE | 2022-07-26 20:59 | ED.GENADULT ---
HPI - General Adult General Chief complaint: Fever Stated complaint: possible sepsis? Time Seen by Provider: 07/26/22 20:50 History of Present Illness HPI narrative: 82-year-old female presenting to the emergency department from a halfway for elevated fever and suspected sepsis. Patient's only complaint is chronic leg pain. Patient is normally on oxygen but was placed on 2 L of oxygen yesterday. When EMS arrived patient was found to be hypotensive. Patient remains alert and oriented at her baseline. Related Data Home Medications Medication Instructions Recorded Confirmed atorvastatin 10 mg tablet 10 mg PO DAILY 06/04/21 07/27/22 furosemide 20 mg tablet 20 mg PO DAILY 06/04/21 07/27/22 levetiracetam 250 mg tablet 500 mg PO BID 06/04/21 07/27/22 sertraline 100 mg tablet 100 mg PO DAILY 06/04/21 07/27/22 acetaminophen 325 mg tablet 650 mg PO Q6-8H PRN Pain 03/02/22 07/27/22 acetaminophen 500 mg tablet 500 mg PO DAILY 03/02/22 07/27/22 apixaban 2.5 mg tablet (Eliquis) 2.5 mg PO BID 03/02/22 07/27/22 lidocaine 4 % topical patch 2 patch topical DAILY 03/02/22 07/27/22 (Lidocaine Pain Relief) ondansetron HCl 4 mg tablet 4 mg PO Q6H PRN Nausea 03/02/22 07/27/22 Lactobacillus acidophilus 100 mg PO TID 07/27/22 07/27/22 (Acidophilus capsule) polyethylene glycol 3350 17 17 g PO DAILY PRN Constipation 07/27/22 07/27/22 gram/dose oral powder (Miralax) Allergies Allergy/AdvReac Type Severity Reaction Status Date / Time red dye Allergy Severe FACIAL Verified 07/27/22 04:46 SWELLING Review of Systems Review of Systems: CONSTITUTIONAL: Denies fever, chills, or sweats. EYES: Denies visual changes, redness, or discharge. ENT: Denies rhinorrhea, congestion, sore throat, or otalgia. CARDIOVASCULAR: Denies chest pain, palpitations, or edema. RESPIRATORY: See HPI GASTROINTESTINAL: Denies abdominal pain, nausea, vomiting, or diarrhea. GENITOURINARY: Denies dysuria or hematuria. SKIN: Denies rash or itching. MUSCULOSKELETAL: Denies back pain, joint pain, or myalgia. NEUROLOGIC: Denies headache, numbness, or weakness. PSYCHIATRIC: Denies anxiety or depression. [facility] Past Medical History Medical History (Updated 07/27/22 @ 14:50 by Katerina Bhakta APRN) Abnormal CT of the abdomen Chronic diarrhea Colitis Depression DVT (deep venous thrombosis) Right leg Hyperlipidemia Hypertension Nausea Osteoarthritis Psoriasis Reflux esophagitis Stricture of sigmoid colon Vulvar cancer Vulvar mass Surgical History Surgical History H/O right wrist surgery History of colonoscopy History of esophagogastroduodenoscopy (EGD) History of hernia repair History of total left hip arthroplasty Family History Family History Father Diabetes mellitus Heart attack Mother Cerebrovascular accident Heart attack Sibling Dementia Social History Social History Social History: 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 She has never been or had any children. She said she used to smoke many years ago. She is socially drink but no longer drinks no illicit drugs or marijuana. She states she does not want chest compressions or a tube to breath if her heart stops. Smoking packs per day: 2 Smoking cigarettes per day: 40.0 Years smoked: 45 Smoking pack-years: 90.00 Smoking status: Former smoker Tobacco type: cigarettes Second hand tobacco smoke exposure: Yes Alcohol intake: former Substance use: never Substance use type: does not use Lack of Transportation: No Lack of Food: Never True Current Housing: I Have Housing Concerned About Future Housing: No Difficulty Paying Gas/Electric Bills: No Difficulty Paying for Meds: No Currently Unemployed: No Education: High School Diploma/GED Difficulty w/ Childc
[2022-07-26 21:18] LABS: Basophils Percent Auto 0.3 % (0.2-1.2); Eosinophils Percent Auto 0.1 % (0-4.4); Hemoglobin 11.7 g/dL (12.0-15.0); Immature Granulocyte Absolute 0.07 K/mm3 (0.00-0.031); Immature Granulocyte Percent A 0.5 % (0-0.5); Lymphocytes Absolute Auto 0.84 K/mm3 (0.9-3.2); Lymphocytes Percent Auto 5.6 % (18.3-44.2); Mean Corpuscular HGB Conc 30.8 g/dl (32-36); Mean Corpuscular Hemoglobin 30.4 pg (26-34); Mean Corpuscular Volume 98.7 fl (80-100); Mean Platelet Volume 9.7 fl (7.4-10.4); Monocytes Absolute Auto 0.5 K/mm3 (0.1-0.6); Monocytes Percent Auto 3.3 % (2.6-8.5); Neutrophils Absolute Auto 13.5 K/mm3 (1.3-6.7); Neutrophils Percent Auto 90.2 % (45.5-73.1); Platelet Count Result 204 k/mm3 (150-375); Red Blood Count 3.85 M/mm3 (4.2-5.4); Red Cell Distribution Width 13.9 % (11.5-14.5)
[2022-07-26] MEDS: SODIUM CHLORIDE 0.9% IV 1,000 ML 999 ML IV CONT (21:24)
[2022-07-26 21:28] LABS: INR 1.4; Prothrombin Time 16.2 Seconds (11.1-14.7)
[2022-07-26 21:29] LABS: Partial Thromboplastin Time 27.3 SECONDS (22.3-36.8)
[2022-07-26 21:32] LABS: Platelet Estimate Adequate (Adequate)
[2022-07-26 21:33] LABS: Schistocytes None Seen (NORMAL)
[2022-07-26 21:34] LABS: Lactic Acid Reflex 1.7 mmol/L (0.7-2.0)
[2022-07-26 22:00] LABS: Appearance Urine Cloudy (Clear); Bilirubin Urine Negative (Negative); Blood Urine 1+ (Negative); Color Urine Yellow (Yellow); Glucose Urine UA Negative (Negative); Ketones Urine Negative (Negative); Leukocyte Esterase Ur 3+ LEU/UL (Negative); Nitrate Urine Negative (Negative); Protein Urine 2+ mg/dL (Negative); Specific Grav Ur 1.015 (1.001-1.035); Urobilinogen Urine 0.2 mg/dL (<2.0)
[2022-07-26 22:06] LABS: Bacteria Urine 2+ /hpf; Mucus Urine Rare /lpf; Squamous Epithelial Cell Urine Occasional /hpf (Few); WBC Clumps Urine Present /HPF; WBC Urine >75 /hpf
[2022-07-26 22:07] LABS: Add Urine Microscopic? YES
[2022-07-26 22:35] LABS: Influenza A QL RT-PCR Negative (Negative); Influenza B QL RT-PCR Negative (Negative); RSV RNA, RT-PCR Negative (Negative); SARS-CoV-2 RNA PCR Negative
[2022-07-26] MEDS: SODIUM CHLORIDE 0.9% IV 1,000 ML 500 ML IV CONT (22:40)
[2022-07-26 23:02] LABS: Alanine Aminotransferase 17 U/L (6-35); Albumin Level 3.6 g/dL (3.5-5.1); Alkaline Phosphatase 80 U/L (38-126); Anion Gap 7 mmol/L (8-16); Aspartate Amino Transferase 39 U/L (14-36); Bilirubin,Total 0.5 mg/dL (0.2-1.3); Blood Urea Nitrogen 44 mg/dL (7-17); CRP 1.9 mg/dL (<1.0); Carbon Dioxide 24 mmol/L (22-30); Chloride 103 mmol/L (98-107); Estimated Glomerular Filt Rate 25; Glucose 155 mg/dL (65-110); Potassium 3.3 mmol/L (3.4-5.0); Sodium 134 mmol/L (137-145)
--- NOTE | 2022-07-26 23:27 | PM.IMHP ---
H&P: HPI History of Present Illness Date/Time: 07/26/22 23:27 Chief Complaint: FEVER Narrative: This is an 82-year-old female sn[facility] resident past medical history significant for chronic diarrhea, colitis, depression, hyperlipidemia, hypertension, osteoarthritis, reflux esophagitis, vulvar mass. Patient was brought to the emergency room due to low blood pressure. Patient was found to have a blood pressure 86/74 problem presentation preliminary workup was significant for urinalysis with more than 75 WBCs per high-power field, chemistry was significant for BUN of 44 creatinine 1.9 a chest x-ray was reported as: FINDINGS: Elevation the left hemidiaphragm. Bilateral infrahilar bronchiectatic changes. No other airspace opacities, pulmonary edema, pleural effusion or pneumothorax. Heart size is within normal limits for AP technique. Tortuous thoracic aorta. Old healed lateral right seventh and eighth rib fractures. IMPRESSION: 1. Chronic elevation left hemidiaphragm and chronic bronchiectatic changes in the bilateral infrahilar regions. No other acute cardiopulmonary disease. Review of Systems Review of Systems: Low blood pressure, profuse diarrhea Constitutional: Constitutional: Reports chills, Denies fever(s), Denies night sweats and Reports weakness Eyes: Eyes: Denies change in vision ENT: Denies dysphagia and Denies odynophagia Cardiovascular: Cardiovascular: Denies chest pain Respiratory: Respiratory: Denies chest congestion, Denies cough, Denies pain on inspiration and Denies dyspnea on exertion Gastrointestinal: Gastrointestinal: Denies dyspepsia, Denies heartburn, Reports diarrhea, Denies nausea and Denies vomiting Genitourinary: Genitourinary: Reports urinary incontinence Musculoskeletal: Musculoskeletal: Reports muscle weakness Integumentary/Breasts: Skin/Breast: Denies rash Neurologic: Denies focal weakness and Denies Sensory deficit (Neuro) Psychiatric: Psychiatric: Reports no additional psychiatric complaints and Reports as per HPI Endocrine: Endocrine: Denies cold intolerance, Denies flushing, Denies heat intolerance, Denies polyphagia, Denies polydipsia and Denies palpitations Hematologic/Lymphatic: Hematologic/Lymphatic: Reports no additional hematologic/lymphatic complaints and Reports as per HPI Allergic/Immunologic: Allergic/Immunologic: Reports no additional allergic/immunologic complaints and Reports as per HPI [facility] Past Medical History Medical History (Updated 07/27/22 @ 14:50 by Katerina Bhakta, SCRIPT ARTIST) Abnormal CT of the abdomen Chronic diarrhea Colitis Depression DVT (deep venous thrombosis) Right leg Hyperlipidemia Hypertension Nausea Osteoarthritis Psoriasis Reflux esophagitis Stricture of sigmoid colon Vulvar cancer Vulvar mass Surgical History Surgical History H/O right wrist surgery History of colonoscopy History of esophagogastroduodenoscopy (EGD) History of hernia repair History of total left hip arthroplasty Family History Family History Father Diabetes mellitus Heart attack Mother Cerebrovascular accident Heart attack Sibling Dementia Social History Social History Social History: 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 She has never been or had any children. She said she used to smoke many years ago. She is socially drink but no longer drinks no illicit drugs or marijuana. She states she does not want chest compressions or a tube to breath if her heart stops. Smoking packs per day: 2 Smoking cigarettes per day: 40.0 Years smoked: 45 Smoking pack-years: 90.00 Smoking status: Former smoker Tobacco type: cigarettes Second hand tobacco smoke exposure: Yes Alcohol intake: former Substance use: never Substance use type: does not use
[2022-07-27] VITALS (12 sets, daily range): BP systolic 79–123; BP diastolic 38–99; PULSE 74–84; RESP 12–24; TEMP 36.2–36.8; O2SAT 95–100; BMI 34.4
[2022-07-27] MEDS: SODIUM CHLORIDE 0.9% IV 1,000 ML 125 ML IV CONT ×2 (00:06→09:45)
--- NOTE | 2022-07-27 01:29 | ADMGEN ---
This patient, Elizabet Mijares, was admitted to Medical Room 343-01. Patient/family oriented to hospital policies and general routines including ID bracelet, bed and alarms, visiting hours, pain management, procedures, bathroom and other care routines, personal items, smoking policy, room service/diet, and visiting hours. Information on how to activate the Rapid Response Team has been discussed. Patient/Family are encouraged to report perceived risks to care and to ask questions if they do not understand what they are told or what they should do.
--- NOTE | 2022-07-27 08:52 | PM.IMPN ---
Progress Note: A&P Assessment and Plan (1) Sepsis: Code(s): A41.9 - Sepsis, unspecified organism Status: Acute Assessment and Plan: Temp 99.1, HR 99, BP 86/64, WBC 15, CRP 1.9, UA suggests UTI, renal function elevated from baseline consistent with sepsis with renal organ involvement. given 1 liter NS in the ED, as well as Azithromycin IV and IV Rocephin 1 gram x1 for unknown reason. Chest x-ray shows chronic changes and no acute infection. She is chronically on 2L NC and is not requiring increased O2. H/O ESBL UTI. Started Primaxin, first dose 07/27/22 Continue IV hydration. Monitor hemodynamics. (2) UTI (urinary tract infection): Qualifiers: Urinary tract infection type: site unspecified Code(s): N39.0 - Urinary tract infection, site not specified Status: Acute Assessment and Plan: UA with 2+ bacteria, 3+ leukocytes, >75 WBC, +1 RBC, no gross hematuria. H/O ESBL UTI in 11/2021 and in 2020 Start Primaxin, renally dosed. Adjust antibiotics per culture results. Blood and urine cultures pending. Monitor fever curve, vitals and CBC (3) Acute renal failure superimposed on stage 3 chronic kidney disease: Qualifiers: Acute renal failure type: unspecified Chronic kidney disease stage 3 subtype: unspecified whether 3a or 3b Qualified Code(s): N17.9 - Acute kidney failure, unspecified; N18.30 - Chronic kidney disease, stage 3 unspecified Code(s): N17.9 - Acute kidney failure, unspecified; N18.30 - Chronic kidney disease, stage 3 unspecified Status: Acute Assessment and Plan: Acute on chronic disease Hold nephrotoxic agents Continue IV fluids NS@125 mL/hour Monitor renal function Strict I/O. (4) Gait disturbance: Code(s): R26.9 - Unspecified abnormalities of gait and mobility Status: Chronic Assessment and Plan: Patient is chair bound. Out of bed for meals. Check vitamin D and B12/folate levels. (5) Chronic diarrhea: Code(s): K52.9 - Noninfective gastroenteritis and colitis, unspecified Status: Chronic Assessment and Plan: Continue probiotic PRN loperamide (6) Hypertension: Qualifiers: Hypertension type: essential hypertension Qualified Code(s): I10 - Essential (primary) hypertension Code(s): I10 - Essential (primary) hypertension Status: Chronic Assessment and Plan: Now with hypotension from sepsis. Hold antihypertensives until it resolves. (7) Vulvar cancer: Code(s): C51.9 - Malignant neoplasm of vulva, unspecified Status: Chronic Assessment and Plan: Stage 3, to be aware Plan CODE STATUS: DNR Disposition: return to SNF when medically stable. Time Spent With Patient Time with patient: 25 - 35 minutes Subjective Date/time seen: 07/27/22 08:52 Patient is an 82 yo female with CKD stage 3, stage 3 vulvar cancer s/p vulvectomy, HTN, HLD, DVT, and chronic diarrhea who presented to the ED for fever at the alf. She was found to have WBC 15 and UA concerning for acute infection. She also was placed on 2L NC O2 the day before admission and was noted to be hypotensive when EMS arrived at the alf. Chest x-ray was negative for acute infection. Patient was found lying in bed. She reports that she was told there is infection in my blood and something going on with my lungs. She also reports being told she had to go to the hospital but is unsure why. She reports history of chronic diarrhea that is unchanged and frequent UTIs. She does not think she has been on antibiotics in the past 3 months. Additionally, she states that she is unable to walk due to severe knee pain from osteoarthritis. She denies chest pain, SOB, cough, sputum, abd pain, N/V, or flank pain. She has occasional dysuria, incontinence and some urgency. Review of Systems Review of Systems: All systems reviewed & are unremarkable except as noted in HPI and
[2022-07-27] MEDS: ACIDOPHILUS/BULGARICUS CHEWABLE TABLET 1 TABLET PO ×3 (09:45→17:27)
[2022-07-27] MEDS: APIXABAN 2.5 MG TABLET PO ×2 (09:45→17:27)
[2022-07-27] MEDS: POTASSIUM CHLORIDE 20 MEQ PACKET (FOR LIQUID) 40 MEQ PO (09:46)
[2022-07-27] MEDS: SERTRALINE HCL 50 MG TABLET 100 MG PO (09:46)
[2022-07-27] MEDS: levETIRAcetam 500 MG TABLET PO ×2 (09:46→21:01)
[2022-07-27] MEDS: ATORVASTATIN 10 MG TABLET PO (09:46)
[2022-07-27] MEDS: LIDOCAINE 5% PATCH 2 PATCH TRANSDERM (09:47)
[2022-07-27 10:09] LABS: Magnesium 1.9 mg/dL (1.6-2.3)
[2022-07-28 04:02] VITALS: BP 141/81; PULSE 68; RESP 18; TEMP 36.6; O2SAT 97
[2022-07-28 06:09] LABS: Basophils Percent Auto 0.2 % (0.2-1.2); Eosinophils Absolute Auto 0.4 K/mm3 (0-0.3); Eosinophils Percent Auto 4.3 % (0-4.4); Hematocrit 33.9 % (37.0-47.0); Hemoglobin 10.1 g/dL (12.0-15.0); Immature Granulocyte Absolute 0.07 K/mm3 (0.00-0.031); Immature Granulocyte Percent A 0.8 % (0-0.5); Lymphocytes Absolute Auto 1.68 K/mm3 (0.9-3.2); Lymphocytes Percent Auto 19.2 % (18.3-44.2); Mean Corpuscular HGB Conc 29.8 g/dl (32-36); Mean Corpuscular Hemoglobin 30.1 pg (26-34); Mean Corpuscular Volume 101.2 fl (80-100); Mean Platelet Volume 9.7 fl (7.4-10.4); Monocytes Absolute Auto 0.4 K/mm3 (0.1-0.6); Monocytes Percent Auto 4.7 % (2.6-8.5); Neutrophils Absolute Auto 6.2 K/mm3 (1.3-6.7); Neutrophils Percent Auto 70.8 % (45.5-73.1); Platelet Count Result 156 k/mm3 (150-375); Red Blood Count 3.35 M/mm3 (4.2-5.4); Red Cell Distribution Width 13.8 % (11.5-14.5); White Blood Count 8.7 K/mm3 (4.5-10.0)
[2022-07-28 06:19] LABS: Alanine Aminotransferase 14 U/L (6-35); Albumin Level 3.1 g/dL (3.5-5.1); Alkaline Phosphatase 72 U/L (38-126); Anion Gap 7 mmol/L (8-16); Aspartate Amino Transferase 31 U/L (14-36); Bilirubin,Total 0.2 mg/dL (0.2-1.3); Blood Urea Nitrogen 39 mg/dL (7-17); Carbon Dioxide 21 mmol/L (22-30); Chloride 112 mmol/L (98-107); Estimated CRCL calculation 26 ml/min; Estimated Glomerular Filt Rate 31; Glucose 95 mg/dL (65-110); Magnesium 2.1 mg/dL (1.6-2.3); Phosphorus 3.4 mg/dL (2.5-4.5); Potassium 3.3 mmol/L (3.4-5.0); Sodium 140 mmol/L (137-145)
[2022-07-28] MEDS: SODIUM CHLORIDE 0.9% IV 1,000 ML 75 ML IV CONT ×2 (06:29→20:39)
[2022-07-28 06:42] LABS: Vitamin D 25 Hydroxy 26.9 ng/mL
[2022-07-28 07:25] LABS: Folic Acid 6.2 ng/mL (2.76->20)
[2022-07-28] MEDS: levETIRAcetam 500 MG TABLET PO ×2 (09:39→20:39)
[2022-07-28] MEDS: APIXABAN 2.5 MG TABLET PO ×2 (09:39→16:41)
[2022-07-28] MEDS: ATORVASTATIN 10 MG TABLET PO (09:39)
[2022-07-28] MEDS: ACIDOPHILUS/BULGARICUS CHEWABLE TABLET 1 TABLET PO ×3 (09:39→16:41)
[2022-07-28] MEDS: SERTRALINE HCL 50 MG TABLET 100 MG PO (09:40)
[2022-07-28] MEDS: LIDOCAINE 5% PATCH 2 PATCH TRANSDERM (09:40)
[2022-07-28 14:00] VITALS: BP 116/87; PULSE 79; RESP 16; TEMP 36.3; O2SAT 100
--- NOTE | 2022-07-28 17:37 | PM.IMPN ---
Progress Note: A&P Assessment and Plan (1) Sepsis: Code(s): A41.9 - Sepsis, unspecified organism Status: Acute Assessment and Plan: Temp 99.1, HR 99, BP 86/64, WBC 15, CRP 1.9, UA suggests UTI, renal function elevated from baseline consistent with sepsis with renal organ involvement. given 1 liter NS in the ED, as well as Azithromycin IV and IV Rocephin 1 gram x1 for unknown reason. Chest x-ray shows chronic changes and no acute infection. She is chronically on 2L NC and is not requiring increased O2. H/O ESBL UTI. Started Primaxin, first dose 07/27/22 Continue IV hydration. Monitor hemodynamics. (2) UTI (urinary tract infection): Qualifiers: Urinary tract infection type: site unspecified Code(s): N39.0 - Urinary tract infection, site not specified Status: Acute Assessment and Plan: UA with 2+ bacteria, 3+ leukocytes, >75 WBC, +1 RBC, no gross hematuria. H/O ESBL UTI in 11/2021 and in 2020 Start Primaxin, renally dosed as above. Adjust antibiotics per culture results. Blood culture with 1 of 2 positive for gram positive cocci urine cultures pending. Monitor fever curve, vitals and CBC (3) Acute renal failure superimposed on stage 3 chronic kidney disease: Qualifiers: Acute renal failure type: unspecified Chronic kidney disease stage 3 subtype: unspecified whether 3a or 3b Qualified Code(s): N17.9 - Acute kidney failure, unspecified; N18.30 - Chronic kidney disease, stage 3 unspecified Code(s): N17.9 - Acute kidney failure, unspecified; N18.30 - Chronic kidney disease, stage 3 unspecified Status: Acute Assessment and Plan: Acute on chronic disease Hold nephrotoxic agents Continue IV fluids NS@125 mL/hour Monitor renal function Strict I/O. Improving. (4) Gait disturbance: Code(s): R26.9 - Unspecified abnormalities of gait and mobility Status: Chronic Assessment and Plan: Patient is chair bound. Out of bed for meals. vitamin D 26.9 start vitamin D supplements B12 317 and patient reports weakness to BLE. Trial 1000 mcg B12 IM daily for 7 days, then weakly x4 weeks, then monthly. folate within normal limits. (5) Chronic diarrhea: Code(s): K52.9 - Noninfective gastroenteritis and colitis, unspecified Status: Chronic Assessment and Plan: Continue probiotic PRN loperamide (6) Hypertension: Qualifiers: Hypertension type: essential hypertension Qualified Code(s): I10 - Essential (primary) hypertension Code(s): I10 - Essential (primary) hypertension Status: Chronic Assessment and Plan: Now with hypotension from sepsis. Hold antihypertensives until it resolves. (7) Vulvar cancer: Code(s): C51.9 - Malignant neoplasm of vulva, unspecified Status: Chronic Assessment and Plan: Stage 3, to be aware Plan CODE STATUS: DNR Disposition: return to SNF when medically stable. Time Spent With Patient Time with patient: 15 - 25 minutes Subjective Date/time seen: 07/28/22 17:37 She has no new complaints or overnight events. She is concerned about her bowel at times and reports episodes of hard rock-like areas that travel across her abdomen. This has not occurred this hospital stay. Nursing reported patient had 1 positive blood culture reported today. Review of Systems Review of Systems: All systems reviewed & are unremarkable except as noted in HPI and below Exam Narrative: General: No acute distress.? lying in bed. Non-toxic appearing. Mental Status/Psych: Awake, AOx3, forgetful. Tangential. clear speech. Neutral mood and affect. cooperative. Skin: fair, warm, and dry. Erythema to pannus without open lesions, odor or discharge. No open wounds. Fair turgor.?Hemosideran staining BLE. HEENT: Sclera is non-icteric. Pupils equal and roun. Hard of hearing. Oral mucosa pink and moist. Neck: No JVD. Heart: S1 and S2 regu
[2022-07-28 20:00] VITALS: PULSE 79; RESP 16; O2SAT 100
[2022-07-28] MEDS: TOLNAFTATE 1% POWDER 45 GM BTL 1 APPLIC TOPICAL (20:39)
[2022-07-28 22:00] VITALS: BP 111/62; PULSE 77; RESP 16; TEMP 36.4; O2SAT 96
[2022-07-29 05:44] LABS: Basophils Percent Auto 0.3 % (0.2-1.2); Eosinophils Absolute Auto 0.4 K/mm3 (0-0.3); Eosinophils Percent Auto 5.8 % (0-4.4); Hematocrit 37.3 % (37.0-47.0); Hemoglobin 11.1 g/dL (12.0-15.0); Immature Granulocyte Absolute 0.05 K/mm3 (0.00-0.031); Immature Granulocyte Percent A 0.7 % (0-0.5); Lymphocytes Absolute Auto 2.12 K/mm3 (0.9-3.2); Mean Corpuscular HGB Conc 29.8 g/dl (32-36); Mean Corpuscular Hemoglobin 30.2 pg (26-34); Mean Corpuscular Volume 101.6 fl (80-100); Mean Platelet Volume 9.4 fl (7.4-10.4); Monocytes Absolute Auto 0.4 K/mm3 (0.1-0.6); Monocytes Percent Auto 4.8 % (2.6-8.5); Neutrophils Absolute Auto 4.6 K/mm3 (1.3-6.7); Neutrophils Percent Auto 60.4 % (45.5-73.1); Platelet Count Result 182 k/mm3 (150-375); Red Blood Count 3.67 M/mm3 (4.2-5.4); Red Cell Distribution Width 13.9 % (11.5-14.5); White Blood Count 7.6 K/mm3 (4.5-10.0)
[2022-07-29 05:52] LABS: Albumin Level 3.3 g/dL (3.5-5.1); Anion Gap 6 mmol/L (8-16); Blood Urea Nitrogen 39 mg/dL (7-17); CRP 5.1 mg/dL (<1.0); Calcium 7.6 mg/dL (8.4-10.2); Carbon Dioxide 18 mmol/L (22-30); Chloride 114 mmol/L (98-107); Estimated CRCL calculation 28 ml/min; Estimated Glomerular Filt Rate 33; Glucose 96 mg/dL (65-110); Magnesium 2.2 mg/dL (1.6-2.3); Potassium 3.2 mmol/L (3.4-5.0); Sodium 138 mmol/L (137-145)
[2022-07-29 06:00] VITALS: BP 126/74; PULSE 74; RESP 16; TEMP 36.9; O2SAT 94
[2022-07-29] MEDS: CHOLECALCIFEROL 1,000 UNITS TABLET 2000 UNITS PO (08:29)
[2022-07-29] MEDS: levETIRAcetam 500 MG TABLET PO ×2 (08:29→20:40)
[2022-07-29] MEDS: SERTRALINE HCL 50 MG TABLET 100 MG PO (08:29)
[2022-07-29] MEDS: ACIDOPHILUS/BULGARICUS CHEWABLE TABLET 1 TABLET PO ×3 (08:30→17:09)
[2022-07-29] MEDS: ATORVASTATIN 10 MG TABLET PO (08:30)
[2022-07-29] MEDS: APIXABAN 2.5 MG TABLET PO ×2 (08:30→17:10)
[2022-07-29] MEDS: LIDOCAINE 5% PATCH 2 PATCH TRANSDERM (08:51)
--- NOTE | 2022-07-29 10:04 | P.PNIM_ITS ---
Progress Note: A&P Assessment and Plan (1) Sepsis: Code(s): A41.9 - Sepsis, unspecified organism Status: Acute Assessment and Plan: Temp 99.1, HR 99, BP 86/64, WBC 15, CRP 1.9, UA suggests UTI, renal function e levated from baseline consistent with sepsis with renal organ involvement. * given 1 liter NS in the ED, as well as Azithromycin IV and IV Rocephin 1 gram x1 for unknown reason. * Chest x-ray shows chronic changes and no acute infection. She is chronically on 2L NC and is not requiring increased O2. * H/O ESBL UTI. Started Primaxin, first dose 07/27/22 * Blood culture with 1 of 2 positive for gram positive cocci, could be contaminant * Repeat blood cultures on 07/28/22 * Continue IV hydration. * Monitor hemodynamics 07/29/22 * Urine cultures positive for E. coli ESBL * Blood cultures from 07/26/22 positive for staphylococcus capitis and staphylococcus epidermidis * Blood cultures from 07/28/22 pending * WBC wnl at 7.6 * Urine positive for E coli ESBL sensitivity sensitive to imipenem, continue current medication regimen. (2) UTI (urinary tract infection): Qualifiers: Urinary tract infection type: site unspecified Code(s): N39.0 - Urinary tract infection, site not specified Status: Acute Assessment and Plan: UA with 2+ bacteria, 3+ leukocytes, >75 WBC, +1 RBC, no gross hematuria. * H/O ESBL UTI in 11/2021 and in 2020 * Start Primaxin, renally dosed as above. Adjust antibiotics per culture results. * Blood culture with 1 of 2 positive for gram positive cocci * urine cultures positive for E. coli ESBL and sensitive to imipenem * Monitor fever curve, vitals and CBC (3) Acute renal failure superimposed on stage 3 chronic kidney disease: Qualifiers: Acute renal failure type: unspecified Chronic kidney disease stage 3 subtype: unspecified whether 3a or 3b Qualified Code(s): N17.9 - Acute kidney failure, unspecified; N18.30 - Chronic kidney disease, stage 3 unspecified Code(s): N17.9 - Acute kidney failure, unspecified; N18.30 - Chronic kidney disease, stage 3 unspecified Status: Acute Assessment and Plan: Acute on chronic disease * Hold nephrotoxic agents * Continue IV fluids NS@125 mL/hour * Monitor renal function * Strict I/O. * Improving. (4) Gait disturbance: Code(s): R26.9 - Unspecified abnormalities of gait and mobility Status: Chronic Assessment and Plan: Patient is chair bound. Out of bed for meals. vitamin D 26.9 start vitamin D supplements B12 317 and patient reports weakness to BLE. Trial 1000 mcg B12 IM daily for 7 days, then weakly x4 weeks, then monthly. folate within normal limits. (5) Chronic diarrhea: Code(s): K52.9 - Noninfective gastroenteritis and colitis, unspecified Status: Chronic Assessment and Plan: Continue probiotic PRN loperamide (6) Hypertension: Qualifiers: Hypertension type: essential hypertension Qualified Code(s): I10 - Essential (primary) hypertension Code(s): I10 - Essential (primary) hypertension Status: Chronic Assessment and Plan: Now with hypotension from sepsis. Hold antihypertensives until it resolves. (7) Vulvar cancer: Code(s): C51.9 - Malignant neoplasm of vulva, unspecified Status: Chronic Assessment and Plan: Stage 3, to be aware Plan
--- NOTE | 2022-07-29 10:04 | PM.IMPN ---
Progress Note: A&P Assessment and Plan (1) Sepsis: Code(s): A41.9 - Sepsis, unspecified organism Status: Acute Assessment and Plan: Temp 99.1, HR 99, BP 86/64, WBC 15, CRP 1.9, UA suggests UTI, renal function elevated from baseline consistent with sepsis with renal organ involvement. given 1 liter NS in the ED, as well as Azithromycin IV and IV Rocephin 1 gram x1 for unknown reason. Chest x-ray shows chronic changes and no acute infection. She is chronically on 2L NC and is not requiring increased O2. H/O ESBL UTI. Started Primaxin, first dose 07/27/22 Blood culture with 1 of 2 positive for gram positive cocci, could be contaminant Repeat blood cultures on 07/28/22 Continue IV hydration. Monitor hemodynamics 07/29/22 Urine cultures positive for E. coli ESBL Blood cultures from 07/26/22 positive for staphylococcus capitis and staphylococcus epidermidis Blood cultures from 07/28/22 pending WBC wnl at 7.6 Urine positive for E coli ESBL sensitivity sensitive to imipenem, continue current medication regimen. (2) UTI (urinary tract infection): Qualifiers: Urinary tract infection type: site unspecified Code(s): N39.0 - Urinary tract infection, site not specified Status: Acute Assessment and Plan: UA with 2+ bacteria, 3+ leukocytes, >75 WBC, +1 RBC, no gross hematuria. H/O ESBL UTI in 11/2021 and in 2020 Start Primaxin, renally dosed as above. Adjust antibiotics per culture results. Blood culture with 1 of 2 positive for gram positive cocci urine cultures positive for E. coli ESBL and sensitive to imipenem Monitor fever curve, vitals and CBC (3) Acute renal failure superimposed on stage 3 chronic kidney disease: Qualifiers: Acute renal failure type: unspecified Chronic kidney disease stage 3 subtype: unspecified whether 3a or 3b Qualified Code(s): N17.9 - Acute kidney failure, unspecified; N18.30 - Chronic kidney disease, stage 3 unspecified Code(s): N17.9 - Acute kidney failure, unspecified; N18.30 - Chronic kidney disease, stage 3 unspecified Status: Acute Assessment and Plan: Acute on chronic disease Hold nephrotoxic agents Continue IV fluids NS@125 mL/hour Monitor renal function Strict I/O. Improving. (4) Gait disturbance: Code(s): R26.9 - Unspecified abnormalities of gait and mobility Status: Chronic Assessment and Plan: Patient is chair bound. Out of bed for meals. vitamin D 26.9 start vitamin D supplements B12 317 and patient reports weakness to BLE. Trial 1000 mcg B12 IM daily for 7 days, then weakly x4 weeks, then monthly. folate within normal limits. (5) Chronic diarrhea: Code(s): K52.9 - Noninfective gastroenteritis and colitis, unspecified Status: Chronic Assessment and Plan: Continue probiotic PRN loperamide (6) Hypertension: Qualifiers: Hypertension type: essential hypertension Qualified Code(s): I10 - Essential (primary) hypertension Code(s): I10 - Essential (primary) hypertension Status: Chronic Assessment and Plan: Now with hypotension from sepsis. Hold antihypertensives until it resolves. (7) Vulvar cancer: Code(s): C51.9 - Malignant neoplasm of vulva, unspecified Status: Chronic Assessment and Plan: Stage 3, to be aware Plan CODE STATUS: DNR Disposition: return to SNF when medically stable. Subjective Date/time seen: 07/29/22 10:04 Interval history: 82-year-old female with history of NSVT, seizures, DVT, hypertension and hyperlipidemia. Patient hospitalized for UTI. When interviewed patient days she states that she is feeling better and has no complaints. Denies fever, dizziness, chest pain, shortness a breath, nausea, vomiting and urinary symptoms such as frequency and urgency. Review of Systems Review of Systems: All systems
[2022-07-29] MEDS: TOLNAFTATE 1% POWDER 45 GM BTL 1 APPLIC TOPICAL ×2 (12:47→20:40)
[2022-07-29 14:57] VITALS: BP 103/64; PULSE 73; RESP 18; TEMP 36.3; O2SAT 97
[2022-07-29] MEDS: SODIUM CHLORIDE 0.9% IV 1,000 ML 75 ML IV CONT (17:08)
[2022-07-29] MEDS: ERTAPENEM SODIUM 0.5 GM in SODIUM CHLORIDE 0.9% IV 50 ML IVPB (18:38)
[2022-07-29 20:00] VITALS: PULSE 73; RESP 18; O2SAT 97
[2022-07-29] MEDS: LOPERAMIDE HCL 2 MG CAPSULE PO (20:40)
[2022-07-29] MEDS: diphenhydrAMINE HCl CAP 25 MG CAPSULE PO (21:59)
[2022-07-29 22:00] VITALS: BP 120/63; PULSE 70; RESP 16; TEMP 36.6; O2SAT 98
[2022-07-30] MEDS: SODIUM CHLORIDE 0.9% IV 1,000 ML 75 ML IV CONT (05:43)
[2022-07-30 05:57] LABS: Hematocrit 34.6 % (37.0-47.0); Mean Corpuscular HGB Conc 28.9 g/dl (32-36); Mean Corpuscular Hemoglobin 29.9 pg (26-34); Mean Corpuscular Volume 103.3 fl (80-100); Mean Platelet Volume 9.7 fl (7.4-10.4); Platelet Count Result 167 k/mm3 (150-375); Red Blood Count 3.35 M/mm3 (4.2-5.4); Red Cell Distribution Width 13.9 % (11.5-14.5); White Blood Count 6.4 K/mm3 (4.5-10.0)
[2022-07-30 06:00] VITALS: BP 118/72; PULSE 70; RESP 16; TEMP 36.5; O2SAT 98
[2022-07-30 06:03] LABS: Alanine Aminotransferase 17 U/L (6-35); Albumin Level 2.9 g/dL (3.5-5.1); Alkaline Phosphatase 59 U/L (38-126); Anion Gap 8 mmol/L (8-16); Aspartate Amino Transferase 36 U/L (14-36); Bilirubin,Total 0.3 mg/dL (0.2-1.3); Blood Urea Nitrogen 33 mg/dL (7-17); Calcium 7.7 mg/dL (8.4-10.2); Carbon Dioxide 15 mmol/L (22-30); Chloride 120 mmol/L (98-107); Estimated CRCL calculation 30 ml/min; Estimated Glomerular Filt Rate 36; Glucose 92 mg/dL (65-110); Potassium 3.1 mmol/L (3.4-5.0); Sodium 143 mmol/L (137-145)
[2022-07-30] MEDS: LOPERAMIDE HCL 2 MG CAPSULE PO (06:27)
[2022-07-30 09:00] VITALS: O2SAT 95
[2022-07-30] MEDS: SERTRALINE HCL 50 MG TABLET 100 MG PO (09:23)
[2022-07-30] MEDS: APIXABAN 2.5 MG TABLET PO (09:23)
[2022-07-30] MEDS: CHOLECALCIFEROL 1,000 UNITS TABLET 2000 UNITS PO (09:23)
[2022-07-30] MEDS: ACIDOPHILUS/BULGARICUS CHEWABLE TABLET 1 TABLET PO ×2 (09:23→12:49)
[2022-07-30] MEDS: levETIRAcetam 500 MG TABLET PO (09:23)
[2022-07-30] MEDS: ATORVASTATIN 10 MG TABLET PO (09:24)
[2022-07-30] MEDS: LIDOCAINE 5% PATCH 2 PATCH TRANSDERM (09:24)
[2022-07-30] MEDS: TOLNAFTATE 1% POWDER 45 GM BTL 1 APPLIC TOPICAL (09:25)
[2022-07-30] MEDS: CYANOCOBALAMIN INJ 1,000 MCG/ML VIAL 1000 MCG IM (09:28)
[2022-07-30] MEDS: POTASSIUM CHLORIDE 20 MEQ PACKET (FOR LIQUID) 40 MEQ PO (09:32)
[2022-07-30 13:11] LABS: EDCOVIDSCREEN Negative (Negative)
[2022-07-30 14:00] VITALS: BP 134/62; PULSE 66; RESP 18; TEMP 36.3; O2SAT 95
--- NOTE | 2022-07-30 15:20 | P.DS_ITS ---
DS: Admitting Diagnosis Discharge Date 07/30/22 Admitting Diagnosis UTI, sepsis DS: Discharge Diagnosis Discharge Diagnosis (1) Sepsis: Code(s): A41.9 - Sepsis, unspecified organism Status: Acute Assessment and Plan: Temp 99.1, HR 99, BP 86/64, WBC 15, CRP 1.9, UA suggests UTI, renal function elevated from baseline consistent with sepsis with renal organ involvement. * given 1 liter NS in the ED, as well as Azithromycin IV and IV Rocephin 1 gram x1 for unknown reason. * Chest x-ray shows chronic changes and no acute infection. She is chronically on 2L NC and is not requiring increased O2. * H/O ESBL UTI. Started Primaxin, first dose 07/27/22 * Blood culture with 1 of 2 positive for gram positive cocci, could be contaminant * Repeat blood cultures on 07/28/22 * Continue IV hydration. * Monitor hemodynamics 07/29/22 * Urine cultures positive for E. coli ESBL * Blood cultures from 07/26/22 positive for staphylococcus capitis and staphylococcus epidermidis * Blood cultures from 07/28/22 pending * WBC wnl at 7.6 * Urine positive for E coli ESBL sensitivity sensitive to imipenem, continue current medication regimen. (2) UTI (urinary tract infection): Qualifiers: Urinary tract infection type: site unspecified Code(s): N39.0 - Urinary tract infection, site not specified Status: Acute Assessment and Plan: UA with 2+ bacteria, 3+ leukocytes, >75 WBC, +1 RBC, no gross hematuria. * H/O ESBL UTI in 11/2021 and in 2020 * Start Primaxin, renally dosed as above. Adjust antibiotics per culture results. * Blood culture with 1 of 2 positive for gram positive cocci * urine cultures positive for E. coli ESBL and sensitive to imipenem * Monitor fever curve, vitals and CBC (3) Acute renal failure superimposed on stage 3 chronic kidney disease: Qualifiers: Acute renal failure type: unspecified Chronic kidney disease stage 3 subtype: unspecified whether 3a or 3b Qualified Code(s): N17.9 - Acute kidney failure, unspecified; N18.30 - Chronic kidney disease, stage 3 unspecified Code(s): N17.9 - Acute kidney failure, unspecified; N18.30 - Chronic kidney disease, stage 3 unspecified Status: Acute Assessment and Plan: Acute on chronic disease * Hold nephrotoxic agents * Continue IV fluids NS@125 mL/hour * Monitor renal function * Strict I/O. * Improving. (4) Gait disturbance: Code(s): R26.9 - Unspecified abnormalities of gait and mobility Status: Chronic Assessment and Plan: Patient is chair bound. Out of bed for meals. vitamin D 26.9 start vitamin D supplements B12 317 and patient reports weakness to BLE. Trial 1000 mcg B12 IM daily for 7 days, then weakly x4 weeks, then monthly. folate within normal limits. (5) Chronic diarrhea: Code(s): K52.9 - Noninfective gastroenteritis and colitis, unspecified Status: Chronic Assessment and Plan: Continue probiotic PRN loperamide (6) Hypertension: Qualifiers: Hypertension type: essential hypertension Qualified Code(s): I10 - Essential (primary) hypertension Code(s): I10 - Essential (primary) hypertension Status: Chronic Assessment and Plan: Now with hypotension from sepsis. Hold antihypertensives until it resolves. (7) Vulvar cancer: Code(s): C51.9 - Malignant neoplasm of vulva, unspecified Status: Chr
--- NOTE | 2022-07-30 15:20 | PM.DS ---
DS: Admitting Diagnosis Discharge Date 07/30/22 Admitting Diagnosis UTI, sepsis DS: Discharge Diagnosis Discharge Diagnosis (1) Sepsis: Code(s): A41.9 - Sepsis, unspecified organism Status: Acute Assessment and Plan: Temp 99.1, HR 99, BP 86/64, WBC 15, CRP 1.9, UA suggests UTI, renal function elevated from baseline consistent with sepsis with renal organ involvement. given 1 liter NS in the ED, as well as Azithromycin IV and IV Rocephin 1 gram x1 for unknown reason. Chest x-ray shows chronic changes and no acute infection. She is chronically on 2L NC and is not requiring increased O2. H/O ESBL UTI. Started Primaxin, first dose 07/27/22 Blood culture with 1 of 2 positive for gram positive cocci, could be contaminant Repeat blood cultures on 07/28/22 Continue IV hydration. Monitor hemodynamics 07/29/22 Urine cultures positive for E. coli ESBL Blood cultures from 07/26/22 positive for staphylococcus capitis and staphylococcus epidermidis Blood cultures from 07/28/22 pending WBC wnl at 7.6 Urine positive for E coli ESBL sensitivity sensitive to imipenem, continue current medication regimen. (2) UTI (urinary tract infection): Qualifiers: Urinary tract infection type: site unspecified Code(s): N39.0 - Urinary tract infection, site not specified Status: Acute Assessment and Plan: UA with 2+ bacteria, 3+ leukocytes, >75 WBC, +1 RBC, no gross hematuria. H/O ESBL UTI in 11/2021 and in 2020 Start Primaxin, renally dosed as above. Adjust antibiotics per culture results. Blood culture with 1 of 2 positive for gram positive cocci urine cultures positive for E. coli ESBL and sensitive to imipenem Monitor fever curve, vitals and CBC (3) Acute renal failure superimposed on stage 3 chronic kidney disease: Qualifiers: Acute renal failure type: unspecified Chronic kidney disease stage 3 subtype: unspecified whether 3a or 3b Qualified Code(s): N17.9 - Acute kidney failure, unspecified; N18.30 - Chronic kidney disease, stage 3 unspecified Code(s): N17.9 - Acute kidney failure, unspecified; N18.30 - Chronic kidney disease, stage 3 unspecified Status: Acute Assessment and Plan: Acute on chronic disease Hold nephrotoxic agents Continue IV fluids NS@125 mL/hour Monitor renal function Strict I/O. Improving. (4) Gait disturbance: Code(s): R26.9 - Unspecified abnormalities of gait and mobility Status: Chronic Assessment and Plan: Patient is chair bound. Out of bed for meals. vitamin D 26.9 start vitamin D supplements B12 317 and patient reports weakness to BLE. Trial 1000 mcg B12 IM daily for 7 days, then weakly x4 weeks, then monthly. folate within normal limits. (5) Chronic diarrhea: Code(s): K52.9 - Noninfective gastroenteritis and colitis, unspecified Status: Chronic Assessment and Plan: Continue probiotic PRN loperamide (6) Hypertension: Qualifiers: Hypertension type: essential hypertension Qualified Code(s): I10 - Essential (primary) hypertension Code(s): I10 - Essential (primary) hypertension Status: Chronic Assessment and Plan: Now with hypotension from sepsis. Hold antihypertensives until it resolves. (7) Vulvar cancer: Code(s): C51.9 - Malignant neoplasm of vulva, unspecified Status: Chronic Assessment and Plan: Stage 3, to be aware Plan CODE STATUS: DNR Disposition: return to SNF when medically stable. DS: Summary Hospital Course Reason for hospitalization: UTI, sepsis Hospital Course: 82-year-old female longterm resident with a past medical history of chronic diarrhea, colitis, depression, hyperlipidemia, hypertension, osteoarthritis, reflux, of vulvar mass presented to ED on 07/26/2022 due to low blood pressure. Patient was found to be hypotensive with
== END 2022-07-30 19:15 | DRG 872 ==
LOC: ANHED 23:44 → ANH3MED 07-27 00:07
PROVIDERS: Nurse Practitioner Family; Admitting Provider Internal Medicine; Emergency Provider Emergency Medicine; PCP Internal Medicine; Visit Provider Internal Medicine Critical Care Medicine
DX: A41.9 Sepsis, unspecified organism (principal); N39.0 Urinary tract infection, site not specified; Z16.12 Extended spectrum beta lactamase (ESBL) resistance; N17.9 Acute kidney failure, unspecified; B95.7 Other staphylococcus as the cause of diseases classified elsewhere; B96.20 Unspecified Escherichia coli [E. coli] as the cause of diseases classified elsewhere; R19.7 Diarrhea, unspecified; I11.0 Hypertensive heart disease with heart failure; N18.30 Chronic kidney disease, stage 3 unspecified; C51.9 Malignant neoplasm of vulva, unspecified; R26.9 Unspecified abnormalities of gait and mobility; Z66 Do not resuscitate; E78.5 Hyperlipidemia, unspecified; M19.90 Unspecified osteoarthritis, unspecified site; L40.9 Psoriasis, unspecified; Z96.642 Presence of left artificial hip joint; Z86.718 Personal history of other venous thrombosis and embolism; Z87.891 Personal history of nicotine dependence
CPT/HCPCS: 36415; 71045; 80053; 80069; 81001; 82306; 82607; 82746; 83605; 83735; 84100; 85025; 85027; 85610; 85730; 86140; 87040; 87077; 87086; 87088; 87186; 87426; 87637; 93005; 96361; 96365; 96366; 96367; 99285; A9270; C9803; G0378; J0456; J0696; J0743; J1335; J3420; J7030

== ENCOUNTER 2023-06-04 13:14 | Inpatient (IN) | payer OTHER, SELFPAY ==
[2023-06-04] VITALS (14 sets, daily range): BP systolic 92–123; BP diastolic 55–71; PULSE 77–85; RESP 15–21; TEMP 36.7–36.9; O2SAT 97–100; BMI 37.2
--- NOTE | ~2023-06-04 | US_ITS ---
US renal BI 06/08/2023 08:46 Procedure: Realtime transabdominal ultrasound of the kidneys and bladder. Indication: Nephrolithiasis Comparison: CT dated 06/07/2023 Findings: Right kidney is atrophic and somewhat obscured by bowel gas. Right kidney measures 5.9 cm. No solid masses or hydronephrosis. Left kidney is grossly unremarkable, although obscured by bowel ga s. No hydronephrosis or solid mass identified. Bladder is grossly unremarkable. Impression: 1: Right renal atrophy. Kidneys obscured by bowel gas limiting evaluation for renal stones. Refer to CT abdomen dated 06/07/2023 for details. Reviewed, dictated and finalized at location [facility]. ER FITTER Impression: 1: Right renal atrophy. Kidneys obscured by bowel gas limiting evaluation for r enal stones. Refer to CT abdomen dated 06/07/2023 for details.
--- NOTE | ~2023-06-04 | CT_ITS ---
EXAMINATION: CT abdomen pelvis wo con DATE: 06/04/2023 17:14 INDICATION: Lower abdominal pain, bloating, diarrhea TECHNIQUE: Computed tomography (CT) of the abdomen and pelvis was performed without intravenous contr ast. Automated exposure control and iterative reconstruction technique were employed. Exam dose: 187 6.77 mGy-cm total exam DLP. COMPARISON: 12/05/2021 CT abdomen pelvis FINDINGS: Bilateral multifocal discoid atelectasis and/or scarring at the lower lobes and base of the lingula. There is a prominent amount of fecal material in the rectosigmoid area but considerable improvement o f the rectal fecal impaction at the rectosigmoid area since 12/05/2021. However, there is probably gas eous distention of the colon, with sigmoid colon measuring up to 12.2 cm diameter, not much more than the 11.4 cm diameter noted on 12/05/2021. There is a prominent amount of fecal material in the remain foster of the colon. No evidence of appendicitis is identified. No intraperitoneal free air is detected. Multiple stones are noted in the dependent aspect of the gallbladder. No pericholecystic fluid or fat stranding or bile duct or pancreatic duct dilatation is detected. No hepatic, splenic, pancreatic space-occupying mass lesion is evident on this limited noncontrast ex amination. Stable calcified right adrenal mass since 12/05/2021, which may be adenoma or old hematoma. Severe scarring and atrophy of the right kidney. Right nonobstructive nephrolithiasis. No right urete ral calculus or hydroureteronephrosis. There is mild atrophy and scarring of the left kidney. Small nonobstructing lower pole left renal roxy cification. No left ureteral calculus or hydroureteronephrosis. The urinary bladder is not optimally evaluated due to extensive streak artifact from left total hip a rthroplasty. IVC filter in expected position. Aortic calcification and tortuosity. Massive bilateral inguinal lymphadenopathy, considerably increased in size since 12/05/2021, measuring up to 8.9 x 10.5 cm on the left, 4.1 x 7.3 cm on the right. These would be amenable to percutaneous needle biopsy. No abnormally enlarged intraperitoneal or retroperitoneal or intrapelvic lymph nodes are noted. Diffuse osteopenia. Severe burst fracture deformity of T11, prominent anterior wedge compression fracture deformity of T7 , stable since 12/05/2021. Prominent degenerative changes at the apophyseal joints throughout the lumbar spine with associated g rade 1 anterolisthesis at L3-4, L4-5 and L5-S1. Moderate degenerative disc disease of the lumbar spin e, with associated mild retrolisthesis at L1-2, L2-3, L3-4. IMPRESSION: Chronic prominent dilatation of the colon Prominent amount of fecal material in the rectum and colon, improved compared to 12/05/2021 Cholelithiasis Severe right and mild left renal atrophy Bilateral nonobstructive nephrolithiasis Massive bilateral inguinal lymphadenopathy, considerably increased in size since 12/05/2021 Reviewed, dictated and finalized at [facility]. Reviewed, dictated and finalized at location [facility]. 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
--- NOTE | ~2023-06-04 | CT_ITS ---
EXAMINATION: CT abdomen pelvis wo con DATE: 06/07/2023 14:12 INDICATION: Nephrolithiasis. TECHNIQUE: Computed tomography (CT) of the abdomen and pelvis was performed without intravenous contr ast. Automated exposure control and iterative reconstruction technique were employed. The dose-length product was 1343.66 mGy-cm. COMPARISON: CT abdomen and pelvis 06/04/2023, 12/05/21, 11/12/20 FINDINGS: The visualized portions of the lung bases demonstrate chronic septal thickening bilaterally . There is mild bronchiectasis in the inferior lungs bilaterally. There is a pneumatocele in left upp er lobe. There is chronic elevation of left hemidiaphragm. The heart size is normal. There are pierce ry artery calcifications. No pericardial effusion. The liver is normal. There are gallstones in the g allbladder, which is normal in size. The spleen, pancreas, and left adrenal gland are normal. There i s a 2.2 cm mass with coarse calcifications in right adrenal gland, stable from 11/12/20, likely benign. There is severe atrophy of right kidney and mild atrophy of left kidney. There are 3 stones in right kidney measuring up to 5 mm. There is a 4 mm stone in left kidney. There is a filter in the inferior vena cava. The rectosigmoid is markedly distended, consistent with adynamic ileus. The appendix is n ormal. There is a filter in the inferior vena cava. There is calcified atherosclerosis of the aorta a nd many of the other arteries. There is no free intraperitoneal fluid. There is a 15.0 x 9.2 x 2.6 cm left inguinal mass. There is an 11.9 x 5.4 x 4.9 cm right inguinal mass. There is a total left hip a rthroplasty. There are old healed right rib fractures. There are multiple chronic vertebral body frac tures. There is severe thoracic spondylosis and moderate lumbar spondylosis. IMPRESSION: 1. Bilateral nonobstructing kidney stones. 2. Chronic rectosigmoid distention, consistent with adynamic ileus. 3. Massive bilateral inguinal lymphadenopathy, worsened from 12/05/21, likely metastatic vulvar cancer . Reviewed, dictated and finalized at location [facility]. 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 Bilateral nonobstructing kidney stones. 2. Chronic rectosigmoid distention, consistent with adynamic ileus. 3. 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
[2023-06-04 13:50] LABS: Basophils Percent Auto 0.3 % (0.2-1.2); Eosinophils Absolute Auto 0.3 K/mm3 (0-0.3); Eosinophils Percent Auto 3.9 % (0-4.4); Hematocrit 30.2 % (37.0-47.0); Hemoglobin 8.7 g/dL (12.0-15.0); Immature Granulocyte Absolute 0.04 K/mm3 (0.00-0.031); Immature Granulocyte Percent A 0.5 % (0-0.5); Lymphocytes Absolute Auto 2.11 K/mm3 (0.9-3.2); Lymphocytes Percent Auto 24.3 % (18.3-44.2); Mean Corpuscular HGB Conc 28.8 g/dl (32-36); Mean Corpuscular Hemoglobin 27.9 pg (26-34); Mean Corpuscular Volume 96.8 fl (80-100); Mean Platelet Volume 9.6 fl (7.4-10.4); Monocytes Absolute Auto 0.5 K/mm3 (0.1-0.6); Monocytes Percent Auto 5.4 % (2.6-8.5); Neutrophils Absolute Auto 5.7 K/mm3 (1.3-6.7); Neutrophils Percent Auto 65.6 % (45.5-73.1); Platelet Count Result 290 k/mm3 (150-375); Red Blood Count 3.12 M/mm3 (4.2-5.4); Red Cell Distribution Width 13.5 % (11.5-14.5); White Blood Count 8.7 K/mm3 (4.5-10.0)
[2023-06-04 14:07] LABS: Platelet Estimate Adequate (Adequate)
[2023-06-04 14:08] LABS: Anisocytosis 2+ (NORMAL); Hypochromasia 1+ (NORMAL); Schistocytes None Seen (NORMAL)
--- NOTE | 2023-06-04 14:50 | ED.ABDPAIN ---
HPI - Abdominal Pain General Chief Complaint: Abdominal Pain <GUSTAVO Marie Last Filed: 06/04/23 18:46> Stated Complaint: Abd Pain - constipation <GUSTAVO Marie Last Filed: 06/04/23 18:46> Time Seen by Provider: 06/04/23 13:55 <GUSTAVO Marie Last Filed: 06/04/23 18:46> Source: patient <GUSTAVO Maire Last Filed: 06/04/23 18:46> Mode of arrival: EMS <GUSTAVO Marie Last Filed: 06/04/23 18:46> Limitations: no limitations <GUSTAVO Marie Last Filed: 06/04/23 18:46> History of Present Illness HPI narrative: Patient is an 83-year-old female, with past medical history of chronic hypoxic respiratory failure on 2 L nasal cannula, chronic diarrhea, hx vulvar CA, who presents to the ED via EMS with report of abdominal pain and bloating. Patient is a resident of [facility]. Patient reports having chronic issues with bloating in her abdomen. She has intermittent pain. She states the pain was worse today, and the shelter staff became concerned and sent her here. Patient reports intermittent nausea, watery diarrhea today. Denies fever, vomiting, rectal bleeding or melena, urinary issues. <GUSTAVO Marie Last Filed: 06/04/23 18:46> Related Data Home Medications: Home Medications Medication Instructions Recorded Confirmed atorvastatin 10 mg tablet 10 mg PO DAILY 06/04/21 07/27/22 furosemide 20 mg tablet 20 mg PO DAILY 06/04/21 07/27/22 levetiracetam 250 mg tablet 500 mg PO BID 06/04/21 07/27/22 sertraline 100 mg tablet 100 mg PO DAILY 06/04/21 07/27/22 acetaminophen 325 mg tablet 650 mg PO Q6-8H PRN Pain 03/02/22 07/27/22 acetaminophen 500 mg tablet 500 mg PO DAILY 03/02/22 07/27/22 apixaban 2.5 mg tablet (Eliquis) 2.5 mg PO BID 03/02/22 07/27/22 lidocaine 4 % topical patch 2 patch topical DAILY 03/02/22 07/27/22 (Lidocaine Pain Relief) ondansetron HCl 4 mg tablet 4 mg PO Q6H PRN Nausea 03/02/22 07/27/22 Lactobacillus acidophilus 100 mg PO TID 07/27/22 07/27/22 (Acidophilus capsule) polyethylene glycol 3350 17 17 g PO DAILY PRN Constipation 07/27/22 07/27/22 gram/dose oral powder (Miralax) <Fay Moctezuma PA-C - Last Filed: 06/04/23 18:46> Allergies/Adverse Reactions: Allergies Allergy/AdvReac Type Severity Reaction Status Date / Time red dye Allergy Severe FACIAL Verified 06/04/23 13:29 SWELLING <Fay Moctezuma PA-C - Last Filed: 06/04/23 18:46> Review of Systems Review of Systems: CONSTITUTIONAL: Denies fever, chills, or sweats. CARDIOVASCULAR: Denies chest pain. RESPIRATORY: Denies dyspnea. GASTROINTESTINAL: See HPI. GENITOURINARY: Denies dysuria or hematuria. <Fay Moctezuma PA-C - Last Filed: 06/04/23 18:46> All systems reviewed & are unremarkable except as noted in HPI and below <Fay Moctezuma PA-C - Last Filed: 06/04/23 18:46> [facility] Past Medical History Medical History: Medical History Abnormal CT of the abdomen Chronic diarrhea Colitis Depression DVT (deep venous thrombosis) Right leg Hyperlipidemia Hypertension Nausea Osteoarthritis Psoriasis Reflux esophagitis Stricture of sigmoid colon Vulvar cancer Vulvar mass <Fay Moctezuma PA-C - Last Filed: 06/04/23 18:46> Surgical History Surgical History: Surgical History H/O right wrist surgery History of colonoscopy History of esophagogastroduodenoscopy (EGD) History of hernia repair History of total left hip arthroplasty <Fay Moctezuma PA-C - Last Filed: 06/04/23 18:46> Family History Family History: Family History Father Diabetes mellitus Heart attack Mother Cerebrovascular accident Heart attack Sibling Dementia
[2023-06-04 16:41] LABS: Appearance Urine Cloudy (Clear); Bacteria Urine 4+ /hpf; Bilirubin Urine Negative (Negative); Blood Urine Trace (Negative); Color Urine Yellow (Yellow); Glucose Urine UA Negative (Negative); Ketones Urine Negative (Negative); Leukocyte Esterase Ur 2+ LEU/UL (Negative); Need Manual Microscopic Reviewed; Nitrate Urine Positive (Negative); Protein Urine 1+ mg/dL (Negative); RBC Urine 0-2 /hpf (0-2); Specific Grav Ur 1.012 (1.001-1.035); Squamous Epithelial Cell Urine None seen /hpf (Few); Urobilinogen Urine 0.2 mg/dL (<2.0); WBC Urine >100 /hpf; pH Urine 5.5 (5.0-9.0)
[2023-06-04 16:42] LABS: Add Urine Microscopic? YES
[2023-06-04 17:01] LABS: Alanine Aminotransferase 17 U/L (6-35); Albumin Level 3.5 g/dL (3.5-5.1); Alkaline Phosphatase 102 U/L (38-126); Anion Gap 13 mmol/L (8-16); Aspartate Amino Transferase 33 U/L (14-36); Bilirubin,Total 0.3 mg/dL (0.2-1.3); Blood Urea Nitrogen 59 mg/dL (7-17); Calcium 8.8 mg/dL (8.4-10.2); Carbon Dioxide 26 mmol/L (22-30); Chloride 105 mmol/L (98-107); Estimated CRCL calculation 22 ml/min; Estimated Glomerular Filt Rate 24; Glucose 112 mg/dL (65-110); Lipase 216 U/L (23-300); Potassium 3.7 mmol/L (3.4-5.0); Sodium 144 mmol/L (137-145)
--- NOTE | 2023-06-04 17:40 | PC.NURSE ---
1730: Spoke with Riri ALFONSO at [facility] regarding pt status and dc instructions.
[2023-06-04] MEDS: SODIUM CHLORIDE 0.9% IV 1,000 ML 999 ML IV CONT (17:48)
--- NOTE | 2023-06-04 18:30 | PM.IMHP ---
H&P: HPI History of Present Illness Date/Time: 06/04/23 19:00 Chief Complaint: Abdominal pain. Narrative: This is an 83-year-old female with history of dementia, seizures, hypertension, DVT, anemia, chronic kidney disease, and vulvar cancer who presented to the emergency department via EMS from [facility] for evaluation of abdominal pain. The patient provides the following history. She is a fair historian and some of the following is supplemented via a review of her electronic medical records. She endorses chronic abdominal distension and discomfort which she attributes to chronic constipation however she goes on to say that she has frequent loose stools, sometimes without warning. I asked why she came in today if these symptoms were chronic but she was unable to give me any explanation. She does not really have any complaints and she denies fever, chills, sweats, vomiting, melena, hematochezia, chest pain, shortness a breath, cough, and dysuria. She does however report some discomfort ?down there? though that is not unusual after her vulvectomy. She was afebrile on arrival. Blood pressures have been stable at the low end of normal. Labs were significant for hemoglobin of 8.7 which is lower than what she typically runs, BUN 59, creatinine 2.00 (baseline creatinine ranges from 1.4 to 1.90). Urine was positive for nitrates, leukocyte esterase, bacteria, and greater than [address] of the abdomen and pelvis showed chronic, prominent dilatation of the colon with a prominent amount of fecal material in the rectum and colon, massive bilateral inguinal lymphadenopathy, bilateral renal atrophy, bilateral nonobstructive nephrolithiasis, and cholelithiasis. In the ED she was given 1 L normal saline and 500 mg meropenem (she has a history of ESBL UTI) and she is being admitted in this setting for further treatment and evaluation. Review of Systems Review of Systems: Twelve systems were reviewed and are negative except for as per HPI. [facility] Past Medical History Medical History (Updated 06/04/23 @ 23:19 by Martha Johnson PA-C) Abnormal CT of the abdomen Chronic diarrhea Colitis Depression DVT (deep venous thrombosis) Right leg Hyperlipidemia Hypertension Nausea Osteoarthritis Psoriasis Reflux esophagitis Stricture of sigmoid colon Vulvar cancer Status post partial right vulvectomy. The patient and family members have decided not to pursue curative intent treatment. She saw a radiation oncologist regarding inguinal adenopathy though they have decided to hold on initiation of palliative radiation as she is asymptomatic. 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 She has never been or had any children. She said she used to smoke many years ago. She is socially drink but no longer drinks no illicit drugs or marijuana. She states she does not want chest compressions or a tube to breath if her heart stops. Smoking packs per day: 2 Smoking cigarettes per day: 40.0 Years smoked: 45 Smoking pack-years: 90.00 Smoking status: Former smoker Alcohol intake: former Substance use: never Substance use type: does not use Lack of Transportation: No Lack of Food: Never True Current Housing: I Have Housing Concerned About Future Housing: No Difficulty Paying Gas/Electric Bills: No Difficulty Eddi
[2023-06-04] MEDS: MEROPENEM 1 GM/NS 100 ML 1 GM/100 ML BAG IVPB (18:55)
--- NOTE | 2023-06-04 20:30 | ADMGEN ---
This patient, Elizabet Mijares, was admitted to [facility] Surg Room 317-02 at 20:20. Patient/family oriented to hospital policies and general routines including ID bracelet, bed and alarms, visiting hours, pain management, procedures, bathroom and other care routines, personal items, smoking policy, room service/diet, and visiting hours. Information on how to activate the Rapid Response Team has been discussed. Patient/Family are encouraged to report perceived risks to care and to ask questions if they do not understand what they are told or what they should do.
[2023-06-04] MEDS: SODIUM CHLORIDE 0.9% IV 1,000 ML 100 ML IV CONT (23:57)
[2023-06-05] MEDS: MEROPENEM 500 MG in SODIUM CHLORIDE 0.9% IV 100 ML 200 ML IVPB ×2 (05:37→17:21)
[2023-06-05 06:00] VITALS: BP 115/67; PULSE 74; RESP 14; TEMP 36.7; O2SAT 96
[2023-06-05 06:55] LABS: Hematocrit 29.5 % (37.0-47.0); Mean Corpuscular HGB Conc 27.1 g/dl (32-36); Mean Corpuscular Hemoglobin 27.8 pg (26-34); Mean Corpuscular Volume 102.4 fl (80-100); Mean Platelet Volume 9.4 fl (7.4-10.4); Platelet Count Result 219 k/mm3 (150-375); Red Blood Count 2.88 M/mm3 (4.2-5.4); Red Cell Distribution Width 13.3 % (11.5-14.5); White Blood Count 7.6 K/mm3 (4.5-10.0)
[2023-06-05 07:06] LABS: Anion Gap 11 mmol/L (8-16); Blood Urea Nitrogen 53 mg/dL (7-17); Calcium 8.2 mg/dL (8.4-10.2); Carbon Dioxide 20 mmol/L (22-30); Chloride 110 mmol/L (98-107); Estimated CRCL calculation 24 ml/min; Estimated Glomerular Filt Rate 27; Glucose 106 mg/dL (65-110); Magnesium 2.1 mg/dL (1.6-2.3); Potassium 2.9 mmol/L (3.4-5.0); Sodium 141 mmol/L (137-145)
[2023-06-05 08:00] VITALS: O2SAT 96
--- NOTE | 2023-06-05 08:54 | PM.IMPN ---
Progress Note: A&P Assessment and Plan (1) Constipation: Code(s): K59.00 - Constipation, unspecified Status: Acute (2) Mild dehydration: Code(s): E86.0 - Dehydration Status: Acute (3) Urinary tract infection: Code(s): N39.0 - Urinary tract infection, site not specified Status: Acute (4) Inguinal adenopathy: Code(s): R59.0 - Localized enlarged lymph nodes Status: Acute (5) Vulvar cancer: Code(s): C51.9 - Malignant neoplasm of vulva, unspecified Status: Chronic Plan The patient presented to the emergency department for evaluation of abdominal pain She has chronic constipation and what sounds like overflow diarrhea. CT scan shows chronic, prominent dilatation of the colon and a prominent amount of fecal material in the rectum and colon. Start scheduled MiraLax. Dulcolax suppository x1. EMILY on CKD Creatinine 2.0 upon arrival, baseline 1.4 generate 2022 Possible due to dehydration and UTI hydrated Antibiotics see below Creatinine is trending down UTI UA shows pyuria, patient has cloudy urine Urine culture July 2022 grew ESBL continue meropenem for abnormal urinalysis; she does not have significant dysuria but does report having some mild discomfort ?down there? though that is not necessarily unusual for her after her partial vulvectomy. Urine cultures pending. CT scan shows significant bilateral inguinal adenopathy which is a known finding. She previously met with Radiation Oncology to discuss possible palliative radiation therapy though she declined at the time as she was asymptomatic. Blood pressures have been running a bit low but are stable. Hold Lasix for now. The rest of her home medications will be reviewed and resumed as appropriate. Findings and treatment plan were discussed with the patient. Questions were solicited and answered to satisfaction. The patient's medical management will be taken over by the hospitalist team in a.m. Subjective Date/time seen: 06/05/23 08:54 Interval history: I saw and examined patient today. Patient had 1 bowel movement and diarrhea. Patient denies nausea vomiting, chest pain. Patient is bedbound because of fall in February. Patient denies headache, new focal weakness Exam Narrative: General: Chronically ill-appearing female supine in bed in no acute distress. Morbidly obese weight: 90.6 kg. BMI: 38.5. HEENT: PERRL, EOMI. Sclera anicteric. Tacky mucous membranes. Neck: Supple. Respiratory: Lungs are clear to auscultation bilaterally. Cardiovascular: Regular rate and rhythm with S1-S2. Gastrointestinal: Abdomen is protuberant. She is tender to palpation throughout the periumbilical region but not significantly so. No guarding or rebound tenderness. She has pretty significant inguinal lymphadenopathy, left greater than right with some tenderness. This is a known finding and she had been previously asymptomatic and declined palliative radiation. Skin: Warm and dry. Generalized pallor. Extremities: No cyanosis, clubbing, or significant edema. Feet are cool. Posterior tibialis pulses palpable. Capillary refill approximately 2 to 3 seconds. Neurological: Alert. Cranial nerves 2-12 are grossly intact. No gross focal deficits to casual conversation. Chronic back pain Psychiatric: Pleasant and cooperative with appropriate mood and affect. Slightly forgetful. Objective Data Vital Signs Vital Signs: Vital Signs - 24 hr 06/04/23 13:12 06/04/23 15:56 06/04/23 16:14 Temperature 98.0 F Pulse Rate 80 81 80 Respiratory Rate 18 18 16 Blood Pressure 102/61 98/65 L 106/64 Pulse Oximetry 100 98 99 Oxygen Delivery Nasal Cannula Oxygen Flow Rate 2 06/04/23 14:16 06/04/23 14:46 06/04/23 15:16 Temperature Pulse Rate 81 80 80 Respiratory Rate 18 18 17 Blood Pressure 106/71 105/65 108/64 Pulse Oximetry 100 Oxygen Delivery Oxygen Flow Rate 06/04/23 16:01 06/04/23 17:49
[2023-06-05] MEDS: TOLNAFTATE 1% POWDER 45 GM BTL 1 APPLIC TOPICAL ×3 (09:11→17:20)
[2023-06-05] MEDS: ATORVASTATIN 10 MG TABLET PO (09:11)
[2023-06-05] MEDS: APIXABAN 2.5 MG TABLET PO ×2 (09:11→20:06)
[2023-06-05] MEDS: levETIRAcetam 500 MG TABLET PO ×2 (09:11→20:06)
[2023-06-05] MEDS: SERTRALINE HCL 50 MG TABLET PO (09:11)
[2023-06-05] MEDS: SERTRALINE HCL 25 MG TABLET PO (09:11)
[2023-06-05] MEDS: ACIDOPHILUS/BULGARICUS CHEWABLE TABLET 1 TABLET PO ×3 (09:11→17:20)
[2023-06-05] MEDS: polyethylene glycoL 3350 17 GM POWD.PACK PO (09:11)
[2023-06-05] MEDS: DICLOFENAC SODIUM 1% 100 GM GEL (*BKC) 1 APPLIC TOPICAL ×2 (09:12→20:07)
[2023-06-05] MEDS: LIDOCAINE 5% PATCH 2 PATCH TOPICAL (09:15)
[2023-06-05 14:00] VITALS: BP 121/71; PULSE 69; RESP 14; TEMP 36.9; O2SAT 97
[2023-06-05 20:00] VITALS: O2SAT 100
[2023-06-05 21:14] VITALS: BP 106/76; PULSE 85; RESP 13; TEMP 36.8; O2SAT 100
[2023-06-06 05:34] VITALS: BP 106/60; PULSE 77; RESP 13; TEMP 36.1; O2SAT 100
[2023-06-06] MEDS: MEROPENEM 500 MG in SODIUM CHLORIDE 0.9% IV 100 ML 200 ML IVPB ×2 (05:55→17:18)
[2023-06-06 08:00] VITALS: O2SAT 100
--- NOTE | 2023-06-06 08:32 | PM.IMPN ---
Progress Note: A&P Assessment and Plan (1) Constipation: Code(s): K59.00 - Constipation, unspecified Status: Acute (2) Mild dehydration: Code(s): E86.0 - Dehydration Status: Acute (3) Urinary tract infection: Code(s): N39.0 - Urinary tract infection, site not specified Status: Acute (4) Inguinal adenopathy: Code(s): R59.0 - Localized enlarged lymph nodes Status: Acute (5) Vulvar cancer: Code(s): C51.9 - Malignant neoplasm of vulva, unspecified Status: Chronic Plan The patient presented to the emergency department for evaluation of abdominal pain She has chronic constipation and what sounds like overflow diarrhea. CT scan shows chronic, prominent dilatation of the colon and a prominent amount of fecal material in the rectum and colon. Start scheduled MiraLax. Dulcolax suppository x1. EMILY on CKD Creatinine 2.0 upon arrival, baseline 1.4 generate 2022 Possible due to dehydration and UTI hydrated Antibiotics see below Creatinine is trending down UTI UA shows pyuria, patient has cloudy urine Urine culture July 2022 grew ESBL continue meropenem for abnormal urinalysis; Patient has a suprapubic pain, some painful with urination Urine cultures pending, Gram-negative bacilli. CT scan shows significant bilateral inguinal adenopathy which is a known finding. She previously met with Radiation Oncology to discuss possible palliative radiation therapy though she declined at the time as she was asymptomatic. Blood pressures have been running a bit low but are stable. Hold Lasix for now. The rest of her home medications will be reviewed and resumed as appropriate. Findings and treatment plan were discussed with the patient. Questions were solicited and answered to satisfaction. The patient's medical management will be taken over by the hospitalist team in a.m. Subjective Date/time seen: 06/06/23 08:32 Interval history: I saw and examined patient today. Patient denies nausea vomiting, chest pain. Patient has suprapubic pain radiating to back bilaterally. Patient denies headache, new focal weakness Exam Narrative: General: Chronically ill-appearing female supine in bed in no acute distress. Morbidly obese weight: 90.6 kg. BMI: 38.5. HEENT: PERRL, EOMI. Sclera anicteric. Tacky mucous membranes. Neck: Supple. Respiratory: Lungs are clear to auscultation bilaterally. Cardiovascular: Regular rate and rhythm with S1-S2. Gastrointestinal: Patient has suprapubic pain, no rebound, soft, bowel sounds present Skin: Warm and dry. Generalized pallor. Extremities: No cyanosis, clubbing, or significant edema. Feet are cool. Posterior tibialis pulses palpable. Capillary refill approximately 2 to 3 seconds. Neurological: Alert. Cranial nerves 2-12 are grossly intact. No gross focal deficits to casual conversation. Chronic back pain Psychiatric: Pleasant and cooperative with appropriate mood and affect. Slightly forgetful. Objective Data Vital Signs Vital Signs: Vital Signs - 24 hr 06/05/23 14:00 06/05/23 21:14 06/05/23 20:00 Temperature 98.4 F 98.3 F Pulse Rate 69 85 Respiratory Rate 14 13 Blood Pressure 121/71 106/76 Pulse Oximetry 97 100 100 Oxygen Delivery Nasal Cannula Oxygen Flow Rate 2 06/06/23 05:34 Temperature 96.9 F L Pulse Rate 77 Respiratory Rate 13 Blood Pressure 106/60 Pulse Oximetry 100 Oxygen Delivery Oxygen Flow Rate Intake/Output Intake/Output: Intake & Output 06/03/23 06/04/23 06/05/23 06/06/23 23:59 23:59 23:59 23:59 Intake Total 1700 800 750 Output Total 500 300 Balance 1700 300 450 Meds/Results Medications: Active Medications Generic Name Dose Route Start Last Admin Trade Name Freq PRN Reason Stop Dose Admin Acetaminophen 650 mg 06/04/23 23:24 Acetaminophen 325 Mg Tablet PO Q6-8H PRN Pain Apixaban 2.5 mg 06/05/23 09:00 06/05/23 20:06 Apixaban
[2023-06-06 09:13] LABS: Basophils Percent Auto 0.3 % (0.2-1.2); Eosinophils Absolute Auto 0.3 K/mm3 (0-0.3); Eosinophils Percent Auto 4.8 % (0-4.4); Hematocrit 28.4 % (37.0-47.0); Hemoglobin 7.9 g/dL (12.0-15.0); Immature Granulocyte Absolute 0.02 K/mm3 (0.00-0.031); Immature Granulocyte Percent A 0.3 % (0-0.5); Lymphocytes Absolute Auto 1.68 K/mm3 (0.9-3.2); Lymphocytes Percent Auto 24.4 % (18.3-44.2); Mean Corpuscular HGB Conc 27.8 g/dl (32-36); Mean Corpuscular Hemoglobin 27.2 pg (26-34); Mean Corpuscular Volume 97.9 fl (80-100); Mean Platelet Volume 9.3 fl (7.4-10.4); Monocytes Absolute Auto 0.4 K/mm3 (0.1-0.6); Monocytes Percent Auto 6.2 % (2.6-8.5); Neutrophils Absolute Auto 4.4 K/mm3 (1.3-6.7); Platelet Count Result 234 k/mm3 (150-375); Red Cell Distribution Width 13.4 % (11.5-14.5); White Blood Count 6.9 K/mm3 (4.5-10.0)
[2023-06-06 09:24] LABS: Anion Gap 9 mmol/L (8-16); Blood Urea Nitrogen 46 mg/dL (7-17); Calcium 7.9 mg/dL (8.4-10.2); Carbon Dioxide 21 mmol/L (22-30); Chloride 110 mmol/L (98-107); Estimated CRCL calculation 27 ml/min; Estimated Glomerular Filt Rate 31; Glucose 102 mg/dL (65-110); Potassium 3.2 mmol/L (3.4-5.0); Sodium 140 mmol/L (137-145)
[2023-06-06 09:33] LABS: Hypochromasia 2+ (NORMAL); Platelet Estimate Adequate (Adequate); Schistocytes None Seen (NORMAL)
[2023-06-06] MEDS: polyethylene glycoL 3350 17 GM POWD.PACK PO (09:42)
[2023-06-06] MEDS: SERTRALINE HCL 25 MG TABLET PO (09:42)
[2023-06-06] MEDS: levETIRAcetam 500 MG TABLET PO ×2 (09:42→20:14)
[2023-06-06] MEDS: TOLNAFTATE 1% POWDER 45 GM BTL 1 APPLIC TOPICAL ×3 (09:42→17:18)
[2023-06-06] MEDS: ACIDOPHILUS/BULGARICUS CHEWABLE TABLET 1 TABLET PO ×3 (09:42→17:18)
[2023-06-06] MEDS: ATORVASTATIN 10 MG TABLET PO (09:42)
[2023-06-06] MEDS: APIXABAN 2.5 MG TABLET PO ×2 (09:42→20:14)
[2023-06-06] MEDS: SERTRALINE HCL 50 MG TABLET PO (09:42)
[2023-06-06] MEDS: LIDOCAINE 5% PATCH 2 PATCH TOPICAL (09:45)
[2023-06-06 14:00] VITALS: BP 112/68; PULSE 81; RESP 14; TEMP 36.3; O2SAT 99
[2023-06-06 20:00] VITALS: O2SAT 99
[2023-06-06 20:28] VITALS: BP 98/48; PULSE 77; RESP 17; TEMP 36.8; O2SAT 98
[2023-06-07] MEDS: MEROPENEM 500 MG in SODIUM CHLORIDE 0.9% IV 100 ML 200 ML IVPB (05:11)
[2023-06-07 05:46] VITALS: BP 103/69; PULSE 82; RESP 16; TEMP 36.7; O2SAT 97
[2023-06-07 08:41] LABS: Basophils Percent Auto 0.3 % (0.2-1.2); Eosinophils Absolute Auto 0.4 K/mm3 (0-0.3); Eosinophils Percent Auto 5.1 % (0-4.4); Hematocrit 29.2 % (37.0-47.0); Hemoglobin 8.3 g/dL (12.0-15.0); Immature Granulocyte Absolute 0.02 K/mm3 (0.00-0.031); Immature Granulocyte Percent A 0.3 % (0-0.5); Lymphocytes Absolute Auto 1.95 K/mm3 (0.9-3.2); Lymphocytes Percent Auto 25.5 % (18.3-44.2); Mean Corpuscular HGB Conc 28.4 g/dl (32-36); Mean Corpuscular Hemoglobin 27.6 pg (26-34); Mean Platelet Volume 9.4 fl (7.4-10.4); Monocytes Absolute Auto 0.6 K/mm3 (0.1-0.6); Monocytes Percent Auto 7.3 % (2.6-8.5); Neutrophils Absolute Auto 4.7 K/mm3 (1.3-6.7); Neutrophils Percent Auto 61.5 % (45.5-73.1); Platelet Count Result 266 k/mm3 (150-375); Red Blood Count 3.01 M/mm3 (4.2-5.4); Red Cell Distribution Width 13.5 % (11.5-14.5); White Blood Count 7.7 K/mm3 (4.5-10.0)
[2023-06-07 08:51] LABS: Anion Gap 12 mmol/L (8-16); Blood Urea Nitrogen 46 mg/dL (7-17); Calcium 8.1 mg/dL (8.4-10.2); Carbon Dioxide 22 mmol/L (22-30); Chloride 105 mmol/L (98-107); Estimated CRCL calculation 26 ml/min; Estimated Glomerular Filt Rate 29; Glucose 107 mg/dL (65-110); Potassium 3.2 mmol/L (3.4-5.0); Sodium 139 mmol/L (137-145)
--- NOTE | 2023-06-07 09:17 | PM.IMPN ---
Progress Note: A&P Assessment and Plan (1) Constipation: Code(s): K59.00 - Constipation, unspecified Status: Acute (2) Mild dehydration: Code(s): E86.0 - Dehydration Status: Acute (3) Urinary tract infection: Code(s): N39.0 - Urinary tract infection, site not specified Status: Acute (4) Inguinal adenopathy: Code(s): R59.0 - Localized enlarged lymph nodes Status: Acute (5) Vulvar cancer: Code(s): C51.9 - Malignant neoplasm of vulva, unspecified Status: Chronic Plan The patient presented to the emergency department for evaluation of abdominal pain She has chronic constipation and what sounds like overflow diarrhea. CT scan shows chronic, prominent dilatation of the colon and a prominent amount of fecal material in the rectum and colon. Start scheduled MiraLax. Dulcolax suppository x1 and prn EMILY on CKD Creatinine 2.0 upon arrival, baseline 1.4 generate 2022 Possible due to dehydration and UTI hydrated Antibiotics see below Creatinine is trending down UTI UA shows pyuria, patient has cloudy urine Urine culture July 2022 grew ESBL on meropenem for abnormal urinalysis; Patient has a suprapubic pain, some painful with urination Urine cultures gross E coli, intermediate susceptible to meropenem, change to ceftazidime 1 g q.[address] scan shows significant bilateral inguinal adenopathy which is a known finding. She previously met with Radiation Oncology to discuss possible palliative radiation therapy though she declined at the time as she was asymptomatic. Blood pressures have been running a bit low but are stable. Hold Lasix for now. The rest of her home medications will be reviewed and resumed as appropriate. Findings and treatment plan were discussed with the patient. Questions were solicited and answered to satisfaction. The patient's medical management will be taken over by the hospitalist team in a.m. Subjective Date/time seen: 06/07/23 09:17 Interval history: I saw and examined patient today. Patient still has suprapubic and bilateral lateral and flank pain. Urine culture grows E coli, resistant to multiple antibiotics including intermediate to meropenem. Change ceftazidime Exam Narrative: General: Chronically ill-appearing female supine in bed in no acute distress. Morbidly obese weight: 90.6 kg. BMI: 38.5. HEENT: PERRL, EOMI. Sclera anicteric. Tacky mucous membranes. Neck: Supple. Respiratory: Lungs are clear to auscultation bilaterally. Cardiovascular: Regular rate and rhythm with S1-S2. Gastrointestinal: Patient has suprapubic pain, no rebound, soft, bowel sounds present Skin: Warm and dry. Generalized pallor. Extremities: No cyanosis, clubbing, or significant edema. Feet are cool. Posterior tibialis pulses palpable. Capillary refill approximately 2 to 3 seconds. Neurological: Alert. Cranial nerves 2-12 are grossly intact. No gross focal deficits to casual conversation. Chronic back pain Psychiatric: Pleasant and cooperative with appropriate mood and affect. Slightly forgetful. Objective Data Vital Signs Vital Signs: Vital Signs - 24 hr 06/06/23 14:00 06/06/23 20:00 06/06/23 20:28 Temperature 97.3 F L 98.2 F Pulse Rate 81 77 Respiratory Rate 14 17 Blood Pressure 112/68 98/48 L Pulse Oximetry 99 99 98 Oxygen Delivery Nasal Cannula Oxygen Flow Rate 2 06/07/23 05:46 Temperature 98.1 F Pulse Rate 82 Respiratory Rate 16 Blood Pressure 103/69 Pulse Oximetry 97 Oxygen Delivery Oxygen Flow Rate Intake/Output Intake/Output: Intake & Output 06/04/23 06/05/23 06/06/23 06/07/23 23:59 23:59 23:59 23:59 Intake Total 4958 826 0517 580 Output Total 500 1000 250 Balance 1700 300 670 330 Meds/Results Medications: Active Medications Generic Name Dose Route Start Last Admin Trade Name Freq PRN Reason Stop Dose Admin Acetaminophen 650 mg 06/04/23 23:24 Acetaminophen
[2023-06-07] MEDS: LIDOCAINE 5% PATCH 2 PATCH TOPICAL (09:18)
[2023-06-07] MEDS: APIXABAN 2.5 MG TABLET PO ×2 (09:23→20:30)
[2023-06-07] MEDS: levETIRAcetam 500 MG TABLET PO ×2 (09:23→20:30)
[2023-06-07] MEDS: SERTRALINE HCL 25 MG TABLET PO (09:24)
[2023-06-07] MEDS: SERTRALINE HCL 50 MG TABLET PO (09:24)
[2023-06-07] MEDS: ACIDOPHILUS/BULGARICUS CHEWABLE TABLET 1 TABLET PO ×3 (09:24→16:29)
[2023-06-07] MEDS: ATORVASTATIN 10 MG TABLET PO (09:24)
[2023-06-07] MEDS: TOLNAFTATE 1% POWDER 45 GM BTL 1 APPLIC TOPICAL ×3 (09:25→16:29)
[2023-06-07] MEDS: cefTAZidime 1 GM/NS 50 ML 1 GM/50 ML BAG IVPB (12:27)
[2023-06-07 14:00] VITALS: BP 108/71; PULSE 80; RESP 18; TEMP 36.9; O2SAT 100
[2023-06-07 20:00] VITALS: O2SAT 100
[2023-06-07 21:55] VITALS: BP 111/72; PULSE 78; RESP 16; TEMP 36.9; O2SAT 93
[2023-06-08 05:35] VITALS: BP 128/53; PULSE 74; RESP 18; TEMP 36.8; O2SAT 95
[2023-06-08 06:47] LABS: Basophils Percent Auto 0.2 % (0.2-1.2); Eosinophils Absolute Auto 0.4 K/mm3 (0-0.3); Eosinophils Percent Auto 5.2 % (0-4.4); Hematocrit 28.4 % (37.0-47.0); Hemoglobin 8.1 g/dL (12.0-15.0); Immature Granulocyte Absolute 0.04 K/mm3 (0.00-0.031); Immature Granulocyte Percent A 0.5 % (0-0.5); Lymphocytes Absolute Auto 2.15 K/mm3 (0.9-3.2); Lymphocytes Percent Auto 26.7 % (18.3-44.2); Mean Corpuscular HGB Conc 28.5 g/dl (32-36); Mean Corpuscular Hemoglobin 27.5 pg (26-34); Mean Corpuscular Volume 96.3 fl (80-100); Mean Platelet Volume 9.5 fl (7.4-10.4); Monocytes Absolute Auto 0.6 K/mm3 (0.1-0.6); Monocytes Percent Auto 7.5 % (2.6-8.5); Neutrophils Absolute Auto 4.8 K/mm3 (1.3-6.7); Neutrophils Percent Auto 59.9 % (45.5-73.1); Platelet Count Result 231 k/mm3 (150-375); Red Blood Count 2.95 M/mm3 (4.2-5.4); Red Cell Distribution Width 13.6 % (11.5-14.5)
[2023-06-08 07:12] LABS: Anion Gap 7 mmol/L (8-16); Blood Urea Nitrogen 42 mg/dL (7-17); Calcium 8.2 mg/dL (8.4-10.2); Carbon Dioxide 26 mmol/L (22-30); Chloride 108 mmol/L (98-107); Estimated CRCL calculation 26 ml/min; Estimated Glomerular Filt Rate 29; Glucose 101 mg/dL (65-110); Potassium 3.3 mmol/L (3.4-5.0); Sodium 141 mmol/L (137-145)
[2023-06-08 07:22] LABS: Platelet Estimate Adequate (Adequate); Tear Drop Cells 1+ (NORMAL)
[2023-06-08 07:23] LABS: Anisocytosis 1+ (NORMAL); Hypochromasia 1+ (NORMAL); Schistocytes None Seen (NORMAL)
[2023-06-08 08:00] VITALS: O2SAT 94
[2023-06-08] MEDS: SERTRALINE HCL 50 MG TABLET PO (09:28)
[2023-06-08] MEDS: SERTRALINE HCL 25 MG TABLET PO (09:28)
[2023-06-08] MEDS: levETIRAcetam 500 MG TABLET PO ×2 (09:28→20:22)
[2023-06-08] MEDS: ACIDOPHILUS/BULGARICUS CHEWABLE TABLET 1 TABLET PO ×3 (09:28→17:21)
[2023-06-08] MEDS: TOLNAFTATE 1% POWDER 45 GM BTL 1 APPLIC TOPICAL ×3 (09:29→17:21)
[2023-06-08] MEDS: APIXABAN 2.5 MG TABLET PO ×2 (09:30→20:22)
[2023-06-08] MEDS: ATORVASTATIN 10 MG TABLET PO (09:30)
[2023-06-08] MEDS: LIDOCAINE 5% PATCH 2 PATCH TOPICAL (09:31)
[2023-06-08] MEDS: cefTAZidime 1 GM/NS 50 ML 1 GM/50 ML BAG IVPB (10:40)
[2023-06-08] MEDS: HYDROcodone/acetaminophen (*CRX) 5-325 MG TABLET 1 TAB PO (13:20)
--- NOTE | 2023-06-08 13:37 | PM.IMPN ---
Progress Note: A&P Assessment and Plan (1) Constipation: Code(s): K59.00 - Constipation, unspecified Status: Acute (2) Mild dehydration: Code(s): E86.0 - Dehydration Status: Acute (3) Urinary tract infection: Code(s): N39.0 - Urinary tract infection, site not specified Status: Acute (4) Inguinal adenopathy: Code(s): R59.0 - Localized enlarged lymph nodes Status: Acute (5) Vulvar cancer: Code(s): C51.9 - Malignant neoplasm of vulva, unspecified Status: Chronic Plan The patient presented to the emergency department for evaluation of abdominal pain She has chronic constipation and what sounds like overflow diarrhea. CT scan shows chronic, prominent dilatation of the colon and a prominent amount of fecal material in the rectum and colon. Start scheduled MiraLax. Dulcolax suppository x1 and prn EMILY on CKD Creatinine 2.0 upon arrival, baseline 1.4 generate 2022 Possible due to dehydration and UTI hydrated creat is 1.7 today continue to hydrate UTI UA shows pyuria, patient has cloudy urine Urine culture July 2022 grew ESBL on meropenem for abnormal urinalysis; Patient has a suprapubic pain, some painful with urination Urine cultures gross E coli, intermediate susceptible to meropenem, change to ceftazidime 1 g q.[address] scan shows significant bilateral inguinal adenopathy which is a known finding. She previously met with Radiation Oncology to discuss possible palliative radiation therapy though she declined at the time as she was asymptomatic. history of vulvar cancer Blood pressures have been running a bit low but are stable. Hold Lasix for now. Subjective Date/time seen: 06/08/23 13:37 Interval history: 3-year-old female with history of dementia, seizures, hypertension, DVT, anemia, chronic kidney disease, and vulvar cancer who presented to the emergency department via EMS from [facility] for evaluation of abdominal pain Pt is a poor historian states she is having good bowel movements today no need for laxatives today Patient still has suprapubic and bilateral lateral and flank pain. Urine culture grows E coli, resistant to multiple antibiotics including intermediate to meropenem. Changed to ceftazidime yesterday for Ecoli resistant UTI Review of Systems Review of Systems: Mild flank pains Exam Narrative: General: Chronically ill-appearing female supine in bed in no acute distress. Morbidly obese weight: 90.6 kg. BMI: 38.5. HEENT: PERRL, EOMI. Sclera anicteric. Tacky mucous membranes. Neck: Supple. Respiratory: Lungs are clear to auscultation bilaterally. Cardiovascular: Regular rate and rhythm with S1-S2. Gastrointestinal: Patient has suprapubic pain, no rebound, soft, bowel sounds present Skin: Warm and dry. Generalized pallor. Extremities: No cyanosis, clubbing, or significant edema. Feet are cool. Posterior tibialis pulses palpable. Capillary refill approximately 2 to 3 seconds. Neurological: Alert. Cranial nerves 2-12 are grossly intact. No gross focal deficits to casual conversation. Chronic back pain Psychiatric: Pleasant and cooperative with appropriate mood and affect. Slightly forgetful. Objective Data Vital Signs Vital Signs: Vital Signs - 24 hr 06/07/23 14:00 06/07/23 21:55 06/07/23 20:00 Temperature 36.9 C 36.9 C Pulse Rate 80 78 Respiratory Rate 18 16 Blood Pressure 108/71 111/72 Pulse Oximetry 100 93 100 Oxygen Delivery Nasal Cannula Oxygen Flow Rate 2 06/08/23 05:35 06/08/23 08:00 Temperature 36.8 C Pulse Rate 74 Respiratory Rate 18 Blood Pressure 128/53 L Pulse Oximetry 95 94 Oxygen Delivery Nasal Cannula Oxygen Flow Rate 2 Intake/Output Intake/Output: Intake & Output 06/05/23 06/06/23 06/07/23 06/08/23 23:59 23:59 23:59 23:59 Intake Total 800 1670 1620 150 Output Total 500 1000 600 100 Balance 027 312 0028 50 Meds/Re
[2023-06-08 14:00] VITALS: BP 88/65; PULSE 73; RESP 18; TEMP 36.3; O2SAT 98
[2023-06-08] MEDS: SODIUM CHLORIDE 0.9% IV 1,000 ML 70 ML IV CONT (17:20)
[2023-06-08] MEDS: POTASSIUM CHLORIDE 20 MEQ PACKET (FOR LIQUID) PO (17:20)
[2023-06-08] MEDS: CHOLESTYRAMINE (W/ SUGAR) 4 GM POWD.PACK PO (17:28)
[2023-06-08 20:20] VITALS: O2SAT 98
[2023-06-08 21:32] VITALS: BP 90/55; PULSE 71; RESP 13; TEMP 36.7; O2SAT 98
[2023-06-09] VITALS (8 sets, daily range): BP systolic 94–124; BP diastolic 62–99; PULSE 66–79; RESP 13–20; TEMP 36.5–37.6; O2SAT 84–100
[2023-06-09 06:24] LABS: Anion Gap 8 mmol/L (8-16); Blood Urea Nitrogen 39 mg/dL (7-17); Calcium 7.7 mg/dL (8.4-10.2); Carbon Dioxide 23 mmol/L (22-30); Chloride 110 mmol/L (98-107); Estimated CRCL calculation 27 ml/min; Estimated Glomerular Filt Rate 31; Glucose 102 mg/dL (65-110); Sodium 141 mmol/L (137-145)
[2023-06-09] MEDS: SODIUM CHLORIDE 0.9% IV 1,000 ML 70 ML IV CONT ×4 (09:34→23:03)
[2023-06-09] MEDS: APIXABAN 2.5 MG TABLET PO ×2 (09:39→20:24)
[2023-06-09] MEDS: SERTRALINE HCL 25 MG TABLET PO (09:39)
[2023-06-09] MEDS: SERTRALINE HCL 50 MG TABLET PO (09:39)
[2023-06-09] MEDS: polyethylene glycoL 3350 17 GM POWD.PACK PO ×2 (09:39→20:24)
[2023-06-09] MEDS: POTASSIUM CHLORIDE 20 MEQ PACKET (FOR LIQUID) PO ×2 (09:39→17:33)
[2023-06-09] MEDS: ATORVASTATIN 10 MG TABLET PO (09:40)
[2023-06-09] MEDS: levETIRAcetam 500 MG TABLET PO ×2 (09:40→20:24)
[2023-06-09] MEDS: LIDOCAINE 5% PATCH 2 PATCH TOPICAL (09:40)
[2023-06-09] MEDS: CHOLESTYRAMINE (W/ SUGAR) 4 GM POWD.PACK PO ×2 (09:41→18:35)
[2023-06-09] MEDS: TOLNAFTATE 1% POWDER 45 GM BTL 1 APPLIC TOPICAL ×3 (09:41→18:08)
[2023-06-09] MEDS: ACIDOPHILUS/BULGARICUS CHEWABLE TABLET 1 TABLET PO ×2 (11:51→17:33)
--- NOTE | 2023-06-09 13:22 | PM.IMPN ---
Progress Note: A&P Assessment and Plan (1) Constipation: Code(s): K59.00 - Constipation, unspecified Status: Acute (2) Mild dehydration: Code(s): E86.0 - Dehydration Status: Acute (3) Urinary tract infection: Code(s): N39.0 - Urinary tract infection, site not specified Status: Acute (4) Inguinal adenopathy: Code(s): R59.0 - Localized enlarged lymph nodes Status: Acute (5) Vulvar cancer: Code(s): C51.9 - Malignant neoplasm of vulva, unspecified Status: Chronic Plan The patient presented to the emergency department for evaluation of abdominal pain She has chronic constipation and what sounds like overflow diarrhea. CT scan shows chronic, prominent dilatation of the colon and a prominent amount of fecal material in the rectum and colon. Start scheduled MiraLax. Dulcolax suppository x1 and prn EMILY on CKD Creatinine 2.0 upon arrival, baseline 1.4 generate 2022 Possible due to dehydration and UTI sp hydration, creat is 1.6 today UTI UA shows pyuria, patient has cloudy urine Urine culture July 2022 grew ESBL on meropenem for abnormal urinalysis; Patient has a suprapubic pain, some painful with urination Urine cultures gross E coli, intermediate susceptible to meropenem, change to ceftazidime 1 g q.[address] scan shows significant bilateral inguinal adenopathy which is a known finding. She previously met with Radiation Oncology to discuss possible palliative radiation therapy though she declined at the time as she was asymptomatic. history of vulvar cancer Blood pressures have been running a bit low but are stable. Hold Lasix for now. can stable fluids at a slowrate Subjective Date/time seen: 06/09/23 13:22 Interval history: 83-year-old female with history of dementia, seizures, hypertension, DVT, anemia, chronic kidney disease, and vulvar cancer who presented to the emergency department via EMS from [facility] for evaluation of abdominal pain Pt is a poor historian states she is having good bowel movements today no need for laxatives today Patient still has suprapubic and bilateral lateral and flank pain.? Urine culture grows E coli, resistant to multiple antibiotics including intermediate to meropenem.? Changed to ceftazidime yesterday for Ecoli resistant UTI Review of Systems Review of Systems: Pt feeling better, no specific complaints Exam Narrative: General: Chronically ill-appearing female supine in bed in no acute distress. Morbidly obese weight: 90.6 kg. BMI: 38.5. HEENT: PERRL, EOMI. Sclera anicteric. Tacky mucous membranes. Neck: Supple. Respiratory: Lungs are clear to auscultation bilaterally. Cardiovascular: Regular rate and rhythm with S1-S2. Gastrointestinal: Patient has suprapubic pain, no rebound, soft, bowel sounds present Skin: Warm and dry. Generalized pallor. Extremities: No cyanosis, clubbing, or significant edema. Feet are cool. Posterior tibialis pulses palpable. Capillary refill approximately 2 to 3 seconds. Neurological: Alert. Cranial nerves 2-12 are grossly intact. No gross focal deficits to casual conversation. Chronic back pain Psychiatric: Pleasant and cooperative with appropriate mood and affect. Slightly forgetful. Objective Data Vital Signs Vital Signs: Vital Signs - 24 hr 06/08/23 14:00 06/08/23 20:20 06/08/23 21:32 Temperature 36.3 C L 36.7 C Pulse Rate 73 71 Respiratory Rate 18 13 Blood Pressure 88/65 L 90/55 L Pulse Oximetry 98 98 98 Oxygen Delivery Nasal Cannula Oxygen Flow Rate 2 Fraction of Inspired Oxygen 06/09/23 05:28 06/09/23 05:31 06/09/23 08:00 Temperature 36.6 C Pulse Rate 66 68 Respiratory Rate 13 Blood Pressure 94/62 L Pulse Oximetry 98 97 94 Oxygen Delivery Nasal Cannula Nasal Cannula Oxygen Flow Rate 2 2 Fraction of Inspired Oxygen 28 Intake/Output Intake/Output: Intake & Output 06/06/2305/13
[2023-06-10 06:00] VITALS: BP 104/63; PULSE 73; RESP 16; TEMP 36.6; O2SAT 99
[2023-06-10 08:00] VITALS: O2SAT 94
[2023-06-10] MEDS: SODIUM CHLORIDE 0.9% IV 1,000 ML 70 ML IV CONT ×2 (09:11→17:27)
[2023-06-10] MEDS: LIDOCAINE 5% PATCH 2 PATCH TOPICAL (09:12)
[2023-06-10] MEDS: APIXABAN 2.5 MG TABLET PO ×2 (09:12→21:02)
[2023-06-10] MEDS: levETIRAcetam 500 MG TABLET PO ×2 (09:12→21:02)
[2023-06-10] MEDS: ATORVASTATIN 10 MG TABLET PO (09:12)
[2023-06-10] MEDS: SERTRALINE HCL 50 MG TABLET PO (09:12)
[2023-06-10] MEDS: ACIDOPHILUS/BULGARICUS CHEWABLE TABLET 1 TABLET PO ×3 (09:12→16:40)
[2023-06-10] MEDS: SERTRALINE HCL 25 MG TABLET PO (09:12)
[2023-06-10] MEDS: polyethylene glycoL 3350 17 GM POWD.PACK PO ×2 (09:13→21:03)
[2023-06-10] MEDS: POTASSIUM CHLORIDE 20 MEQ PACKET (FOR LIQUID) PO ×2 (09:13→16:40)
[2023-06-10] MEDS: TOLNAFTATE 1% POWDER 45 GM BTL 1 APPLIC TOPICAL ×3 (09:13→15:54)
[2023-06-10] MEDS: CHOLESTYRAMINE (W/ SUGAR) 4 GM POWD.PACK PO ×2 (09:13→16:40)
[2023-06-10 14:00] VITALS: BP 88/67; PULSE 68; RESP 16; TEMP 36.7; O2SAT 100
--- NOTE | 2023-06-10 14:21 | PM.IMPN ---
Progress Note: A&P Assessment and Plan (1) Constipation: Code(s): K59.00 - Constipation, unspecified Status: Acute (2) Mild dehydration: Code(s): E86.0 - Dehydration Status: Acute (3) Urinary tract infection: Code(s): N39.0 - Urinary tract infection, site not specified Status: Acute (4) Inguinal adenopathy: Code(s): R59.0 - Localized enlarged lymph nodes Status: Acute (5) Vulvar cancer: Code(s): C51.9 - Malignant neoplasm of vulva, unspecified Status: Chronic Plan The patient presented to the emergency department for evaluation of abdominal pain She has chronic constipation and what sounds like overflow diarrhea. CT scan shows chronic, prominent dilatation of the colon and a prominent amount of fecal material in the rectum and colon. Start scheduled MiraLax. Dulcolax suppository x1 and prn EMILY on CKD Creatinine 2.0 upon arrival, baseline 1.4 generate 2022 Possible due to dehydration and UTI sp hydration, creat is 1.6 yesterday order labs in am UTI UA shows pyuria, patient has cloudy urine Urine culture July 2022 grew ESBL on meropenem for abnormal urinalysis; Patient has a suprapubic pain, some painful with urination Urine cultures gross E coli, intermediate susceptible to meropenem, change to ceftazidime 1 g q.[address] scan shows significant bilateral inguinal adenopathy which is a known finding. She previously met with Radiation Oncology to discuss possible palliative radiation therapy though she declined at the time as she was asymptomatic. history of vulvar cancer Blood pressures have been running a bit low but are stable. Hold Lasix for now. can stable fluids at a slowrate Subjective Date/time seen: 06/10/23 14:21 Interval history: 83-year-old female with history of dementia, seizures, hypertension, DVT, anemia, chronic kidney disease, and vulvar cancer who presented to the emergency department via EMS from [facility] for evaluation of abdominal pain Pt is a poor historian states she is having good bowel movements today no need for laxatives today Patient still has suprapubic and bilateral lateral and flank pain.? Urine culture grows E coli, resistant to multiple antibiotics including intermediate to meropenem.? Changed to ceftazidime yesterday for Ecoli resistant UTI Review of Systems Review of Systems: No specific complaints, much the same Exam Narrative: General: Pt looks better. Neck: Supple. Respiratory: Lungs are clear to auscultation bilaterally. Cardiovascular: Regular rate and rhythm with S1-S2. Gastrointestinal: Patient has suprapubic pain, no rebound, soft, bowel sounds present Skin: Warm and dry. Generalized pallor. Extremities: No cyanosis, clubbing, or significant edema. Feet are cool. Posterior tibialis pulses palpable. Capillary refill approximately 2 to 3 seconds. Neurological: Alert. Cranial nerves 2-12 are grossly intact. No gross focal deficits to casual conversation. Chronic back pain Psychiatric: Pleasant and cooperative with appropriate mood and affect. Slightly forgetful. Objective Data Vital Signs Vital Signs: Vital Signs - 24 hr 06/09/23 20:00 06/09/23 22:00 06/10/23 06:00 Temperature 36.5 C 36.6 C Pulse Rate 68 73 Respiratory Rate 20 16 Blood Pressure 95/63 L 104/63 Pulse Oximetry 96 97 99 Oxygen Delivery Nasal Cannula Oxygen Flow Rate 2 06/10/23 08:00 Temperature Pulse Rate Respiratory Rate Blood Pressure Pulse Oximetry 94 Oxygen Delivery Nasal Cannula Oxygen Flow Rate 2 Intake/Output Intake/Output: Intake & Output 06/07/23 06/08/23 06/09/23 06/10/23 23:59 23:59 23:59 23:59 Intake Total 4657 366 3966 2049 Output Total 600 100 450 0 Balance 8728 034 7459 0 Meds/Results Medications: Active Medications Generic Name Dose Route Start Last Admin Trade Name Freq PRN Reason Stop Dose Admin Acetaminophen
[2023-06-10 14:30] VITALS: BP 99/65; PULSE 80
[2023-06-10 19:44] VITALS: O2SAT 95
[2023-06-10 22:00] VITALS: BP 96/59; PULSE 73; RESP 18; TEMP 36.6; O2SAT 98
[2023-06-11] MEDS: SODIUM CHLORIDE 0.9% IV 1,000 ML 70 ML IV CONT (00:07)
[2023-06-11 06:00] VITALS: BP 112/63; PULSE 75; RESP 16; TEMP 36.2; O2SAT 99
[2023-06-11 07:29] LABS: Anion Gap 7 mmol/L (8-16); Blood Urea Nitrogen 25 mg/dL (7-17); Calcium 7.3 mg/dL (8.4-10.2); Carbon Dioxide 19 mmol/L (22-30); Chloride 117 mmol/L (98-107); Estimated CRCL calculation 29 ml/min; Estimated Glomerular Filt Rate 33; Glucose 92 mg/dL (65-110); Potassium 3.2 mmol/L (3.4-5.0); Sodium 143 mmol/L (137-145)
[2023-06-11] MEDS: POTASSIUM CHLORIDE 20 MEQ PACKET (FOR LIQUID) PO ×2 (09:09→16:17)
[2023-06-11] MEDS: ACIDOPHILUS/BULGARICUS CHEWABLE TABLET 1 TABLET PO ×3 (09:09→16:17)
[2023-06-11] MEDS: ATORVASTATIN 10 MG TABLET PO (09:09)
[2023-06-11] MEDS: levETIRAcetam 500 MG TABLET PO (09:09)
[2023-06-11] MEDS: SERTRALINE HCL 50 MG TABLET PO (09:09)
[2023-06-11] MEDS: APIXABAN 2.5 MG TABLET PO (09:09)
[2023-06-11] MEDS: SERTRALINE HCL 25 MG TABLET PO (09:09)
[2023-06-11] MEDS: polyethylene glycoL 3350 17 GM POWD.PACK PO (09:09)
[2023-06-11 09:10] VITALS: O2SAT 96
[2023-06-11] MEDS: LIDOCAINE 5% PATCH 2 PATCH TOPICAL (09:22)
[2023-06-11] MEDS: CHOLESTYRAMINE (W/ SUGAR) 4 GM POWD.PACK PO (09:22)
[2023-06-11] MEDS: TOLNAFTATE 1% POWDER 45 GM BTL 1 APPLIC TOPICAL ×3 (09:27→16:18)
--- NOTE | 2023-06-11 10:15 | PM.IMPN ---
Progress Note: A&P Assessment and Plan (1) Constipation: Code(s): K59.00 - Constipation, unspecified Status: Acute Assessment and Plan: She has chronic constipation and what sounds like overflow diarrhea. CT scan shows chronic, prominent dilatation of the colon and a prominent amount of fecal material in the rectum and colon. Start scheduled MiraLax. Dulcolax suppository x1 and prn 06/11: appears resolved, monitor (2) Mild dehydration: Code(s): E86.0 - Dehydration Status: Acute Assessment and Plan: EMILY on CKD, Creatinine 2.0 upon arrival, baseline 1.4 Possible due to dehydration and UTI 06/11: resolved, back to baseline, monitor (3) Urinary tract infection: Code(s): N39.0 - Urinary tract infection, site not specified Status: Acute Assessment and Plan: UA shows pyuria, patient has cloudy urine Urine culture July 2022 grew ESBL on meropenem for abnormal urinalysis Urine cultures E coli, intermediate susceptible to meropenem, change to ceftazidime 1 g q.8 hours IV 06/11: started on augmentin to complete 7 day course (4) Inguinal adenopathy: Code(s): R59.0 - Localized enlarged lymph nodes Status: Acute (5) Vulvar cancer: Code(s): C51.9 - Malignant neoplasm of vulva, unspecified Status: Chronic Assessment and Plan: CT scan shows significant bilateral inguinal adenopathy which is a known finding. She previously met with Radiation Oncology to discuss possible palliative radiation therapy though she declined at the time as she was asymptomatic. history of vulvar cancer Plan DVT prophylaxis with eliquis GI prophylaxis not indicated Code status full code Subjective Date/time seen: 06/11/23 10:15 Interval history: 83-year-old female with history of dementia, seizures, hypertension, DVT, anemia, chronic kidney disease, and vulvar cancer who presented to the emergency department via EMS from [facility] for evaluation of abdominal pain Pt is a poor historian states she is having good bowel movements today no need for laxatives today Patient still has suprapubic and bilateral lateral and flank pain.? Urine culture grows E coli, resistant to multiple antibiotics including intermediate to meropenem.? Changed to ceftazidime yesterday for Ecoli resistant UTI Exam Narrative: General: Pt looks better. Neck: Supple. Respiratory: Lungs are clear to auscultation bilaterally. Cardiovascular: Regular rate and rhythm with S1-S2. Gastrointestinal: Patient has suprapubic pain, no rebound, soft, bowel sounds present Skin: Warm and dry. Generalized pallor. Extremities: No cyanosis, clubbing, or significant edema. Feet are cool. Posterior tibialis pulses palpable. Capillary refill approximately 2 to 3 seconds. Neurological: Alert. Cranial nerves 2-12 are grossly intact. No gross focal deficits to casual conversation. Chronic back pain Psychiatric: Pleasant and cooperative with appropriate mood and affect. Slightly forgetful. Objective Data Vital Signs Vital Signs: Vital Signs - 24 hr 06/10/23 14:00 06/10/23 14:30 06/10/23 22:00 Temperature 98.0 F 97.9 F Pulse Rate 68 80 73 Respiratory Rate 16 18 Blood Pressure 88/67 L 99/65 L 96/59 L Pulse Oximetry 100 98 Oxygen Delivery Oxygen Flow Rate 06/10/23 19:44 06/11/23 06:00 Temperature 97.1 F L Pulse Rate 75 Respiratory Rate 16 Blood Pressure 112/63 Pulse Oximetry 95 99 Oxygen Delivery Nasal Cannula Oxygen Flow Rate 2 Intake/Output Intake/Output: Intake & Output 06/08/23 06/09/23 06/10/23 06/11/23 23:59 23:59 23:59 23:59 Intake Total 850 4454 4150 912 Output Total 100 450 0 Balance 750 4004 4150 912 Meds/Results Medications: Active Medications Generic Name Dose Route Start Last Admin Trade Name Freq PRN Reason Stop Dose Admin Acetaminophen 650 mg 06/04/23 23:24 Acetaminophen 325 Mg Tablet PO
[2023-06-11 10:38] LABS: Basophils Percent Auto 0.1 % (0.2-1.2); Eosinophils Absolute Auto 0.3 K/mm3 (0-0.3); Eosinophils Percent Auto 4.8 % (0-4.4); Hematocrit 27.9 % (37.0-47.0); Hemoglobin 7.7 g/dL (12.0-15.0); Immature Granulocyte Absolute 0.02 K/mm3 (0.00-0.031); Immature Granulocyte Percent A 0.3 % (0-0.5); Lymphocytes Absolute Auto 1.82 K/mm3 (0.9-3.2); Lymphocytes Percent Auto 25.6 % (18.3-44.2); Mean Corpuscular HGB Conc 27.6 g/dl (32-36); Mean Corpuscular Volume 97.9 fl (80-100); Mean Platelet Volume 9.7 fl (7.4-10.4); Monocytes Absolute Auto 0.5 K/mm3 (0.1-0.6); Monocytes Percent Auto 6.3 % (2.6-8.5); Neutrophils Absolute Auto 4.5 K/mm3 (1.3-6.7); Neutrophils Percent Auto 62.9 % (45.5-73.1); Platelet Count Result 221 k/mm3 (150-375); Red Blood Count 2.85 M/mm3 (4.2-5.4); Red Cell Distribution Width 13.8 % (11.5-14.5); White Blood Count 7.1 K/mm3 (4.5-10.0)
[2023-06-11 10:40] LABS: Alanine Aminotransferase 12 U/L (6-35); Albumin Level 2.8 g/dL (3.5-5.1); Alkaline Phosphatase 73 U/L (38-126); Aspartate Amino Transferase 34 U/L (14-36); Bilirubin,Total 0.2 mg/dL (0.2-1.3)
[2023-06-11] MEDS: AMOXICILLIN/CLAVULANATE K 875-125 MG TAB 1 TABLET PO (12:47)
[2023-06-11 14:00] VITALS: BP 114/72; PULSE 75; RESP 18; TEMP 36.6; O2SAT 100
--- NOTE | 2023-06-11 14:00 | PM.DS ---
DS: Admitting Diagnosis Discharge Date 06/11/23 Admitting Diagnosis abdominal pain DS: Discharge Diagnosis Discharge Diagnosis (1) Constipation: Code(s): K59.00 - Constipation, unspecified Status: Acute Assessment and Plan: She has chronic constipation and what sounds like overflow diarrhea. CT scan shows chronic, prominent dilatation of the colon and a prominent amount of fecal material in the rectum and colon. Start scheduled MiraLax. Dulcolax suppository x1 and prn 06/11: appears resolved, monitor (2) Mild dehydration: Code(s): E86.0 - Dehydration Status: Acute Assessment and Plan: EMILY on CKD, Creatinine 2.0 upon arrival, baseline 1.4 Possible due to dehydration and UTI 06/11: resolved, back to baseline, monitor (3) Urinary tract infection: Code(s): N39.0 - Urinary tract infection, site not specified Status: Acute Assessment and Plan: UA shows pyuria, patient has cloudy urine Urine culture July 2022 grew ESBL on meropenem for abnormal urinalysis Urine cultures E coli, intermediate susceptible to meropenem, change to ceftazidime 1 g q.8 hours IV 06/11: started on augmentin to complete 7 day course (4) Inguinal adenopathy: Code(s): R59.0 - Localized enlarged lymph nodes Status: Acute (5) Vulvar cancer: Code(s): C51.9 - Malignant neoplasm of vulva, unspecified Status: Chronic Assessment and Plan: CT scan shows significant bilateral inguinal adenopathy which is a known finding. She previously met with Radiation Oncology to discuss possible palliative radiation therapy though she declined at the time as she was asymptomatic. history of vulvar cancer Plan DVT prophylaxis with eliquis GI prophylaxis not indicated Code status full code DS: Summary Hospital Course Hospital Course: 83-year-old female with history of dementia, seizures, hypertension, DVT, anemia, chronic kidney disease, and vulvar cancer who presented to the emergency department via EMS from [facility] for evaluation of abdominal pain. She has chronic constipation and what sounds like overflow diarrhea. CT scan shows chronic, prominent dilatation of the colon and a prominent amount of fecal material in the rectum and colon. Start scheduled MiraLax. Dulcolax suppository x1 and prn, resolved. Acute kidney injury is now resolved. UA shows pyuria, patient has cloudy urine Urine culture July 2022 grew ESBL on meropenem for abnormal urinalysis Urine cultures E coli, intermediate susceptible to meropenem, change to ceftazidime 1 g q.8 hours IV 06/11: started on augmentin to complete 7 day course Please see above and med rec for details. All symptoms resolved and patient was discharged in stable condition with close outpatient follow-up. Time Spent with Patient Time attestation: Total time spent providing and/or coordinating discharge services: Exam Narrative: General: No acute distress, alert and oriented per baseline HEENT: Atraumatic, normocephalic, mucous membranes moist CV: Regular rate and rhythm, S1, S2 Lungs: Clear to auscultation bilaterally, no rales or crackles noted, no wheezes, good air entry Abdomen: Soft, nontender, nondistended Extremities: Normal to inspection Skin: No rashes noted, no lesions or wounds seen Psych: Euthymic, normal affect DS: Data Data Completed and Pending Labs on day of discharge: Labs from last 24 hours 06/11/23 06/11/23 06:36 06:32 WBC 7.1 RBC 2.85 L Hgb 7.7 L Hct 27.9 L MCV 97.9 MCH 27.0 MCHC 27.6 L RDW 13.8 Plt Count 221 MPV 9.7 Immature Gran % (Auto) 0.3 Neut % (Auto) 62.9 Lymph % (Auto) 25.6 [place] % (Auto) 6.3 Eos % (Auto) 4.8 H Baso % (Auto) 0.1 L Lymph # (Auto) 1.82 [place] # (Auto) 0.5 Eos # (Auto) 0.3 Baso # (Auto) 0.0 Abs Immat Gran (auto) 0.02 Absolute Neuts (auto) 4.5 Absolute Nucleated RBC 0
[2023-06-11 15:01] LABS: SARS-CoV-2 RNA PCR Negative (Negative)
== END 2023-06-11 16:55 | DRG 690 ==
LOC: ANHED 18:43 → ANH3MEDSUR 19:47
PROVIDERS: Emergency Medicine; Family Medicine; Hospitalist; Physician Assistant; Admitting Provider Internal Medicine; Emergency Provider Physician Assistant; PCP Internal Medicine; Visit Provider Student in an Organized Health Care Education/Training Program
DX: N30.00 Acute cystitis without hematuria (principal); N17.9 Acute kidney failure, unspecified; J96.11 Chronic respiratory failure with hypoxia; B96.20 Unspecified Escherichia coli [E. coli] as the cause of diseases classified elsewhere; K52.9 Noninfective gastroenteritis and colitis, unspecified; K59.09 Other constipation; D63.1 Anemia in chronic kidney disease; E86.0 Dehydration; E78.5 Hyperlipidemia, unspecified; F03.90 Unspecified dementia, unspecified severity, without behavioral disturbance, psychotic disturbance, mood disturbance, and anxiety; I12.9 Hypertensive chronic kidney disease with stage 1 through stage 4 chronic kidney disease, or unspecified chronic kidney disease; L40.9 Psoriasis, unspecified; M19.90 Unspecified osteoarthritis, unspecified site; N20.0 Calculus of kidney; N18.9 Chronic kidney disease, unspecified; R59.0 Localized enlarged lymph nodes; R56.9 Unspecified convulsions; Z85.44 Personal history of malignant neoplasm of other female genital organs; Z99.81 Dependence on supplemental oxygen; Z86.718 Personal history of other venous thrombosis and embolism; Z96.642 Presence of left artificial hip joint; Z87.891 Personal history of nicotine dependence; Z11.52 Encounter for screening for COVID-19
CPT/HCPCS: 36415; 74176; 76775; 80048; 80053; 80076; 81001; 83690; 83735; 85025; 85027; 87077; 87086; 87088; 87186; 87635; 96365; 96367; 99285; A9270; G0378; J0696; J0713; J0743; J2185; J7030

== ENCOUNTER 2023-08-26 18:13 | Inpatient (IN) | payer OTHER, SELFPAY ==
[2023-08-26] VITALS (46 sets, daily range): BP systolic 67–108; BP diastolic 27–91; PULSE 77–95; RESP 13–26; TEMP 36.4–36.8; O2SAT 92–100
--- NOTE | ~2023-08-26 | XR_ITS ---
EXAMINATION: XR chest 1V portable DATE: 08/26/2023 20:09 INDICATION: Abdominal pain TECHNIQUE: frontal view of the chest was obtained. COMPARISON: Chest radiograph dated 07/26/2022 FINDINGS: Unchanged elevation of the left hemidiaphragm. Opacities at the bilateral infrahilar regions which co uld represent atelectasis or pneumonia. Diffuse mild increased interstitial pattern suggesting mild p ulmonary edema. No pleural effusion or pneumothorax. Cardiomediastinal silhouette within normal limit s for AP technique. Couple old healed right rib fractures. Large amount of gas scattered throughout t he colon in the visualized upper abdomen.. IMPRESSION: 1. Bilateral infrahilar opacities which could represent atelectasis and/or pneumonia. 2. Diffuse increased initial pattern suggesting mild pulmonary edema. 3. Chronic elevation the left hemidiaphragm. Reviewed, dictated and finalized at location A. BONER IMPRESSION: 1. Bilateral infrahilar opacities which could represent atelectasis and/or pneu monia. 2. Diffuse increased initial pattern suggesting mild pulmonary edema. 3. Chronic elevation the left hemidiaphragm.
--- NOTE | ~2023-08-26 | CT_ITS ---
EXAMINATION: CT abdomen pelvis wo con DATE: 08/26/2023 21:29 INDICATION: Abdominal pain and distention TECHNIQUE: Computed tomography (CT) of the abdomen and pelvis was performed without intravenous contr ast. Automated exposure control and iterative reconstruction technique were employed. The dose-length product was 1454.96 mGy-cm. COMPARISON: CT dated 06/07/2023 and 11/12/2020. FINDINGS: Chronic elevation the left hemidiaphragm with adjacent basilar atelectasis. There is chronic bronchie ctasis and irregular septal line thickening at the bilateral lung bases consistent with chronic inter stitial fibrosis. Heart size is normal. Atherosclerotic coronary artery calcifications. No pericardia l or pleural effusion. There are few small calcified gallstones in the dependent aspect of the otherw ise normal-appearing gallbladder. Liver, spleen, pancreas and left adrenal gland are normal. Unchange d 2 cm centrally calcified right adrenal mass which remains without interval change since 11/12/2020. Severe atrophy of right kidney and mild atrophy of left kidney. There are 3 stones in right kidney me asuring up to 5 mm. 4 mm stone in left kidney. Infrarenal IVC filter in expected position. Leung cath eter within the decompressed bladder. The uterus is not identified and has likely been surgically res ected. The rectosigmoid is markedly distended with additional gastrocnemius severe distention extendi ng proximally to moderate amount of stool in the cecum. There is liquid stool at the rectum and dista l to a more solid small bolus of stool at the distal sigmoid colon. The appendix is normal. There is calcified atherosclerosis of the aorta and many of the other arteries. No pneumatosis, abscess or jose e intraperitoneal gas or fluid. No significant interval change in a 15.7 x 8.3 x 11.1 cm lobular left inguinal mass and 7.7 x 4.9 x 9.4 cm lobular right inguinal mass. Old healed right rib fracture. No change in chronic T7 compression fracture at T11 burst fracture. Left total hip arthroplasty with cer clage wire. IMPRESSION: 1. Chronic prominent gaseous distention of the rectosigmoid colon without discrete transition point m ost consistent with adynamic ileus. 2. Bilateral nonobstructing nephrolithiasis. 3. No significant interval change in large bilateral lobular inguinal masses suspicious for metastati c disease. Reviewed, dictated and finalized at location A. LOPMENT OFFICER IMPRESSION: 1. Chronic prominent gaseous distention of the rectosigmoid colon without discr ete transition point most consistent with adynamic ileus. 2. Bilateral nonobstructing nephrolithiasis. 3. No significant interval change in large bilateral lobular inguinal masses garvey spicious for metastatic disease.
--- NOTE | 2023-08-26 19:20 | PC.NURSE ---
this rn took patient report from earlene rizo . this rn assumed care of patient.
--- NOTE | 2023-08-26 19:45 | ECG_ITS ---
Measurements Intervals [place] Rate: 91 P: 22 [place]: 168 QRS: -77 QRSD: 129 T: 0 QT: 400 QTc: 493 Interpretive Statements SINUS RHYTHM LEFT AXIS DEVIATION [QRS AXIS < -30] RIGHT BUNDLE BRANCH BLOCK [120+ ms QRS DURATION, UPRIGHT V1, 40+ ms S IN I/aVL/V4/V5/V6] POSSIBLE ANTERIOR MYOCARDIAL INFARCTION , OF INDETERMINATE AGE [30 ms Q WAVE IN V3/V4, OR R < 0.2 mV IN V4] ABNORMAL ECG COMPARED TO ECG 07/26/2022 22:03:05 NO SIGNIFICANT CHANGES Electronically Signed On 08-27-2023 15:05:38 [employer]PA[employer] by Salvador Vincent M.D.
--- NOTE | 2023-08-26 19:49 | ED.ABDPAIN ---
HPI - Abdominal Pain General Chief Complaint: Abdominal Pain Stated Complaint: ABD PAIN Time Seen by Provider: 08/26/23 19:14 Source: patient Limitations: no limitations History of Present Illness HPI narrative: Patient is an 83-year-old female presents to the emergency department complaining of abdominal pain and a tense abdomen. Patient states she has been noticing abdominal pain that is stabbing in her bilateral upper abdomen for weeks has been getting progressively worse, so that comes and goes, has not noticed any new sick, her go away, has been getting home pain medications at the facility she stays at which may be helping, admits to history of his pain in the past but does not know what causes it. Patient denies any history of abdominal swelling, this is also been getting progressively worse over the past couple weeks for patient denies seeing Gastroenterology. patient denies history of colonoscopies. Patient admits to associated nausea without any vomiting. Patient states she has been having watery diarrhea for the past 1 year without any recent changes and notes that she has bowel movements every day but they are always watery. Patient denies chest pain, difficulty breathing, cough, fever, urinary discomfort, hematuria, numbness, weakness, rash, history of alcohol abuse, melena, hematochezia. Patient said her pain is not currently present as it comes and goes. Related Data Home Medications Medication Instructions Recorded Confirmed atorvastatin 10 mg tablet 10 mg PO DAILY 06/04/21 06/04/23 furosemide 20 mg tablet 20 mg PO DAILY 06/04/21 06/04/23 levetiracetam 250 mg tablet 500 mg PO BID 06/04/21 06/04/23 acetaminophen 325 mg tablet 650 mg PO Q6-8H PRN Pain 03/02/22 06/04/23 acetaminophen 500 mg tablet 1,000 mg PO DAILY 03/02/22 06/04/23 apixaban 2.5 mg tablet (Eliquis) 2.5 mg PO BID 03/02/22 06/04/23 lidocaine 4 % topical patch 2 patch topical DAILY 03/02/22 06/04/23 (Lidocaine Pain Relief) ondansetron HCl 4 mg tablet 4 mg PO Q6H PRN Nausea 03/02/22 06/04/23 Lactobacillus acidophilus 100 mg PO TID 07/27/22 06/04/23 (Acidophilus capsule) polyethylene glycol 3350 17 17 g PO DAILY PRN Constipation 07/27/22 06/04/23 gram/dose oral powder (Miralax) benzocaine 20 %-menthol 0.5 % 1 spray topical QID PRN Pain 06/04/23 06/04/23 topical aerosol (Dermoplast (with menthol)) diclofenac sodium 1 % topical gel 4 g topical QID PRN Pain 06/04/23 06/04/23 lactulose 10 gram/15 mL oral 15 ml PO BID PRN Constipation 06/04/23 06/04/23 solution loperamide 2 mg tablet 2 mg PO Q6H PRN Diarrhea 06/04/23 06/04/23 menthol 0.44 %-zinc oxide 20.6 % 1 applic topical DAILY PRN skin 06/04/23 06/04/23 topical ointment (Calmoseptine) irritaition nystatin 100,000 unit/gram topical 1 applic topical TID 06/04/23 06/04/23 powder potassium chloride 10 mEq 10 meq PO DAILY 06/04/23 06/04/23 capsule,extended release sertraline 25 mg tablet 25 mg PO DAILY 06/04/23 06/04/23 sertraline 50 mg tablet 50 mg PO DAILY 06/04/23 06/04/23 sodium phosphates 19 gram-7 197 ml RECTAL DAILY PRN 06/04/23 06/04/23 gram/118 mL enema (Fleet Enema) Constipation Allergies Allergy/AdvReac Type Severity Reaction Status Date / Time red dye Allergy Severe FACIAL Verified 08/26/23 18:18 SWELLING Review of Systems Review of Systems: A 10 system review of systems was completed on the patient and is negative except for what is stated in the HPI. Nursing and ancillary documentation was reviewed. [facility] Past Medical History Medical History (Updated 08/27/23 @ 00:07 by Gil Turner DO) Abnormal CT of the abdomen Chronic diarrhea Colitis Depression DVT (deep venous thrombosis) Right leg Hyperlipidemia Hypertension Nausea Osteoarthritis Psoriasis Reflux esophagitis Stricture of sigmoid colon Vulvar cancer Status post partial right vulvectomy. The patient and family members have decided not to pursue curative intent treatment. She saw a lorri
[2023-08-26] MEDS: ONDANSETRON INJ 4 MG/2 ML VIAL IV PUSH (20:15)
[2023-08-26 20:17] LABS: Basophils Percent Auto 0.3 % (0.2-1.2); Eosinophils Absolute Auto 0.4 K/mm3 (0-0.3); Eosinophils Percent Auto 3.9 % (0-4.4); Hematocrit 21.9 % (37.0-47.0); Immature Granulocyte Absolute 0.04 K/mm3 (0.00-0.031); Immature Granulocyte Percent A 0.4 % (0-0.5); Lymphocytes Absolute Auto 2.55 K/mm3 (0.9-3.2); Lymphocytes Percent Auto 27.5 % (18.3-44.2); Mean Corpuscular HGB Conc 26.9 g/dl (32-36); Mean Corpuscular Hemoglobin 22.8 pg (26-34); Mean Corpuscular Volume 84.6 fl (80-100); Mean Platelet Volume 9.4 fl (7.4-10.4); Monocytes Absolute Auto 0.6 K/mm3 (0.1-0.6); Neutrophils Absolute Auto 5.7 K/mm3 (1.3-6.7); Neutrophils Percent Auto 61.9 % (45.5-73.1); Platelet Count Result 358 k/mm3 (150-375); Red Blood Count 2.59 M/mm3 (4.2-5.4); Red Cell Distribution Width 17.2 % (11.5-14.5); White Blood Count 9.3 K/mm3 (4.5-10.0)
[2023-08-26 20:26] LABS: INR 1.5; Prothrombin Time 18.6 Seconds (11.1-14.7)
[2023-08-26 20:27] LABS: Partial Thromboplastin Time 36.8 SECONDS (22.3-36.8)
[2023-08-26 20:32] LABS: Hemoglobin 5.9 g/dL (12.0-15.0)
[2023-08-26 20:33] LABS: Anisocytosis 1+ (NORMAL); Hypochromasia 1+ (NORMAL); Ovalocytes 1+ (NORMAL); Platelet Estimate Adequate (Adequate); Schistocytes None Seen (NORMAL)
[2023-08-26 20:50] LABS: Troponin I 0.018 ng/mL (0.000-0.034)
[2023-08-26 20:52] LABS: Alanine Aminotransferase 18 U/L (6-35); Alkaline Phosphatase 85 U/L (38-126); Anion Gap 9 mmol/L (8-16); Aspartate Amino Transferase 50 U/L (14-36); Bilirubin,Total 0.2 mg/dL (0.2-1.3); Blood Urea Nitrogen 33 mg/dL (7-17); Calcium 8.5 mg/dL (8.4-10.2); Carbon Dioxide 25 mmol/L (22-30); Chloride 104 mmol/L (98-107); Estimated CRCL calculation 21 ml/min; Estimated Glomerular Filt Rate 24; Glucose 110 mg/dL (65-110); Lipase 189 U/L (23-300); Magnesium 1.9 mg/dL (1.6-2.3); Potassium 2.7 mmol/L (3.4-5.0); Sodium 138 mmol/L (137-145)
[2023-08-26 20:54] LABS: Influenza A QL RT-PCR Negative (Negative); Influenza B QL RT-PCR Negative (Negative); RSV RNA, RT-PCR Negative (Negative); SARS-CoV-2 RNA PCR Negative (Negative)
[2023-08-26 21:02] LABS: Appearance Urine Cloudy (Clear); Bacteria Urine 4+ /hpf; Bilirubin Urine Negative (Negative); Blood Urine Negative (Negative); Color Urine Yellow (Yellow); Glucose Urine UA Negative (Negative); Ketones Urine Negative (Negative); Leukocyte Esterase Ur 3+ LEU/UL (Negative); Nitrate Urine Positive (Negative); Protein Urine 1+ mg/dL (Negative); RBC Urine 0-2 /hpf (0-2); Specific Grav Ur 1.011 (1.001-1.035); Squamous Epithelial Cell Urine None seen /hpf (Few); Urobilinogen Urine 0.2 mg/dL (<2.0); WBC Urine >100 /hpf; pH Urine 5.5 (5.0-9.0)
[2023-08-26 21:09] LABS: Add Urine Microscopic? YES
[2023-08-26] MEDS: KCL 20 MEQ/SW 100 ML 100 ML 50 MEQ IVPB (21:34)
[2023-08-26 22:13] LABS: Lactic Acid Reflex 0.9 mmol/L (0.7-2.0)
--- NOTE | 2023-08-26 22:22 | PC.NURSE ---
Provider aware of patient's blood pressure. No new orders at this time.
[2023-08-26] MEDS: SODIUM CHLORIDE 0.9% IV 250 ML 30 ML IV CONT (22:56)
[2023-08-26] MEDS: SODIUM CHLORIDE 0.9% IV 1,000 ML 999 ML IV CONT (23:58)
[2023-08-27] VITALS (20 sets, daily range): BP systolic 88–119; BP diastolic 56–106; PULSE 63–99; RESP 12–20; TEMP 36.2–36.9; O2SAT 94–100; BMI 36.4
--- NOTE | 2023-08-27 00:02 | PC.NURSE ---
Pt monitor reading 50/30's with good radial pulse and neuro intact. Manual pressure obtained, reading 90/50's. ERP notified.
[2023-08-27] MEDS: DOXYCYCLINE 100 MG/NS 100 ML 100 MG/100 ML BAG IVPB ×3 (00:40→22:18)
[2023-08-27] MEDS: POTASSIUM CHLORIDE 20 MEQ PACKET (FOR LIQUID) 40 MEQ PO (00:44)
--- NOTE | 2023-08-27 02:35 | PC.NURSE ---
Blood administration started during downtime. See paper documentation. Patient admitted to ICU and taken up by RN and tech on cardiac monitoring.
--- NOTE | 2023-08-27 03:57 | ADMGEN ---
This patient, Elizabet Mijares, was admitted to Intensive Care Unit-8. Patient/family oriented to hospital policies and general routines including ID bracelet, bed and alarms, visiting hours, pain management, procedures, bathroom and other care routines, personal items, smoking policy, room service/diet, and visiting hours. Information on how to activate the Rapid Response Team has been discussed. Patient/Family are encouraged to report perceived risks to care and to ask questions if they do not understand what they are told or what they should do.
--- NOTE | 2023-08-27 04:36 | PC.NURSE ---
1st unit finished in er during [employer] downtime
--- NOTE | 2023-08-27 04:39 | PM.IMHP ---
H&P: HPI History of Present Illness Date/Time: 08/27/23 03:30 Chief Complaint: Worsening abdominal distension Narrative: Extremely pleasant 83-year-old female with a past medical history who mild dementia, essential hypertension, DVT with IVC filter, chronic anemia, chronic kidney disease, vulvar cancer and chronic pelvic lymphadenopathy who presented to the ER via EMS from [facility] due to transient abdominal pain and worsening abdominal distension. Patient reports that her abdomen is chronically distended and had been so for a year more but is been progressively getting worse. She has been having occasional episodes of worsening abdominal pain that is occasionally stabbing in the upper abdomen. She reports he had the sensation of pain walking across the top of her abdomen starting on the right side and moving to the left. The pain comes and goes and has been getting worse. She reports that pain most the time is only a mild on moderate intensity. She denies having any pain at this time. She has had increasing nausea and decreased appetite. The pain medications she has been getting at the halfway occasionally helps. She has had some significant nausea but no significant vomiting. She reports that the nursing staff always tells her that her chronic watery diarrhea this been ongoing for the last year is usually always black. She is on chronic anticoagulation with Eliquis due to history of DVTs but also has an IVC filter in place. On arrival to the ER she was noted to be significantly pale but was otherwise talkative in no distress despite having marked hypotension with systolic blood pressures also is the 50s. Initially patient did not receive significant IV fluid hydration in the ER due to concern for possible history of CHF. However after the case was discussed with the admitting team and I reviewed the echocardiogram ER provider did give the patient 2 L in fluid bolus. Patient also getting 2 units of blood due to significant anemia with hemoglobin of 5.9. Patient denies any chest pain or shortness of breath. She reports limited food choices due to poor dentition and loss of appetite. Given the patient's persistent hypotension patient was admitted to the ICU. However after patient had completed IV fluid boluses her blood pressures have stabilized in the low 100s. Patient have Leung catheter in place on arrival to the ER. She stated that she had had the catheter placed a few weeks ago. She has required intermittent catheterization on off ever since her vulvar surgery several years ago. Source of information is review of past medical records, ER records, halfway records and patient report. The patient is a fair historian. She is alert oriented to person place and current event but admits that she rarely knows the month and was unsure as to the specific year. But then when keeping other history was able to state that last year was 2022. Review of Systems Review of Systems: 12 systems were reviewed with pertinent positives and negatives per HPI. Except as documented in the HPI, all other systems were reviewed and are negative. [facility] Past Medical History Medical History (Updated 08/27/23 @ 05:03 by Zofia Cash DO) Chronic diarrhea Chronic hypoxic respiratory failure, on home oxygen therapy Colitis Depression DVT (deep venous thrombosis) Right leg Hyperlipidemia Hypertension Nausea Osteoarthritis Psoriasis Reflux esophagitis Stricture of sigmoid colon Vulvar cancer Status post partial right vulvectomy. The patient and family members have decided not to pursue curative intent treatment. She saw a radiation oncologist regarding inguinal adenopathy though they have decided to hold on initiation of palliative radiation as she is asymptomatic. Surgical History Surgical History H/O right wrist surgery History of colonoscopy History of esophagogastro
[2023-08-27] MEDS: SODIUM CHLORIDE 0.9% IV 1,000 ML 75 ML IV CONT ×2 (04:42→17:42)
--- NOTE | 2023-08-27 05:02 | PC.NURSE ---
2nd unit of blood started in ER during [employer] downtime. Appropriate documentation located there.
--- NOTE | 2023-08-27 05:11 | PC.NURSE ---
Addendum entered by Erick Rose RN 08/27/23 06:41: 2nd unit of blood was transfusing upon arrival to ICU at 0235. Blood finished at 0430. Information about both units found in downtime documentation in paper chart Original Note: 2nd unit of blood was transfusing upon arrival to ICU at 0235. Blood finished at 0430
[2023-08-27 05:23] LABS: Hematocrit 31.4 % (37.0-47.0); Hemoglobin 9.1 g/dL (12.0-15.0); Mean Corpuscular Hemoglobin 25.4 pg (26-34); Mean Corpuscular Volume 87.7 fl (80-100); Mean Platelet Volume 9.1 fl (7.4-10.4); Platelet Count Result 297 k/mm3 (150-375); Red Blood Count 3.58 M/mm3 (4.2-5.4); Red Cell Distribution Width 15.9 % (11.5-14.5); White Blood Count 9.3 K/mm3 (4.5-10.0)
[2023-08-27 05:35] LABS: Anion Gap 8 mmol/L (8-16); Blood Urea Nitrogen 32 mg/dL (7-17); Calcium 8.2 mg/dL (8.4-10.2); Carbon Dioxide 23 mmol/L (22-30); Chloride 110 mmol/L (98-107); Estimated CRCL calculation 23 ml/min; Estimated Glomerular Filt Rate 27; Glucose 102 mg/dL (65-110); Potassium 3.5 mmol/L (3.4-5.0); Sodium 141 mmol/L (137-145)
[2023-08-27 08:10] LABS: MRSA (PCR) DETECTED (NOT DETECTE)
[2023-08-27] MEDS: POTASSIUM CHLORIDE 10 MEQ ER TABLET 40 MEQ PO (09:11)
[2023-08-27] MEDS: TOLNAFTATE 1% POWDER 45 GM BTL 1 APPLIC TOPICAL ×3 (09:11→17:10)
[2023-08-27] MEDS: PANTOPRAZOLE SODIUM IV 40 MG VIAL IV PUSH ×2 (09:11→20:15)
[2023-08-27] MEDS: SERTRALINE HCL 25 MG TABLET PO (09:11)
[2023-08-27] MEDS: SERTRALINE HCL 50 MG TABLET PO (09:11)
[2023-08-27] MEDS: ACIDOPHILUS/BULGARICUS CHEWABLE TABLET 1 TABLET PO ×3 (09:12→17:11)
[2023-08-27] MEDS: ACETAMINOPHEN 500 MG TABLET 1000 MG PO (09:12)
[2023-08-27] MEDS: ATORVASTATIN 10 MG TABLET PO (09:12)
[2023-08-27] MEDS: levETIRAcetam 500 MG TABLET PO ×2 (09:12→20:14)
[2023-08-27] MEDS: MEROPENEM 1 GM/NS 100 ML 1 GM/100 ML BAG IVPB ×2 (10:17→20:14)
[2023-08-27] MEDS: VANCOMYCIN 1,250 MG/NS 250 ML 1,250 MG/250 ML BAG 166.67 MG IVPB (11:17)
--- NOTE | 2023-08-27 12:58 | PM.IMPN ---
Progress Note: A&P Assessment and Plan (1) Acute on chronic anemia: Code(s): D64.9 - Anemia, unspecified Status: Acute Assessment and Plan: Patient has acute on chronic anemia secondary to GI blood loss and complicated by chronic anticoagulation with Eliquis. Patient's Eliquis is on hold. Patient does have IVC filter in place since 2019. H&H on presentation of .9/21.9. Patient received 2 units of PRBCs. Patient states she would not want an EGD or colonoscopy due to her advanced age. She would rather be managed with blood transfusions and repeat labs. If her hemoglobin does not come up with transfusions and or her condition does not stabilize she would be willing to discuss hospice at that time. She states that this time she is not interested in aggressive interventions given her multiple cor morbidities and declining functional capacity. Anemia panel not performed prior to transfusions. (2) GI (gastrointestinal bleed): Qualifiers: GI bleed type/associated pathology: melena Qualified Code(s): K92.1 - Melena Code(s): K92.2 - Gastrointestinal hemorrhage, unspecified Status: Acute Assessment and Plan: Continue to monitor hemoglobin hematocrit. Due to patient not wanting intervention will not consult GI this time. (3) Urinary tract infection: Qualifiers: Indwelling urinary catheter type: indwelling urethral catheter Encounter type: initial encounter Code(s): N39.0 - Urinary tract infection, site not specified Status: Acute Assessment and Plan: Urine suspicious for UTI. Patient has history of E coli ESBL and was transition from Rocephin to meropenem. Urine culture pending. adjust antibiotic therapy to culture results. (4) Acute kidney injury: Code(s): N17.9 - Acute kidney failure, unspecified Status: Acute Assessment and Plan: Patient does have history of CKD and creatinine does seem to be slightly elevated above patient's baseline. Acute on chronic kidney failure likely due to dehydration and UTI. IV fluids continued (5) Abdominal distension: Code(s): R14.0 - Abdominal distension (gaseous) Status: Acute Assessment and Plan: Chronic distension the abdomen with ileus with history of sigmoid stricture in the past for which she does not want further evaluation. 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 (7) Chronic hypoxic respiratory failure, on home oxygen therapy: Code(s): J96.11 - Chronic respiratory failure with hypoxia; Z99.81 - Dependence on supplemental oxygen Status: Acute Assessment and Plan: Patient wears 2 L of oxygen at home and is currently at her baseline. Continue to monitor. (8) Pneumonia: Qualifiers: Laterality: unspecified laterality Lung location: unspecified part of lung Pneumonia type: due to unspecified organism Qualified Code(s): J18.9 - Pneumonia, unspecified organism Code(s): J18.9 - Pneumonia, unspecified organism Status: Acute Assessment and Plan: CT of the chest showing atelectasis versus pneumonia. MRSA swab positive. Patient was started on vancomycin. Neb treatments p.r.n.. Patient on home O2 at this time. Subjective Date/time seen: 08/27/23 12:58 Interval history: Patient states that she is feeling better today. Her abdominal pain is better controlled. She is being treated for UTI this time. Her hemoglobin and blood pressures improved transfusion and fluids. Continue to monitor H&H and BMP. She denies active shortness of breath, chest pain, coughing, dysuria, nausea or vomiting. She states she does have chronic diarrhea. Exam Narrative: GENERAL: Comfor
[2023-08-27 15:20] LABS: Hematocrit 31.6 % (37.0-47.0)
[2023-08-27 15:29] LABS: Anion Gap 9 mmol/L (8-16); Blood Urea Nitrogen 29 mg/dL (7-17); Calcium 7.6 mg/dL (8.4-10.2); Carbon Dioxide 22 mmol/L (22-30); Chloride 109 mmol/L (98-107); Estimated CRCL calculation 23 ml/min; Estimated Glomerular Filt Rate 27; Glucose 100 mg/dL (65-110); Potassium 3.3 mmol/L (3.4-5.0); Sodium 140 mmol/L (137-145)
--- NOTE | 2023-08-27 17:36 | PC.NURSE ---
This patient, Elizabet Mijares, was transferred to [240 ] on 08/27/23 at 1730. Personal belongings sent with patient. Report given to [Meseret ALFONSO]. Appropriate documentation sent with patient.
[2023-08-28] VITALS (12 sets, daily range): BP systolic 97–117; BP diastolic 50–98; PULSE 71–89; RESP 12–18; TEMP 36.4–36.9; O2SAT 93–100
[2023-08-28 09:16] LABS: Hematocrit 32.2 % (37.0-47.0); Hemoglobin 8.9 g/dL (12.0-15.0); Mean Corpuscular HGB Conc 27.6 g/dl (32-36); Mean Corpuscular Hemoglobin 25.5 pg (26-34); Mean Corpuscular Volume 92.3 fl (80-100); Mean Platelet Volume 9.5 fl (7.4-10.4); Platelet Count Result 294 k/mm3 (150-375); Red Blood Count 3.49 M/mm3 (4.2-5.4); Red Cell Distribution Width 16.4 % (11.5-14.5); White Blood Count 8.6 K/mm3 (4.5-10.0)
[2023-08-28 09:30] LABS: Anion Gap 9 mmol/L (8-16); Blood Urea Nitrogen 25 mg/dL (7-17); Calcium 7.5 mg/dL (8.4-10.2); Carbon Dioxide 23 mmol/L (22-30); Chloride 111 mmol/L (98-107); Estimated CRCL calculation 23 ml/min; Estimated Glomerular Filt Rate 27; Glucose 94 mg/dL (65-110); Potassium 3.3 mmol/L (3.4-5.0); Sodium 143 mmol/L (137-145)
[2023-08-28 09:35] LABS: Vancomycin Trough 9.5 ug/mL (10.0-20.0)
[2023-08-28] MEDS: SODIUM CHLORIDE 0.9% IV 1,000 ML 75 ML IV CONT (09:39)
[2023-08-28] MEDS: MEROPENEM 1 GM/NS 100 ML 1 GM/100 ML BAG IVPB ×2 (09:40→20:18)
[2023-08-28] MEDS: SERTRALINE HCL 50 MG TABLET PO (09:41)
[2023-08-28] MEDS: levETIRAcetam 500 MG TABLET PO ×2 (09:42→20:18)
[2023-08-28] MEDS: ACETAMINOPHEN 500 MG TABLET 1000 MG PO (09:42)
[2023-08-28] MEDS: SERTRALINE HCL 25 MG TABLET PO (09:42)
[2023-08-28] MEDS: ATORVASTATIN 10 MG TABLET PO (09:43)
[2023-08-28] MEDS: POTASSIUM CHLORIDE 10 MEQ ER TABLET 40 MEQ PO (09:43)
[2023-08-28] MEDS: TOLNAFTATE 1% POWDER 45 GM BTL 1 APPLIC TOPICAL ×3 (09:43→17:03)
[2023-08-28] MEDS: PANTOPRAZOLE SODIUM IV 40 MG VIAL IV PUSH ×2 (09:43→20:46)
[2023-08-28] MEDS: ACIDOPHILUS/BULGARICUS CHEWABLE TABLET 1 TABLET PO ×3 (09:48→17:03)
[2023-08-28] MEDS: DOXYCYCLINE 100 MG/NS 100 ML 100 MG/100 ML BAG IVPB ×2 (11:00→22:02)
[2023-08-28] MEDS: VANCOMYCIN 1,250 MG/NS 250 ML 1,250 MG/250 ML BAG 166.67 MG IVPB (12:09)
--- NOTE | 2023-08-28 13:32 | PM.IMPN ---
Progress Note: A&P Assessment and Plan (1) Acute on chronic anemia: Code(s): D64.9 - Anemia, unspecified Status: Acute Assessment and Plan: Patient has acute on chronic anemia secondary to GI blood loss and complicated by chronic anticoagulation with Eliquis. Patient's Eliquis is on hold. Patient does have IVC filter in place since 2019. H&H on presentation of .9/21.9. Patient received 2 units of PRBCs. Patient states she would not want an EGD or colonoscopy due to her advanced age. She would rather be managed with blood transfusions and repeat labs. If her hemoglobin does not come up with transfusions and or her condition does not stabilize she would be willing to discuss hospice at that time. She states that this time she is not interested in aggressive interventions given her multiple cor morbidities and declining functional capacity. Anemia panel not performed prior to transfusions. H&H stablized. (2) GI (gastrointestinal bleed): Qualifiers: GI bleed type/associated pathology: melena Qualified Code(s): K92.1 - Melena Code(s): K92.2 - Gastrointestinal hemorrhage, unspecified Status: Acute Assessment and Plan: Continue to monitor hemoglobin hematocrit. Due to patient not wanting intervention will not consult GI this time. (3) Urinary tract infection: Qualifiers: Indwelling urinary catheter type: indwelling urethral catheter Encounter type: initial encounter Code(s): N39.0 - Urinary tract infection, site not specified Status: Acute Assessment and Plan: Urine suspicious for UTI. Patient has history of E coli ESBL and was transition from Rocephin to meropenem. Urine culture positive for E coli sensitivities pending. adjust antibiotic therapy to culture results. (4) Acute kidney injury: Code(s): N17.9 - Acute kidney failure, unspecified Status: Acute Assessment and Plan: Patient does have history of CKD and creatinine does seem to be slightly elevated above patient's baseline. Acute on chronic kidney failure likely due to dehydration and UTI. IV fluids continued (5) Abdominal distension: Code(s): R14.0 - Abdominal distension (gaseous) Status: Acute Assessment and Plan: Chronic distension the abdomen with ileus with history of sigmoid stricture in the past for which she does not want further evaluation. 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 (7) Chronic hypoxic respiratory failure, on home oxygen therapy: Code(s): J96.11 - Chronic respiratory failure with hypoxia; Z99.81 - Dependence on supplemental oxygen Status: Acute Assessment and Plan: Patient wears 2 L of oxygen at home and is currently at her baseline. Continue to monitor. (8) Pneumonia: Qualifiers: Laterality: unspecified laterality Lung location: unspecified part of lung Pneumonia type: due to unspecified organism Qualified Code(s): J18.9 - Pneumonia, unspecified organism Code(s): J18.9 - Pneumonia, unspecified organism Status: Ruled-out Assessment and Plan: CT of the chest showing atelectasis versus pneumonia. MRSA swab positive. Neb treatments p.r.n.. Patient on home O2 at this time. Vanc discontinued due to lack of pneumonia sx and patient not presenting with sx. Will continue doxy for MRSA coverage. Subjective Date/time seen: 08/28/23 13:32 Interval history: Patient doing well today with no new complaints at this time. Did discuss hospice with the patient but she stated that she is unwilling to make her own medical decisions about this. I encouraged her to discuss this with her POA. Stated that this may help with her c
[2023-08-28] MEDS: LIDOCAINE HCL 1% LOCAL INJ 2 ML AMPUL 5 ML INFILTRATE (15:30)
[2023-08-28 18:12] LABS: Immunochemical Fecal Occult Bl Negative (N)
[2023-08-28 18:56] LABS: IFOB Positive Control Positive
[2023-08-28] MEDS: SALINE LOCK FLUSH 10 ML IV PUSH (20:50)
[2023-08-29] VITALS (12 sets, daily range): BP systolic 96–115; BP diastolic 50–70; PULSE 65–87; RESP 16–18; TEMP 36.4–37.1; O2SAT 92–100
[2023-08-29] MEDS: SALINE LOCK FLUSH 20 ML IV PUSH (05:23)
[2023-08-29] MEDS: SALINE LOCK FLUSH 10 ML IV PUSH ×3 (05:23→21:16)
[2023-08-29 05:32] LABS: Hematocrit 28.7 % (37.0-47.0); Hemoglobin 8.1 g/dL (12.0-15.0); Mean Corpuscular HGB Conc 28.2 g/dl (32-36); Mean Corpuscular Hemoglobin 25.5 pg (26-34); Mean Corpuscular Volume 90.3 fl (80-100); Mean Platelet Volume 8.8 fl (7.4-10.4); Platelet Count Result 228 k/mm3 (150-375); Red Blood Count 3.18 M/mm3 (4.2-5.4); Red Cell Distribution Width 16.6 % (11.5-14.5); White Blood Count 5.8 K/mm3 (4.5-10.0)
[2023-08-29 05:57] LABS: Anion Gap 7 mmol/L (8-16); Blood Urea Nitrogen 22 mg/dL (7-17); Calcium 6.9 mg/dL (8.4-10.2); Carbon Dioxide 19 mmol/L (22-30); Chloride 112 mmol/L (98-107); Estimated CRCL calculation 24 ml/min; Estimated Glomerular Filt Rate 29; Glucose 103 mg/dL (65-110); Potassium 2.8 mmol/L (3.4-5.0); Sodium 138 mmol/L (137-145)
[2023-08-29] MEDS: MEROPENEM 1 GM/NS 100 ML 1 GM/100 ML BAG IVPB ×2 (09:05→21:15)
[2023-08-29] MEDS: ATORVASTATIN 10 MG TABLET PO (09:06)
[2023-08-29] MEDS: ACETAMINOPHEN 500 MG TABLET 1000 MG PO (09:06)
[2023-08-29] MEDS: PANTOPRAZOLE 40 MG TABLET PO ×2 (09:06→21:15)
[2023-08-29] MEDS: ACIDOPHILUS/BULGARICUS CHEWABLE TABLET 1 TABLET PO ×3 (09:06→17:38)
[2023-08-29] MEDS: DOXYCYCLINE HYCLATE 100 MG TABLET PO ×2 (09:07→21:15)
[2023-08-29] MEDS: SERTRALINE HCL 25 MG TABLET PO (09:07)
[2023-08-29] MEDS: SERTRALINE HCL 50 MG TABLET PO (09:07)
[2023-08-29] MEDS: POTASSIUM CHLORIDE 10 MEQ ER TABLET 40 MEQ PO (09:08)
[2023-08-29] MEDS: TOLNAFTATE 1% POWDER 45 GM BTL 1 APPLIC TOPICAL ×3 (09:09→17:38)
[2023-08-29] MEDS: levETIRAcetam 500 MG TABLET PO ×2 (10:15→21:15)
[2023-08-29] MEDS: POTASSIUM CHLORIDE INJ 40 MEQ in SODIUM CHLORIDE 0.9% IV 500 ML 130 MEQ IVPB (10:16)
--- NOTE | 2023-08-29 14:41 | PM.IMPN ---
Progress Note: A&P Assessment and Plan (1) Acute on chronic anemia: Code(s): D64.9 - Anemia, unspecified Status: Acute Assessment and Plan: Patient has acute on chronic anemia secondary to GI blood loss and complicated by chronic anticoagulation with Eliquis. Patient's Eliquis is on hold. Patient does have IVC filter in place since 2019. H&H on presentation of ./.9. Patient received 2 units of PRBCs. Patient states she would not want an EGD or colonoscopy due to her advanced age. She would rather be managed with blood transfusions and repeat labs. If her hemoglobin does not come up with transfusions and or her condition does not stabilize she would be willing to discuss hospice at that time. She states that this time she is not interested in aggressive interventions given her multiple cor morbidities and declining functional capacity. Anemia panel not performed prior to transfusions. H&H stablized. (2) GI (gastrointestinal bleed): Qualifiers: GI bleed type/associated pathology: melena Qualified Code(s): K92.1 - Melena Code(s): K92.2 - Gastrointestinal hemorrhage, unspecified Status: Acute Assessment and Plan: Continue to monitor hemoglobin hematocrit. Due to patient not wanting intervention will not consult GI this time. (3) Urinary tract infection: Qualifiers: Indwelling urinary catheter type: indwelling urethral catheter Encounter type: initial encounter Code(s): N39.0 - Urinary tract infection, site not specified Status: Acute Assessment and Plan: Urine suspicious for UTI. Patient has history of E coli ESBL and was transition from Rocephin to meropenem. Urine culture positive for E coli ESBL Continue meropenem. (4) Acute kidney injury: Code(s): N17.9 - Acute kidney failure, unspecified Status: Resolved Assessment and Plan: Patient does have history of CKD and creatinine does seem to be slightly elevated above patient's baseline. Pt back to baseline (5) Abdominal distension: Code(s): R14.0 - Abdominal distension (gaseous) Status: Acute Assessment and Plan: Chronic distension the abdomen with ileus with history of sigmoid stricture in the past for which she does not want further evaluation. 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 (7) Chronic hypoxic respiratory failure, on home oxygen therapy: Code(s): J96.11 - Chronic respiratory failure with hypoxia; Z99.81 - Dependence on supplemental oxygen Status: Acute Assessment and Plan: Patient wears 2 L of oxygen at home and is currently at her baseline. Continue to monitor. (8) Pneumonia: Qualifiers: Laterality: unspecified laterality Lung location: unspecified part of lung Pneumonia type: due to unspecified organism Qualified Code(s): J18.9 - Pneumonia, unspecified organism Code(s): J18.9 - Pneumonia, unspecified organism Status: Ruled-out Assessment and Plan: CT of the chest showing atelectasis versus pneumonia. MRSA swab positive. Neb treatments p.r.n.. Patient on home O2 at this time. Vanc discontinued due to lack of pneumonia sx and patient not presenting with sx. Will continue doxy for MRSA coverage. Subjective Date/time seen: 08/29/23 14:41 Interval history: Patient stable. Her potassium low today. Patient's potassium getting replaced and will repeat potassium after. Plan to discharge patient back to correction tomorrow with IV antibiotic therapy. Exam Narrative: GENERAL: Comfortable, no acute distress HENMT: moist mucous membranes EYES: EOM intact b/l NECK: no lymphadenopathy RESPIRATORY: adventitious lizett
[2023-08-29 15:53] LABS: Potassium 3.8 mmol/L (3.4-5.0)
[2023-08-30] VITALS: BP 102/62; PULSE 68; PULSE 70; RESP 18; TEMP 36.2; O2SAT 98
[2023-08-30 04:00] VITALS: BP 113/57; PULSE 71; PULSE 82; RESP 18; TEMP 36.3; O2SAT 98
[2023-08-30] MEDS: SALINE LOCK FLUSH 10 ML IV PUSH ×2 (05:15→12:23)
[2023-08-30 05:33] LABS: Hemoglobin 8.5 g/dL (12.0-15.0); Mean Corpuscular HGB Conc 27.4 g/dl (32-36); Mean Corpuscular Hemoglobin 25.2 pg (26-34); Mean Platelet Volume 8.9 fl (7.4-10.4); Platelet Count Result 218 k/mm3 (150-375); Red Blood Count 3.37 M/mm3 (4.2-5.4); Red Cell Distribution Width 16.9 % (11.5-14.5); White Blood Count 5.7 K/mm3 (4.5-10.0)
[2023-08-30 05:47] LABS: Anion Gap 9 mmol/L (8-16); Blood Urea Nitrogen 21 mg/dL (7-17); Calcium 7.1 mg/dL (8.4-10.2); Carbon Dioxide 17 mmol/L (22-30); Chloride 117 mmol/L (98-107); Estimated CRCL calculation 24 ml/min; Estimated Glomerular Filt Rate 29; Glucose 93 mg/dL (65-110); Potassium 3.3 mmol/L (3.4-5.0); Sodium 143 mmol/L (137-145)
[2023-08-30 08:00] VITALS: BP 103/63; PULSE 71; PULSE 77; RESP 18; TEMP 36.8; O2SAT 100; O2SAT 98
[2023-08-30] MEDS: ACETAMINOPHEN 500 MG TABLET 1000 MG PO (08:11)
[2023-08-30] MEDS: ATORVASTATIN 10 MG TABLET PO (08:11)
[2023-08-30] MEDS: SERTRALINE HCL 25 MG TABLET PO (08:11)
[2023-08-30] MEDS: DOXYCYCLINE HYCLATE 100 MG TABLET PO (08:11)
[2023-08-30] MEDS: POTASSIUM CHLORIDE 20 MEQ PACKET (FOR LIQUID) 40 MEQ PO (08:12)
[2023-08-30] MEDS: PANTOPRAZOLE 40 MG TABLET PO (08:12)
[2023-08-30] MEDS: TOLNAFTATE 1% POWDER 45 GM BTL 1 APPLIC TOPICAL ×2 (08:12→12:23)
[2023-08-30] MEDS: SERTRALINE HCL 50 MG TABLET PO (08:12)
[2023-08-30] MEDS: levETIRAcetam 500 MG TABLET PO (08:12)
[2023-08-30] MEDS: POTASSIUM CHLORIDE 10 MEQ ER TABLET 40 MEQ PO (08:12)
[2023-08-30] MEDS: MEROPENEM 1 GM/NS 100 ML 1 GM/100 ML BAG IVPB (08:12)
[2023-08-30] MEDS: ACIDOPHILUS/BULGARICUS CHEWABLE TABLET 1 TABLET PO ×2 (08:12→12:23)
[2023-08-30 12:00] VITALS: BP 93/54; PULSE 70; PULSE 73; RESP 18; TEMP 36.8; O2SAT 100
--- NOTE | 2023-08-30 12:01 | PM.DS ---
DS: Admitting Diagnosis Discharge Date 08/30/23 Admitting Diagnosis abdominal pain, UTI DS: Discharge Diagnosis Discharge Diagnosis (1) Acute on chronic anemia: Code(s): D64.9 - Anemia, unspecified Status: Acute (2) GI (gastrointestinal bleed): Qualifiers: GI bleed type/associated pathology: melena Qualified Code(s): K92.1 - Melena Code(s): K92.2 - Gastrointestinal hemorrhage, unspecified Status: Acute (3) Urinary tract infection: Qualifiers: Indwelling urinary catheter type: indwelling urethral catheter Encounter type: initial encounter Code(s): N39.0 - Urinary tract infection, site not specified Status: Acute (4) Acute kidney injury: Code(s): N17.9 - Acute kidney failure, unspecified Status: Resolved (5) Abdominal distension: Code(s): R14.0 - Abdominal distension (gaseous) Status: Acute (6) Inguinal adenopathy: Code(s): R59.0 - Localized enlarged lymph nodes Status: Acute (7) Chronic hypoxic respiratory failure, on home oxygen therapy: Code(s): J96.11 - Chronic respiratory failure with hypoxia; Z99.81 - Dependence on supplemental oxygen Status: Acute (8) Pneumonia: Qualifiers: Laterality: unspecified laterality Lung location: unspecified part of lung Pneumonia type: due to unspecified organism Qualified Code(s): J18.9 - Pneumonia, unspecified organism Code(s): J18.9 - Pneumonia, unspecified organism Status: Ruled-out DS: Summary Hospital Course Hospital Course: This is a 83-year-old female with past medical history of?mild dementia, essential hypertension, DVT with IVC filter, chronic anemia, chronic kidney disease, vulvar cancer and chronic pelvic lymphadenopathy who presented to the ER via EMS from [facility] due to transient abdominal pain and worsening abdominal distension.? Patient reported that her abdomen is chronically distended and had been so for a year more but is been progressively getting worse. patient has watery diarrhea that is chronic and states that it is black sometimes. She is on chronic anticoagulation with Eliquis due to history of DVTs but also has an IVC filter in place.? On arrival to the ER she was noted to be significantly pale but was otherwise talkative in no distress despite having marked hypotension with systolic blood pressures also is the 50s. Patient received IV fluids. Her hemoglobin was found to be 5.9 and she received 2 units of PRBCs. Patient stated that she is not interested in aggressive interventions given her multiple cor morbidities and declining functional capacity.? She reports she has been almost entirely dependent upon nursing staff over the last several months.? 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 She understands that getting surgical care or chemotherapy would likely make her more ill and affect her current quality of life.? patient was also found to have abnormal UA. She has history of E coli ESBL and was put on meropenem. Patient's hemoglobin remained stable during hospital stay. Patient's urine did come back as E coli ESBL. She had a midline placed and will receive remaining antibiotics at her nursing facility. Her labs and vital signs are stable and she is medically clear for discharge at this time. Time Spent with Patient Time attestation: Total time spent providing and/or coordinating discharge services: Exam Narrative: GENERAL: Comfortable, no acute distress HENMT: moist mucous membranes EYES: EOM intact b/l NECK: no lymphadenopathy RESPIRATORY: adventitious breath sounds CARDIO: RRR GI: soft, nontender, bowel sounds present SKIN: no rashes EXTREMITIES: no edema, redness or tenderness DS: Data Data Completed and Pen
[2023-08-30 15:05] LABS: SARS-CoV-2 RNA PCR Negative (Negative)
[2023-08-30 16:00] VITALS: PULSE 74
== END 2023-08-30 16:30 | DRG 378 ==
LOC: ANHED 08-27 00:07 → ANHICU 08-27 03:18 → ANH2MED 08-27 17:27
PROVIDERS: Admitting Provider Internal Medicine; Emergency Provider Student in an Organized Health Care Education/Training Program; PCP Nurse Practitioner Adult Health; Visit Provider Internal Medicine Critical Care Medicine
DX: K92.1 Melena (principal); J96.11 Chronic respiratory failure with hypoxia; N17.9 Acute kidney failure, unspecified; N39.0 Urinary tract infection, site not specified; Z16.12 Extended spectrum beta lactamase (ESBL) resistance; Z79.01 Long term (current) use of anticoagulants; B96.20 Unspecified Escherichia coli [E. coli] as the cause of diseases classified elsewhere; D63.1 Anemia in chronic kidney disease; E87.6 Hypokalemia; E78.5 Hyperlipidemia, unspecified; F03.90 Unspecified dementia, unspecified severity, without behavioral disturbance, psychotic disturbance, mood disturbance, and anxiety; I95.9 Hypotension, unspecified; I12.9 Hypertensive chronic kidney disease with stage 1 through stage 4 chronic kidney disease, or unspecified chronic kidney disease; K52.9 Noninfective gastroenteritis and colitis, unspecified; K21.00 Gastro-esophageal reflux disease with esophagitis, without bleeding; L40.9 Psoriasis, unspecified; M19.90 Unspecified osteoarthritis, unspecified site; N18.9 Chronic kidney disease, unspecified; R59.0 Localized enlarged lymph nodes; R14.0 Abdominal distension (gaseous); Z11.52 Encounter for screening for COVID-19; Z20.822 Contact with and (suspected) exposure to COVID-19; Z86.718 Personal history of other venous thrombosis and embolism; Z95.828 Presence of other vascular implants and grafts; Z96.642 Presence of left artificial hip joint; Z85.44 Personal history of malignant neoplasm of other female genital organs; Z90.79 Acquired absence of other genital organ(s); Z99.81 Dependence on supplemental oxygen
CPT/HCPCS: 36415; 36430; 36569; 71045; 74176; 80048; 80053; 80202; 81001; 82274; 83605; 83690; 83735; 84100; 84132; 84443; 84484; 85014; 85018; 85025; 85027; 85610; 85730; 86140; 86850; 86900; 86901; 86923; 87040; 87086; 87186; 87635; 87637; 87641; 93005; 96365; 96366; 96367; 96375; 99285; A9270; C9113; J0696; J2185; J2405; J3370; J3480; J7030; J7040; J7050; P9016

== ENCOUNTER 2023-09-05 09:23 | Inpatient (IN) | payer OTHER, SELFPAY ==
[2023-09-05] VITALS (9 sets, daily range): BP systolic 91–118; BP diastolic 58–78; PULSE 81–106; RESP 12–20; TEMP 36.4–36.6; O2SAT 94–98; BMI 39.4
--- NOTE | ~2023-09-05 | CT_ITS ---
EXAMINATION: CT abdomen pelvis wo con DATE: 09/05/2023 11:27 INDICATION: Abdomen pain. Distention. TECHNIQUE: Computed tomography (CT) of the abdomen and pelvis was performed without intravenous contr ast. The dose-length product was 1415.18 mGy-cm. Automated exposure control and iterative reconstruct ion technique were employed. COMPARISON: CT dated 08/26/2023. FINDINGS: There is dependent atelectasis. Heart size normal. No significant pleural or pericardial ef fusion. There is severely dilated rectosigmoid colon without definitive transition point, likely ileu s. Stable large lobulated inguinal masses, likely metastatic disease or lymphoma. Leung catheter pres ent in the bladder which is decompressed. There are gallstones. There are nonobstructing bilateral re nal stones. There is severe atrophy of the right kidney. No free air. There is a burst fracture of T1 1, unchanged. Stable burst fracture of T7. Moderate-severe lower thoracic and lumbar spondylosis. IMPRESSION: 1. Persistent severe dilation of the rectosigmoid colon with fecal impaction in the rectum, likely il eus. 2: Stable large lobulated bilateral inguinal masses measuring up to 11 cm, most likely metastatic dis ease or lymphoma. 3: Cholelithiasis. 4: Nonobstructing bilateral nephrolithiasis with severe atrophy of the right kidney. Reviewed, dictated and finalized at location [facility] IMPRESSION: 1. Persistent severe dilation of the rectosigmoid colon with fecal impaction in the rectum, likely ileus. 2: Stable large lobulated bilateral inguinal masses measuring up to 11 cm, most likely metastatic disease or lymphoma. 3: Cholelithiasis. 4: Nonobstructing bilateral nephrolithiasis with severe atrophy of the right ki dney.
--- NOTE | ~2023-09-05 | XR_ITS ---
Supine and upright views of the abdomen Clinical history: NG tube placement Findings: NG tube is in satisfactory position. Multiple air distended loops of large and small bowel are present. No definite free air seen. No abnormal mass lesion or calcification is seen. Osseous str uctures are intact. Impression: NG tube in satisfactory position. Multiple prominent air distended loops of large and small bowel. Correlate for ileus versus bowel obs truction. Reviewed, dictated and finalized at [facility]. HIKER Impression: NG tube in satisfactory position. Multiple prominent air distended loops of large and small bowel. Correlate for ileus versus bowel obstruction.
--- NOTE | 2023-09-05 09:41 | ED.ABDPAIN ---
HPI - Abdominal Pain General Chief Complaint: Abdominal Pain <Paola Garcia PA-C - Last Filed: 09/05/23 13:43> Stated Complaint: ABD distention <GUSTAVO Stokes Last Filed: 09/05/23 13:43> Source: patient and EMS <Paola Garcia PA-C - Last Filed: 09/05/23 13:43> Mode of arrival: EMS <GUSTAVO Stokes Last Filed: 09/05/23 13:43> Limitations: dementia <GUSTAVO Stokes Last Filed: 09/05/23 13:43> History of Present Illness HPI narrative: This is an 83-year-old female that presents to the emergency department for abdominal distension. Patient is a poor historian, was sent from her nursing facility. She was recently admitted for same and diagnosed with an ileus. She was also anemic and required blood transfusion. She has history of vulvar cancer, but is not currently undergoing any treatment for this. <Paola Garcia PA-C - Last Filed: 09/05/23 13:43> Related Data Home Medications: Home Medications Medication Instructions Recorded Confirmed atorvastatin 10 mg tablet 10 mg PO DAILY 06/04/21 08/27/23 furosemide 20 mg tablet 20 mg PO DAILY 06/04/21 08/27/23 levetiracetam 250 mg tablet 500 mg PO BID 06/04/21 08/27/23 acetaminophen 325 mg tablet 650 mg PO Q6-8H PRN Pain 03/02/22 08/27/23 acetaminophen 500 mg tablet 1,000 mg PO DAILY 03/02/22 08/27/23 apixaban 2.5 mg tablet (Eliquis) 2.5 mg PO BID 03/02/22 08/27/23 lidocaine 4 % topical patch 2 patch topical DAILY 03/02/22 08/27/23 (Lidocaine Pain Relief) ondansetron HCl 4 mg tablet 4 mg PO Q6H PRN Nausea 03/02/22 08/27/23 Lactobacillus acidophilus 100 mg PO TID 07/27/22 08/27/23 (Acidophilus capsule) polyethylene glycol 3350 17 17 g PO DAILY PRN Constipation 07/27/22 08/27/23 gram/dose oral powder (Miralax) benzocaine 20 %-menthol 0.5 % 1 spray topical QID PRN Pain 06/04/23 08/27/23 topical aerosol (Dermoplast (with menthol)) diclofenac sodium 1 % topical gel 4 g topical QID PRN Pain 06/04/23 08/27/23 lactulose 10 gram/15 mL oral 15 ml PO BID PRN Constipation 06/04/23 08/27/23 solution loperamide 2 mg tablet 2 mg PO Q6H PRN Diarrhea 06/04/23 08/27/23 menthol 0.44 %-zinc oxide 20.6 % 1 applic topical DAILY PRN skin 06/04/23 08/27/23 topical ointment (Calmoseptine) irritaition nystatin 100,000 unit/gram topical 1 applic topical TID 06/04/23 08/27/23 powder potassium chloride 10 mEq 10 meq PO DAILY 06/04/23 08/27/23 capsule,extended release sertraline 25 mg tablet 25 mg PO DAILY 06/04/23 08/27/23 sertraline 50 mg tablet 50 mg PO DAILY 06/04/23 08/27/23 sodium phosphates 19 gram-7 197 ml RECTAL DAILY PRN 06/04/23 08/27/23 gram/118 mL enema (Fleet Enema) Constipation <Paola Garcia PA-C - Last Filed: 09/05/23 13:43> Allergies/Adverse Reactions: Allergies Allergy/AdvReac Type Severity Reaction Status Date / Time red dye Allergy Severe FACIAL Verified 09/05/23 09:50 SWELLING <Paola Garcia PA-C - Last Filed: 09/05/23 13:43> Review of Systems Review of Systems: ROS unobtainable: Yes unobtainable due to medical condition <Paola Garcia PA-C - Last Filed: 09/05/23 13:43> [facility] Past Medical History Medical History: Medical History (Updated 09/05/23 @ 13:40 by Paola Garcia PA-C) Chronic diarrhea Chronic hypoxic respiratory failure, on home oxygen therapy Colitis Depression DVT (deep venous thrombosis) Right leg Hyperlipidemia Hypertension Nausea Osteoarthritis Psoriasis Reflux esophagitis Stricture of sigmoid colon Vulvar cancer Status post partial right vulvectomy. The patient and family members have decided not to pursue curative intent treatment. She saw a radiation oncologist regarding inguinal adenopathy though they have decided to hold on initiation of palliative radiation as she is asymptomatic. <Paola Garcia PA-C - Last Filed: 09/05/23 13:43> Surgical History Surgical History: Surgical History (Reviewed 08/27/23 @ 04:57 by S
[2023-09-05 10:28] LABS: Appearance Urine Clear (Clear); Bacteria Urine None Seen /hpf; Bilirubin Urine Negative (Negative); Blood Urine 1+ (Negative); Color Urine Yellow (Yellow); Glucose Urine UA Negative (Negative); Ketones Urine Negative (Negative); Leukocyte Esterase Ur 2+ LEU/UL (Negative); Need Manual Microscopic Reviewed; Nitrate Urine Negative (Negative); Protein Urine 2+ mg/dL (Negative); Squamous Epithelial Cell Urine Occasional /hpf (Few); Urobilinogen Urine 0.2 mg/dL (<2.0); WBC Urine 21-50 /hpf
[2023-09-05 10:30] LABS: Add Urine Microscopic? YES
[2023-09-05 10:38] LABS: Basophils Percent Auto 0.3 % (0.2-1.2); Eosinophils Absolute Auto 0.1 K/mm3 (0-0.3); Eosinophils Percent Auto 1.3 % (0-4.4); Hematocrit 33.3 % (37.0-47.0); Hemoglobin 9.6 g/dL (12.0-15.0); Immature Granulocyte Absolute 0.02 K/mm3 (0.00-0.031); Immature Granulocyte Percent A 0.3 % (0-0.5); Lymphocytes Absolute Auto 1.56 K/mm3 (0.9-3.2); Lymphocytes Percent Auto 22.1 % (18.3-44.2); Mean Corpuscular HGB Conc 28.8 g/dl (32-36); Mean Corpuscular Hemoglobin 25.3 pg (26-34); Mean Corpuscular Volume 87.6 fl (80-100); Mean Platelet Volume 9.9 fl (7.4-10.4); Monocytes Absolute Auto 0.4 K/mm3 (0.1-0.6); Monocytes Percent Auto 5.8 % (2.6-8.5); Neutrophils Percent Auto 70.2 % (45.5-73.1); Platelet Count Result 239 k/mm3 (150-375); Red Cell Distribution Width 18.1 % (11.5-14.5); White Blood Count 7.1 K/mm3 (4.5-10.0)
[2023-09-05 10:52] LABS: Alanine Aminotransferase 10 U/L (6-35); Albumin Level 3.1 g/dL (3.5-5.1); Alkaline Phosphatase 84 U/L (38-126); Aspartate Amino Transferase 33 U/L (14-36); Bilirubin,Total 0.5 mg/dL (0.2-1.3); Blood Urea Nitrogen 45 mg/dL (7-17); Calcium 8.2 mg/dL (8.4-10.2); Carbon Dioxide 20 mmol/L (22-30); Estimated CRCL calculation 28 ml/min; Estimated Glomerular Filt Rate 29; Glucose 113 mg/dL (65-110); Lipase 132 U/L (23-300); Potassium 2.3 mmol/L (3.4-5.0); Sodium 143 mmol/L (137-145)
--- NOTE | 2023-09-05 10:54 | ECG_ITS ---
Measurements Intervals [place] Rate: 84 P: 50 [place]: 178 QRS: -40 QRSD: 150 T: -28 QT: 330 QTc: 392 Interpretive Statements SINUS RHYTHM LEFT AXIS DEVIATION [QRS AXIS < -30] RIGHT BUNDLE BRANCH BLOCK [120+ ms QRS DURATION, UPRIGHT V1, 40+ ms S IN I/aVL/V4/V5/V6] POSSIBLE ANTERIOR MYOCARDIAL INFARCTION , OF INDETERMINATE AGE [30 ms Q WAVE IN V3/V4, OR R < 0.2 mV IN V4] ABNORMAL ECG COMPARED TO ECG 08/26/2023 20:01:21 NO SIGNIFICANT CHANGES Electronically Signed On 09-05-2023 18:26:02 LOG CARRIER OPERATOR by Casimiro Womack M.D.
[2023-09-05 11:12] LABS: Hypochromasia 1+ (NORMAL); Platelet Estimate Adequate (Adequate); Schistocytes Rare (NORMAL)
[2023-09-05 11:22] LABS: Anion Gap 9 mmol/L (8-16); Chloride 114 mmol/L (98-107)
[2023-09-05 11:25] LABS: Magnesium 1.9 mg/dL (1.6-2.3)
[2023-09-05] MEDS: SODIUM CHLORIDE 0.9% IV 1,000 ML 999 ML IV CONT (11:42)
[2023-09-05] MEDS: POTASSIUM CHLORIDE INJ 40 MEQ in SODIUM CHLORIDE 0.9% IV 500 ML 130 MEQ IVPB (11:43)
[2023-09-05] MEDS: BISACODYL 10 MG SUPPOSITORY RECTAL (14:44)
--- NOTE | 2023-09-05 14:44 | PC.NURSE ---
Unable to obtain blood cultures. Phlebotomy notified.
--- NOTE | 2023-09-05 14:46 | PM.IMHP ---
H&P: HPI History of Present Illness Date/Time: 09/05/23 14:45 Chief Complaint: Abdominal pain. Narrative: This is a very pleasant 83-year-old female with metastatic vulvar cancer, chronic kidney disease, chronic anemia, hypertension, mild dementia, seizures, and deep venous thrombosis status post IVC filter insertion who presented to the emergency department via EMS from her nursing facility for evaluation of abdominal pain. The patient provides the following history. She was recently admitted to the hospital on August 26 with acute kidney injury, acute on chronic anemia, and urinary tract infection. She was transfused to a stable hemoglobin and completed a course of meropenem for ESBL E coli urinary tract infection. She did not wish to pursue any further workup given her continued decline in functional capacity over the last several months. She was discharged to the nursing facility on August 30. She returns today with increasing abdominal pain and distension. Her appetite is poor and she eats very little due to the abdominal bloating and distension. She has early satiety and is not unusual for her to vomit. She only passes liquid stools and has not had a good bowel movement 4 months that she can remember. She is not passing much gas. She denies fever, chills, sweats, chest pain, pleuritic pain, hematemesis, melena, hematochezia, and dysuria. In the ED: She was afebrile on arrival. Blood pressures have been running at the low end of normal. Her labs were significant for a hemoglobin of 9.6, sodium 143, potassium 2.3, chloride 114, carbon dioxide 20, BUN 45, creatinine 1.70. CT of the abdomen and pelvis showed persistent severe dilation of the rectosigmoid colon with fecal impaction in the rectum, likely ileus, nonobstructing bilateral nephrolithiasis with severe atrophy of the right kidney, cholelithiasis, and stable loculated bilateral inguinal masses. She was given a L of normal saline and 40 mEq IV potassium chloride and she is being admitted in this setting for further treatment. Review of Systems Review of Systems: Twelve systems were reviewed and are negative except for as per HPI. [facility] Past Medical History Medical History (Updated 09/05/23 @ 14:57 by Martha Johnson PA-C) Chronic anemia Chronic diarrhea Chronic hypoxic respiratory failure, on home oxygen therapy Chronic kidney disease Colitis Deep vein thrombosis of right lower limb Depression Hyperlipidemia Hypertension Osteoarthritis Psoriasis Reflux esophagitis Stricture of sigmoid colon Vulvar cancer Status post partial right vulvectomy. The patient and family members have decided not to pursue curative intent treatment. She saw a radiation oncologist regarding inguinal adenopathy though they have decided to hold on initiation of palliative radiation as she is asymptomatic. 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 Code status: Do not resuscitate. Smoking packs per day: 2 Smoking cigarettes per day: 40.0 Years smoked: 45 Smoking pack-years: 90.00 Smoking status: Former smoker Alcohol intake: former Substance use: never Substance use type: does not use Do You Feel Safe in your Home?: Yes Lack of Transportation: No Lack of Food: Never True Current Housing: I Have Housing Concerned About Future Housing: No Difficulty Paying Gas/Electric Bills:
--- NOTE | 2023-09-05 15:18 | PC.NURSE ---
This patient, Elizabet Mijares, was admitted to [facility] Surg Room 321-01. Patient/family oriented to hospital policies and general routines including ID bracelet, bed and alarms, visiting hours, pain management, procedures, bathroom and other care routines, personal items, smoking policy, room service/diet, and visiting hours. Information on how to activate the Rapid Response Team has been discussed. Patient/Family are encouraged to report perceived risks to care and to ask questions if they do not understand what they are told or what they should do.
[2023-09-05] MEDS: LACTATED RINGERS 1,000 ML 100 ML IV CONT (16:10)
[2023-09-05] MEDS: MEROPENEM 1 GM/NS 100 ML 1 GM/100 ML BAG IVPB (16:11)
[2023-09-05 21:13] LABS: Lactic Acid Reflex 1.1 mmol/L (0.7-2.0)
[2023-09-05 21:17] LABS: Magnesium 1.8 mg/dL (1.6-2.3); Potassium 2.3 mmol/L (3.4-5.0)
[2023-09-05] MEDS: KCL 20 MEQ/SW 100 ML 100 ML 50 MEQ IVPB (21:48)
[2023-09-05] MEDS: levETIRAcetam 500MG/NACL 100ML 500 MG/100 ML BAG 400 MG IVPB (23:58)
[2023-09-06] VITALS (11 sets, daily range): BP systolic 104–113; BP diastolic 45–63; PULSE 65–95; RESP 16–20; TEMP 36.1–36.3; O2SAT 94–98
[2023-09-06] MEDS: POTASSIUM CHLORIDE INJ 40 MEQ in SODIUM CHLORIDE 0.9% IV 500 ML 130 MEQ IVPB ×2 (00:22→09:01)
[2023-09-06 08:00] LABS: Hematocrit 31.7 % (37.0-47.0); Hemoglobin 8.9 g/dL (12.0-15.0); Mean Corpuscular HGB Conc 28.1 g/dl (32-36); Mean Corpuscular Hemoglobin 25.2 pg (26-34); Mean Corpuscular Volume 89.8 fl (80-100); Mean Platelet Volume 10.2 fl (7.4-10.4); Platelet Count Result 242 k/mm3 (150-375); Red Blood Count 3.53 M/mm3 (4.2-5.4); Red Cell Distribution Width 18.8 % (11.5-14.5); White Blood Count 7.3 K/mm3 (4.5-10.0)
[2023-09-06 08:12] LABS: Anion Gap 11 mmol/L (8-16); Blood Urea Nitrogen 43 mg/dL (7-17); Calcium 7.9 mg/dL (8.4-10.2); Carbon Dioxide 15 mmol/L (22-30); Chloride 122 mmol/L (98-107); Estimated CRCL calculation 27 ml/min; Estimated Glomerular Filt Rate 33; Glucose 102 mg/dL (65-110); Potassium 2.6 mmol/L (3.4-5.0); Sodium 148 mmol/L (137-145)
--- NOTE | 2023-09-06 08:23 | PC.NURSE ---
KCL level called to provider.
[2023-09-06] MEDS: levETIRAcetam 500MG/NACL 100ML 500 MG/100 ML BAG 400 MG IVPB ×2 (09:01→20:22)
[2023-09-06] MEDS: KCL 40 MEQ/D5 1/2NS 1,000 ML 75 ML IV CONT (15:17)
--- NOTE | 2023-09-06 17:11 | PM.IMPN ---
Progress Note: A&P Assessment and Plan (1) Ileus: Code(s): K56.7 - Ileus, unspecified Status: Acute (2) Fecal impaction in rectum: Code(s): K56.41 - Fecal impaction Status: Inactive (3) Hypokalemia: Code(s): E87.6 - Hypokalemia Status: Acute (4) Abdominal pain: Code(s): R10.9 - Unspecified abdominal pain Status: Acute (5) Inguinal adenopathy: Code(s): R59.0 - Localized enlarged lymph nodes Status: Acute (6) Vulvar cancer: Code(s): C51.9 - Malignant neoplasm of vulva, unspecified Status: Chronic (7) Chronic kidney disease: Code(s): N18.9 - Chronic kidney disease, unspecified Status: Acute (8) Chronic anemia: Code(s): D64.9 - Anemia, unspecified Status: Acute Plan Place patient under observation status NG tube placed for abdominal decompression which patient pulled out last night General surgery consult given for evaluation and treatment recommendations Keep patient NPO except meds Patient has EMILY with the moderately-severe hypokalemia Aggressive management with potassium supplementation ordered in IV fluids in the form of D5 half normal saline with 40 mEq KCL supplementation at 75 cc/hour 40 mEq IV KCL x1 additional dose ordered Monitor labs and electrolytes closely Spoke with care coordination regarding hospice consult DC planning once patient is accepted by hospice Close coordination with General surgery and the hospice regarding DC planning and further treatment recommendations ? Patient seen and examined at bedside during my morning rounds ? Collaborated with patient's nurse at the bedside in detail and addressed all concerns ? Labs, electrolytes, radiology, investigations and test results reviewed ? Consult/Nursing/Ancilliary notes on the chart reviewed and appreciated ? Spoke with patient/family at the bedside and answered all the questions that they had Repeat labs in a.m. Electrolyte replacement as per protocol. Patient will be monitored very closely on the floor. Further recommendations as per the hospital course. Time Spent With Patient Time with patient: 15 - 25 minutes Subjective Date/time seen: 09/06/23 17:11 Interval history: Patient lying in bed. She pulled out her NG tube last night. Feels tired and fatigued. Does not want any aggressive management. Review of Systems Review of Systems: Twelve systems were reviewed and are negative except for as per HPI. All systems reviewed & are unremarkable except as noted in HPI and below Exam Narrative: General:?Chronically ill-appearing female sitting up in bed. Weight: 94.7 kg. BMI: 39.4. HEENT:??PERRL, EOMI. Sclera anicteric. Tacky mucous membranes. Neck:??Supple. Respiratory:?Lungs are clear to auscultation bilaterally. Cardiovascular:??Regular rate and rhythm with S1-S2.? Gastrointestinal:??Abdomen is markedly distended. Increased tympany throughout. She is tender to palpation throughout the abdomen without voluntary guarding or rebound tenderness. She has pretty significant inguinal lymphadenopathy, left greater than right with some tenderness. Positive bowel sounds. Skin:? Warm and dry. Generalized pallor. Extremities:??No cyanosis, clubbing, or significant edema. Feet are cool. Posterior tibialis pulses palpable.?Capillary refill normal. Neurological:??Alert.? Cranial nerves 2-12 are grossly intact. No gross focal deficits to casual conversation. Psychiatric:??Pleasant and cooperative with appropriate mood and affect. She is in good spirits. Slightly forgetful. Objective Data Vital Signs Vital Signs: Vital Signs - 24 hr 09/05/23 20:38 09/05/23 20:00 09/06/23 00:00 Temperature 36.5 C Pulse Rate 87 106 H 90 Respiratory Rate 18 Blood Pressure 105/59 L Pulse Oximetry 94 Oxygen Delivery Oxygen Flow Rate 09/05/23 20:00 09/06/23 06:00 09/06/23 04:00 Temperature 36.3 C L Pulse Rate 90 95 89 Respiratory Rat
[2023-09-07] VITALS (10 sets, daily range): BP systolic 100–125; BP diastolic 64–98; PULSE 58–87; RESP 16–20; TEMP 36.1–36.2; O2SAT 91–99
[2023-09-07] MEDS: KCL 40 MEQ/D5 1/2NS 1,000 ML 75 ML IV CONT ×2 (04:57→20:04)
[2023-09-07 06:57] LABS: Basophils Percent Auto 0.4 % (0.2-1.2); Eosinophils Absolute Auto 0.3 K/mm3 (0-0.3); Eosinophils Percent Auto 3.9 % (0-4.4); Hematocrit 31.7 % (37.0-47.0); Immature Granulocyte Absolute 0.02 K/mm3 (0.00-0.031); Immature Granulocyte Percent A 0.3 % (0-0.5); Lymphocytes Percent Auto 26.7 % (18.3-44.2); Mean Corpuscular HGB Conc 28.4 g/dl (32-36); Mean Corpuscular Hemoglobin 25.6 pg (26-34); Mean Corpuscular Volume 90.3 fl (80-100); Mean Platelet Volume 10.3 fl (7.4-10.4); Monocytes Absolute Auto 0.6 K/mm3 (0.1-0.6); Monocytes Percent Auto 7.7 % (2.6-8.5); Neutrophils Absolute Auto 4.3 K/mm3 (1.3-6.7); Platelet Count Result 262 k/mm3 (150-375); Red Blood Count 3.51 M/mm3 (4.2-5.4); Red Cell Distribution Width 19.4 % (11.5-14.5); White Blood Count 7.1 K/mm3 (4.5-10.0)
[2023-09-07 07:05] LABS: Anion Gap 7 mmol/L (8-16); Blood Urea Nitrogen 40 mg/dL (7-17); Calcium 7.7 mg/dL (8.4-10.2); Carbon Dioxide 20 mmol/L (22-30); Chloride 126 mmol/L (98-107); Estimated CRCL calculation 29 ml/min; Estimated Glomerular Filt Rate 36; Glucose 115 mg/dL (65-110); Phosphorus 3.7 mg/dL (2.5-4.5); Potassium 3.4 mmol/L (3.4-5.0); Sodium 153 mmol/L (137-145)
[2023-09-07 07:27] LABS: Hypochromasia 1+ (NORMAL); Platelet Estimate Adequate (Adequate)
[2023-09-07 07:28] LABS: Anisocytosis 2+ (NORMAL); Macrocytosis 1+ (NORMAL); Schistocytes None Seen (NORMAL)
[2023-09-07 07:29] LABS: Burr Cells 1+ (NORMAL); Ovalocytes 1+ (NORMAL)
[2023-09-07] MEDS: levETIRAcetam 500MG/NACL 100ML 500 MG/100 ML BAG 400 MG IVPB (08:26)
--- NOTE | 2023-09-07 11:34 | PM.CNGS ---
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 She had a colonoscopy in 2020 that showed no stricture, narrowing, or lesions in the colon. No obvious evidence of a mechanical issue and more likely this is a functional issue. She is essentially bedbound and has limited activity. She has also chose conservative measures and wishes to avoid invasive measures on multiple other issues. Hospitalist has consulted [facility] for hospice today as well. The patient still wishes to try conservative measures but is not completely against having a surgery if it was absolutely necessary. There is no evidence of perforation on CT and no peritoneal signs on exam. No indication for any urgent surgical intervention at this time, which I discussed with the patient. I will give her a fleets enema for the fecal impaction and try stimulating from below. We would also recommend consulting GI for possible colonic decompression if needed. Discussed this option with the patient and her POA over the phone, who were agreeable to having GI evaluation. Will give her a clear liquid diet and continue to monitor. (2) Fecal impaction in rectum: Code(s): K56.41 - Fecal impaction Status: Acute Assessment and Plan: No impacted stool palpable on rectal exam to manually disimpact. She is having what appears to be overflow diarrhea. Will order an enema today, which she is agreeable to trying. (3) Vulvar cancer: Code(s): C51.9 - Malignant neoplasm of vulva, unspecified Status: Chronic (4) Inguinal adenopathy: Code(s): R59.0 - Localized enlarged lymph nodes Status: Acute Assessment and Plan: Known bilateral inguinal masses seen on CT that are suspected to be metastatic disease with vulvar cancer. Patient opted to monitor and avoid any chemotherapy for better quality of life. (5) Poor mobility: Code(s): Z74.09 - Other reduced mobility Status: Acute Assessment and Plan: Essentially bedbound and does not ambulate. She reports it has been awhile since she has walked. (6) Acute hypokalemia: Code(s): E87.6 - Hypokalemia Status: Acute Assessment and Plan: Replaced IV, trend labs and replace as needed. Would contribute to her ileus. (7) Chronic hypoxic respiratory failure, on home oxygen therapy: Code(s): J96.11 - Chronic respiratory failure with hypoxia; Z99.81 - Dependence on supplemental oxygen Status: Acute Assessment and Plan: Wears 2 liters of O2 at baseline. (8) Obesity (BMI 30-39.9): Code(s): E66.9 - Obesity, unspecified Status: Acute Plan I have discussed the patient's case and plan of care with Dr. Brown. Thank you for allowing us to see the patient in consultation and we will continue to follow along with you. History of Present Illness Consult details Consult date: 09/07/23 Reason for consult: other (Colonic ileus) Requesting physician: Kirit Yuan MD Narrative: This is an 83-year-old woman with dementia, metastatic vulvar cancer, chronic kidney disease, chronic anemia, hypertension, mild dementia, seizures, and deep venous thrombosis status post IVC filter insertion, who we have been asked to see in surgical consultation for colonic ileus. She presented to the [facility] the [facility] for [facility] of abdominal pain and distention. She reports having chronic issues with abdominal pain and distension for years. She reports having issues with liquid diarrhea for years. To note, she has dementia and is a fair historian, although she was forgetful with short and long-term memory in regards to her history on multiple occasions during our conversation. In review of her electronic medical record, she has had multiple CT scans of the abdomen and pelvis going back as far as 2019 that show prominent diste
--- NOTE | 2023-09-07 17:06 | WPDGICN ---
Assessment and Plan Assessment and plan (1) Fecal impaction in rectum: Code(s): K56.41 - Fecal impaction Status: Acute Assessment and Plan: chronic findings, also she has metastatic vulvar malignancy which can explain her symptoms last colonoscopy without obvious evidence of a mechanical issue continue medical treatment, enema as needed ? hospice vs diversion as palliative option (2) Abdominal distension: Code(s): R14.0 - Abdominal distension (gaseous) Status: Acute (3) Inguinal adenopathy: Code(s): R59.0 - Localized enlarged lymph nodes Status: Acute Assessment and Plan: probably metastatic vulvar malignancy (4) Chronic kidney disease: Code(s): N18.9 - Chronic kidney disease, unspecified Status: Acute (5) Vulvar cancer: Code(s): C51.9 - Malignant neoplasm of vulva, unspecified Status: Chronic GI Consult Note Consult date/time: 09/07/23 17:06 Reason for consult: rectal distension, history of vulvar cancer HPI: Elizabet Mijares is a 83 year old female with dementia, metastatic vulvar cancer (colonoscopy by me 2020 showed large vulvar mass otherwise lumen of colon normal, only mild diverticulosis), chronic kidney disease, chronic anemia, hypertension, seizures, and deep venous thrombosis status post IVC filter insertion. She presented to the ER 2 days ago from the [place] [facility] for evaluation of abdominal pain and distention.? She has been having loose stool for more than a year. She is not best historian and is forgetful. She has known prominent distention of the rectosigmoid colon and fecal impactions since 2019, then I performed colonoscopy in May of 2021 noted large vulvar mass, she was evaluated by oncology but it is my understanding that she did not pursue radiation therapy and had partial surgery but no more curative interventions.? She has since been hospitalized on multiple occasions for a similar issue with most recent admission on August 26 with EMILY, acute on chronic anemia, and UTI.? She had a blood transfusion and was treated with antibiotics for ESBL E coli urinary tract infection.?She was discharged to the [place] [facility] and brought back into the ER on 09/05/2023 for abdominal distention and chronic pain.? CT scan of the abdomen and pelvis reviewed and showed persistent severe dilation of the rectosigmoid colon with fecal impaction in the rectum, likely ileus.? Also seen are stable large lobulated bilateral inguinal masses measuring up to 11 cm most likely metastatic disease. Review of Systems Review of Systems: ROS unobtainable: Yes unobtainable due to medical condition and unobtainable due to mental status PMFSH Past Medical History Medical History Chronic anemia Chronic diarrhea Chronic hypoxic respiratory failure, on home oxygen therapy Chronic kidney disease Colitis Deep vein thrombosis of right lower limb Depression Hyperlipidemia Hypertension Osteoarthritis Psoriasis Reflux esophagitis Stricture of sigmoid colon Vulvar cancer Status post partial right vulvectomy. The patient and family members have decided not to pursue curative intent treatment. She saw a radiation oncologist regarding inguinal adenopathy though they have decided to hold on initiation of palliative radiation as she is asymptomatic. Surgical History Surgical History History of colonoscopy History of esophagogastroduodenoscopy (EGD) History of hernia repair History of surgery on right wrist History of total left hip arthroplasty History of vulvectomy Family History Family History Father Diabetes mellitus Heart attack Mother Cerebrovascular accident Heart attack Sibling Dementia Social History Social History Social History:
--- NOTE | 2023-09-07 18:07 | PM.IMPN ---
Progress Note: A&P Assessment and Plan (1) Ileus: Code(s): K56.7 - Ileus, unspecified Status: Acute (2) Fecal impaction in rectum: Code(s): K56.41 - Fecal impaction Status: Acute (3) Hypokalemia: Code(s): E87.6 - Hypokalemia Status: Acute (4) Abdominal pain: Code(s): R10.9 - Unspecified abdominal pain Status: Acute (5) Inguinal adenopathy: Code(s): R59.0 - Localized enlarged lymph nodes Status: Acute (6) Vulvar cancer: Code(s): C51.9 - Malignant neoplasm of vulva, unspecified Status: Chronic (7) Chronic kidney disease: Code(s): N18.9 - Chronic kidney disease, unspecified Status: Acute (8) Chronic anemia: Code(s): D64.9 - Anemia, unspecified Status: Acute Plan Place patient under observation status NG tube placed for abdominal decompression which patient pulled out after admission from ED General surgery consult given for evaluation and treatment recommendations General surgery also involved GI for strategies regarding decompression of patient's bowels She has metastatic vulvular cancer with large masses in the abdominal/pelvic cavity Patient meet need digital/mechanical disimpaction and/or sigmoidoscopy Keep patient NPO except meds Patient has EMILY with the moderately-severe hypokalemia Patient's potassium level has normalized after aggressive potassium supplementation Continue IV fluids in the form of D5 half normal saline with 40 mEq KCL supplementation at 75 cc/hour Strict input and output monitoring Monitor labs and electrolytes closely Spoke with both the patient and POA and they both agreed with hospice consult Patient evaluated by hospice who accepted the patient and are arranging equipment at home DC planning home with hospice in a.m. once arrangements are made ? Patient seen and examined at bedside during my morning rounds ? Collaborated with patient's nurse at the bedside in detail and addressed all concerns ? Labs, electrolytes, radiology, investigations and test results reviewed ? Consult/Nursing/Ancilliary notes on the chart reviewed and appreciated ? Spoke with patient/family at the bedside and answered all the questions that they had Repeat labs in a.m. Electrolyte replacement as per protocol. Patient will be monitored very closely on the floor. Further recommendations as per the hospital course. Time Spent With Patient Time with patient: 15 - 25 minutes Subjective Date/time seen: 09/07/23 18:07 Interval history: Patient still feels her. Complains of some abdominal pain with distention. Spoke with Josh, patient's POA/nephew, in detail about patient's decision regarding hospice care. Review of Systems Review of Systems: Twelve systems were reviewed and are negative except for as per HPI. All systems reviewed & are unremarkable except as noted in HPI and below Exam Narrative: General:?Chronically ill-appearing female sitting up in bed. Weight: 94.7 kg. BMI: 39.4. HEENT:??PERRL, EOMI. Sclera anicteric. Tacky mucous membranes. Neck:??Supple. Respiratory:?Lungs are clear to auscultation bilaterally. Cardiovascular:??Regular rate and rhythm with S1-S2.? Gastrointestinal:??Abdomen is markedly distended. Increased tympany throughout. She is tender to palpation throughout the abdomen without voluntary guarding or rebound tenderness. She has pretty significant inguinal lymphadenopathy, left greater than right with some tenderness. Positive bowel sounds. Skin:? Warm and dry. Generalized pallor. Extremities:??No cyanosis, clubbing, or significant edema. Feet are cool. Posterior tibialis pulses palpable.?Capillary refill normal. Neurological:??Alert.? Cranial nerves 2-12 are grossly intact. No gross focal deficits to casual conversation. Psychiatric:??Pleasant and cooperative with appropriate mood and affect. She is in good spirits. Slightly forgetful. Objective Data Vital Signs Vital Signs: V
[2023-09-07] MEDS: levETIRAcetam 500 MG TABLET PO (22:54)
[2023-09-08] VITALS (10 sets, daily range): BP systolic 97–154; BP diastolic 51–99; PULSE 77–87; RESP 14–20; TEMP 36.4–37.1; O2SAT 99–100
--- NOTE | 2023-09-08 04:57 | PC.NURSE ---
Pt lost IV access overnight. Conference Reservationist reached out to Hospitalist, Chase RECINOS and made aware. Hospitalist gave telephone order for KETURAH Estrella.
[2023-09-08 06:46] LABS: Basophils Percent Auto 0.4 % (0.2-1.2); Eosinophils Absolute Auto 0.4 K/mm3 (0-0.3); Eosinophils Percent Auto 4.6 % (0-4.4); Hematocrit 30.6 % (37.0-47.0); Hemoglobin 8.8 g/dL (12.0-15.0); Immature Granulocyte Absolute 0.03 K/mm3 (0.00-0.031); Immature Granulocyte Percent A 0.4 % (0-0.5); Lymphocytes Absolute Auto 2.78 K/mm3 (0.9-3.2); Lymphocytes Percent Auto 32.9 % (18.3-44.2); Mean Corpuscular HGB Conc 28.8 g/dl (32-36); Mean Corpuscular Hemoglobin 25.4 pg (26-34); Mean Corpuscular Volume 88.4 fl (80-100); Mean Platelet Volume 10.2 fl (7.4-10.4); Monocytes Absolute Auto 0.6 K/mm3 (0.1-0.6); Monocytes Percent Auto 7.5 % (2.6-8.5); Neutrophils Absolute Auto 4.6 K/mm3 (1.3-6.7); Neutrophils Percent Auto 54.2 % (45.5-73.1); Nucleated Red Blood Cells Perc 0.2 % (0.0-0.2); Platelet Count Result 252 k/mm3 (150-375); Red Blood Count 3.46 M/mm3 (4.2-5.4); Red Cell Distribution Width 19.5 % (11.5-14.5); White Blood Count 8.4 K/mm3 (4.5-10.0)
[2023-09-08 07:13] LABS: Anion Gap 7 mmol/L (8-16); Blood Urea Nitrogen 35 mg/dL (7-17); Calcium 7.6 mg/dL (8.4-10.2); Carbon Dioxide 18 mmol/L (22-30); Chloride 119 mmol/L (98-107); Estimated CRCL calculation 33 ml/min; Estimated Glomerular Filt Rate 39; Glucose 103 mg/dL (65-110); Potassium 2.5 mmol/L (3.4-5.0); Sodium 144 mmol/L (137-145)
[2023-09-08 08:10] LABS: Platelet Estimate Adequate (Adequate)
[2023-09-08 08:12] LABS: Anisocytosis 1+ (NORMAL); Hypochromasia 1+ (NORMAL); Schistocytes None Seen (NORMAL)
[2023-09-08] MEDS: POTASSIUM CHLORIDE 20 MEQ ER TABLET 40 MEQ PO (08:58)
[2023-09-08] MEDS: levETIRAcetam 500 MG TABLET PO ×2 (08:58→20:56)
--- NOTE | 2023-09-08 09:38 | PM.PNGS ---
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 Assessment and Plan: This is a chronic issue, continue medical management, will give another enema, GI consulted and recommendations noted, patient and family are open to the idea of diversion if needed and unable to improve with more conservative measures (2) Fecal impaction in rectum: Code(s): K56.41 - Fecal impaction Status: Acute Assessment and Plan: Fecal impaction on CT, still no formed stool passed, will give another enema (3) Vulvar cancer: Code(s): C51.9 - Malignant neoplasm of vulva, unspecified Status: Chronic Assessment and Plan: Patient and family likely planning to move forward with hospice (4) Acute hypokalemia: Code(s): E87.6 - Hypokalemia Status: Acute Assessment and Plan: K 2.5 today and being replaced with IV and oral potassium, repeat labs and replace as needed. This is likely contributing to her ileus. Plan I have discussed the patient's case and plan of care with Dr. Brown. Subjective Subjective Date/Time Seen: 09/08/23 09:38 Interval history: Patient seen this morning. She has dementia and has a difficult time recalling information, especially short term. She cannot recall if she has had any bowel movements. There is another one documented from yesterday afternoon but nursing is unsure if this was still watery diarrhea after the enema or if this was formed stool. GI evaluated patient and it does not appear they have anything planned for colonic decompression. Patient and her nephew/POA talked with the Hospitalist about hospice and are planning to proceed with this when she is medically stable for discharge. They wish to continue medical treatment for the ileus. They are not against possible diverting ostomy if that is a last resort. She is tolerating some clear liquids with no nausea or vomiting. She is still having mostly RUQ abdominal pain that comes and goes. She still feels bloated and distended. She lost IV access last night and nursing was unable to place a new IV after multiple attempts, so her IV with KCL was not running through the night. Her potassium was down to 2.5 this am. She had a new IV placed by ultrasound this mornind and is currently receiving IV potassium and oral potassium. Exam Const: General: comfortable and obese Orientation/consciousness: confusion GI: Inspection: distended, Pannus present and obesity GI Palp: Yes Firmness to palpation present (GI) (more distended today ), No Tenderness to palpation present (GI), No Guarding due to palpation present (GI) and No Rebound tenderness present Auscultation: High-pitched bowel sounds present Objective Data Vital Signs Vital Signs: Vital Signs - 24 hr 09/07/23 11:20 09/07/23 12:00 09/07/23 14:00 Temperature 97.2 F L Pulse Rate 76 86 Respiratory Rate 16 Blood Pressure 114/64 Pulse Oximetry 93 97 Oxygen Delivery Nasal Cannula Oxygen Flow Rate 2 09/07/23 16:00 09/07/23 20:34 09/07/23 20:00 Temperature 97.1 F L Pulse Rate 87 58 L 85 Respiratory Rate 20 Blood Pressure 125/98 H Pulse Oximetry 99 Oxygen Delivery Oxygen Flow Rate 09/08/23 00:00 09/08/23 04:00 09/08/23 04:54 Temperature 98.1 F Pulse Rate 77 80 85 Respiratory Rate 20 Blood Pressure 154/99 H Pulse Oximetry 99 Oxygen Delivery Oxygen Flow Rate Intake/Output Intake/Output: Intake & Output 09/05/23 09/06/23 09/07/23 09/08/23 23:59 23:59 23:59 23:59 Intake Total 0094 381 1778 300 Output Total 900 1475 250 850 Balance 720 -750 2210 -550 Meds/Results Medications: Active Medications Generic Name Dose Route Start Last Admin Trade Name Freq PRN Reason Stop Dose Admin Diclofenac Sodium 0 applic 09/05/23 21:33 Diclofenac Sodium 1% 100 Gm Gel (*Bkc) TOPICAL QID PRN Pain Lactated Ringer's 1,000 mls @
[2023-09-08] MEDS: KCL 40 MEQ/0.9% SOD CHL 1,000 ML 75 ML IV CONT (12:46)
--- NOTE | 2023-09-08 14:06 | PM.IMPN ---
Progress Note: A&P Assessment and Plan (1) Ileus: Code(s): K56.7 - Ileus, unspecified Status: Acute (2) Fecal impaction in rectum: Code(s): K56.41 - Fecal impaction Status: Acute (3) Hypokalemia: Code(s): E87.6 - Hypokalemia Status: Acute (4) Abdominal pain: Code(s): R10.9 - Unspecified abdominal pain Status: Acute (5) Inguinal adenopathy: Code(s): R59.0 - Localized enlarged lymph nodes Status: Acute (6) Vulvar cancer: Code(s): C51.9 - Malignant neoplasm of vulva, unspecified Status: Chronic (7) Chronic kidney disease: Code(s): N18.9 - Chronic kidney disease, unspecified Status: Acute (8) Chronic anemia: Code(s): D64.9 - Anemia, unspecified Status: Acute Plan Advanced patient to full inpatient status NG tube placed for abdominal decompression which patient pulled out after admission from ED General surgery consult given for evaluation and treatment recommendations General surgery also involved GI for strategies regarding decompression of patient's bowels Management options including sigmoidoscopy versus palliative collect the colostomy tube for patient's symptom medical improvement General surgery spoke with GI who plan to take her for abdominal disease compression by sigmoidoscopy which is a less invasive option and approved by POA She has metastatic vulvular cancer 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 x1 dose and IV administration of 40 mEq KCL over 4 hour Repeat potassium level at 3:00 p.m. Continue IV fluids in the form of D5 half normal saline with 40 mEq KCL supplementation at 75 cc/hour Strict input and output monitoring Monitor labs and electrolytes closely Spoke with both the patient and POA and they both agreed with hospice consult Patient evaluated by hospice who accepted the patient and are arranging equipment at home DC planning home with hospice once she is more stable, after abdominal decompression and replacement of electrolytes ? Patient seen and examined at bedside during my morning rounds ? Collaborated with patient's nurse at the bedside in detail and addressed all concerns ? Labs, electrolytes, radiology, investigations and test results reviewed ? Consult/Nursing/Ancilliary notes on the chart reviewed and appreciated ? Spoke with patient/family at the bedside and answered all the questions that they had Repeat labs in a.m. Electrolyte replacement as per protocol. Patient will be monitored very closely on the floor. Further recommendations as per the hospital course. Time Spent With Patient Time with patient: 15 - 25 minutes Subjective Date/time seen: 09/08/23 14:06 Interval history: Patient still has the abdominal distension. Spoke with General surgery in detail who in turn spoke with GI for abdominal decompression with the sigmoidoscopy. Review of Systems Review of Systems: Twelve systems were reviewed and are negative except for as per HPI. All systems reviewed & are unremarkable except as noted in HPI and below Exam Narrative: General:?Chronically ill-appearing female sitting up in bed. Weight: 94.7 kg. BMI: 39.4. HEENT:??PERRL, EOMI. Sclera anicteric. Tacky mucous membranes. Neck:??Supple. Respiratory:?Lungs are clear to auscultation bilaterally. Cardiovascular:??Regular rate and rhythm with S1-S2.? Gastrointestinal:??Abdomen is markedly distended. Increased tympany throughout. She is te
[2023-09-08 15:26] LABS: Potassium 2.8 mmol/L (3.4-5.0)
[2023-09-08] MEDS: POTASSIUM CHLORIDE INJ 40 MEQ in SODIUM CHLORIDE 0.9% IV 500 ML 130 MEQ IVPB (16:13)
--- NOTE | 2023-09-08 17:42 | WPDGIPROGNO ---
Progress Note: A&P Assessment and Plan (1) Fecal impaction in rectum: Code(s): K56.41 - Fecal impaction Status: Acute Assessment and Plan: discussed with surgery, plan is to visualize again this time with sigmoidoscopy and reassess again, she has known distension of rectosigmoid area and also metastatic vulvar cancer. Will try to decompress tomorrow but probably long lasting solution could be diverting colostomy as palliative option, this has to be discussed with family- in the past they were inclining for comfort measure. (2) Abnormality of rectum: Code(s): K62.9 - Disease of anus and rectum, unspecified Status: Acute (3) Vulvar cancer: Code(s): C51.9 - Malignant neoplasm of vulva, unspecified Status: Chronic (4) Chronic kidney disease: Code(s): N18.9 - Chronic kidney disease, unspecified Status: Acute (5) Abdominal distension: Code(s): R14.0 - Abdominal distension (gaseous) Status: Acute (6) Inguinal adenopathy: Code(s): R59.0 - Localized enlarged lymph nodes Status: Acute Assessment and Plan: probably metastatic disease, known vulvar cancer Subjective Date/time seen: 09/08/23 17:42 Interval history: liquid stool, no changes, she is relatively comfortable Review of Systems Review of Systems: All systems reviewed & are unremarkable except as noted in HPI and below Exam Const: General: comfortable and no acute distress Nutritional Appearance: obese Orientation/consciousness: oriented to person, oriented to place and confusion HENMT: Head: normocephalic Ears: hearing grossly normal bilaterally Eyes: General: appearance normal, both eyes and all related structures Neck: Neck: normal visual inspection Resp: Effort & Inspection: no respiratory distress Auscultation: clear to auscultation bilaterally Cardio: Rate: regular rate Rhythm: regular rhythm GI: Inspection: distended, obesity and scar (supraumbilical midline scar) GI Palp: Yes Tenderness to palpation present (GI) (mild tenderness in the LUQ and epigastric area), No Guarding due to palpation present (GI) and Yes Palpable mass present (large firm inguinal masses, L>R, c/w inguinal LAD on CT) Skin: General skin exam: normal color Neuro: General: moves all extremities and no focal motor deficits Speech: normal speech Extrem: General: normal to inspection and edema bilateral (mild) Psych: Mental Status: mental status grossly normal Attitude: cooperative Insight: Limited insight present (Psych) Judgement: Limited judgement present (Psych) Objective Data Vital Signs Vital Signs: Vital Signs - 24 hr 09/07/23 20:34 09/07/23 20:00 09/08/23 00:00 Temperature 97.1 F L Pulse Rate 58 L 85 77 Respiratory Rate 20 Blood Pressure 125/98 H Pulse Oximetry 99 Oxygen Delivery Oxygen Flow Rate 09/08/23 04:00 09/08/23 04:54 09/08/23 08:55 Temperature 98.1 F Pulse Rate 80 85 85 Respiratory Rate 20 20 Blood Pressure 154/99 H Pulse Oximetry 99 99 Oxygen Delivery Nasal Cannula Oxygen Flow Rate 2 09/08/23 14:00 09/08/23 08:00 09/08/23 12:00 Temperature 98.7 F Pulse Rate 87 86 86 Respiratory Rate 20 Blood Pressure 144/98 H Pulse Oximetry 100 Oxygen Delivery Oxygen Flow Rate Intake/Output Intake/Output: Intake & Output 09/05/23 09/06/23 09/07/23 09/08/23 23:59 23:59 23:59 23:59 Intake Total 9158 461 1297 700 Output Total 900 1475 250 850 Balance 720 -322 2210 -150 Meds/Results Medications: Active Medications Generic Name Dose Route Start Last Admin Trade Name Freq PRN Reason Stop Dose Admin Diclofenac Sodium 0 applic 09/05/23 21:33 Diclofenac Sodium 1% 100 Gm Gel (*Bkc) TOPICAL QID PRN Pain Lactated Ringer's 1,000 mls @ 100 mls/hr 09/05/23 15:05 09/08/23 16:55 Lr - Lactated Ringers Iv IV CONT Not Given .Q10H RUDDY Potassium Chloride/Sodium Chloride 1,000 mls @ 75 mls
[2023-09-08] MEDS: polyethylene glycoL 3350 238 GM BOTTLE PO (19:27)
[2023-09-08] MEDS: BISACODYL 5 MG TABLET EC 20 MG PO (19:27)
[2023-09-09] VITALS (16 sets, daily range): BP systolic 82–148; BP diastolic 47–102; PULSE 52–96; RESP 13–20; TEMP 36.2–36.7; O2SAT 92–100
[2023-09-09] MEDS: KCL 40 MEQ/0.9% SOD CHL 1,000 ML 75 ML IV CONT (06:00)
[2023-09-09 06:58] LABS: Basophils Percent Auto 0.2 % (0.2-1.2); Eosinophils Absolute Auto 0.3 K/mm3 (0-0.3); Eosinophils Percent Auto 3.9 % (0-4.4); Hemoglobin 9.2 g/dL (12.0-15.0); Immature Granulocyte Absolute 0.04 K/mm3 (0.00-0.031); Immature Granulocyte Percent A 0.5 % (0-0.5); Lymphocytes Absolute Auto 2.54 K/mm3 (0.9-3.2); Lymphocytes Percent Auto 31.1 % (18.3-44.2); Mean Corpuscular HGB Conc 27.9 g/dl (32-36); Mean Corpuscular Hemoglobin 25.3 pg (26-34); Mean Corpuscular Volume 90.9 fl (80-100); Mean Platelet Volume 10.1 fl (7.4-10.4); Monocytes Absolute Auto 0.7 K/mm3 (0.1-0.6); Monocytes Percent Auto 8.9 % (2.6-8.5); Neutrophils Absolute Auto 4.5 K/mm3 (1.3-6.7); Neutrophils Percent Auto 55.4 % (45.5-73.1); Nucleated Red Blood Cells Perc 0.2 % (0.0-0.2); Platelet Count Result 233 k/mm3 (150-375); Red Blood Count 3.63 M/mm3 (4.2-5.4); Red Cell Distribution Width 20.2 % (11.5-14.5); White Blood Count 8.2 K/mm3 (4.5-10.0)
[2023-09-09 07:13] LABS: Anion Gap 8 mmol/L (8-16); Blood Urea Nitrogen 31 mg/dL (7-17); Calcium 7.3 mg/dL (8.4-10.2); Carbon Dioxide 14 mmol/L (22-30); Chloride 121 mmol/L (98-107); Estimated CRCL calculation 31 ml/min; Estimated Glomerular Filt Rate 36; Glucose 101 mg/dL (65-110); Potassium 3.8 mmol/L (3.4-5.0); Sodium 143 mmol/L (137-145)
[2023-09-09 07:42] LABS: Anisocytosis 2+ (NORMAL); Hypochromasia 1+ (NORMAL); Macrocytosis 1+ (NORMAL); Platelet Estimate Adequate (Adequate)
[2023-09-09 07:43] LABS: Burr Cells 1+ (NORMAL); Ovalocytes 1+ (NORMAL); Schistocytes None Seen (NORMAL)
[2023-09-09] MEDS: levETIRAcetam 500 MG TABLET PO ×2 (09:22→20:45)
--- NOTE | 2023-09-09 09:54 | PM.PNGS ---
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 Assessment and Plan: still quite distended on exam, proceed c decompressive sigmoidoscopy today, pt and family have decided to move forward c hospice care and do not want any surgical intervention, will sign off, call c?s, issues (2) Vulvar cancer: Code(s): C51.9 - Malignant neoplasm of vulva, unspecified Status: Chronic Assessment and Plan: pt and family have decided to move forward c hospice care Subjective Subjective Date/Time Seen: 09/09/23 09:54 Interval history: no acute issues, still having watery BMs, wants something to drink Review of Systems Review of Systems: All systems reviewed & are unremarkable except as noted in HPI and below Exam Const: General: cooperative, comfortable, no acute distress and ill appearing Resp: Auscultation: diminished lung sounds Cardio: Rate: regular rate Rhythm: regular rhythm GI: Inspection: normal to inspection and distended GI Palp: No abdominal tenderness, Yes Soft to palpation, No Tenderness to palpation present (GI), No Guarding due to palpation present (GI) and No Rigid due to palpation Objective Data Vital Signs Vital Signs: Vital Signs - 24 hr 09/08/23 14:00 09/08/23 12:00 09/08/23 16:00 Temperature 37.1 C Pulse Rate 87 86 82 Respiratory Rate 20 Blood Pressure 144/98 H Pulse Oximetry 100 09/08/23 22:00 09/08/23 20:00 09/09/23 00:00 Temperature 36.4 C L Pulse Rate 87 82 86 Respiratory Rate 14 Blood Pressure 97/51 L Pulse Oximetry 100 09/08/23 22:00 09/09/23 04:00 09/09/23 06:00 Temperature 36.3 C L Pulse Rate 87 96 Respiratory Rate 13 Blood Pressure 100/68 111/67 Pulse Oximetry 99 Intake/Output Intake/Output: Intake & Output 09/06/23 09/07/23 09/08/23 09/09/23 23:59 23:59 23:59 23:59 Intake Total 920 2460 1300 1500 Output Total 9328 897 8943 1500 Balance -555 2210 -450 0 Meds/Results Medications: Active Medications Generic Name Dose Route Start Last Admin Trade Name Freq PRN Reason Stop Dose Admin Diclofenac Sodium 0 applic 09/05/23 21:33 Diclofenac Sodium 1% 100 Gm Gel (*Bkc) TOPICAL QID PRN Pain Lactated Ringer's 1,000 mls @ 100 mls/hr 09/05/23 15:05 09/09/23 06:47 Lr - Lactated Ringers Iv IV CONT Not Given .Q10H RUDDY Potassium Chloride/Sodium Chloride 1,000 mls @ 75 mls/hr 09/08/23 11:55 09/09/23 06:00 Kcl 40 Meq/Ns IV CONT 75 mls/hr .[id number] RUDDY Administration Lactulose 10 gm 09/05/23 21:50 Lactulose 20 Gm/30 Ml Udc PO BID PRN Constipation Levetiracetam 500 mg 09/07/23 22:48 09/09/23 09:22 Levetiracetam 500 Mg Tablet PO 500 mg Q12HR RUDDY Administration Morphine Sulfate 2 mg 09/05/23 15:03 Morphine Sulfate (*Crx) 2 Mg/Ml Inj IV PUSH Q4H PRN Pain Rated 7-10 Tolnaftate 1 applic 09/05/23 21:47 Tolnaftate 1% Powder 45 Gm Btl TOPICAL TID PRN Diaper Rash Radiology Results: ITS Impressions Abdomen/Pelvis CT 09/05/23 11:30 IMPRESSION: 1. Persistent severe dilation of the rectosigmoid colon with fecal impaction in the rectum, likely ileus. 2: Stable large lobulated bilateral inguinal masses measuring up to 11 cm, most likely metastatic disease or lymphoma. 3: Cholelithiasis. 4: Nonobstructing bilateral nephrolithiasis with severe atrophy of the right kidney. Abdomen X-Ray 09/06/23 05:51 Impression: NG tube in satisfactory position. Multiple prominent air distended loops of large and small bowel. Correlate for ileus versus bowel obstruction. Labs Labs: Laboratory Results - last 24 hr 09/08/23 09/09/23 15:04 06:40 WBC 8.2 RBC 3.63 L Hgb 9.2 L Hct 33.0 L MCV 90.9 MCH 25.3 L MCHC 27.9 L RDW 20.2 H Plt Count 233 MPV 10.1 Immature Gran % (Auto) 0.5 Neut % (Auto) 55.4 Lymph % (Auto) 31.
--- NOTE | 2023-09-09 11:23 | WPDANESEPPF ---
Anes - Initial Pre Proc Eval Procedure: Operation Date: 09/09/23 12:00 Proposed Procedures p Flexible Sigmoidoscopy - Robbie Campbell MD Date/Time: 09/09/23 11:23 Surgeon: Kirit Yuan MD Pre Op Diagnosis: Hypokalemia, ileus Patient Data Age: 83 Gender: F Height: 1.55 m Weight: 102.3 kg Last Vital Signs Temp 36.3 C L 09/09/23 06:00 Pulse 96 09/09/23 06:00 Resp 13 09/09/23 06:00 BP 111/67 09/09/23 06:00 Pulse Ox 99 09/09/23 06:00 O2 Del Method Nasal Cannula 09/08/23 08:55 O2 Flow Rate 2 09/08/23 08:55 Allergies Allergy/AdvReac Type Severity Reaction Status Date / Time red dye Allergy Severe FACIAL Verified 09/09/23 11:19 SWELLING Home Medications Medication Instructions Recorded Confirmed Type atorvastatin 10 mg tablet 10 mg PO DAILY 06/04/21 09/05/23 History furosemide 20 mg tablet 20 mg PO DAILY 06/04/21 09/05/23 History levetiracetam 250 mg tablet 500 mg PO BID 06/04/21 09/05/23 History acetaminophen 325 mg tablet 650 mg PO Q6-8H PRN Pain 03/02/22 09/05/23 History acetaminophen 500 mg tablet 1,000 mg PO DAILY 03/02/22 09/05/23 History apixaban 2.5 mg tablet (Eliquis) 2.5 mg PO BID 03/02/22 09/05/23 History ondansetron HCl 4 mg tablet 4 mg PO Q6H PRN Nausea 03/02/22 09/05/23 History Lactobacillus acidophilus 100 mg PO TID 07/27/22 09/05/23 History (Acidophilus capsule) polyethylene glycol 3350 17 17 g PO DAILY PRN Constipation 07/27/22 09/05/23 History gram/dose oral powder (Miralax) diclofenac sodium 1 % topical gel 4 g topical QID PRN Pain 06/04/23 09/05/23 History lactulose 10 gram/15 mL oral 15 ml PO BID PRN Constipation 06/04/23 09/05/23 History solution loperamide 2 mg tablet 2 mg PO Q6H PRN Diarrhea 06/04/23 09/05/23 History nystatin 100,000 unit/gram topical 1 applic topical TID PRN Diaper 06/04/23 09/05/23 History powder Rash potassium chloride 10 mEq 10 meq PO DAILY 06/04/23 09/05/23 History capsule,extended release sertraline 25 mg tablet 25 mg PO DAILY 06/04/23 09/05/23 History sertraline 50 mg tablet 50 mg PO DAILY 06/04/23 09/05/23 History sodium phosphates 19 gram-7 197 ml RECTAL DAILY PRN 06/04/23 09/05/23 History gram/118 mL enema (Fleet Enema) Constipation doxycycline hyclate 100 mg tablet 100 mg PO Q12HR #7 tabs 08/30/23 09/05/23 Rx meropenem 1 gram intravenous 1 g IV Q12H 08/30/23 09/05/23 Rx solution Laboratory Tests 09/08/23 09/09/23 15:04 06:40 WBC 8.2 K/mm3 (4.5-10.0) RBC 3.63 L M/mm3 (4.2-5.4) Hgb 9.2 L g/dL (12.0-15.0) Hct 33.0 L % (37.0-47.0) MCV 90.9 fl (80-100) MCH 25.3 L pg (26-34) MCHC 27.9 L g/dl (32-36) RDW 20.2 H % (11.5-14.5) Plt Count 233 k/mm3 (150-375) MPV 10.1 fl (7.4-10.4) Immature Gran % (Auto) 0.5 % (0-0.5) Neut % (Auto) 55.4 % (45.5-73.1) Lymph % (Auto) 31.1 % (18.3-44.2) Barton % (Auto) 8.9 H % (2.6-8.5) Eos % (Auto) 3.9 % (0-4.4) Baso % (Auto) 0.2 % (0.2-1.2) Lymph # (Auto) 2.54 K/mm3 (0.9-3.2) Barton # (Auto) 0.7 H K/mm3 (0.1-0.6) Eos # (Auto) 0.3 K/mm3 (0-0.3) Baso # (Auto) 0.0 K/mm3 (0.0-0.1) Abs Immat Gran (auto) 0.04 H K/mm3 (0.00-0.031) Absolute Neuts (auto) 4.5 K/mm3 (1.3-6.7) Absolute Nucleated RBC 0.0 K/mm3 (0.0-0.012) Nucleated RBC % 0.2 % (0.0-0.2) Platelet Estimate Adequate (Adequate) Hypochromasia 1+ (NORMAL) Anisocytosis 2+ (NORMAL) Macrocytosis 1+ (NORMAL) Ovalocytes 1+ (NORMAL) Kalee Cells 1+ (NORMAL) Schistocytes None seen (NORMAL) Sodium 143 mmol/L (137-145) Potassium 2.8 L* mmol/L 3.8 mmol/L (3.4-5.0) (3.4-5.0) Chloride 121 H mmol/L (98-107) Carbon Dioxide 14 L mmol/L (22-30) Anion Gap 8 mmol/L (8-16) BUN 31 H mg/dL (7-17) Creatinin
[2023-09-09] MEDS: LACTATED RINGERS 1,000 ML 150 ML IV CONT (11:34)
--- NOTE | 2023-09-09 14:50 | PM.IMPN ---
Progress Note: A&P Assessment and Plan (1) Ileus: Code(s): K56.7 - Ileus, unspecified Status: Acute (2) Fecal impaction in rectum: Code(s): K56.41 - Fecal impaction Status: Acute (3) Hypokalemia: Code(s): E87.6 - Hypokalemia Status: Acute (4) Abdominal pain: Code(s): R10.9 - Unspecified abdominal pain Status: Acute (5) Inguinal adenopathy: Code(s): R59.0 - Localized enlarged lymph nodes Status: Acute (6) Vulvar cancer: Code(s): C51.9 - Malignant neoplasm of vulva, unspecified Status: Chronic (7) Chronic kidney disease: Code(s): N18.9 - Chronic kidney disease, unspecified Status: Acute (8) Chronic anemia: Code(s): D64.9 - Anemia, unspecified Status: Acute Plan Advanced patient to full inpatient status NG tube placed for abdominal decompression which patient pulled out after admission from ED General surgery consult given for evaluation and treatment recommendations General surgery also involved GI for strategies regarding decompression of patient's bowels Management options including sigmoidoscopy versus palliative colectomy with colostomy tube for patient's symptom medical improvement General surgery spoke with GI who plan to take her for abdominal disease compression by sigmoidoscopy which is a less invasive option and approved by POA Both patient and POA are refusing palliative colectomy with colostomy tube placement hence General surgery is signing off She has metastatic vulvular cancer 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 x1 dose and IV administration of 40 mEq KCL over 4 hour 09/09/2023: Her potassium is adequately replaced and is currently 3.8. Continue with the gentle IV hydration with potassium replacement. Renal functions are slowly improving Continue IV fluids in the form of D5 half normal saline with 40 mEq KCL supplementation at 75 cc/hour Strict input and output monitoring Monitor labs and electrolytes closely Spoke with both the patient and POA and they both agreed with hospice consult Patient evaluated by hospice who accepted the patient and are arranging equipment at home DC planning home with hospice once she is more stable, after abdominal decompression and replacement of electrolytes ? Patient seen and examined at bedside during my morning rounds ? Collaborated with patient's nurse at the bedside in detail and addressed all concerns ? Labs, electrolytes, radiology, investigations and test results reviewed ? Consult/Nursing/Ancilliary notes on the chart reviewed and appreciated ? Spoke with patient/family at the bedside and answered all the questions that they had Repeat labs in a.m. Electrolyte replacement as per protocol. Patient will be monitored very closely on the floor. Further recommendations as per the hospital course. Time Spent With Patient Time with patient: 15 - 25 minutes Subjective Date/time seen: 09/09/23 14:50 Interval history: Patient lying in bed. Complains more abdominal distention and abdominal pain this morning. She is NPO for abdominal decompression with sigmoidoscopy by GI today. Review of Systems Review of Systems: Twelve systems were reviewed and are negative except for as per HPI. All systems reviewed & are unremarkable except as noted in HPI and below Exam Narrative: General:?Chronically ill-appearing female sitting up in bed. Weight: 94.7 kg. BMI: 39.4. HEENT:??PERR
[2023-09-09] MEDS: POTASSIUM CHLORIDE INJ 40 MEQ in SODIUM CHLORIDE 0.9% IV 500 ML 130 MEQ IVPB (16:50)
[2023-09-09] MEDS: POTASSIUM CHLORIDE 20 MEQ ER TABLET 40 MEQ PO (20:45)
[2023-09-09] MEDS: TOLNAFTATE 1% POWDER 45 GM BTL 1 APPLIC TOPICAL (20:49)
[2023-09-09] MEDS: DICLOFENAC SODIUM 1% 100 GM GEL (*BKC) TOPICAL (20:49)
[2023-09-10] VITALS (8 sets, daily range): BP systolic 110–141; BP diastolic 52–86; PULSE 74–83; RESP 20; TEMP 36.3–36.4; O2SAT 95–99
[2023-09-10] MEDS: levETIRAcetam 500 MG TABLET PO (08:58)
[2023-09-10 09:33] LABS: Hematocrit 30.6 % (37.0-47.0); Hemoglobin 8.7 g/dL (12.0-15.0); Mean Corpuscular HGB Conc 28.4 g/dl (32-36); Mean Corpuscular Hemoglobin 25.6 pg (26-34); Mean Platelet Volume 10.4 fl (7.4-10.4); Platelet Count Result 223 k/mm3 (150-375); Red Cell Distribution Width 20.2 % (11.5-14.5); White Blood Count 7.6 K/mm3 (4.5-10.0)
[2023-09-10 09:42] LABS: Alanine Aminotransferase 15 U/L (6-35); Albumin Level 2.5 g/dL (3.5-5.1); Alkaline Phosphatase 87 U/L (38-126); Anion Gap 8 mmol/L (8-16); Aspartate Amino Transferase 46 U/L (14-36); Bilirubin,Total 0.4 mg/dL (0.2-1.3); Blood Urea Nitrogen 30 mg/dL (7-17); Calcium 7.3 mg/dL (8.4-10.2); Carbon Dioxide 17 mmol/L (22-30); Chloride 119 mmol/L (98-107); Estimated CRCL calculation 33 ml/min; Estimated Glomerular Filt Rate 39; Glucose 97 mg/dL (65-110); Potassium 3.5 mmol/L (3.4-5.0); Sodium 144 mmol/L (137-145)
--- NOTE | 2023-09-10 16:02 | PM.DS ---
DS: Admitting Diagnosis Discharge Date 09/10/2023: Admitting Diagnosis (1) Ileus: ?Code(s): K56.7 - Ileus, unspecified ?Status:?Acute (2) Fecal impaction in rectum: ?Code(s): K56.41 - Fecal impaction ?Status:?Inactive (3) Hypokalemia: ?Code(s): E87.6 - Hypokalemia ?Status:?Acute (4) Abdominal pain: ?Code(s): R10.9 - Unspecified abdominal pain ?Status:?Acute (5) Inguinal adenopathy: ?Code(s): R59.0 - Localized enlarged lymph nodes ?Status:?Acute (6) Vulvar cancer: ?Code(s): C51.9 - Malignant neoplasm of vulva, unspecified ?Status:?Chronic (7) Chronic kidney disease: ?Code(s): N18.9 - Chronic kidney disease, unspecified ?Status:?Acute (8) Chronic anemia: ?Code(s): D64.9 - Anemia, unspecified ?Status:?Acute DS: Discharge Diagnosis Discharge Diagnosis (1) Terminal care: Code(s): Z51.5 - Encounter for palliative care Status: Acute (2) Abnormality of rectum: Code(s): K62.9 - Disease of anus and rectum, unspecified Status: Acute (3) Obesity (BMI 30-39.9): Code(s): E66.9 - Obesity, unspecified Status: Acute (4) 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 Status: Acute (5) Chronic anemia: Code(s): D64.9 - Anemia, unspecified Status: Acute (6) Chronic kidney disease: Code(s): N18.9 - Chronic kidney disease, unspecified Status: Acute (7) Acute hypokalemia: Code(s): E87.6 - Hypokalemia Status: Acute (8) Ileus: Code(s): K56.7 - Ileus, unspecified Status: Acute (9) Chronic hypoxic respiratory failure, on home oxygen therapy: Code(s): J96.11 - Chronic respiratory failure with hypoxia; Z99.81 - Dependence on supplemental oxygen Status: Acute (10) Acute on chronic anemia: Code(s): D64.9 - Anemia, unspecified Status: Acute (11) Anemia: Qualifiers: Anemia type: unspecified type Qualified Code(s): D64.9 - Anemia, unspecified Code(s): D64.9 - Anemia, unspecified Status: Acute (12) Inguinal adenopathy: Code(s): R59.0 - Localized enlarged lymph nodes Status: Acute (13) Vulvar cancer: Code(s): C51.9 - Malignant neoplasm of vulva, unspecified Status: Chronic (14) Gait disturbance: Code(s): R26.9 - Unspecified abnormalities of gait and mobility Status: Chronic (15) Abnormal CT of the abdomen: Code(s): R93.5 - Abnormal findings on diagnostic imaging of other abdominal regions, including retroperitoneum Status: Acute (16) Hypocalcemia: Code(s): E83.51 - Hypocalcemia Status: Acute (17) Hypokalemia: Code(s): E87.6 - Hypokalemia Status: Acute (18) Osteoarthritis: Code(s): M19.90 - Unspecified osteoarthritis, unspecified site Status: Acute (19) Ileus: Code(s): K56.7 - Ileus, unspecified Status: Acute (20) Tinea: Code(s): B35.9 - Dermatophytosis, unspecified Status: Acute (21) Hyperlipidemia: Qualifiers: Hyperlipidemia type: unspecified Qualified Code(s): E78.5 - Hyperlipidemia, unspecified Code(s): E78.5 - Hyperlipidemia, unspecified Status: Chronic (22) Hypertension: Qualifiers: Hypertension type: essential hypertension Qualified Code(s): I10 - Essential (primary) hypertension Code(s): I10 - Essential (primary) hypertension Status: Chronic (23) Depression: Qualifiers: Depression Type: unspecified Qualified Code(s): F32.9 - Major depressive disorder, single episode, unspecified Code(s): F32.9 - Major depressive disorder, single episode, unspecified Status: Chronic (24) Poor mobility: Code(s): Z74.09 - Other reduced mobility Status: Acute DS: Summary Hospital Course Reason for hospitalization: Patient admitted with abdominal pain Hospital Course: H&P: HP
[2023-09-10 17:01] LABS: SARS-CoV-2 RNA PCR Negative (Negative)
== END 2023-09-10 17:40 | disposition hospice, home (50) | DRG 345 ==
LOC: ANHED 13:40 → ANH3MEDSUR 14:29
PROVIDERS: Internal Medicine Gastroenterology; Physician Assistant; Admitting Provider Internal Medicine; Emergency Provider Physician Assistant; PCP Nurse Practitioner Adult Health; Visit Provider Family Medicine
PROC: 0DJD8ZZ Inspection of Lower Intestinal Tract, Via Natural or Artificial Opening Endoscopic (ICD-10-PCS; CPT 45330; principal; 2023-09-09 12:00)
DX: K56.7 Ileus, unspecified (principal); C79.9 Secondary malignant neoplasm of unspecified site; J96.11 Chronic respiratory failure with hypoxia; N17.9 Acute kidney failure, unspecified; C51.9 Malignant neoplasm of vulva, unspecified; D63.1 Anemia in chronic kidney disease; E78.5 Hyperlipidemia, unspecified; E66.9 Obesity, unspecified; E87.6 Hypokalemia; F03.90 Unspecified dementia, unspecified severity, without behavioral disturbance, psychotic disturbance, mood disturbance, and anxiety; I12.9 Hypertensive chronic kidney disease with stage 1 through stage 4 chronic kidney disease, or unspecified chronic kidney disease; K80.20 Calculus of gallbladder without cholecystitis without obstruction; K21.00 Gastro-esophageal reflux disease with esophagitis, without bleeding; K52.9 Noninfective gastroenteritis and colitis, unspecified; K57.30 Diverticulosis of large intestine without perforation or abscess without bleeding; K59.81 Ogilvie syndrome; K56.41 Fecal impaction; M19.90 Unspecified osteoarthritis, unspecified site; N18.9 Chronic kidney disease, unspecified; N20.0 Calculus of kidney; Z66 Do not resuscitate; Z11.52 Encounter for screening for COVID-19; Z96.642 Presence of left artificial hip joint; Z90.79 Acquired absence of other genital organ(s); Z87.891 Personal history of nicotine dependence; Z68.39 Body mass index [BMI] 39.0-39.9, adult; Z86.718 Personal history of other venous thrombosis and embolism; Z95.828 Presence of other vascular implants and grafts; Z99.81 Dependence on supplemental oxygen; Z74.01 Bed confinement status
CPT/HCPCS: 36415; 74176; 80048; 80053; 81001; 83605; 83690; 83735; 84100; 84132; 85025; 85027; 87040; 87086; 87635; 93005; 96365; 96366; 96367; 96376; 99285; A9270; G0378; J1953; J2185; J2704; J3480; J7030; J7040; J7120